=== PATIENT | male | born 1930 | race Caucasian/White ===

== ENCOUNTER 2017-05-05 20:51 | Inpatient (IN) | payer MEDICARE ==
[~2017-05-05] VITALS: Ht 177.8 cm; Wt 73.2 kg
[2017-05-05] MEDS: TEMAZEPAM 15 MG CAP PO SCH (21:00)
[2017-05-05] MEDS: SIMVASTATIN 40 MG TAB PO SCH (21:00)
[2017-05-05] MEDS ORDERED: SIMV80TA PO (21:21)
[2017-05-05] MEDS ORDERED: TEMA15CA2 PO (21:21)
[2017-05-05] MEDS ORDERED: METO25TA4 PO (21:21)
[2017-05-05] MEDS ORDERED: ELIQ5TAB PO (21:21)
[2017-05-05] MEDS ORDERED: LISI10TA4 PO (21:21)
[2017-05-05] MEDS ORDERED: ACET1TAB17 PO (21:21)
[2017-05-05] MEDS ORDERED: VITMTA PO (21:21)
[2017-05-05] MEDS ORDERED: FLOM5CAP PO (21:21)
[2017-05-05] MEDS ORDERED: HYDR10TAB PO (21:21)
[2017-05-05] MEDS ORDERED: LORA0.5T11 PO (21:21)
[2017-05-05] MEDS ORDERED: MIRA3350 PO (21:21)
[2017-05-05] MEDS ORDERED: ASPI1TAB PO (21:21)
[2017-05-05] MEDS ORDERED: COLA100C5 PO (21:21)
[2017-05-05 22:38] LABS: BASO # 0.1 10^3/uL (0.0-0.2); BASO % 0.7 % (0.0-1.0); EOS # 0.2 10^3/uL (0.0-0.50); EOS % 2.1 % (0.0-3.0); IMMATURE GRANULOCYTE % 0.5 % (0-0); LYMPH # 0.9 10^3/uL (1.5-4.5); LYMPH % 11.3 % (24.0-44.0); MEAN CORPUSCULAR HGB CONC 32.5 g/dl (32.0-36.5); MEAN CORPUSCULAR VOLUME 92.3 fl (80.0-96.0); MONO # 0.9 10^3/uL (0.0-0.8); MONO % 11.8 % (0.0-5.0); NEUTROPHILS # 5.5 10^3/uL (1.8-7.7); NEUTROPHILS % 73.6 % (36.0-66.0); PLATELET COUNT, AUTOMATED 416 10^3/uL (150-450); RED CELL DISTRIBUTION WIDTH 13.3 % (11.5-14.5); WHITE BLOOD COUNT 7.5 10^3/uL (4.0-10.0)
[2017-05-05 22:48] LABS: INR 1.14
--- NOTE | 2017-05-05 23:10 | REPUSA ---
CT of the abdomen and pelvis without contrast Clinical statement: hematuria. Technique: Multiple axial CT images were obtained from the base of the lungs to the floor of the pelv is utilizing 5 mm axial slices without administration of contrast. Coronal and sagittal reconstructio ns were also obtained. No comparison is available. Findings: Chest: There is a small right-sided pleural effusion with right lower lobe atelectasis. 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 There is no evidence of hydronephrosis or nephrolit hiasis. The liver, spleen, pancreas, gallbladder and adrenal glands are unremarkable. The aorta demon strates extensive atherosclerotic calcifications, with normal caliber and contour. There is no abdomi nal lymphadenopathy or ascites. Pelvis: Moderate amount of stool fills the colon. The bowel is otherwise unremarkable, with no obstru ctive or inflammatory changes. The urinary bladder is within normal limits. There is no pelvic lympha denopathy or ascites. The prostate is enlarged measuring 4.9 x 5.7 cm. Bones: There are no suspicious osseous abnormalities seen. Multilevel degenerative disc disease is ap preciated throughout the lumbar spine, most severe from L1 through L5. Impression: 1. Mild constipation. No obstructive or inflammatory bowel changes. 2. Small right-sided pleural effusion with right lower lobe atelectasis. 3. Horseshoe kidney. No evidence of hydronephrosis or nephrolithiasis. 4. Moderately severe atherosclerosis of aorta. No evidence of aneurysm. 5. 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
[2017-05-05 23:11] LABS: ALBUMIN 2.8 GM/DL (3.2-5.2); ALBUMIN/GLOBULIN RATIO 0.64 (1.00-1.93); ALKALINE PHOSPHATASE 97 U/L (45-117); ALT/SGPT 37 U/L (12-78); ANION GAP 6 MEQ/L (8-16); AST/SGOT 27 U/L (7-37); BILIRUBIN,DIRECT 0.1 MG/DL (0.0-0.2); BILIRUBIN,TOTAL 0.3 MG/DL (0.2-1.0); BLOOD UREA NITROGEN 17 MG/DL (7-18); CALCIUM LEVEL 9.1 MG/DL (8.8-10.2); CARBON DIOXIDE LEVEL 31 MEQ/L (21-32); CHLORIDE LEVEL 100 MEQ/L (98-107); CREATININE FOR GFR 0.71 MG/DL (0.70-1.30); GLOMERULAR FILTRATION RATE > 60.0 (>35); GLUCOSE, FASTING 108 MG/DL (83-110); POTASSIUM SERUM 4.3 MEQ/L (3.5-5.1); SODIUM LEVEL 137 MEQ/L (136-145); TOTAL PROTEIN 7.2 GM/DL (6.4-8.2)
[2017-05-06] MEDS ORDERED: CIPROFLOXACIN 400 MG in APPROPRIATE DILUENT 1 EA IV ONE ×2
[2017-05-06] MEDS ORDERED: MORPHINE 2 MG/ML 1ML SYRINGE IV ONE
[2017-05-06] MEDS ORDERED: MIRA33504 PO (00:12)
[2017-05-06] MEDS ORDERED: DOCU5LIQ PO (00:12)
[2017-05-06] MEDS ORDERED: METOPROLOL TART 25 MG TABLET PO ONE (00:30)
[2017-05-06] MEDS ORDERED: LORazepam 2 MG/ML VIAL (J2060) IV STA (01:02)
[2017-05-06] MEDS ORDERED: MORPHINE 2 MG/ML 1ML SYRINGE IV PRN (01:15)
[2017-05-06] MEDS ORDERED: MIRALAX *UNIT DOSE* 17GM PACKET PO PRN (01:15)
--- NOTE | 2017-05-06 02:17 | HPE ---
DATE OF ADMISSION: 05/05/2017 The patient, Robbie Dailey, is an 87-year-old male. Patient comes in with a chief complaint of irritability and feeling unwell with blood in his diaper. HISTORY OF PRESENT ILLNESS: Patient is an 87-year-old male, previous medical history of very severe CVA in January of 2017. Patient was initially in rehabilitation in [place]. Patient's daughter received a phone call on Sunday from the rehabilitation facility in [place] telling her she had to come home and take her father as the insurance is not going to cover because he has ceased to progress in his therapy. Daughter brought her father here to [place] on Sunday. Patient thereafter began to become a little bit more irritable and uncomfortable. Then patient's employment law attorney and family noticed blood in the diaper and they brought him into the emergency department (ED). While here, patient was found to have bloody urine and urinary tract infection (UTI). Patient to be admitted to the medical service. REVIEW OF SYSTEMS: Patient is unable to complete review of systems as patient is, for the most part, noncommunicative. Patient's home medications include: - acetaminophen - aspirin - hydralazine - lisinopril - lorazepam - metoprolol - multivitamins - MiraLAX - simvastatin - tamsulosin - Restoril Patient does not yet have a primary medical doctor (PMD) in [place] as patient moved up only on Sunday right before the . PHYSICAL EXAMINATION: Patient resting uncomfortably. Patient unable to answer questions and follow directions for cranial nerve exam and patient's orientation. S1, S2, patient with good respiratory effort. ALLERGIES: Patient with no known allergies. FAMILY HISTORY: Noncontributory. LABORATORY EXAMINATION: WBC 7.5, hemoglobin and hematocrit 13.2/40.6, platelet count is 416. Coagulation: PT is 14.8, INR 1.14, aPTT is 35.5. Chemistry: Sodium is 137, potassium 4.3, chloride 100, carbon dioxide 31, BUN/creatinine 17/0.71, fasting glucose 108, calcium 9.1. Liver enzymes within normal limits. Urinalysis: Urine color is red grossly, WBCs are too many to count, positive leukocyte esterase and positive for blood consistent with UTI. IMAGING: Abdominal, pelvic CT: Mild constipation. No obstructive or inflammatory bowel changes. Small right-sided pleural effusion with right lower lobe atelectasis, horseshoe kidney. No evidence of hydronephrosis, nephrolithiasis. Moderately severe atherosclerosis of aorta. No evidence of aneurysm. 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 ASSESSMENT AND PLAN: Patient is an 87-year-old male with significant history of recent stroke and other history as noted above. Will hold patient's anticoagulation given the gross hematuria at this time. Continue patient's statins and beta blockers for his coronary artery disease and hypertension as needed. Continue other home hypertensive medications. Patient reacting poorly to ciprofloxacin. Intravenous (IV) stopped. Will change to IV Zosyn. Urinary tract infection (UTI). Antibiotics as noted above. IV fluids. Constipation. Continue home treatments as needed. Hematuria. IV antibiotics. Three-way Rivera to be placed. Will monitor intake and output (I and O). Possible obstructive uropathy versus other cause. Urology to be contacted when further information becomes available. Deep venous thrombosis (DVT) prophylaxis. As noted patient's apixaban is being held given the gross hematuria. Followup complete blood count (CBC) in the morning. If decreased significantly over the next 5 hours, then would increase the frequency of CBCs to every six. Anxiety and irritability. Continue patient's home lorazepam. Discomfort and pain. Continue home acetaminophen plus morphine starting low dose 1 mg every six. May increase as needed. Given the patient's need for IV antibiotics plus current active bleeding, I expect admission to be greater than two midnights. DVT prophylaxis with intermittent pneumatic compression. Gastrointestinal (GI) prophylaxis with proton pump inhibitor (PPI).
[2017-05-06] MEDS: **hydrALAZINE** 10 MG TAB PO SCH ×4 (02:25→17:00)
[2017-05-06] MEDS ORDERED: PIPERACILLIN/TAZOBACTAM SOD 3.375 GM in APPROPRIATE DILUENT 1 EA IV SCH (03:00)
[2017-05-06 04:00] VITALS: BP 150/82
[2017-05-06] MEDS: PIPERACILLIN/TAZOBACTAM SOD 3.375 GM in APPROPRIATE DILUENT 1 EA IV SCH ×3 (05:07→17:01)
[2017-05-06 06:00] VITALS: BP 168/87
[2017-05-06] MEDS: LORazepam 0.5 MG TAB PO SCH ×3 (06:02→21:30)
[2017-05-06 07:11] LABS: ALBUMIN 2.6 GM/DL (3.2-5.2); ALBUMIN/GLOBULIN RATIO 0.67 (1.00-1.93); ALKALINE PHOSPHATASE 81 U/L (45-117); ALT/SGPT 30 U/L (12-78); ANION GAP 9 MEQ/L (8-16); AST/SGOT 20 U/L (7-37); BILIRUBIN,TOTAL 0.4 MG/DL (0.2-1.0); BLOOD UREA NITROGEN 13 MG/DL (7-18); CALCIUM LEVEL 9.1 MG/DL (8.8-10.2); CARBON DIOXIDE LEVEL 27 MEQ/L (21-32); CHLORIDE LEVEL 102 MEQ/L (98-107); CREATININE FOR GFR 0.61 MG/DL (0.70-1.30); GLOMERULAR FILTRATION RATE > 60.0 (>35); GLUCOSE, FASTING 103 MG/DL (83-110); POTASSIUM SERUM 4.2 MEQ/L (3.5-5.1); SODIUM LEVEL 138 MEQ/L (136-145); TOTAL PROTEIN 6.5 GM/DL (6.4-8.2)
[2017-05-06] MEDS: DOCUSATE SOD LIQ 100MG/10ML UDC PO SCH ×2 (08:06→21:30)
[2017-05-06] MEDS: PANTOPRAZOLE 40MG TAB (PROTONIX) PO SCH (08:06)
[2017-05-06] MEDS: MULTIVITAMINS/MINERALS THERAP 1 TAB PO SCH (08:06)
[2017-05-06] MEDS: METOPROLOL TART 25 MG TABLET PO SCH ×2 (08:07→21:30)
[2017-05-06] MEDS: ASPIRIN 81 MG ENTERIC TAB PO SCH (08:07)
[2017-05-06] MEDS: TAMSULOSIN 0.4 MG CAP PO SCH (08:07)
[2017-05-06] MEDS: LISINOPRIL 10 MG TAB PO SCH (08:08)
[2017-05-06 08:14] LABS: BASO % 0.5 % (0.0-1.0); EOS # 0.2 10^3/uL (0.0-0.50); EOS % 2.7 % (0.0-3.0); IMMATURE GRANULOCYTE % 0.7 % (0-0); LYMPH % 11.7 % (24.0-44.0); MEAN CORPUSCULAR HEMOGLOBIN 29.9 pg (27.0-33.0); MEAN CORPUSCULAR HGB CONC 32.4 g/dl (32.0-36.5); MEAN CORPUSCULAR VOLUME 92.3 fl (80.0-96.0); MONO # 1.2 10^3/uL (0.0-0.8); MONO % 14.7 % (0.0-5.0); NEUTROPHILS # 5.7 10^3/uL (1.8-7.7); NEUTROPHILS % 69.7 % (36.0-66.0); PLATELET COUNT, AUTOMATED 352 10^3/uL (150-450); RED CELL DISTRIBUTION WIDTH 13.3 % (11.5-14.5); WHITE BLOOD COUNT 8.2 10^3/uL (4.0-10.0)
[2017-05-06 14:00] VITALS: BP 130/84
--- NOTE | 2017-05-06 16:22 | IPNPDOC ---
Text Note Date of Service The patient was seen on 05/06/17. 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 At home patient's caregiver noted that he had hematuria and a passed clot. He was brought into the ER where he was found to have a UTI and admitted to the hospitalist service. Patient was seen and examined at the bedside. He remains non-verbal, but appears comfortable. live in caregiver is present at bedside. Objective: Vitals (See below) General: Lying in bed, no acute distress, comfortable, awake + alert HEENT: NC, AT CVS: RRR, +S1S2 Lungs: Fair air entry b/l, no appreciable wheezing / crackles Abdomen: Soft, ND, NT Extremities: - Edema, - Calf tenderness Assessment and plan: Hematuria - possibly 2/2 Urinary tract infection - Failed outpatient ciprofloxacin - Presented from home after he had an episode of hematuria and a past clot - Physical without any pertinent findings - No leukocytosis; Urinalysis consistent with hematuria and infection - Blood cultures and urine cultures 05/05: Remain pending - CT abdomen / pelvis w/o contrast 05/05: Mild constipation, small right-sided pleural effusion with RLL atelectasis, shoe kidney without evidence hydronephrosis / nephrolithiasis, moderate severe atherosclerosis of aorta, moderately severe spondylosis - c/w Zosyn (Day #1) - Case discussed with Urology (Dr. Man); will be on consult Severe ischemic CVA (01/2017) - non-verbal - c/w ASA 81 and Simvastatin HTN - c/w Metoprolol and Lisinopril with holding parameters DLP - c/w Simvastatin Atrial fibrillation - c/w rate control with metoprolol - Has been on full anticoagulation with Eliquis - Will hold at this time given Hematuria Anxiety - c/w Lorazepam BPH - c/w Tamsulosin Constipation - c/w bowel care regimen GI prophylaxis - c/w Protonix DVT prophylaxis - c/w SCDs VS,Fishbone, I+O VS, Fishbone, I+O Laboratory Tests 05/05/17 22:31 Red Blood Count 4.40, Mean Corpuscular Volume 92.3, Mean Corpuscular Hemoglobin 30.0, Mean Corpuscular Hemoglobin Concent 32.5, Red Cell Distribution Width 13.3 , Neutrophils (%) (Auto) 73.6 H, Lymphocytes (%) (Auto) 11.3 L, Monocytes (%) ( Auto) 11.8 H, Eosinophils (%) (Auto) 2.1, Basophils (%) (Auto) 0.7, Neutrophils # (Auto) 5.5, Lymphocytes # (Auto) 0.9 L, Monocytes # (Auto) 0.9 H, Eosinophils # (Auto) 0.2, Basophils # (Auto) 0.1 05/06/17 06:18 Red Blood Count 4.05 L, Mean Corpuscular Volume 92.3, Mean Corpuscular Hemoglobin 29.9, Mean Corpuscular Hemoglobin Concent 32.4, Red Cell Distribution Width 13.3, Neutrophils (%) (Auto) 69.7 H, Lymphocytes (%) (Auto) 11.7 L, Monocytes (%) (Auto) 14.7 H, Eosinophils (%) (Auto) 2.7, Basophils (%) ( Auto) 0.5, Neutrophils # (Auto) 5.7, Lymphocytes # (Auto) 1.0 L, Monocytes # ( Auto) 1.2 H, Eosinophils # (Auto) 0.2, Basophils # (Auto) 0.0 05/06/17 06:24 Calcium Level 9.1, Aspartate Amino Transf (AST/SGOT) 20, Alanine Aminotransferase (ALT/SGPT) 30, Alkaline Phosphatase 81, Total Bilirubin 0.4, Total Protein 6.5, Albumin 2.6 L Vital Signs Date Time Temp Pulse Resp B/P (MAP) Pulse Ox O2 Delivery O2 Flow Rate FiO2 05/06/17 14:00 99.0 103 20 130/84 (99) 96 Room Air I&O- Last 24 Hours up to 6 AM 05/07/17 06:00 Intake Total 840 ml Output Total 1550 ml Balance -710 ml YOSELIN GOLD MD May 06, 2017 16:22
--- NOTE | 2017-05-06 16:56 | SMCUROLCON ---
Urology Consultation General Date of Consultation 05/06/17 Reason For Consultation This patient is seen for Acute Cystitis With Hematuria. History of Present Illness The patient is a 87-year-old M I was asked to see for gross hematuria. Patient has history of multiple strokes and initially in Rehab facility in [place]. He was then brought home and was found to have blood in his diaper. The patient voids spontaneously at baseline. In the ER, a 3 way gonzales catheter was placed and he was started on CBI. He had a positive UA and is currently being treated with IV Zosyn. His Urine culture is still pending. No prior history accroding to family. He was on anticoagulation for stroke hx but was stopped given gross hematuria. Urine is currently very light pink on slow drip CBI Past Medical History Medical History CVA, BPH, HTN Family History Family History No related issues Social History Social History Unable to obtain, patient non verbal Medications Current Medications Current Medications Acetaminophen (Tylenol Tab) 325 mg Q6H PRN PO PAIN OR FEVER; Start 05/06/17 at 01:15; Stop 06/05/17 at 01:14 Aspirin (Ecotrin) 81 mg DAILY PO Last administered on 05/06/17 08:07; Start 05/06/17 at 09:00; Stop 06/05/17 at 08:59 Docusate Sodium (Colace Liquid) 100 mg BID PO Last administered on 05/06/17 08:06; Start 05/06/17 at 09:00; Stop 06/05/17 at 08:59 Home Med (Med Rec Complete!) ASDIRECTED XX ; Start 05/06/17 at 00:15; Stop at 00:16; Status DC Hydralazine HCl (Apresoline) 10 mg Q6H PO Last administered on 05/06/17 12:10 ; Start 05/06/17 at 00:00; Stop 06/05/17 at 00:00 Lisinopril (Prinivil) 10 mg DAILY PO Last administered on 05/06/17 08:08; Start 05/06/17 at 09:00; Stop 06/05/17 at 08:59 Lorazepam (Ativan) 0.5 mg Q8H PO Last administered on 05/06/17 12:10; Start 05/06/17 at 06:00; Stop 05/13/17 at 05:59 Lorazepam (Ativan) 1 mg STAT STAT IV Last administered on 05/06/17 01:02; Start 05/06/17 at 01:02; Stop 05/06/17 at 01:04; Status DC Metoprolol Tartrate (Lopressor) 25 mg BID PO Last administered on 05/06/17 08 :07; Start 05/06/17 at 09:00; Stop 06/05/17 at 08:59 Morphine Sulfate (Morphine Sulfate Inj) 1 mg Q6HP PRN IV SEVERE PAIN (PS 8-10) ; Start 05/06/17 at 01:15; Stop 05/13/17 at 01:14 Multivitamins (Theragram-M) 1 tab DAILY PO Last administered on 05/06/17 08: 06; Start 05/06/17 at 09:00; Stop 06/05/17 at 08:59 Pantoprazole Sodium (Protonix) 40 mg DAILY PO Last administered on 05/06/17 08:06; Start 05/06/17 at 09:00; Stop 06/05/17 at 08:59 Piperacillin Sod/ Tazobactam Sod 3.375 gm/IV Miscellaneous Supplies 30 ml @ 30 mls/hr Q6H IV ; Start 05/06/17 at 03:00; Stop 05/06/17 at 04:12; Status DC Piperacillin Sod/ Tazobactam Sod 3.375 gm/IV Miscellaneous Supplies 30 ml @ 30 mls/hr Q6H IV Last administered on 05/06/17 12:11; Start 05/06/17 at 06:00; Stop 05/13/17 at 05:59 Polyethylene Glycol (Miralax) 1 pkt DAILY PRN PO CONSTIPATION; Start 05/06/17 at 01:15; Stop 06/05/17 at 01:14 Simvastatin (Zocor) 80 mg QHS PO ; Start 05/05/17 at 21:00; Stop 06/04/17 at 20:59 Tamsulosin HCl (Flomax) 0.4 mg DAILY PO Last administered on 05/06/17 08:07; Start 05/06/17 at 09:00; Stop 06/05/17 at 08:59 Temazepam (Restoril) 15 mg QHS PO ; Start 05/05/17 at 21:00; Stop 05/12/17 at 20:59 Allergies Allergies: Coded Allergies: No Known Allergies (Unverified , 05/05/17) Review of Systems General: Reports: ROS Unobtainable (Paient is non verbal ) Physical Examination General Exam: Mild Distress ENT EXAM: Atraumatic Heart Exam: Rate Normal Abdomen Exam: Soft Male Exam: Normal Genital Exam, Lesions, Edema, Erythema, Tenderness, Discharge, Mass, Hernia, Normal Prostate, Normal Sphincter Tone Male Exam [address] 18fr [address] in place, urine very light pink on slow drip CBI Vital Signs/I&O Vital Signs Date Time Temp Pulse Resp B/P (MAP) Pulse Ox O2 Delivery O2 Flow Rate FiO2 05/06/17 14:00 99.0 103 20 130/84 (99) 96 Room Air I&O- Last 24 Hours up to 6 AM 05/07/17 06:00 Intake Total 840 ml Output Total 1550 ml Balance -710 ml Laboratory Data 24H Labs Laboratory Tests 2 05/05/17 22:17: Urine Appearance CLOUDYH, Urine Color REDH, Urine pH 6.0, Urine Specific [place] 1.021, Urine Protein 2+H, Urine Glucose (UA) NEGATIVE, Urine Ketones NEGATIVE, Urine Urobilinogen 0.2, Urine Bilirubin NEGATIVE, Urine Leukocyte Esterase 3+H, Urine Blood 3+H, Urine Nitrite NEGATIVE, Urine WBC (Auto) TNTCH, Urine RBC (Auto) TNTCH, Urine Hyaline Casts (Auto) 0, Urine Bacteria (Auto) 1+H , Urine Squamous Epithelial Cells 0, Urine Mucus (Auto) SMALL, Urine Sperm (Auto ) 05/05/17 22:31: Immature Granulocyte % (Auto) 0.5H, White Blood Count 7.5, Red Blood Count 4.40 , Hemoglobin 13.2L, Hematocrit 40.6L, Mean Corpuscular Volume 92.3, Mean Corpuscular Hemoglobin 30.0, Mean Corpuscular Hemoglobin Concent 32.5, Red Cell Distribution Width 13.3, Platelet Count 416, Neutrophils (%) (Auto) 73.6H, Lymphocytes (%) (Auto) 11.3L, Monocytes (%) (Auto) 11.8H, Eosinophils (%) (Auto ) 2.1, Basophils (%) (Auto) 0.7, Neutrophils # (Auto) 5.5, Lymphocytes # (Auto) 0.9L, Monocytes # (Auto) 0.9H, Eosinophils # (Auto) 0.2, Basophils # (Auto) 0.1 , Immature Granulocyte # (Auto) 0.0, Nucleated Red Blood Cells % (auto) 0.0, Prothrombin Time 14.8H, Prothromb Time International Ratio 1.14, Activated Partial Thromboplast Time 35.5, Anion Gap 6L, Glomerular Filtration Rate > 60.0 , Calcium Level 9.1, Aspartate Amino Transf (AST/SGOT) 27, Alanine Aminotransferase (ALT/SGPT) 37, Alkaline Phosphatase 97, Total Bilirubin 0.3, Direct Bilirubin 0.1, Total Creatine Kinase 59, Creatine Kinase MB 1.7, Creatine Kinase MB Relative Index 2.88, Troponin I 0.07, Total Protein 7.2, Albumin 2.8L, Albumin/Globulin Ratio 0.64L, Lipase 313 05/06/17 06:18: Immature Granulocyte % (Auto) 0.7H, White Blood Count 8.2, Red Blood Count 4.05L , Hemoglobin 12.1L, Hematocrit 37.4L, Mean Corpuscular Volume 92.3, Mean Corpuscular Hemoglobin 29.9, Mean Corpuscular Hemoglobin Concent 32.4, Red Cell Distribution Width 13.3, Platelet Count 352, Neutrophils (%) (Auto) 69.7H, Lymphocytes (%) (Auto) 11.7L, Monocytes (%) (Auto) 14.7H, Eosinophils (%) (Auto ) 2.7, Basophils (%) (Auto) 0.5, Neutrophils # (Auto) 5.7, Lymphocytes # (Auto) 1.0L, Monocytes # (Auto) 1.2H, Eosinophils # (Auto) 0.2, Basophils # (Auto) 0.0 , Immature Granulocyte # (Auto) 0.1H, Nucleated Red Blood Cells % (auto) 0.0 05/06/17 06:24: Anion Gap 9, Glomerular Filtration Rate > 60.0, Calcium Level 9.1, Aspartate Amino Transf (AST/SGOT) 20, Alanine Aminotransferase (ALT/SGPT) 30, Alkaline Phosphatase 81, Total Bilirubin 0.4, Total Protein 6.5, Albumin 2.6L, Albumin/ Globulin Ratio 0.67L, Blood Urea Nitrogen 13, Creatinine 0.61L, Sodium Level 138 , Potassium Level 4.2, Chloride Level 102, Carbon Dioxide Level 27 CBC/BMP Laboratory Tests 05/05/17 22:31 Red Blood Count 4.40, Mean Corpuscular Volume 92.3, Mean Corpuscular Hemoglobin 30.0, Mean Corpuscular Hemoglobin Concent 32.5, Red Cell Distribution Width 13.3 , Neutrophils (%) (Auto) 73.6 H, Lymphocytes (%) (Auto) 11.3 L, Monocytes (%) ( Auto) 11.8 H, Eosinophils (%) (Auto) 2.1, Basophils (%) (Auto) 0.7, Neutrophils # (Auto) 5.5, Lymphocytes # (Auto) 0.9 L, Monocytes # (Auto) 0.9 H, Eosinophils # (Auto) 0.2, Basophils # (Auto) 0.1 05/06/17 06:18 Red Blood Count 4.05 L, Mean Corpuscular Volume 92.3, Mean Corpuscular Hemoglobin 29.9, Mean Corpuscular Hemoglobin Concent 32.4, Red Cell Distribution Width 13.3, Neutrophils (%) (Auto) 69.7 H, Lymphocytes (%) (Auto) 11.7 L, Monocytes (%) (Auto) 14.7 H, Eosinophils (%) (Auto) 2.7, Basophils (%) ( Auto) 0.5, Neutrophils # (Auto) 5.7, Lymphocytes # (Auto) 1.0 L, Monocytes # ( Auto) 1.2 H, Eosinophils # (Auto) 0.2, Basophils # (Auto) 0.0 05/06/17 06:24 Calcium Level 9.1, Aspartate Amino Transf (AST/SGOT) 20, Alanine Aminotransferase (ALT/SGPT) 30, Alkaline Phosphatase 81, Total Bilirubin 0.4, Total Protein 6.5, Albumin 2.6 L Microbiology Microbiology 05/05/17 Blood Culture, Received Pending 05/05/17 Blood Culture, Received Pending 05/05/17 Urine Culture, Received Pending Assessment 87 year old M with hx of CVA with gross hematuria likely secondary to cystitis Plan 1. Continue IV Zosyn, await Urine culture results for culture specific antibiotics 2. Continue to wean CBI, currently very light pink on slow CBI 3. Close monitoring so patient does not pull on gonzales 4. CT non contrast with no related abnormalities- obtain CT Urogram when medically able 5. Can restart anticoagulation once hematuria resolves 6. Will need outpatient cystoscopy Call with questions MD YASMINE Mares MICHAEL J. M.D. May 06, 2017 16:46
[2017-05-06] MEDS: ACETAMINOPHEN 325 MG TAB PO PRN (17:00)
[2017-05-06] MEDS: TEMAZEPAM 15 MG CAP PO SCH (21:30)
[2017-05-06] MEDS: SIMVASTATIN 40 MG TAB PO SCH (21:30)
[2017-05-06 22:00] VITALS: BP 125/66
[2017-05-07] MEDS: **hydrALAZINE** 10 MG TAB PO SCH ×5 (00:25→17:44)
[2017-05-07] MEDS: PIPERACILLIN/TAZOBACTAM SOD 3.375 GM in APPROPRIATE DILUENT 1 EA IV SCH ×4 (00:25→17:43)
[2017-05-07] MEDS: LORazepam 0.5 MG TAB PO SCH ×3 (05:37→20:57)
[2017-05-07 06:00] VITALS: BP 135/65
[2017-05-07 07:26] LABS: BASO % 0.5 % (0.0-1.0); EOS # 0.2 10^3/uL (0.0-0.50); EOS % 2.6 % (0.0-3.0); IMMATURE GRANULOCYTE % 0.6 % (0-0); LYMPH % 13.3 % (24.0-44.0); MEAN CORPUSCULAR HEMOGLOBIN 30.3 pg (27.0-33.0); MEAN CORPUSCULAR HGB CONC 33.1 g/dl (32.0-36.5); MEAN CORPUSCULAR VOLUME 91.4 fl (80.0-96.0); MONO # 1.1 10^3/uL (0.0-0.8); MONO % 13.8 % (0.0-5.0); NEUTROPHILS # 5.4 10^3/uL (1.8-7.7); NEUTROPHILS % 69.2 % (36.0-66.0); PLATELET COUNT, AUTOMATED 388 10^3/uL (150-450); RED CELL DISTRIBUTION WIDTH 13.4 % (11.5-14.5); WHITE BLOOD COUNT 7.8 10^3/uL (4.0-10.0)
[2017-05-07 07:30] LABS: ALBUMIN 2.3 GM/DL (3.2-5.2); ALBUMIN/GLOBULIN RATIO 0.55 (1.00-1.93); ALKALINE PHOSPHATASE 72 U/L (45-117); ALT/SGPT 25 U/L (12-78); ANION GAP 8 MEQ/L (8-16); AST/SGOT 18 U/L (7-37); BILIRUBIN,TOTAL 0.3 MG/DL (0.2-1.0); BLOOD UREA NITROGEN 13 MG/DL (7-18); CALCIUM LEVEL 8.7 MG/DL (8.8-10.2); CARBON DIOXIDE LEVEL 27 MEQ/L (21-32); CHLORIDE LEVEL 105 MEQ/L (98-107); CREATININE FOR GFR 0.76 MG/DL (0.70-1.30); GLOMERULAR FILTRATION RATE > 60.0 (>35); GLUCOSE, FASTING 113 MG/DL (83-110); POTASSIUM SERUM 3.8 MEQ/L (3.5-5.1); SODIUM LEVEL 140 MEQ/L (136-145); TOTAL PROTEIN 6.5 GM/DL (6.4-8.2)
[2017-05-07 08:00] VITALS: BP 137/74
[2017-05-07] MEDS: APIXABAN 5 MG TAB (ELIQUIS) PO SCH ×2 (10:50→20:57)
[2017-05-07] MEDS: MULTIVITAMINS/MINERALS THERAP 1 TAB PO SCH (10:50)
[2017-05-07] MEDS: PANTOPRAZOLE 40MG TAB (PROTONIX) PO SCH (10:50)
[2017-05-07] MEDS: LISINOPRIL 10 MG TAB PO SCH (10:50)
[2017-05-07] MEDS: ASPIRIN 81 MG ENTERIC TAB PO SCH (10:51)
[2017-05-07] MEDS: TAMSULOSIN 0.4 MG CAP PO SCH (10:51)
[2017-05-07] MEDS: DOCUSATE SOD LIQ 100MG/10ML UDC PO SCH ×2 (10:51→20:57)
[2017-05-07] MEDS: METOPROLOL TART 25 MG TABLET PO SCH ×2 (10:51→20:57)
[2017-05-07 14:00] VITALS: BP_SYST 129; BP_SYST 133; BP_DIAS 69; BP_DIAS 78
--- NOTE | 2017-05-07 15:53 | IPNPDOC ---
Text Note Date of Service The patient was seen on 05/07/17. 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 At home patient's caregiver noted that he had hematuria and a passed clot. He was brought into the ER where he was found to have a UTI and admitted to the hospitalist service. Patient was seen and examined at the bedside. Patient remains nonverbal but appears comfortable and awake in bed. His caregiver is not at the bedside Objective: Vitals (See below) General: Lying in bed, no acute distress, comfortable, awake + alert HEENT: NC, AT CVS: RRR, +S1S2 Lungs: Fair air entry b/l, no appreciable wheezing / crackles Abdomen: Soft, ND, NT Extremities: - Edema, - Calf tenderness Assessment and plan: s/p Hematuria - possibly 2/2 Urinary tract infection - Failed outpatient ciprofloxacin - Presented from home after he had an episode of hematuria and a past clot - Output from Rivera catheter appears very clear at this point - No leukocytosis; Urinalysis consistent with hematuria and infection - Blood cultures and urine cultures 05/05: Remain pending - CT abdomen / pelvis w/o contrast 05/05: Mild constipation, small right-sided pleural effusion with RLL atelectasis, shoe kidney without evidence hydronephrosis / nephrolithiasis, moderate severe atherosclerosis of aorta, moderately severe spondylosis - c/w Zosyn (Day #2) - Case discussed with Urology (Dr. Man); will be on consult - Will restart Eliquis BID today Severe ischemic CVA (01/2017) - non-verbal - c/w ASA 81 and Simvastatin HTN - c/w Metoprolol and Lisinopril with holding parameters DLP - c/w Simvastatin Atrial fibrillation - c/w rate control with metoprolol - Will restart full anticoagulation with Eliquis Anxiety - c/w Lorazepam BPH - c/w Tamsulosin Constipation - c/w bowel care regimen GI prophylaxis - c/w Protonix DVT prophylaxis - On full anticoagulation with Eliquis VS,Fishbone, I+O VS, Fishbone, I+O Laboratory Tests 05/07/17 06:17 Red Blood Count 3.83 L, Mean Corpuscular Volume 91.4, Mean Corpuscular Hemoglobin 30.3, Mean Corpuscular Hemoglobin Concent 33.1, Red Cell Distribution Width 13.4, Neutrophils (%) (Auto) 69.2 H, Lymphocytes (%) (Auto) 13.3 L, Monocytes (%) (Auto) 13.8 H, Eosinophils (%) (Auto) 2.6, Basophils (%) ( Auto) 0.5, Neutrophils # (Auto) 5.4, Lymphocytes # (Auto) 1.0 L, Monocytes # ( Auto) 1.1 H, Eosinophils # (Auto) 0.2, Basophils # (Auto) 0.0 05/07/17 06:19 Calcium Level 8.7 L, Aspartate Amino Transf (AST/SGOT) 18, Alanine Aminotransferase (ALT/SGPT) 25, Alkaline Phosphatase 72, Total Bilirubin 0.3, Total Protein 6.5, Albumin 2.3 L Vital Signs Date Time Temp Pulse Resp B/P (MAP) Pulse Ox O2 Delivery O2 Flow Rate FiO2 05/07/17 14:00 99.1 89 18 129/78 (95) 95 Room Air I&O- Last 24 Hours up to 6 AM 05/08/17 06:00 Intake Total 420 ml Output Total 30 ml Balance 390 ml YOSELIN GOLD MD May 07, 2017 15:53
[2017-05-07] MEDS: SIMVASTATIN 40 MG TAB PO SCH (20:56)
[2017-05-07] MEDS: ACETAMINOPHEN 325 MG TAB PO PRN (20:57)
[2017-05-07] MEDS: TEMAZEPAM 15 MG CAP PO SCH (20:57)
--- NOTE | 2017-05-07 21:39 | IPNPDOC ---
Assessment/Plan Date Seen The patient was seen on 05/07/17. Patient Summary This is an 87 y/o M admitted w/ gross hematuria likely due to a UTI. His hematuria has resolved. Will stop CBI at this time. Plan for CT urogram prior to discharge and cystoscopy as an outpatient. Plan/VTE VTE Prophylaxis Ordered?: Yes VTE Exclusion Mechanical Proph: N/A:VTE Prophy Ordered Plan - stop CBI - d/c catheter in the morning and bladder scan to check residual after patient has voided - CT urogram ordered - continue empiric treatment for UTI and adjust based on cultures - will arrange for outpatient cystoscopy Subjective Review oF Systems Chief Complaint The patient is a 87-year-old male admitted with a reason for visit of Acute Cystitis With Hematuria. Events since Last Encounter No acute events o/n. Objective Physical Examination General Exam: No Acute Distress Other physical findings 3-way catheter in place w/ CBI on minimal drip and clear urine draining Vital Signs/I&O Vital Signs Date Time Temp Pulse Resp B/P (MAP) Pulse Ox O2 Delivery O2 Flow Rate FiO2 05/07/17 20:57 88 133/69 05/07/17 14:00 99.1 18 95 Room Air I&O- Last 24 Hours up to 6 AM 05/08/17 06:00 Intake Total 780 ml Output Total 330 ml Balance 450 ml Laboratory Data Labs 24H Laboratory Tests 2 05/07/17 06:17: Immature Granulocyte % (Auto) 0.6H, White Blood Count 7.8, Red Blood Count 3.83L , Hemoglobin 11.6L, Hematocrit 35.0L, Mean Corpuscular Volume 91.4, Mean Corpuscular Hemoglobin 30.3, Mean Corpuscular Hemoglobin Concent 33.1, Red Cell Distribution Width 13.4, Platelet Count 388, Neutrophils (%) (Auto) 69.2H, Lymphocytes (%) (Auto) 13.3L, Monocytes (%) (Auto) 13.8H, Eosinophils (%) (Auto ) 2.6, Basophils (%) (Auto) 0.5, Neutrophils # (Auto) 5.4, Lymphocytes # (Auto) 1.0L, Monocytes # (Auto) 1.1H, Eosinophils # (Auto) 0.2, Basophils # (Auto) 0.0 , Immature Granulocyte # (Auto) 0.1H, Nucleated Red Blood Cells % (auto) 0.0 05/07/17 06:19: Anion Gap 8, Glomerular Filtration Rate > 60.0, Blood Urea Nitrogen 13, Creatinine 0.76, Sodium Level 140, Potassium Level 3.8, Chloride Level 105, Carbon Dioxide Level 27, Calcium Level 8.7L, Aspartate Amino Transf (AST/SGOT) 18, Alanine Aminotransferase (ALT/SGPT) 25, Alkaline Phosphatase 72, Total Bilirubin 0.3, Total Protein 6.5, Albumin 2.3L, Albumin/Globulin Ratio 0.55L CBC/BMP Laboratory Tests 05/07/17 06:17 Red Blood Count 3.83 L, Mean Corpuscular Volume 91.4, Mean Corpuscular Hemoglobin 30.3, Mean Corpuscular Hemoglobin Concent 33.1, Red Cell Distribution Width 13.4, Neutrophils (%) (Auto) 69.2 H, Lymphocytes (%) (Auto) 13.3 L, Monocytes (%) (Auto) 13.8 H, Eosinophils (%) (Auto) 2.6, Basophils (%) ( Auto) 0.5, Neutrophils # (Auto) 5.4, Lymphocytes # (Auto) 1.0 L, Monocytes # ( Auto) 1.1 H, Eosinophils # (Auto) 0.2, Basophils # (Auto) 0.0 05/07/17 06:19 Calcium Level 8.7 L, Aspartate Amino Transf (AST/SGOT) 18, Alanine Aminotransferase (ALT/SGPT) 25, Alkaline Phosphatase 72, Total Bilirubin 0.3, Total Protein 6.5, Albumin 2.3 L Microbiology Microbiology 05/05/17 Blood Culture - Preliminary, Resulted No growth after 24 hours . All specim... 05/05/17 Blood Culture - Preliminary, Resulted No growth after 24 hours . All specim... 05/05/17 Urine Culture, Received Pending VINH WESLEY MD May 07, 2017 21:39
[2017-05-07 22:00] VITALS: BP 124/77
[2017-05-08] MEDS: PIPERACILLIN/TAZOBACTAM SOD 3.375 GM in APPROPRIATE DILUENT 1 EA IV SCH ×3 (00:16→11:47)
[2017-05-08] MEDS: **hydrALAZINE** 10 MG TAB PO SCH ×4 (00:17→17:23)
[2017-05-08] MEDS: LORazepam 0.5 MG TAB PO SCH ×3 (05:10→20:57)
[2017-05-08 06:00] VITALS: BP 121/75
[2017-05-08 07:44] LABS: BASO # 0.1 10^3/uL (0.0-0.2); BASO % 0.6 % (0.0-1.0); EOS # 0.2 10^3/uL (0.0-0.50); EOS % 2.6 % (0.0-3.0); IMMATURE GRANULOCYTE % 0.7 % (0-0); LYMPH % 10.9 % (24.0-44.0); MEAN CORPUSCULAR HEMOGLOBIN 30.3 pg (27.0-33.0); MEAN CORPUSCULAR HGB CONC 33.1 g/dl (32.0-36.5); MEAN CORPUSCULAR VOLUME 91.5 fl (80.0-96.0); MONO # 1.1 10^3/uL (0.0-0.8); MONO % 12.5 % (0.0-5.0); NEUTROPHILS # 6.4 10^3/uL (1.8-7.7); NEUTROPHILS % 72.7 % (36.0-66.0); PLATELET COUNT, AUTOMATED 404 10^3/uL (150-450); RED CELL DISTRIBUTION WIDTH 13.5 % (11.5-14.5); WHITE BLOOD COUNT 8.8 10^3/uL (4.0-10.0)
[2017-05-08 08:14] LABS: ALBUMIN 2.4 GM/DL (3.2-5.2); ALBUMIN/GLOBULIN RATIO 0.63 (1.00-1.93); ALKALINE PHOSPHATASE 69 U/L (45-117); ALT/SGPT 26 U/L (12-78); ANION GAP 9 MEQ/L (8-16); AST/SGOT 18 U/L (7-37); BILIRUBIN,TOTAL 0.4 MG/DL (0.2-1.0); BLOOD UREA NITROGEN 14 MG/DL (7-18); CALCIUM LEVEL 8.8 MG/DL (8.8-10.2); CARBON DIOXIDE LEVEL 25 MEQ/L (21-32); CHLORIDE LEVEL 105 MEQ/L (98-107); CREATININE FOR GFR 0.67 MG/DL (0.70-1.30); GLOMERULAR FILTRATION RATE > 60.0 (>35); GLUCOSE, FASTING 112 MG/DL (83-110); POTASSIUM SERUM 3.9 MEQ/L (3.5-5.1); SODIUM LEVEL 139 MEQ/L (136-145); TOTAL PROTEIN 6.2 GM/DL (6.4-8.2)
[2017-05-08] MEDS: LISINOPRIL 10 MG TAB PO SCH (08:55)
[2017-05-08] MEDS: MULTIVITAMINS/MINERALS THERAP 1 TAB PO SCH (08:55)
[2017-05-08] MEDS: PANTOPRAZOLE 40MG TAB (PROTONIX) PO SCH (08:55)
[2017-05-08] MEDS: TAMSULOSIN 0.4 MG CAP PO SCH (08:55)
[2017-05-08] MEDS: DOCUSATE SOD LIQ 100MG/10ML UDC PO SCH ×2 (08:55→20:56)
[2017-05-08] MEDS: APIXABAN 5 MG TAB (ELIQUIS) PO SCH ×2 (08:55→20:57)
[2017-05-08] MEDS: METOPROLOL TART 25 MG TABLET PO SCH ×2 (08:55→21:02)
[2017-05-08] MEDS: ASPIRIN 81 MG ENTERIC TAB PO SCH (08:55)
[2017-05-08] MEDS ORDERED: ISOVUE-370 76% 100ML VIAL (Q9967) As Ordered ONE (10:00)
[2017-05-08 11:46] VITALS: BP 130/93
--- NOTE | 2017-05-08 12:18 | REP ---
CT urogram: Without and with IV contrast. Without oral contrast. History: Gross hematuria. 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 CT contrast dose: 100 mL of intravenous Isovue 370. CT findings: Preliminary digital motor room controller radiograph shows a pacemaker in the heart. The patient was apparently unable to raise the right arm out of the field of view. Bowel gas pattern is unremarkable. On axial CT images the lung bases are essentially clear. The patient is status post aortic valve replacement. Pacemaker leads are seen in the right heart. The liver and the spleen are normal in size homogeneous in texture. No adrenal lesion is seen on either side. No pancreatic abnormality is noted. The gallbladder is unremarkable. The lower poles of the renal moiety are fused in the anterior midline in this patient with horseshoe kidney anomaly. There is some focal renal parenchymal cortical scarring in the mid left renal moiety posteriorly. No hydronephrosis is seen. No intrarenal calculus is seen. No renal mass lesion is observed. There is prominent vascular calcification. Diffuse thickening of the bladder wall is seen. No bladder mass lesion is identified. The prostate is moderately enlarged and contains a few dystrophic calcifications. Delayed images show the dome of the prostate elevating the bladder base but no bladder mass lesion. No filling defect is seen in the collecting system of the upper tracts on either side. Small and large intestinal bowel loops are unremarkable. No abdominal wall defect is seen. Bone window settings show no bony destructive lesion. Impression: 1. Horseshoe kidney anomaly. 2. No intrarenal calculus, mass or cyst. Mild focal cortical scarring on the left. 3. Enlarged prostate with diffuse bladder wall thickening. Signed by Roc Rodriguez MD 05/08/2017 04:16 P
[2017-05-08 14:00] VITALS: BP 126/73
--- NOTE | 2017-05-08 17:00 | IPN ---
DATE: 05/08/2017 SUBJECTIVE: The patient is nonverbal on my exam. He does not answer questions. He does not follow commands. He does wake up and look and track across the room. OBJECTIVE: VITAL SIGNS: Temperature 98.6, pulse 91, respiratory rate 16, blood pressure 121/75, oxygen saturation 95% on room air. GENERAL: He is a frail elderly, man lying flat in bed. He does not appear to be in any acute distress. HEENT: Cranial nerves II through XII intact. Extraocular movements are intact. Pupillary light reflexes are intact. He does not cooperative with other cranial nerve testing. CARDIOVASCULAR: S1, S2 appears regular. RESPIRATORY EXAM: Clear. ABDOMINAL EXAM: Benign. EXTREMITIES: No clubbing, cyanosis, or edema. GENITOURINARY (): There is a Rivera catheter in place. LABORATORY STUDIES: WBC 8.8, hemoglobin 11.8, platelet count 404. Chemistry panel sodium 139, potassium 3.9, chloride 105, bicarb 25, BUN 14, creatinine 0.6. Microbiology: Urine culture from 05/05 is positive for Group B Streptococcus (GBS) agalactia sensitive to cephalosporins. His blood culture from 05/05, two sets, are negative. IMAGING: The patient did have a repeat CT scan of the abdomen and pelvis that revealed a horseshoe kidney. Mild focal cortical scarring on the left kidney. Enlarged prostate with diffuse bladder wall thickening. ASSESSMENT/PLAN: This is an 87-year-old man with hematuria likely related secondary to urinary tract infection. PROBLEMS: 1. Hematuria. That has resolved. Urology's help has been greatly appreciated. Continuous bladder irrigation has been stopped as well. The Rivera catheter has been removed. He did reportedly pass clots and has been incontinent as per the nursing staff without significant post void residuals. The plan is for an outpatient cystoscopy. At this time, I will narrow the antibiotics spectrum from Zosyn to cefdinir which he can take 300 mg by mouth twice a day to complete a 14 day course. He does appear to be significantly improved and at his baseline at this time. 2. Severe ischemic cerebrovascular accident (CVA). The patient is nonverbal. He has reportedly said "wow" once. He is continued on aspirin and a statin as well as he has been restarted on his Eliquis. 3. Hypertension. Controlled with metoprolol, lisinopril and holding parameters. 4. Dyslipidemia. He is on simvastatin. 5. Atrial fibrillation. He is rate controlled on metoprolol. He is anticoagulated with Eliquis, which has been resumed. 6. Anxiety. He is on lorazepam. 7. Benign prostatic hypertrophy (BPH). He is on tamsulosin. 8. Constipation. He is on a bowel regimen. 9. Deep vein thrombosis (DVT) prophylaxis. He is therapeutic and is anticoagulated with Eliquis. 10. Hypertension. He is on hydralazine, temazepam, metoprolol, and lisinopril. DISPOSITION: He is bed bound at his baseline. Likely stable for discharge home within the next 24-48 hours.
[2017-05-08] MEDS: SIMVASTATIN 40 MG TAB PO SCH (20:57)
[2017-05-08] MEDS: CEFDINIR 300 MG CAP (OMNICEF) PO SCH (20:57)
[2017-05-08] MEDS: TEMAZEPAM 15 MG CAP PO SCH (20:57)
[2017-05-08] MEDS: ACETAMINOPHEN 325 MG TAB PO PRN (20:58)
[2017-05-08 22:00] VITALS: BP 126/69
[2017-05-09] MEDS: **hydrALAZINE** 10 MG TAB PO SCH ×3 (00:24→13:17)
[2017-05-09] MEDS: LORazepam 0.5 MG TAB PO SCH ×2 (05:48→13:17)
[2017-05-09 06:00] VITALS: BP 129/73
[2017-05-09 07:06] LABS: ALBUMIN 2.4 GM/DL (3.2-5.2); ALBUMIN/GLOBULIN RATIO 0.51 (1.00-1.93); ALKALINE PHOSPHATASE 65 U/L (45-117); ALT/SGPT 25 U/L (12-78); ANION GAP 7 MEQ/L (8-16); AST/SGOT 19 U/L (7-37); BILIRUBIN,TOTAL 0.3 MG/DL (0.2-1.0); BLOOD UREA NITROGEN 13 MG/DL (7-18); CALCIUM LEVEL 8.9 MG/DL (8.8-10.2); CARBON DIOXIDE LEVEL 27 MEQ/L (21-32); CHLORIDE LEVEL 105 MEQ/L (98-107); GLOMERULAR FILTRATION RATE > 60.0 (>35); GLUCOSE, FASTING 109 MG/DL (83-110); POTASSIUM SERUM 3.6 MEQ/L (3.5-5.1); SODIUM LEVEL 139 MEQ/L (136-145); TOTAL PROTEIN 7.1 GM/DL (6.4-8.2)
[2017-05-09 07:22] LABS: BASO # 0.1 10^3/uL (0.0-0.2); BASO % 0.6 % (0.0-1.0); EOS # 0.3 10^3/uL (0.0-0.50); EOS % 3.1 % (0.0-3.0); IMMATURE GRANULOCYTE % 0.7 % (0-0); LYMPH % 9.9 % (24.0-44.0); MEAN CORPUSCULAR HEMOGLOBIN 29.9 pg (27.0-33.0); MEAN CORPUSCULAR HGB CONC 33.1 g/dl (32.0-36.5); MEAN CORPUSCULAR VOLUME 90.4 fl (80.0-96.0); MONO # 1.2 10^3/uL (0.0-0.8); MONO % 11.6 % (0.0-5.0); NEUTROPHILS # 7.8 10^3/uL (1.8-7.7); NEUTROPHILS % 74.1 % (36.0-66.0); PLATELET COUNT, AUTOMATED 400 10^3/uL (150-450); RED CELL DISTRIBUTION WIDTH 13.6 % (11.5-14.5); WHITE BLOOD COUNT 10.5 10^3/uL (4.0-10.0)
[2017-05-09] MEDS ORDERED: CEFD300CAP PO (08:21)
[2017-05-09] MEDS ORDERED: DOCUSATE SOD LIQ 100MG/10ML UDC PO SCH (09:00)
[2017-05-09] MEDS: APIXABAN 5 MG TAB (ELIQUIS) PO SCH (10:51)
[2017-05-09] MEDS: TAMSULOSIN 0.4 MG CAP PO SCH (10:51)
[2017-05-09] MEDS: CEFDINIR 300 MG CAP (OMNICEF) PO SCH (10:51)
[2017-05-09] MEDS: ASPIRIN 81 MG ENTERIC TAB PO SCH (10:51)
[2017-05-09] MEDS: PANTOPRAZOLE 40MG TAB (PROTONIX) PO SCH (10:51)
[2017-05-09] MEDS: MULTIVITAMINS/MINERALS THERAP 1 TAB PO SCH (10:51)
[2017-05-09] MEDS: LISINOPRIL 10 MG TAB PO SCH (10:52)
[2017-05-09] MEDS: METOPROLOL TART 25 MG TABLET PO SCH (10:53)
[2017-05-09 13:17] VITALS: BP 130/76
[2017-05-09] MEDS ORDERED: DOCU10ELUD PO ×2 (13:42→13:50)
[2017-05-09] MEDS ORDERED: CEFD1CAP8 PO (13:46)
--- NOTE | 2017-05-09 16:27 | DSES ---
DATE OF ADMISSION: 05/06/2017 DATE OF DISCHARGE: 05/09/2017 DISCHARGE DIAGNOSIS: Cystitis with hematuria. SECONDARY DIAGNOSES: 1. Urinary tract infection. 2. Severe ischemic CVA. 3. Hypertension. 4. Dyslipidemia. 5. Atrial fibrillation. 6. Anxiety. 7. BPH. 8. Constipation. HOSPITAL COURSE: The patient is an 87-year-old man who is admitted for gross hematuria likely secondary to urinary tract infection. He was seen in consultation by Dr. Aguirre of urology. He was started on continuous bladder irrigation and there was a plan for a cystoscopy on the outpatient setting. The patient's Rivera catheter was removed. As his hematuria resolved, he did pass some clots shortly thereafter, but had postvoid residuals (PVRs) less than 100 and did have incontinent voids. SUBJECTIVE: This morning, the patient is not verbal, at his baseline, and he does move his lips to make an effort to communicate, but is not successful. OBJECTIVE: VITAL SIGNS: Temperature 99.6, pulse 76, respiratory rate 16, blood pressure 129/73, oxygen saturation 97% on room air. GENERAL: He is a kind appearing, elderly, man laying flat in bed. He does not appear to be in any acute distress. He is arousable to verbal stimuli. His extraocular movements appear to be intact. He tracks around the room. Pupillary light reflex is intact. He has moist mucous membranes. No elevation in central venous pressure (CVP). CARDIOVASCULAR EXAM: S1, S2, is regular. RESPIRATORY EXAM: Quite clear. ABDOMINAL EXAM: Bowel sounds are present. The abdomen is soft. EXTREMITIES: No clubbing, cyanosis, or edema. LABORATORY STUDIES: WBC 10.5, hemoglobin 12.2, platelet count 400. Chemistry panel: Sodium 139, potassium 3.6, chloride 105, bicarbonate 27, BUN 13, creatinine 0.7. Microbiology: Urine culture returned positive for 05/05/2017, for group B Streptococcus. Blood cultures on 05/05/2017, were negative. The patient did have a CT urogram which revealed a horseshoe kidney anomaly, no intrarenal calculus, mass or cyst, mild focal cortical scarring on the left, enlarged prostate with diffuse bladder wall thickening. ASSESSMENT AND PLAN: This is an 87-year-old man with a recent severe CVA who presented with hematuria likely related to cystitis secondary to urinary tract infection (UTI). 1. Hematuria and cystitis secondary to urinary tract infection (UTI). Urology's help has been greatly appreciated. Continuous bladder irrigation (CBI) has been stopped. Rivera catheter is removed. He has been incontinent of voids. He is occasionally passing clots, but is doing quite well for the last 24 hours. The plan is for an outpatient cystoscopy and followup with Dr. Aguirre's office. Based on his culture data, his antibiotic spectrum has been narrowed to cefdinir 300 mg by mouth twice a day to complete a 14 day course. He is at his baseline, which is essentially bed bound given his recent CVA. 2. Recent severe CVA. The patient is nonverbal. He is continued on aspirin and statin. He has also been restarted on his Eliquis. 3. Hypertension. He is on hydralazine, temazepam, metoprolol, and lisinopril. 4. Dyslipidemia. He is on simvastatin. 5. Atrial fibrillation. He is rate controlled on metoprolol, anticoagulated with Eliquis, which has been resumed and he is tolerating well. 6. Anxiety. He is on lorazepam. 7. Benign prostatic hypertrophy (BPH). He is on tamsulosin. 8. Constipation. He is continued on a bowel regimen. 9. Deep vein thrombosis (DVT) prophylaxis. He is on therapeutic Eliquis. DISPOSITION: The patient is being discharged to the care of his daughter with home health services. Prescriptions have been provided for a hospital bed and a wheelchair. He is to followup with his primary care provider (PCP) as soon as possible. Urology will call the patient with an appointment. His activity and diet are as prior to admission. He is to return to the emergency room (ER) if symptoms worsen. MEDICATIONS: At the time of discharge: - cefdinir 300 mg twice a day for 11 days - docusate 100 mg liquid by mouth twice a day - acetaminophen 325 mg every 6 hours as needed for pain or fever - Eliquis 5 mg twice a day - aspirin 81 mg daily - hydralazine 10 mg every 6 hours - lisinopril 10 mg daily - lorazepam 0.5 mg every 8 hours - metoprolol tartrate 25 mg twice a day - multivitamin one tablet daily - MiraLAX 17 grams by mouth daily as needed for constipation - simvastatin 80 mg nightly - Flomax 0.4 mg daily - temazepam 15 mg nightly Greater than 30 minutes spent organizing disposition.
== END 2017-05-09 14:55 | disposition home or self-care (01) | DRG 690 ==
LOC: M ED 20:51 → M ED INP 05-06 01:06 → M MS5PR 05-06 04:00
PROVIDERS: ADMIT Internal Medicine; ATTEND Internal Medicine
DX: N30.01 Acute cystitis with hematuria (principal); J90 Pleural effusion, not elsewhere classified; N39.0 Urinary tract infection, site not specified; I10 Essential (primary) hypertension; I48.91 Unspecified atrial fibrillation; K59.00 Constipation, unspecified; N40.0 Benign prostatic hyperplasia without lower urinary tract symptoms; E78.5 Hyperlipidemia, unspecified; F41.9 Anxiety disorder, unspecified; B95.5 Unspecified streptococcus as the cause of diseases classified elsewhere; Z79.899 Other long term (current) drug therapy; Z79.82 Long term (current) use of aspirin; Q63.1 Lobulated, fused and horseshoe kidney; M43.06 Spondylolysis, lumbar region; I70.0 Atherosclerosis of aorta; Z86.73 Personal history of transient ischemic attack (TIA), and cerebral infarction without residual deficits

== ENCOUNTER 2017-05-11 20:12 | Inpatient (IN) | payer MEDICARE ==
[~2017-05-11] VITALS: Ht 167.6 cm; Wt 69.4 kg
[~2017-05-11 20:12] MED LIST: ACET1TAB17 PO; ASPI1TAB PO; CEFD1CAP8 PO; CEFD300CAP PO; COLA100C5 PO; DOCU10ELUD PO; DOCU5LIQ PO; ELIQ5TAB PO; FLOM5CAP PO; HYDR10TAB PO; LISI10TA4 PO; LORA0.5T11 PO; METO25TA4 PO; MIRA3350 PO; MIRA33504 PO; SIMV80TA PO; TEMA15CA2 PO; VITMTA PO
[2017-05-11] MEDS ORDERED: NS 500 ML IV ONE (20:30)
--- NOTE | 2017-05-11 20:50 | REPUSA ---
CT of the head Clinical history: altered mental status. Protocol: Multiple axial CT images obtained with 5 mm slice thickness were obtained through the head without administration of contrast. Findings: The ventricles and sulci are symmetric but prominent in size bilaterally. There are periven tricular areas of low attenuation throughout the deep white matter. There is no evidence of acute hem orrhage or infarct. There is no midline shift, mass effect, or extra-axial fluid collection. The osse ous structures are unremarkable. The visualized paranasal sinuses and mastoid air cells are clear. Impression: No acute hemorrhage or infarct. Findings are consistent with moderately severe age-relate d atrophy and chronic small vessel ischemic disease.
[2017-05-11 21:19] LABS: BASO % 0.7 % (0.0-1.0); EOS # 0.2 10^3/uL (0.0-0.50); EOS % 3.3 % (0.0-3.0); LYMPH # 1.1 10^3/uL (1.5-4.5); LYMPH % 17.3 % (24.0-44.0); MEAN CORPUSCULAR HEMOGLOBIN 29.6 pg (27.0-33.0); MEAN CORPUSCULAR HGB CONC 32.2 g/dl (32.0-36.5); MEAN CORPUSCULAR VOLUME 91.9 fl (80.0-96.0); MONO # 0.7 10^3/uL (0.0-0.8); MONO % 12.1 % (0.0-5.0); NEUTROPHILS % 65.6 % (36.0-66.0); PLATELET COUNT, AUTOMATED 396 10^3/uL (150-450); RED CELL DISTRIBUTION WIDTH 13.6 % (11.5-14.5); WHITE BLOOD COUNT 6.1 10^3/uL (4.0-10.0)
[2017-05-11 21:39] LABS: ALBUMIN 2.7 GM/DL (3.2-5.2); ALKALINE PHOSPHATASE 96 U/L (45-117); ALT/SGPT 33 U/L (12-78); AST/SGOT 27 U/L (7-37); BILIRUBIN,DIRECT < 0.1 MG/DL (0.0-0.2); BILIRUBIN,TOTAL 0.3 MG/DL (0.2-1.0); BLOOD UREA NITROGEN 16 MG/DL (7-18); CALCIUM LEVEL 9.1 MG/DL (8.8-10.2); CARBON DIOXIDE LEVEL 30 MEQ/L (21-32); CREATININE FOR GFR 0.66 MG/DL (0.70-1.30); GLOMERULAR FILTRATION RATE > 60.0 (>35); GLUCOSE, FASTING 97 MG/DL (83-110); TOTAL PROTEIN 8.1 GM/DL (6.4-8.2)
[2017-05-11 21:44] LABS: ANION GAP 5 MEQ/L (8-16); CHLORIDE LEVEL 104 MEQ/L (98-107); POTASSIUM SERUM 3.9 MEQ/L (3.5-5.1); SODIUM LEVEL 139 MEQ/L (136-145)
[2017-05-11 21:47] LABS: OSMOLALITY SERUM 296 MOSM/KG (280-301)
[2017-05-11 23:23] LABS: METHADONE URINE NEGATIVE (NEGATIVE)
[2017-05-11] MEDS ORDERED: CEFDINIR 300 MG CAP (OMNICEF) PO ONE (23:30)
[2017-05-11] MEDS ORDERED: APIXABAN 5 MG TAB (ELIQUIS) PO ONE (23:30)
[2017-05-11] MEDS ORDERED: SIMVASTATIN 40 MG TAB PO ONE (23:30)
[2017-05-11] MEDS ORDERED: METOPROLOL TART 25 MG TABLET PO ONE (23:30)
[2017-05-12] MEDS ORDERED: ONDANSETRON 4MG/2ML VIAL (J2405) IV PRN (00:30)
[2017-05-12] MEDS ORDERED: CEFD1CAP8 PO (01:26)
[2017-05-12] MEDS ORDERED: DOCU5LIQ PO (01:26)
[2017-05-12] MEDS: **hydrALAZINE** 10 MG TAB PO SCH ×4 (02:10→18:28)
--- NOTE | 2017-05-12 02:39 | HPE ---
DATE OF ADMISSION: 05/12/2017 He was here to see Dr. Hernández, decided to admit him. CHIEF COMPLAINT: Unresponsiveness. The following is a summary of his presentation: This is an 87-year-old who underwent a relatively large CVA in January of 2017. He had been in rehabilitation in [place] and stopped advancing in rehabilitation and was brought home to his daughter's house in [place] 05/02. He was thereafter admitted to [facility] on 05/06 for acute cystitis with hematuria and was discharged 05/09. He went home and was doing fine at home. Today, in fact, he was laughing. He is nonverbal after the stroke, but his daughter saw signs of life that she had yet to see in him. At around 5 o'clock this afternoon, was sitting in the chair waiting for dinner and was found to be unresponsive. He has 24-hour caregivers at home. They were unable to arouse him to voice, to touch or to sternal rub. This was clearly a change in condition. They had not seen this before. They had noticed no unusual behavior ahead of time. He began to come around in the ambulance on the way to the hospital and slowly has recovered his mental status back to his baseline over the course of a couple of hours. He has no history of seizure. PAST MEDICAL HISTORY: Notable for: 1. Hypertension. 2. Hyperlipidemia. 3. Recent urinary tract infection. 4. Severe ischemic CVA with resultant aphasia. 5. Dyslipidemia. 6. Atrial fibrillation. 7. Anxiety. 8. Benign prostatic hypertrophy. 9. Constipation. ALLERGIES: He has no listed allergies. FAMILY HISTORY: Unremarkable due to advanced age. MEDICATIONS: At the time of discharge include: - cefdinir 300 mg by mouth twice daily - Colace twice daily - Tylenol every 6 hours - Eliquis 5 mg daily - aspirin 81 mg daily - hydralazine 10 mg every 6 hours - lisinopril 10 mg daily - lorazepam 0.5 mg every 8 hours as needed - metoprolol tartrate 25 mg twice daily - multivitamin tablet daily - MiraLAX 17 grams by mouth as needed for constipation - simvastatin 80 mg nightly - Flomax 0.4 mg daily - temazepam 15 mg nightly REVIEW OF SYSTEMS: Not meaningfully obtainable from this patient. PHYSICAL EXAMINATION: Temperature is 99.6, pulse 103, respiratory rate 16, blood pressure 130/89, 97% on room air. He is awake, following simple commands. Pupils are equally round and reactive. Mucous membranes moist. He has evidence of extensive thrush. Neck is supple. Breathing is symmetrical and rested. I:E ration is 1:3. Heart is in a regular rate and rhythm, normal S1, S2. Abdomen is soft, doughy, nontender. No lower extremity edema, decreased movement on his right side with some right facial droop, which is subtle. I am not able to assess mood and affect. White cell count is 6.1, hemoglobin 13.8, and platelets of 396. BUN 16, creatinine 0.66, CK 32, troponin I is 0.05. TSH 3.69. Urinalysis is notable for 6 whites, 21 reds. Toxicology screen is negative. EKG is notably atrial fibrillation with pacemaker, right bundle branch block. There is no previous EKG to review. Head CT shows no acute hemorrhage or infarct. Chest x-ray shows no acute infiltrate. Shows a single-lead pacemaker and cardiomegaly. My assessment is as follows: This is an 87-year-old with metabolic encephalopathy. Etiology is unclear. Patient will require a two-midnight hospital stay for further diagnostic workup. Possibility of seizure occurs to me. Possibility of medication side effect also occurs to me. Plan will be as follows: 1. Neurologic. Patient will be placed on seizure precautions. No role for antiepileptic drugs at this point. Consider neurologic consult as clinically warranted. Repeat head CT in the morning. 2. Patient has hypertension. Reasonably well controlled for current setting. He is on beta blockade, which will be continued. He is on angiotensin-converting enzyme (VENKATA) inhibitor and hydralazine as well, which will also be continued. They will all have hold parameters. He does have a pacemaker in place. 3. Patient has atrial fibrillation by history. He is anticoagulated with Eliquis. Rate is currently controlled. He does have a right bundle branch block. Will repeat EKG in the morning. 4. Deep venous thrombosis (DVT) prophylaxis is Eliquis. 5. Patient has hyperlipidemia. Continue statin. 6. Patient has BPH. Continue Flomax. 7. Patient has a doting family at bedside and has 24-hour home care.
[2017-05-12] MEDS ORDERED: clonazePAM 0.5 MG TAB PO ONE (03:45)
[2017-05-12 05:08] LABS: MEAN CORPUSCULAR HEMOGLOBIN 29.9 pg (27.0-33.0); MEAN CORPUSCULAR HGB CONC 32.8 g/dl (32.0-36.5); MEAN CORPUSCULAR VOLUME 91.3 fl (80.0-96.0); PLATELET COUNT, AUTOMATED 402 10^3/uL (150-450); RED CELL DISTRIBUTION WIDTH 13.6 % (11.5-14.5); WHITE BLOOD COUNT 8.8 10^3/uL (4.0-10.0)
[2017-05-12 05:53] LABS: ANION GAP 8 MEQ/L (8-16); BLOOD UREA NITROGEN 18 MG/DL (7-18); CALCIUM LEVEL 8.9 MG/DL (8.8-10.2); CARBON DIOXIDE LEVEL 26 MEQ/L (21-32); CHLORIDE LEVEL 106 MEQ/L (98-107); CREATININE FOR GFR 0.54 MG/DL (0.70-1.30); GLOMERULAR FILTRATION RATE > 60.0 (>35); GLUCOSE, FASTING 100 MG/DL (83-110); POTASSIUM SERUM 3.7 MEQ/L (3.5-5.1); SODIUM LEVEL 140 MEQ/L (136-145)
--- NOTE | 2017-05-12 07:09 | REP ---
PORTABLE CHEST, ONE VIEW: HISTORY: Altered mental status. The lungs are clear. The cardiac silhouette is enlarged. The pulmonary vasculature is normal in appearance. A cardiac pacemaker is present. IMPRESSION: Cardiomegaly. Unreviewed
[2017-05-12] MEDS: ASPIRIN 81 MG CHEW TABLET PO SCH (08:22)
[2017-05-12] MEDS: MULTIVITAMINS/MINERALS THERAP 1 TAB PO SCH (08:23)
[2017-05-12] MEDS: CIPROFLOXACIN 500 MG TAB PO SCH ×2 (08:23→18:28)
[2017-05-12] MEDS: APIXABAN 5 MG TAB (ELIQUIS) PO SCH ×2 (08:23→21:29)
[2017-05-12] MEDS: LISINOPRIL 10 MG TAB PO SCH (08:24)
[2017-05-12] MEDS: TAMSULOSIN 0.4 MG CAP PO SCH (08:25)
[2017-05-12] MEDS: METOPROLOL TART 25 MG TABLET PO SCH ×2 (08:28→21:29)
[2017-05-12] MEDS ORDERED: METOPROLOL TART 25 MG TABLET PO SCH (09:00)
[2017-05-12] MEDS: MIRALAX *UNIT DOSE* 17GM PACKET PO SCH (09:00)
--- NOTE | 2017-05-12 10:52 | ECGEPIP ---
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
[2017-05-12 12:00] VITALS: BP 148/82
--- NOTE | 2017-05-12 12:21 | ECGEPIP ---
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
[2017-05-12] MEDS ORDERED: SLF 3 ML SYR IV PRN (12:45)
[2017-05-12] MEDS: SLF 3 ML SYR IV SCH ×2 (14:00→21:30)
--- NOTE | 2017-05-12 15:05 | CR ---
DATE OF CONSULTATION: 05/12/2017 REFERRING PHYSICIAN: Dr. Tayo Phan REASON FOR CONSULTATION: Episode of unresponsiveness. HISTORY OF PRESENT ILLNESS: Robbie Aguilar is an 87-year-old man with history of stroke in January 2017, which caused right hemiplegia and expressive aphasia when he was in [place]. He went to rehabilitation and stopped advancing in rehabilitation and was brought to [place], [place], to his daughter's house in April 2017. He was admitted on 05/06/2017 for urinary tract infection with hematuria and was discharged home 3 days later. The patient is nonverbal since his stroke. At around 5 p.m. yesterday, when was sitting in a chair a waiting for dinner he became unresponsive. He has 24-hour caregiver at home who did not see the beginning of this episode. He was difficult to be aroused to voice, touch, and sternal rub. There was a clear change in his condition. It is not known whether he had any shaking of his right arm and leg. The entire episode was not witnessed, especially beginning of this episode. There was no urinary incontinence. Today the patient seems back to his baseline. He wakes up to verbal commands and is able to follow simple commands on left side of his body. He seems to have right-sided hemiplegia. PAST MEDICAL HISTORY: 1. Ischemic stroke in January 2017. 2. Hypertension. 3. Dyslipidemia. 4. Recent urinary tract infection. 5. Atrial fibrillation. 6. Dyslipidemia. 7. Anxiety. 8. Prostate enlargement. ALLERGIES: None. SOCIAL HISTORY: There are no reports of smoking, alcohol, or illicit drugs. FAMILY HISTORY: Noncontributory. HOME MEDICATIONS: - cefdinir 300 mg by mouth twice a day - Eliquis 5 mg by mouth daily - aspirin 81 mg by mouth daily - hydralazine 10 mg by mouth every 6 hours - lisinopril 10 mg by mouth - Ativan 0.5 mg by mouth every 8 hours as needed - metoprolol 25 mg by mouth twice a day - simvastatin 80 mg by mouth daily - Flomax 0.4 mg by mouth daily - temazepam 15 mg by mouth at bedtime REVIEW OF SYSTEMS: Could not be obtained. PHYSICAL EXAMINATION: Temperature 99.6, pulse 103, respiratory rate 16, blood pressure 130/89. Heart: Irregularly irregular. Lungs: Clear to auscultation. No pedal edema. No gross musculoskeletal abnormalities. Ears, nose, throat examination is within normal limits. No rash. No tremor. No signs of meningeal irritation. No cogwheel rigidity. The patient is arousable to verbal commands. He is able to follow simple commands on left side of his body. He has expressive aphasia. He has right hemiplegia. I do not see facial asymmetry. Extraocular muscles are intact. Right plantar is upgoing. Deep tendon flexes 3+ on right side and 1+ on left side. Cerebellar testing, gait testing, and sensory examination could not be performed. DIAGNOSTIC STUDIES: CT scan of his head was reviewed and showed large bilateral frontal old ischemic strokes and extensive small-vessel ischemic disease of brain and atrophy. His hemoglobin is 11.7. Metabolic profile is within normal limits. ASSESSMENT: 1. Episode of unresponsiveness. 2. 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 3. Generalized seizure can also cause prolonged postictal unresponsiveness. 4. Bilateral frontal moderately large ischemic strokes in past. 5. Atrial fibrillation. PLAN: 1. Electroencephalogram (EEG). 2. Repeat CT scan of head. 3. Continue Eliquis 5 mg by mouth daily and aspirin 81 mg by mouth daily. 4. Simvastatin 80 grams by mouth daily. 5. His EEG shows epileptic abnormality or focal slowing. We may consider starting him on Keppra, as he is at high risk for seizures.
[2017-05-12 16:00] VITALS: BP 134/67
--- NOTE | 2017-05-12 16:40 | REP ---
CT Head without contrast HISTORY: Altered mental status COMPARISON: 05/11/2017 An area of decreased attenuation is present in the posterior left frontal lobe. There is dilatation of the overlying cortical sulci. This represents encephalomalacia. Areas of decreased attenuation are present in the left basal ganglia , internal capsule and centrum semiovale . These represent old lacunar infarctions. Areas of decreased attenuation are present in the periventricular and subcortical white matter. This represents small-vessel ischemic disease. There is no intraparenchymal hemorrhage, acute infarct, mass or midline shift. The ventricular system and cortical sulci as well as subarachnoid space in the posterior fossa are dilated consistent with moderate volume loss. There is no extra cerebral collection. There is no fracture. The visualized sinuses are clear. IMPRESSION: Impression 1. Left frontal lobe encephalomalacia. 2. 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 3. Small vessel ischemic disease. 4. Moderate volume loss. Signed by Conrad Mcclain MD 05/12/2017 04:31 P
[2017-05-12] MEDS: ACETAMINOPHEN TAB 650MG DOSE (2X325MG) PO PRN (16:53)
[2017-05-12 20:00] VITALS: BP 125/75
[2017-05-12] MEDS: SIMVASTATIN 40 MG TAB PO SCH (21:29)
[2017-05-12] MEDS: PREPARATION H OINTMENT (HEMORRHOID) PR PRN (23:34)
[2017-05-13] VITALS: BP 137/74
[2017-05-13] MEDS: **hydrALAZINE** 10 MG TAB PO SCH ×4 (00:54→18:06)
[2017-05-13 04:00] VITALS: BP 152/83
[2017-05-13 04:08] LABS: MEAN CORPUSCULAR HEMOGLOBIN 29.5 pg (27.0-33.0); MEAN CORPUSCULAR HGB CONC 32.7 g/dl (32.0-36.5); MEAN CORPUSCULAR VOLUME 90.1 fl (80.0-96.0); PLATELET COUNT, AUTOMATED 391 10^3/uL (150-450); RED CELL DISTRIBUTION WIDTH 13.6 % (11.5-14.5); WHITE BLOOD COUNT 8.7 10^3/uL (4.0-10.0)
[2017-05-13 04:38] LABS: ANION GAP 6 MEQ/L (8-16); BLOOD UREA NITROGEN 16 MG/DL (7-18); CALCIUM LEVEL 8.9 MG/DL (8.8-10.2); CARBON DIOXIDE LEVEL 27 MEQ/L (21-32); CHLORIDE LEVEL 108 MEQ/L (98-107); CREATININE FOR GFR 0.62 MG/DL (0.70-1.30); GLOMERULAR FILTRATION RATE > 60.0 (>35); GLUCOSE, FASTING 110 MG/DL (83-110); POTASSIUM SERUM 3.6 MEQ/L (3.5-5.1); SODIUM LEVEL 141 MEQ/L (136-145)
[2017-05-13] MEDS: CIPROFLOXACIN 500 MG TAB PO SCH ×2 (06:58→18:06)
[2017-05-13] MEDS: SLF 3 ML SYR IV SCH ×3 (06:58→21:03)
[2017-05-13 07:55] VITALS: BP 125/62
[2017-05-13] MEDS: ASPIRIN 81 MG CHEW TABLET PO SCH (08:00)
[2017-05-13] MEDS: MULTIVITAMINS/MINERALS THERAP 1 TAB PO SCH (08:00)
[2017-05-13] MEDS: TAMSULOSIN 0.4 MG CAP PO SCH (08:00)
[2017-05-13] MEDS: APIXABAN 5 MG TAB (ELIQUIS) PO SCH ×2 (08:00→20:59)
[2017-05-13] MEDS: METOPROLOL TART 25 MG TABLET PO SCH ×2 (08:01→21:02)
[2017-05-13] MEDS: LISINOPRIL 10 MG TAB PO SCH (08:01)
[2017-05-13] MEDS: MIRALAX *UNIT DOSE* 17GM PACKET PO SCH (08:01)
[2017-05-13] MEDS: PREPARATION H OINTMENT (HEMORRHOID) PR PRN (08:24)
[2017-05-13 12:00] VITALS: BP 115/71
--- NOTE | 2017-05-13 12:02 | IPN ---
DATE: 05/13/2017 SUBJECTIVE: The patient is comfortable in bed. He mouths some words, but is unsuccessful at communicating. He is able to nod yes or no, but does not follow commands otherwise. OBJECTIVE: VITAL SIGNS: Temperature 98.3, pulse 81, respiratory rate 20, blood pressure 125/62, oxygen saturation 93% on room air. GENERAL: He is an elderly man, lying in bed. His eyes are open and he spontaneously he tracks around the room. He does not appear to be in any acute distress. HEENT: Cranial nerves II-XII are grossly intact. He has some mild right-sided facial droop. He does not cooperate with cranial nerve testing otherwise. CARDIOVASCULAR EXAM: S1, S2, irregularly irregular, not tachycardic. RESPIRATORY EXAM: Clear anteriorly. He does not cooperate with a posterior exam. ABDOMINAL EXAM: Bowel sounds are present. The abdomen is soft. EXTREMITIES: No clubbing, cyanosis or edema. LABORATORY STUDIES: WBC 8.7, hemoglobin 11.9, platelet count is 391. Chemistry panel: Sodium 141, potassium 3.6, repleted, chloride 108, bicarbonate 27, BUN 16 , creatinine 0.6. Microbiology: A GI PCR panel was negative. Urine culture was negative. Blood cultures were negative. NEW IMAGING: The patient did have a repeat CT scan of his head yesterday afternoon, which revealed left frontal lobe encephalomalacia, old left basal ganglia, internal capsule and centrum semiovale lacunar infarctions, small vessel ischemic disease, moderate volume loss. ASSESSMENT AND PLAN: This is an 87-year-old man who was recently discharged for hematuria and cystitis related to a urinary tract infection (UTI), in the setting of a recent CVA, who presented once again for an episode of unresponsiveness. PROBLEMS: 1. Unresponsiveness. Likely metabolic encephalopathy. The etiology remains unclear. The patient was discharged and was doing quite well at home for several days and had improved better than he had at his previous baseline following his recent CVA. However, there was an episode where he became unresponsive. He was brought back to the emergency room by his daughter and his aides, patient was concerned for another CVA versus complex partial seizure or generalized seizure related to his recent CVA. Dr. Atkinson's (of neurology) help has been greatly appreciated. The plan is to do EEG tomorrow. A repeat CT scan did not reveal any acute infarcts. He is continued on Eliquis, aspirin and simvastatin. He may be a candidate for Keppra pending the results of his EEG. Otherwise he has not had any further episodes since being hospitalized. Unfortunately, he is unable to undergo an MRI as he has a pacemaker. 2. Atrial fibrillation. Anticoagulate with Eliquis. He is rate controlled with metoprolol. 3. Urinary tract infection. He did have some hematuria. The plan was for outpatient cystoscopy. He was discharged home on oral antibiotics. He will continue with oral antibiotics, ciprofloxacin by mouth twice a day. 4. Hypertension. Controlled with metoprolol, hydralazine and lisinopril. 5. BPH. He is on Flomax. 6. Anxiety. He is written for benzodiazepine every 8 hours, to be held for sedation. 7. Recent CVA. As mentioned above, he is bedridden at his baseline. He is on aspirin, statin, as well as Eliquis. 8. Constipation. He is on a bowel regimen. DISPOSITION: Pending results of his EEG. [facility]
[2017-05-13] MEDS: LORazepam 0.5 MG TAB PO SCH ×2 (13:21→22:00)
[2017-05-13 16:00] VITALS: BP 145/65
[2017-05-13 20:00] VITALS: BP 140/66
[2017-05-13] MEDS: SIMVASTATIN 40 MG TAB PO SCH (21:02)
[2017-05-14] VITALS: BP 126/72
[2017-05-14] MEDS: **hydrALAZINE** 10 MG TAB PO SCH ×4 (00:36→17:47)
[2017-05-14 04:00] VITALS: BP 143/67
[2017-05-14 04:24] LABS: MEAN CORPUSCULAR HEMOGLOBIN 29.8 pg (27.0-33.0); MEAN CORPUSCULAR HGB CONC 32.6 g/dl (32.0-36.5); MEAN CORPUSCULAR VOLUME 91.3 fl (80.0-96.0); PLATELET COUNT, AUTOMATED 370 10^3/uL (150-450); RED CELL DISTRIBUTION WIDTH 13.7 % (11.5-14.5); WHITE BLOOD COUNT 9.7 10^3/uL (4.0-10.0)
[2017-05-14 04:43] LABS: ANION GAP 9 MEQ/L (8-16); BLOOD UREA NITROGEN 21 MG/DL (7-18); CALCIUM LEVEL 8.6 MG/DL (8.8-10.2); CARBON DIOXIDE LEVEL 24 MEQ/L (21-32); CHLORIDE LEVEL 110 MEQ/L (98-107); GLOMERULAR FILTRATION RATE > 60.0 (>35); GLUCOSE, FASTING 116 MG/DL (83-110); POTASSIUM SERUM 3.6 MEQ/L (3.5-5.1); SODIUM LEVEL 143 MEQ/L (136-145)
[2017-05-14] MEDS: CIPROFLOXACIN 500 MG TAB PO SCH (05:06)
[2017-05-14] MEDS: LORazepam 0.5 MG TAB PO SCH ×3 (05:06→21:14)
[2017-05-14] MEDS: SLF 3 ML SYR IV SCH ×3 (06:54→21:15)
[2017-05-14 08:00] VITALS: BP 127/60
[2017-05-14] MEDS: METOPROLOL TART 25 MG TABLET PO SCH ×2 (08:40→21:18)
[2017-05-14] MEDS: LISINOPRIL 10 MG TAB PO SCH (08:40)
[2017-05-14] MEDS: MULTIVITAMINS/MINERALS THERAP 1 TAB PO SCH (08:41)
[2017-05-14] MEDS: TAMSULOSIN 0.4 MG CAP PO SCH (08:41)
[2017-05-14] MEDS: ASPIRIN 81 MG CHEW TABLET PO SCH (08:41)
[2017-05-14] MEDS: APIXABAN 5 MG TAB (ELIQUIS) PO SCH ×2 (08:41→21:14)
[2017-05-14] MEDS: MIRALAX *UNIT DOSE* 17GM PACKET PO SCH (08:41)
--- NOTE | 2017-05-14 13:51 | NOCOX ---
DATE OF PROCEDURE: 05/13/2017 to 05/14/2017 The patient was on room air during the study. The patient had Christiano-Cyr respirations throughout the evening. His awake resting oxygen saturation was 92 % on room air. The patient had variable desaturation and a sinusoidal pattern consistent with Christiano-Cyr respirations. Heart rate ranged from 45-93 with an oxygen saturation ranging 76-99%. The longest continuous time with an oxygen saturation less than 88% was 1 minute, the total time with an oxygen saturation less than 80% was 16 seconds, less than 88% of 3 minutes and 24 seconds. IMPRESSION: Variable desaturation with Christiano-Cyr pattern. RECOMMENDATION: Nocturnal oxygen. MTDD
[2017-05-14 16:00] VITALS: BP 120/64
--- NOTE | 2017-05-14 19:09 | IPN ---
DATE: 05/14/2017 SUBJECTIVE: The patient is an 87-year-old man who is lying flat in bed. He is arousable to verbal stimuli. He makes eye contact and grumbles, but does not make any effort to speak or follow commands. OBJECTIVE: VITAL SIGNS: Maximum temperature (t-max) 100.9, current temperature 98.7, pulse 89, respiratory rate 16, blood pressure 127/62, oxygen saturation 94% on room air. GENERAL: He is an elderly man, lying flat in bed. Sleeping peacefully as I entered the room. He does not appear to be in any acute distress. HEENT: He tracks around the room. Extraocular muscles appear to be intact. Pupils reactive to light. Reflexes intact. He has moist mucous membranes. He does have some mild facial droop, which is not new. CARDIOVASCULAR EXAM: S1, S2, irregularly irregular. RESPIRATORY EXAM: Quite clear. ABDOMINAL EXAM: Benign. EXTREMITIES: No clubbing, cyanosis or edema. NEUROLOGIC: He does not cooperate with neurological testing. LABORATORY STUDIES: WBC 9.7, hemoglobin 11, platelet count 370. Chemistry panel: Sodium 143, potassium 3.6, chloride 110, bicarbonate 24, BUN 21, creatinine 0.7. Microbiology: A GI PCR panel was negative. Urine culture negative. Blood culture has been negative after 48 hours. NEW IMAGING: No new imaging. ASSESSMENT AND PLAN: This is an 87-year-old man who was recently discharged for hematuria and cystitis related to a urinary tract infection (UTI), in the setting of a recent CVA, who presented once again for an episode of unresponsiveness. PROBLEMS: 1. Episode of unresponsiveness. Likely metabolic encephalopathy. Possibly secondary to partial seizure or generalized seizure. Neurology help is greatly appreicated. We are awaiting results of an EEG that will be conducted today to decide if the patient will be started on Keppra as an antiepileptic medication. The other possibility is that he may have administered too much benzodiazepine medication. This was held at the time of admission and it is being slowly restarted and he does appear to be tolerating it quite well. Without this medication, he did have episodes of agitation. He has not been unresponsive since arriving in the hospital since the episode prior to his route to the hospital. Unfortunately, this patient does have a pacemaker and is unable to undertake a MRI to assess if he has had a new CVA. Dr. Atkinson's help has been greatly appreciated. 2. Atrial fibrillation. He is anticoagulated with Eliquis. He is rate controlled with metoprolol. 3. History of a recent CVA. He is essentially nonverbal and mostly bedridden. He did show some improvement since his most recent discharge. He is beginning to attempt to articulate words and sit in the chair. He is maintained on Eliquis, aspirin and statin, as well as temazepam and lorazepam for agitation. 4. Urinary tract infection. The patient did have cystitis and hematuria during his last stay and was on antibiotics. Repeat urine culture has been negative and as such there is no need for antibiotics. At the time of his last discharge, he was set to have outpatient cystoscopy completed with Dr. Aguirre, which he should continue. 5. Fevers. The patient's cultures have all been negative here. He has not had leukocytosis, tachycardia. Given the trend of his fevers, I am actually concerned that he may have had fever related to ciprofloxacin. At this time, I discontinued this medications as cultures have all been negative. We will continue to monitor closely. 6. Hypertension. Controlled with metoprolol, hydralazine and lisinopril. 7. Benign prostatic hypertrophy (BPH) . He is on Flomax. 8. Constipation. He is on a bowel regimen. DISPOSITION: Pending EEG results. He will require outpatient followup with neurology and urology as per his prior discharge.
[2017-05-14] MEDS: ACETAMINOPHEN TAB 650MG DOSE (2X325MG) PO PRN (19:41)
[2017-05-14 19:55] VITALS: BP 137/72
[2017-05-14] MEDS ORDERED: TEMAZEPAM 15 MG CAP PO SCH (21:00)
[2017-05-14] MEDS: SIMVASTATIN 40 MG TAB PO SCH (21:14)
[2017-05-14] MEDS ORDERED: TEMAZEPAM 7.5 MG CAP PO SCH (21:14)
[2017-05-14] MEDS: TEMAZEPAM 7.5 MG CAP PO SCH (22:32)
[2017-05-15 04:00] VITALS: BP 132/88
[2017-05-15 05:44] LABS: MEAN CORPUSCULAR HEMOGLOBIN 29.9 pg (27.0-33.0); MEAN CORPUSCULAR HGB CONC 32.6 g/dl (32.0-36.5); MEAN CORPUSCULAR VOLUME 91.8 fl (80.0-96.0); PLATELET COUNT, AUTOMATED 353 10^3/uL (150-450); RED CELL DISTRIBUTION WIDTH 13.7 % (11.5-14.5); WHITE BLOOD COUNT 8.3 10^3/uL (4.0-10.0)
[2017-05-15 05:59] LABS: ANION GAP 8 MEQ/L (8-16); BLOOD UREA NITROGEN 21 MG/DL (7-18); CALCIUM LEVEL 8.7 MG/DL (8.8-10.2); CARBON DIOXIDE LEVEL 27 MEQ/L (21-32); CHLORIDE LEVEL 109 MEQ/L (98-107); CREATININE FOR GFR 0.64 MG/DL (0.70-1.30); GLOMERULAR FILTRATION RATE > 60.0 (>35); GLUCOSE, FASTING 110 MG/DL (83-110); POTASSIUM SERUM 3.5 MEQ/L (3.5-5.1); SODIUM LEVEL 144 MEQ/L (136-145)
[2017-05-15] MEDS: LORazepam 0.5 MG TAB PO SCH ×3 (06:00→21:19)
[2017-05-15] MEDS: SLF 3 ML SYR IV SCH ×3 (06:00→21:20)
[2017-05-15] MEDS: **hydrALAZINE** 10 MG TAB PO SCH ×6 (06:00→23:56)
--- NOTE | 2017-05-15 07:13 | EEG ---
DATE OF PROCEDURE: 05/14/2017 REFERRING PHYSICIAN: Dr. Tayo Phan DIAGNOSIS: Passing out spell, rule out seizure. EEG NUMBER: [id number] HISTORY: The patient is an 87-year-old man with history of stroke, atrial fibrillation and pacemaker placement who was admitted at [facility] due to an episode of loss of consciousness. This EEG was done to rule out epileptic potential. He is currently on aspirin, Eliquis, simvastatin, lisinopril, metoprolol, Flomax. TECHNICAL DESCRIPTION: This digital EEG was recorded by 21 scalp, ear and two EKG electrodes and was reviewed in bipolar and referential montages following reformatting 10-20 international electrode placement system. INTERPRETATION: The patient was noted to be in awake and drowsy states during this EEG. Resting awake background rhythm consisted of 7 Hz theta activity measuring 15-40 microvolts in amplitude. Left frontal central and temporal theta slowing was noted intermittently. Stage I and II sleep were reviewed and were symmetric bilaterally. Hyperventilation could not be performed. Photic stimulation remained unremarkable. EKG revealed paced rhythm with PVCs. No clear epileptiform abnormalities were seen. No clinical or electrographic seizures were recorded. CONCLUSION: This EEG in awake, drowsy states, stage I and II sleep is abnormal due to presence of left frontal central and temporal intermittent slowing consistent with focal, cortical, structural or functional abnormality. In addition, mild generalized slowing is indicative of mild nonspecific generalized cerebral dysfunction such as seen in encephalopathy due to multiple potential causes. No clear epileptiform abnormalities were seen. Clinical correlation is recommended.
[2017-05-15 08:00] VITALS: BP 141/85
[2017-05-15] MEDS: MIRALAX *UNIT DOSE* 17GM PACKET PO SCH (09:00)
[2017-05-15] MEDS: APIXABAN 5 MG TAB (ELIQUIS) PO SCH ×2 (09:24→21:19)
[2017-05-15] MEDS: ASPIRIN 81 MG CHEW TABLET PO SCH (09:24)
[2017-05-15] MEDS: METOPROLOL TART 25 MG TABLET PO SCH ×2 (09:24→21:19)
[2017-05-15] MEDS: TAMSULOSIN 0.4 MG CAP PO SCH (09:24)
[2017-05-15] MEDS: LISINOPRIL 10 MG TAB PO SCH (09:25)
[2017-05-15] MEDS: MULTIVITAMINS/MINERALS THERAP 1 TAB PO SCH (09:25)
[2017-05-15 12:36] VITALS: BP 134/78
--- NOTE | 2017-05-15 15:28 | IPNPDOC ---
Text Note Date of Service The patient was seen on 05/15/17. NOTE no acute events overnight. patient minimum verbal at baseline. limited history. He is arousable to verbal stimuli. He makes eye contact and grumbles, but does not make any effort to speak or follow commands. GENERAL: He is an elderly man, lying flat in bed. NAD, follows command HEENT: He tracks around the room. Extraocular muscles appear to be intact. Pupils reactive to light. Reflexes intact. He has moist mucous membranes. He does have some mild facial droop CARDIOVASCULAR EXAM: S1, S2, irregularly irregular. 3/6 systolic murmur RESPIRATORY EXAM: b.l CTA ABDOMINAL EXAM: Benign. EXTREMITIES: No clubbing, cyanosis or edema. NEUROLOGIC: He does not cooperate with neurological testing. Hypertension. 2. Hyperlipidemia. 3. Recent urinary tract infection. 4. Severe ischemic CVA with resultant aphasia. 5. Dyslipidemia. 6. Atrial fibrillation. 7. Anxiety. 8. Benign prostatic hypertrophy. 9. Constipation. ASSESSMENT AND PLAN: 87-year-old man h/o HLD, recent UTI, severe ischmeci CVA with resultant aphasia, DLD, a fib , anxiety, BPH, constipation who was recently discharged for hematuria and cystitis related to a urinary tract infection (UTI), in the setting of a recent CVA, who presented once again for an episode of unresponsiveness. PROBLEMS: 1. Episode of unresponsiveness. Likely metabolic encephalopathy. Possibly secondary to partial seizure or generalized seizure vs sleep aid and sedatives. Neurology help is greatly appreicated. EEG appreciated, no seizure ppx as per neurology. restart benzo as needed He has not been unresponsive since arriving in the hospital since the episode prior to his route to the hospital. Unfortunately, this patient does have a pacemaker and is unable to undertake a MRI to assess if he has had a new CVA. 2. Atrial fibrillation. He is anticoagulated with Eliquis. He is rate controlled with metoprolol. 3. History of a recent CVA. He is essentially nonverbal and mostly bedridden. He did show some improvement since his most recent discharge. He is beginning to attempt to articulate words and sit in the chair. He is maintained on Eliquis, aspirin and statin, as well as temazepam and lorazepam for agitation. 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 Urinary tract infection. The patient did have cystitis and hematuria during his last stay and was on antibiotics. Repeat urine culture has been negative and as such there is no need for antibiotics. At the time of his last discharge, he was set to have outpatient cystoscopy completed with Dr. Aguirre, which he should continue. 5. Fevers. The patient's cultures have all been negative here. He has not had leukocytosis, tachycardia. Given the trend of his fevers. possible related to cipro. currently afebrile. will monitor 6. Hypertension. Controlled with metoprolol, hydralazine and lisinopril. 7. Benign prostatic hypertrophy (BPH) . He is on Flomax. 8. Constipation. He is on a bowel regimen. 9. Christiano stoke's respiration no evidence of CHF, likely 2/2 to CVA does not qualify for O2 at this point need outpatient sleep study 10. systolic murmur need outpatient followup and TTE DVT ppx on eliquis DISPOSITION: .Aditi lift He will require outpatient followup with neurology and urology as per his prior discharge. VS,Shaka, I+O VS, Shaka, I+O Laboratory Tests 05/15/17 05:25 Red Blood Count 4.01 L, Mean Corpuscular Volume 91.8, Mean Corpuscular Hemoglobin 29.9, Mean Corpuscular Hemoglobin Concent 32.6, Red Cell Distribution Width 13.7, Calcium Level 8.7 L Vital Signs Date Time Temp Pulse Resp B/P (MAP) Pulse Ox O2 Delivery O2 Flow Rate FiO2 05/15/17 12:36 84 134/78 (96) 05/15/17 08:00 99.2 14 97 Room Air I&O- Last 24 Hours up to 6 AM 05/16/17 06:00 Intake Total 240 ml Balance 240 ml YASMEEN SANCHEZ MD May 15, 2017 15:28
[2017-05-15] MEDS: ACETAMINOPHEN TAB 650MG DOSE (2X325MG) PO PRN ×2 (15:57→21:19)
[2017-05-15 16:39] VITALS: BP 124/65
[2017-05-15 19:41] VITALS: BP 136/75
[2017-05-15] MEDS: SIMVASTATIN 40 MG TAB PO SCH (21:19)
[2017-05-15] MEDS: TEMAZEPAM 7.5 MG CAP PO SCH (21:19)
[2017-05-16] VITALS: BP 124/81
[2017-05-16] MEDS: **hydrALAZINE** 10 MG TAB PO SCH ×2 (05:17→11:31)
[2017-05-16] MEDS: SLF 3 ML SYR IV SCH ×2 (05:18→15:30)
[2017-05-16] MEDS: ACETAMINOPHEN TAB 650MG DOSE (2X325MG) PO PRN ×2 (05:18→11:32)
[2017-05-16] MEDS: LORazepam 0.5 MG TAB PO SCH ×2 (05:18→15:00)
[2017-05-16 05:58] LABS: MEAN CORPUSCULAR HEMOGLOBIN 29.9 pg (27.0-33.0); MEAN CORPUSCULAR HGB CONC 32.1 g/dl (32.0-36.5); MEAN CORPUSCULAR VOLUME 93.2 fl (80.0-96.0); PLATELET COUNT, AUTOMATED 378 10^3/uL (150-450); RED CELL DISTRIBUTION WIDTH 13.8 % (11.5-14.5); WHITE BLOOD COUNT 7.9 10^3/uL (4.0-10.0)
[2017-05-16 06:19] LABS: ANION GAP 5 MEQ/L (8-16); BLOOD UREA NITROGEN 20 MG/DL (7-18); CALCIUM LEVEL 9.3 MG/DL (8.8-10.2); CARBON DIOXIDE LEVEL 32 MEQ/L (21-32); CHLORIDE LEVEL 108 MEQ/L (98-107); CREATININE FOR GFR 0.59 MG/DL (0.70-1.30); GLOMERULAR FILTRATION RATE > 60.0 (>35); GLUCOSE, FASTING 105 MG/DL (83-110); POTASSIUM SERUM 3.2 MEQ/L (3.5-5.1); SODIUM LEVEL 145 MEQ/L (136-145)
[2017-05-16] MEDS ORDERED: POTASSIUM CHLORIDE 10 MEQ SR TABLET PO ONE (06:30)
[2017-05-16 08:00] VITALS: BP 157/96
[2017-05-16] MEDS: MIRALAX *UNIT DOSE* 17GM PACKET PO SCH (09:00)
[2017-05-16] MEDS: ASPIRIN 81 MG CHEW TABLET PO SCH (09:13)
[2017-05-16] MEDS: TAMSULOSIN 0.4 MG CAP PO SCH (09:14)
[2017-05-16] MEDS: APIXABAN 5 MG TAB (ELIQUIS) PO SCH (09:14)
[2017-05-16] MEDS: LISINOPRIL 10 MG TAB PO SCH (09:15)
[2017-05-16] MEDS: METOPROLOL TART 25 MG TABLET PO SCH (09:15)
[2017-05-16] MEDS: MULTIVITAMINS/MINERALS THERAP 1 TAB PO SCH (09:16)
[2017-05-16] MEDS ORDERED: POTASSIUM CHLORIDE 10% LIQ 20 MEQ/15 ML UDC PO ONE (10:15)
[2017-05-16 10:39] LABS: MAGNESIUM LEVEL 2.2 MG/DL (1.8-2.4)
[2017-05-16 11:31] VITALS: BP 157/78
[2017-05-16 12:00] VITALS: BP 157/78
--- NOTE | 2017-05-16 16:27 | DSES ---
DATE OF ADMISSION: 05/12/2017 DATE OF DISCHARGE: 05/16/2017 HOSPITALIST INVOLVED: Dr. Phan and Dr. Shields Neurology consulted, Dr. Atkinson and Dr. Florez. PRIMARY CARE PROVIDER: Dr. Hernández FINAL DIAGNOSES: 1. Unresponsiveness. 2. Metabolic encephalopathy. 3. History of atrial fibrillation. 4. Recent cerebrovascular accident (CVA). 5. Baseline nonverbal and bed bound. 6. Recent urinary tract infection. 7. Fevers. 8. Hypertension. 9. Benign prostatic hypertrophy (BPH). 10. Constipation. 11. Christiano-Cyr respiration. 12. Systolic murmur. HISTORY OF PRESENT ILLNESS: This is an 87-year-old male patient who in January of 2017 had a large cerebrovascular accident (CVA), had been in rehabilitation in [place], stopped advancing in rehabilitation and was brought home to his daughter's house in [place] 05/02/2017, and he was there with 24/7 care. The patient was admitted to [facility] on 05/06/2017 for acute cystitis with hematuria. He was discharged on 05/09/2017. He went home and was doing fine at home, but on the day of admission, the patient was laughing and he is nonverbal after a stroke. As per daughter, saw signs of life that had yet to see in him, but around 5:00 p.m. that day, the patient was sitting in the chair waiting for dinner and was found unresponsive. He had 24/7 caregiver at home, unable to arouse him to voices, to touch, or to sternal rub and the patient clearly had a change in condition and has not seen this before and was noticed to be unusual and began to come around in the ambulance on the way to the hospital, slowly, but the patient has recovered back to his baseline mental status over the course of a few hours. No history of seizure was reported. HOSPITAL COURSE: The patient was admitted to the hospital. CT scan of the brain appreciated. Neurology was consulted. EEG was done showing dysfunction but no epileptiform activity. Case was discussed with neurology who recommended against starting seizure medication. Physical therapy was done. The patient's home medication as well as anticoagulation with Eliquis was resumed. The patient's blood pressure was monitored. Bowel regimen was given. Nocturnal pulse oximetry was done. The patient was also noted to have a systolic murmur. Nocturnal pulse oximetry shows tracing of Christiano-Cyr respiration, but the patient had no evidence of congestive heart failure (CHF). It is likely due to the patient's cerebrovascular accident (CVA) that the patient is having Christiano-Cyr respiration. The patient does not qualify for oxygen at home. He will need outpatient sleep studies. Currently, the patient is back to baseline, tolerating oral, ready for discharge for further care as outpatient. Patient and family services (PFS) has been consulted to arrange for home Aditi lift. The patient has 01/01 care at home. VITAL SIGNS: Temperature 97.3, pulse 63, respiratory rate 16, blood pressure 157/78, pulse oximetry 97% on room air. GENERAL: Patient arousable but not really following much command, comfortable, in no acute distress. HEENT: Normocephalic, atraumatic. Moist mucous membranes. CARDIAC: Irregularly irregular, 3/6 systolic murmur, non-tachycardic. RESPIRATORY: Bilaterally clear to auscultation. ABDOMEN: Soft, nontender. EXTREMITIES: No edema of bilateral lower extremities. NEUROLOGIC: The patient does not cooperate for neurological testing. LABORATORY DATA: WBC 7.9, hemoglobin and hematocrit 11.9/37.1, platelets 378. Chemistry: Sodium 145, potassium 3.2 supplemented, chloride 108, bicarbonate 32, BUN 20, creatinine 0.59. DISCHARGE MEDICATIONS: - acetaminophen 325 mg by mouth every six hours as needed - Eliquis 5 mg by mouth twice a day - aspirin 81 mg by mouth daily - Colace 100 mg by mouth twice a day - hydralazine 10 mg by mouth every six hours - lisinopril 10 mg by mouth daily - lorazepam 0.5 mg by mouth every eight hours - metoprolol 25 mg by mouth twice a day - multivitamin one tablet by mouth daily - MiraLAX 17 grams by mouth daily as needed - Zocor 80 mg by mouth at bedtime - Flomax 0.4 mg by mouth daily - temazepam 15 mg by mouth at bedtime DISCHARGE INSTRUCTIONS: The patient's family was instructed for the patient to followup with primary care provider in seven days, neurologist in 10 days, and consider following up with urology as per recommended from previous admission. Return to the hospital if symptoms worsen.
== END 2017-05-16 16:36 | disposition home health service (06) | DRG 71 ==
LOC: EDBD 20:12 → M ED 20:12 → M ED INP 05-12 00:18 → M PCU 05-12 11:30
PROVIDERS: ADMIT Internal Medicine; ATTEND Hospitalist
DX: G93.41 Metabolic encephalopathy (principal); I69.351 Hemiplegia and hemiparesis following cerebral infarction affecting right dominant side; R06.3 Periodic breathing; I69.320 Aphasia following cerebral infarction; I48.2 Chronic atrial fibrillation; N40.0 Benign prostatic hyperplasia without lower urinary tract symptoms; I10 Essential (primary) hypertension; K59.00 Constipation, unspecified; R01.1 Cardiac murmur, unspecified; Z79.82 Long term (current) use of aspirin; Z79.899 Other long term (current) drug therapy; E78.5 Hyperlipidemia, unspecified; Z79.01 Long term (current) use of anticoagulants; Z95.0 Presence of cardiac pacemaker; I45.10 Unspecified right bundle-branch block; R31.9 Hematuria, unspecified; F41.9 Anxiety disorder, unspecified

== ENCOUNTER 2017-05-17 05:30 | Emergency (ER) | payer MEDICARE ==
[2017-05-17 06:26] LABS: BASO # 0.1 10^3/uL (0.0-0.2); BASO % 0.8 % (0.0-1.0); EOS # 0.3 10^3/uL (0.0-0.50); EOS % 3.9 % (0.0-3.0); IMMATURE GRANULOCYTE % 0.8 % (0-0); LYMPH # 1.3 10^3/uL (1.5-4.5); LYMPH % 17.8 % (24.0-44.0); MEAN CORPUSCULAR HEMOGLOBIN 29.9 pg (27.0-33.0); MEAN CORPUSCULAR HGB CONC 32.1 g/dl (32.0-36.5); MEAN CORPUSCULAR VOLUME 93.1 fl (80.0-96.0); MONO # 0.8 10^3/uL (0.0-0.8); MONO % 11.1 % (0.0-5.0); NEUTROPHILS # 4.7 10^3/uL (1.8-7.7); NEUTROPHILS % 65.6 % (36.0-66.0); PLATELET COUNT, AUTOMATED 342 10^3/uL (150-450); RED CELL DISTRIBUTION WIDTH 13.9 % (11.5-14.5); WHITE BLOOD COUNT 7.2 10^3/uL (4.0-10.0)
[2017-05-17 06:30] LABS: VENOUS O2 SATURATION 72.1 % (60.0-80.0); VENOUS PARTIAL PRESSURE CO2 47.4 mmHg (38.0-50.0); VENOUS PARTIAL PRESSURE O2 38.9 mmHg (30.0-50.0); VENOUS STANDARD HCO3 24.8 MEQ/L; VENOUS TOTAL CO2 28.3 MEQ/L (24.0-28.0)
[2017-05-17 06:44] LABS: MUCUS, URINE RFX SMALL (NEGATIVE); SPECIFIC GRAVITY UR AUTO RFX 1.019 (1.002-1.035); SQUAM EPITHELIAL CELL UR AURFX 0 /HPF (0-6)
[2017-05-17 06:50] LABS: ANION GAP 8 MEQ/L (8-16); BLOOD UREA NITROGEN 21 MG/DL (7-18); CALCIUM LEVEL 8.8 MG/DL (8.8-10.2); CARBON DIOXIDE LEVEL 28 MEQ/L (21-32); CHLORIDE LEVEL 109 MEQ/L (98-107); CREATININE FOR GFR 0.64 MG/DL (0.70-1.30); GLOMERULAR FILTRATION RATE > 60.0 (>35); GLUCOSE, FASTING 99 MG/DL (83-110); POTASSIUM SERUM 4.5 MEQ/L (3.5-5.1); SODIUM LEVEL 145 MEQ/L (136-145)
--- NOTE | 2017-05-17 07:00 | REPUSA ---
CLINICAL HISTORY: Altered mental status. TECHNIQUE: Multiple axial CT images were obtained through the brain without IV contrast material. COMMENTS: Comparison to prior exam performed on 05/11/2017. There is normal configuration of sella turcica. There are no intra or extra-axial collections. There is no mass effect or midline shift. There is no evidence of hematoma formation. No hydrocephalus is p resent. The ventricles are symmetrical. No abnormal calcifications are present. There is diffuse age-appropriate cerebellar and cerebral atrophy with proportionally dilated ventricl es and cortical sulci. There are bilateral confluent periventricular and subcortical white matter hypolucencies compatible w ith severe chronic microvascular disease. Otherwise, no significant focal abnormalities are seen either in the posterior fossa or supratentoria l compartment. IMPRESSION: 1. Severe cerebellar and cerebral atrophy. 2. Severe chronic microvascular disease. 3. No evidence of acute intracranial pathology. Unchanged exam. Thank you for your kind referral of this patient.
[2017-05-17] MEDS ORDERED: LORazepam 0.5 MG TAB PO STA (07:49)
[2017-05-17 08:05] VITALS: BP 144/79
[2017-05-17] MEDS ORDERED: **hydrALAZINE** 10 MG TAB PO ONE (09:00)
[2017-05-17] MEDS ORDERED: METOPROLOL TART 25 MG TABLET PO ONE (09:00)
[2017-05-17] MEDS ORDERED: APIXABAN 5 MG TAB (ELIQUIS) PO ONE (09:00)
[2017-05-17] MEDS ORDERED: ASPIRIN 81 MG CHEW TABLET PO ONE (09:00)
[2017-05-17] MEDS ORDERED: LISINOPRIL 10 MG TAB PO ONE (09:00)
[2017-05-17] MEDS ORDERED: TAMSULOSIN 0.4 MG CAP PO ONE (09:00)
--- NOTE | 2017-05-17 09:00 | REP ---
Portable chest: 05/17/2017. Clinical history: Dyspnea and cough. Comparison: 05/11/2017. Findings: Single lead pacer in the left upper chest with lead terminating in the right ventricle. There is left atrial ventricular enlargement. Right heart enlargement as well. Sternotomy wires and mediastinal clips are again seen. There is some vascular congestion without anette pulmonary edema or pleural effusion. There is no dense consolidation. Impression: 1. Cardiomegaly with right and left heart enlargement, sternotomy wires, single lead pacer and interval development of some pulmonary venous hypertension. The underlying fibrosis makes early interstitial edema difficult to exclude. No anette edema. Signed by Bert Matthew MD 05/17/2017 08:35 P
[2017-05-17 15:05] VITALS: BP 168/86
--- NOTE | 2017-05-17 15:38 | CR ---
DATE OF CONSULTATION: 05/17/2017 REASON FOR CONSULTATION: Christiano-Cyr respiration. CONSULTATION REPORT FOR: Dr. Matt Medina PRIMARY CARE PROVIDER: Dr. Hernández and Dr. Deana Galo ROLLER REPAIRER: Dr. 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 The patient was baseline bed bound and was minimally verbal. He was admitted to [facility] 05/06/2017 with acute cystitis and hematuria. The patient was discharged 05/09/2017, went home and was doing fine at home, but on the day of the last admission on 05/12/2017, the patient was laughing and he was minimally verbal but as per daughter, she saw signs of life in the patient. At around 5:00 p.m. that day, the patient was sitting in the chair waiting for dinner and was found unresponsive. Unable to be aroused to verbal touch or sternal rub and the patient had a clear change of mental status. Subsequently, he was brought to [facility], had a workup at [facility], but by the time the patient arrived at the emergency room, the patient had returned to baseline mental status. Neurology was consulted. EEG was done. The patient's mental status remained at baseline. Subsequently, nocturnal pulse oximetry was done finding the patient to have Christiano-Cyr respiration. Other medical problems include history of atrial fibrillation, recent cystitis, benign prostatic hypertrophy (BPH), constipation, systolic murmur. Nocturnal pulse oximetry was done at the time showing evidence of Christiano-Cyr respiration and attempt was made to arrange for home oxygen. Unfortunately, because the patient does not have a total time of hypoxia of greater than four minutes, the patient does no qualify for nocturnal pulse oximetry. Subsequently, the patient was discharged with outpatient followup for possible outpatient nocturnal pulse oximetry. Arrangement was also made for the patient to have a Aditi lift. The patient returned home and was subsequently brought to [facility] the following day because the patient had an episode, as per family, of not being able to breathe and gasping for air at night. In the emergency room, the patient's workup was negative and the patient has returned to baseline. Family was particularly in the patient's respiration pattern. ALLERGIES: No known drug allergies. PAST MEDICAL HISTORY: 1. Large cerebrovascular accident (CVA), baseline bed bound, minimally verbal. 2. History of atrial fibrillation. 3. Recent cystitis. 4. Fevers. 5. Hypertension. 6. Benign prostatic hypertrophy (BPH). 7. Constipation. 8. Christiano-Cyr respiration. 9. Systolic murmur. PAST SURGICAL HISTORY: Unable to obtain. FAMILY HISTORY: Unable to obtain. REVIEW OF SYSTEMS: Unobtainable. SOCIAL HISTORY: Unobtainable. Currently lives at home and has 01/01 care. HOME MEDICATIONS: As per record: - acetaminophen 325 by mouth every six hours as needed - Eliquis 5 mg by mouth twice a day - aspirin 81 mg by mouth daily - Colace 100 mg by mouth twice a day - hydralazine 10 mg by mouth every six hours - lisinopril 10 mg by mouth daily - Ativan 0.5 mg by mouth every eight hours - metoprolol 25 mg by mouth twice a day - multivitamin one tablet by mouth daily - MiraLAX 17 grams by mouth daily as needed - Zocor 80 mg by mouth at bedtime - Flomax 0.4 mg by mouth daily The patient was also on Restoril 10 mg by mouth at bedtime for sleep. PHYSICAL EXAMINATION: VITAL SIGNS: Temperature 99.3, pulse 96, respiratory rate 18, blood pressure 137/70, pulse oximetry 96% on room air. GENERAL: The patient is alert, not following commands, opens eyes spontaneously. HEENT: Flattening of nasolabial fold. Normocephalic, atraumatic. Moist mucous membranes. CARDIAC: Irregularly, irregular, 3/6 systolic murmur, non-tachycardic. RESPIRATORY: Bilaterally clear. ABDOMEN: Soft, nontender. EXTREMITIES: No edema of bilateral lower extremities. NEUROLOGIC: Not cooperative with neurological testing. Patient able to move bilateral upper and lower extremities, but seems to be more mobile on the left side than the right. LABORATORY DATA: WBC 7.2, hemoglobin and hematocrit 12.5/38.9, platelets 342. Chemistry: Sodium 145, potassium 4.5, chloride 109, bicarbonate 28, BUN 21, creatinine 0.64. Cardiac enzymes negative. 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 PROBLEMS: 1. Christiano-Cyr respiration. Case discussed with Dr. Paredes. The patient will not benefit from sleep studies, although Dr. Paredes was receptive to seeing the patient as an outpatient. Unfortunately, due to insurance reasons, the patient did not qualify for oxygen because the patient did not have a total of four minutes of hypoxia, although prescription was written for oxygen during the previous admission. Case was discussed with Dr. Paredes and family. Family might be receptive to paying for oxygen on their own and having outpatient followup nocturnal pulse oximetry. Social work was involved to see if the patient qualifies to get the patient a quote for home oxygen. Furthermore, Dr. Deana Galo who will become the patient's primary care provider is contacted to get the patient an earlier appointment. Appointment was made for , tomorrow at 11:30. Overall poor prognosis which was been related to the family. Offer of possible fci care has also been offered to the family. 2. Atrial fibrillation. Continue Eliquis. Continue metoprolol. 3. History of cerebrovascular accident (CVA). Supportive care. The patient has 24-hour care. Likely poor overall prognosis. 4. Christiano-Cyr respiration. Management as per above. Likely secondary to CVA. No evidence of congestive heart failure (CHF). 5. Urinary tract infection with cystitis. Outpatient followup with Dr. Aguirre. 6. Hypertension. Continue current medication. 7. Benign prostatic hypertrophy (BPH). Continue Flomax. 8. Constipation. Continue bowel regimen. 9. Systolic murmur. Recommend echocardiogram as outpatient. 10. Deep vein thrombosis (DVT) prophylaxis. The patient will be discharged home. He is on anticoagulation with Eliquis. DISPOSITION: The patient and family was educated on the dangers of benzodiazepines and sleep aids and was instructed to avoid sleep aids and benzodiazepine as much as possible given that the patient is having respiratory symptoms at night, but after discussing with Dr. Paredes and Dr. Medina, the patient does not warrant admission and there is nothing inpatient that can be done for this situation. Poor overall prognosis.
--- NOTE | 2017-05-18 07:02 | ECGEPIP ---
Stationary ECG Study [facility] - ED Test Date: 2017-05-17 Pat Name: DAX OLIVO Department: Room: - Gender: M Nurse Auditor: SAMANTHA : [id number] Requested By: CONCEPCION Schwab Order Number: [id number] Reading MD: Sultana Guzman Measurements Intervals [place] Rate: 91 P: GA: 0 QRS: 2 QRSD: 141 T: -26 QT: 408 QTc: 502 Interpretive Statements ATRIAL FIBRILLATION INDETERMINATE AXIS RIGHT BUNDLE BRANCH BLOCK Electronically Signed On 05-18-2017 7:02:22 EST by Sultana Guzman
--- NOTE | 2017-05-22 11:13 | ED PDOC ---
Post-Departure Follow-Up dr walton faxed formal report of cxr for fu Makenzie Rueda MD May 22, 2017 11:13
== END 2017-05-17 16:59 | disposition home or self-care (01) ==
LOC: M ED 05:30
DX: R06.3 Periodic breathing (principal); I48.91 Unspecified atrial fibrillation; I45.10 Unspecified right bundle-branch block; Z86.73 Personal history of transient ischemic attack (TIA), and cerebral infarction without residual deficits; G47.31 Primary central sleep apnea; I51.7 Cardiomegaly; Z95.0 Presence of cardiac pacemaker; Z79.82 Long term (current) use of aspirin; Z79.899 Other long term (current) drug therapy

== ENCOUNTER 2017-05-27 18:17 | Emergency (ER) | payer MEDICARE ==
[~2017-05-27] VITALS: Ht 180.3 cm; Wt 86.4 kg
[2017-05-27 19:49] LABS: BASO % 0.4 % (0.0-1.0); EOS # 0.2 10^3/uL (0.0-0.50); EOS % 3.4 % (0.0-3.0); IMMATURE GRANULOCYTE % 0.6 % (0-0); LYMPH # 1.3 10^3/uL (1.5-4.5); LYMPH % 17.7 % (24.0-44.0); MEAN CORPUSCULAR HEMOGLOBIN 29.7 pg (27.0-33.0); MEAN CORPUSCULAR HGB CONC 32.1 g/dl (32.0-36.5); MEAN CORPUSCULAR VOLUME 92.7 fl (80.0-96.0); MONO # 0.9 10^3/uL (0.0-0.8); MONO % 12.8 % (0.0-5.0); NEUTROPHILS # 4.6 10^3/uL (1.8-7.7); NEUTROPHILS % 65.1 % (36.0-66.0); PLATELET COUNT, AUTOMATED 274 10^3/uL (150-450); RED CELL DISTRIBUTION WIDTH 14.1 % (11.5-14.5); WHITE BLOOD COUNT 7.1 10^3/uL (4.0-10.0)
[2017-05-27 19:57] LABS: INR 1.18
[2017-05-27 20:10] LABS: ALBUMIN/GLOBULIN RATIO 0.77 (1.00-1.93); ALKALINE PHOSPHATASE 70 U/L (45-117); ALT/SGPT 33 U/L (12-78); ANION GAP 3 MEQ/L (8-16); AST/SGOT 32 U/L (7-37); BILIRUBIN,TOTAL 0.5 MG/DL (0.2-1.0); BLOOD UREA NITROGEN 23 MG/DL (7-18); CALCIUM LEVEL 9.2 MG/DL (8.8-10.2); CARBON DIOXIDE LEVEL 32 MEQ/L (21-32); CHLORIDE LEVEL 107 MEQ/L (98-107); CREATININE FOR GFR 0.74 MG/DL (0.70-1.30); GLOMERULAR FILTRATION RATE > 60.0 (>35); GLUCOSE, FASTING 95 MG/DL (83-110); MAGNESIUM LEVEL 1.9 MG/DL (1.8-2.4); POTASSIUM SERUM 4.4 MEQ/L (3.5-5.1); SODIUM LEVEL 142 MEQ/L (136-145); TOTAL PROTEIN 6.9 GM/DL (6.4-8.2)
[2017-05-27] MEDS ORDERED: NS 500 ML IV ONE (20:45)
[2017-05-27 21:31] LABS: CALCIUM OXALATE CRYSTALS SMALL
[2017-05-27 23:17] VITALS: BP 127/77
--- NOTE | 2017-05-28 02:18 | REP ---
Clinical: Pain. Technique: Frontal view of the pelvis with neutral and frog lateral views of the right and left hip. Findings: Early advanced arthritic degenerative changes are appreciated involving the pelvis and bilateral hips (right greater than left). Findings include enthesopathy, cortical irregularity, increased sclerosis to the acetabular roofs with associated joint space narrowing. No acute fracture or dislocation. Impression: Early advanced arthritic degenerative changes (right greater than left). Signed by Garrison Castanon MD 05/27/2017 11:11 P
== END 2017-05-27 23:19 | disposition home or self-care (01) ==
LOC: EDBD 18:17 → M ED 18:17
DX: R45.1 Restlessness and agitation (principal); Z86.73 Personal history of transient ischemic attack (TIA), and cerebral infarction without residual deficits; I10 Essential (primary) hypertension; N40.0 Benign prostatic hyperplasia without lower urinary tract symptoms; Z79.82 Long term (current) use of aspirin; Z79.899 Other long term (current) drug therapy

== ENCOUNTER 2017-06-01 15:25 | Inpatient (IN) | payer MEDICARE ==
[~2017-06-01] VITALS: Ht 177.8 cm; Wt 72.7 kg
[2017-06-01] MEDS ORDERED: NS 500 ML IV ONE (16:00)
[2017-06-01 17:12] LABS: BASO % 0.2 % (0.0-1.0); EOS % 0.1 % (0.0-3.0); IMMATURE GRANULOCYTE % 0.7 % (0-0); LYMPH # 0.7 10^3/uL (1.5-4.5); LYMPH % 4.9 % (24.0-44.0); MEAN CORPUSCULAR HEMOGLOBIN 30.2 pg (27.0-33.0); MEAN CORPUSCULAR HGB CONC 31.8 g/dl (32.0-36.5); MONO # 1.8 10^3/uL (0.0-0.8); MONO % 12.4 % (0.0-5.0); NEUTROPHILS # 12.1 10^3/uL (1.8-7.7); NEUTROPHILS % 81.7 % (36.0-66.0); PLATELET COUNT, AUTOMATED 192 10^3/uL (150-450); RED CELL DISTRIBUTION WIDTH 14.6 % (11.5-14.5); WHITE BLOOD COUNT 14.8 10^3/uL (4.0-10.0)
[2017-06-01 17:29] LABS: INR 1.26
[2017-06-01 17:31] LABS: ALBUMIN 3.1 GM/DL (3.2-5.2); ALBUMIN/GLOBULIN RATIO 0.69 (1.00-1.93); ALKALINE PHOSPHATASE 65 U/L (45-117); ALT/SGPT 30 U/L (12-78); ANION GAP 5 MEQ/L (8-16); AST/SGOT 20 U/L (7-37); BILIRUBIN,DIRECT 0.2 MG/DL (0.0-0.2); BILIRUBIN,TOTAL 0.9 MG/DL (0.2-1.0); BLOOD UREA NITROGEN 21 MG/DL (7-18); CALCIUM LEVEL 8.6 MG/DL (8.8-10.2); CARBON DIOXIDE LEVEL 29 MEQ/L (21-32); CHLORIDE LEVEL 107 MEQ/L (98-107); CREATININE FOR GFR 0.68 MG/DL (0.70-1.30); GLOMERULAR FILTRATION RATE > 60.0 (>35); GLUCOSE, FASTING 107 MG/DL (83-110); POTASSIUM SERUM 3.8 MEQ/L (3.5-5.1); SODIUM LEVEL 141 MEQ/L (136-145); TOTAL PROTEIN 7.6 GM/DL (6.4-8.2)
[2017-06-01] MEDS ORDERED: ISOVUE-370 76% 100ML VIAL (Q9967) As Ordered ONE (17:35)
--- NOTE | 2017-06-01 18:15 | REP ---
Clinical: Acute altered mental status. Comparison: 05/17/2017. Findings: Age-related atrophy, extensive periventricular leukomalacia and microvascular ischemic changes are appreciated. The ventricles and sulci are symmetric. Boone-white differentiation is maintained. There is no evidence for acute intracranial hemorrhage, mass/mass effect, pathology or infarction. No extra-axial fluid collection. Calvarium is intact. Paranasal sinuses and mastoid air cells are clear. Impression: Age related atrophy with periventricular leukomalacia and microvascular ischemic changes. No acute intracranial hemorrhage, infarction, or mass/mass effect. Signed by Garrison Castanon MD 06/01/2017 06:06 P
[2017-06-01] MEDS ORDERED: ASPI81CH3 PO (18:17)
[2017-06-01] MEDS ORDERED: PARO20TA4 PO (18:19)
--- NOTE | 2017-06-01 18:21 | REP ---
Clinical: Diffuse abdominal pain. Technique: Axial contrast enhanced images from the lung bases to the pubic symphysis using 100 ml Isovue 370 intravenous contrast material with coronal and sagittal re-formations. Comparison: 05/08/2017. Findings: Mural thickening to the transverse through sigmoid colon is compatible with acute infectious/inflammatory colitis. There is no evidence for bowel obstruction and no free air to suggest perforation. No free fluid or abscess. Liver, spleen, pancreas, bilateral adrenal glands and gallbladder appear relatively normal / stable. Horseshoe kidney with chronic perinephric stranding is again identified without hydronephrosis. Layering calcifications are identified in the bladder. The prostate gland is enlarged and heterogeneous. No pelvic fluid or ascites. Atherosclerotic changes of the aorta and vasculature without aneurysm or dissection. Musculoskeletal structures demonstrate age-related degenerative changes without focal osseous abnormality. Lung bases demonstrate chronic changes with bibasilar atelectasis (right greater than left). Impression: 1. Infectious/inflammatory colitis involving the transverse through sigmoid colon. 2. Chronic changes as described above. 3. Basilar atelectasis. 4. Further chronic changes as above. Signed by Garrison Castanon MD 06/01/2017 06:12 P
[2017-06-01] MEDS ORDERED: ONDANSETRON 4MG/2ML VIAL (J2405) IV PRN (18:45)
[2017-06-01] MEDS ORDERED: LORazepam 0.5 MG TAB PO STA (19:40)
[2017-06-01] MEDS ORDERED: PARoxetine 20 MG TAB PO SCH (21:00)
[2017-06-01] MEDS ORDERED: APIXABAN 5 MG TAB (ELIQUIS) PO SCH (21:00)
[2017-06-01] MEDS: SIMVASTATIN 40 MG TAB PO SCH (22:26)
[2017-06-01] MEDS: CIPROFLOXACIN 400 MG in APPROPRIATE DILUENT 1 EA IV SCH (22:26)
[2017-06-01] MEDS: LORazepam 0.5 MG TAB PO SCH (22:26)
[2017-06-01] MEDS: METOPROLOL TART 25 MG TABLET PO SCH (22:30)
[2017-06-01 23:45] VITALS: BP 110/56
[2017-06-02] MEDS: metroNIDAZOLE 500 MG in APPROPRIATE DILUENT 1 EA IV SCH ×2 (00:20→05:20)
[2017-06-02] MEDS: NS 1,000 ML IV SCH ×4 (00:21→21:37)
[2017-06-02] MEDS: LORazepam 0.5 MG TAB PO SCH ×3 (05:20→21:36)
[2017-06-02] MEDS: VANCOMYCIN ORAL SOL 250MG/5ML ORAL SYRINGE PO SCH ×3 (05:20→17:41)
[2017-06-02 05:55] VITALS: BP 108/62
[2017-06-02 05:55] LABS: BASO % 0.3 % (0.0-1.0); EOS % 0.4 % (0.0-3.0); IMMATURE GRANULOCYTE % 0.4 % (0-0); LYMPH # 0.8 10^3/uL (1.5-4.5); LYMPH % 7.9 % (24.0-44.0); MEAN CORPUSCULAR HEMOGLOBIN 29.7 pg (27.0-33.0); MEAN CORPUSCULAR HGB CONC 32.2 g/dl (32.0-36.5); MEAN CORPUSCULAR VOLUME 92.4 fl (80.0-96.0); MONO # 1.2 10^3/uL (0.0-0.8); MONO % 12.3 % (0.0-5.0); NEUTROPHILS # 7.8 10^3/uL (1.8-7.7); NEUTROPHILS % 78.7 % (36.0-66.0); PLATELET COUNT, AUTOMATED 166 10^3/uL (150-450); RED CELL DISTRIBUTION WIDTH 14.7 % (11.5-14.5); WHITE BLOOD COUNT 9.9 10^3/uL (4.0-10.0)
[2017-06-02 06:13] LABS: ANION GAP 7 MEQ/L (8-16); BLOOD UREA NITROGEN 20 MG/DL (7-18); CALCIUM LEVEL 8.6 MG/DL (8.8-10.2); CARBON DIOXIDE LEVEL 27 MEQ/L (21-32); CHLORIDE LEVEL 110 MEQ/L (98-107); GLOMERULAR FILTRATION RATE > 60.0 (>35); GLUCOSE, FASTING 107 MG/DL (83-110); POTASSIUM SERUM 3.3 MEQ/L (3.5-5.1); SODIUM LEVEL 144 MEQ/L (136-145)
[2017-06-02] MEDS: METOPROLOL TART 25 MG TABLET PO SCH ×2 (08:50→21:37)
[2017-06-02] MEDS: TAMSULOSIN 0.4 MG CAP PO SCH (08:53)
[2017-06-02] MEDS: CIPROFLOXACIN 400 MG in APPROPRIATE DILUENT 1 EA IV SCH (08:53)
[2017-06-02] MEDS: ASPIRIN 81 MG CHEW TABLET PO SCH (08:53)
[2017-06-02 14:00] VITALS: BP 109/61
[2017-06-02] MEDS ORDERED: POTASSIUM CHLORIDE 10 MEQ SR TABLET PO ONE (14:30)
--- NOTE | 2017-06-02 19:17 | IPNPDOC ---
Subjective Date Seen The patient was seen on 06/02/17. Subjective Chief Complaint/HPI The patient is a 87-year-old male admitted with a reason for visit of Cva, Old, Speech/Langauage Deficit, Diarrhea W/Deh. Events since last encounter Patient tested positive for C. diff. He continues to have multiple loose bowel movements. Per nursing, he has appeared comfortable. He is largely unable to communicate complaints. General: Reports: ROS Unobtainable Objective Physical Examination General Exam: Positive: Alert, No Acute Distress, Negative: Cooperative ENT Exam: Positive: Mucous membr. moist/pink Neck Exam: Positive: Supple Chest Exam: Positive: Clear to auscultation, Normal air movement (though somewhat limited as patient does not take deep breaths) Heart Exam: Positive: Rate Normal Abdomen Exam: Positive: BS Hyperactive, Soft, Negative: Tenderness Extremity Exam: Negative: Clubbing Assessment /Plan Problems (1) C. difficile colitis Status: Acute Problem Text: Stopped other antibiotics, and kept just PO vancomycin. WBCs improving. Will continue to monitor. (2) Essential hypertension Problem Text: Continue home antihypertensives, monitor BP (3) Hyperlipidemia Status: Chronic Problem Text: continue home simvastatin (4) CVA, old, speech/language deficit Problem Text: This complicates the patient's care. Continue Eliquis. Also with R sided hemiplegia. Nursing denies any apparent swallow dysfunction. 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 (6) History of pacemaker Status: Chronic Problem Text: monitor (7) Anxiety Problem Text: Patient has been chronically on benzodiazepines. Considering sleep disorder, tapering benzos (begun as an outpatient.) Continue Paxil. Plan/VTE VTE Prophylaxis Ordered?: Yes VS[facility] Signs/I&O Vital Signs Date Time Temp Pulse Resp B/P (MAP) Pulse Ox O2 Delivery O2 Flow Rate FiO2 06/02/17 14:00 98.0 71 17 109/61 (77) 90 Room Air 06/02/17 05:55 2.0 I&O- Last 24 Hours up to 6 AM 06/02/17 06:00 Intake Total 1100 ml Output Total 0 ml Balance 1100 ml Laboratory Data 24H LABS Laboratory Tests 2 06/02/17 05:25: Immature Granulocyte % (Auto) 0.4H, White Blood Count 9.9, Red Blood Count 4.07L , Hemoglobin 12.1L, Hematocrit 37.6L, Mean Corpuscular Volume 92.4, Mean Corpuscular Hemoglobin 29.7, Mean Corpuscular Hemoglobin Concent 32.2, Red Cell Distribution Width 14.7H, Platelet Count 166, Neutrophils (%) (Auto) 78.7H, Lymphocytes (%) (Auto) 7.9L, Monocytes (%) (Auto) 12.3H, Eosinophils (%) (Auto) 0.4, Basophils (%) (Auto) 0.3, Neutrophils # (Auto) 7.8H, Lymphocytes # (Auto) 0.8L, Monocytes # (Auto) 1.2H, Eosinophils # (Auto) 0.0, Basophils # (Auto) 0.0 , Immature Granulocyte # (Auto) 0.0, Nucleated Red Blood Cells % (auto) 0.0, Anion Gap 7L, Glomerular Filtration Rate > 60.0, Blood Urea Nitrogen 20H, Creatinine 0.60L, Sodium Level 144, Potassium Level 3.3L, Chloride Level 110H, Carbon Dioxide Level 27, Calcium Level 8.6L CBC/BMP Laboratory Tests 06/02/17 05:25 Red Blood Count 4.07 L, Mean Corpuscular Volume 92.4, Mean Corpuscular Hemoglobin 29.7, Mean Corpuscular Hemoglobin Concent 32.2, Red Cell Distribution Width 14.7 H, Neutrophils (%) (Auto) 78.7 H, Lymphocytes (%) (Auto ) 7.9 L, Monocytes (%) (Auto) 12.3 H, Eosinophils (%) (Auto) 0.4, Basophils (%) (Auto) 0.3, Neutrophils # (Auto) 7.8 H, Lymphocytes # (Auto) 0.8 L, Monocytes # (Auto) 1.2 H, Eosinophils # (Auto) 0.0, Basophils # (Auto) 0.0, Calcium Level 8.6 L Microbiology Microbiology 06/02/17 Gastrointestinal Tract Panel (PCR) - Final, Complete Clostridium Difficile A/B ANAMARIA DE LOS SANTOS DO Jun 02, 2017 19:17
[2017-06-02] MEDS: APIXABAN 5 MG TAB (ELIQUIS) PO SCH (21:36)
[2017-06-02] MEDS: SIMVASTATIN 40 MG TAB PO SCH (21:36)
[2017-06-02] MEDS: PARoxetine 20 MG TAB PO SCH (21:37)
[2017-06-02 22:00] VITALS: BP 156/84
[2017-06-03] MEDS: VANCOMYCIN ORAL SOL 250MG/5ML ORAL SYRINGE PO SCH ×4 (00:09→17:27)
[2017-06-03] MEDS: LORazepam 0.5 MG TAB PO SCH ×3 (05:20→21:00)
[2017-06-03 06:00] VITALS: BP 154/90
[2017-06-03 06:04] LABS: BASO % 0.6 % (0.0-1.0); EOS # 0.1 10^3/uL (0.0-0.50); IMMATURE GRANULOCYTE % 0.5 % (0-0); LYMPH # 1.1 10^3/uL (1.5-4.5); LYMPH % 17.3 % (24.0-44.0); MEAN CORPUSCULAR HEMOGLOBIN 29.7 pg (27.0-33.0); MEAN CORPUSCULAR HGB CONC 32.4 g/dl (32.0-36.5); MEAN CORPUSCULAR VOLUME 91.9 fl (80.0-96.0); MONO # 0.8 10^3/uL (0.0-0.8); NEUTROPHILS # 4.3 10^3/uL (1.8-7.7); NEUTROPHILS % 66.6 % (36.0-66.0); PLATELET COUNT, AUTOMATED 180 10^3/uL (150-450); RED CELL DISTRIBUTION WIDTH 14.5 % (11.5-14.5); WHITE BLOOD COUNT 6.5 10^3/uL (4.0-10.0)
[2017-06-03 06:20] LABS: ANION GAP 7 MEQ/L (8-16); BLOOD UREA NITROGEN 18 MG/DL (7-18); CALCIUM LEVEL 8.5 MG/DL (8.8-10.2); CARBON DIOXIDE LEVEL 25 MEQ/L (21-32); CHLORIDE LEVEL 114 MEQ/L (98-107); CREATININE FOR GFR 0.56 MG/DL (0.70-1.30); GLOMERULAR FILTRATION RATE > 60.0 (>35); GLUCOSE, FASTING 104 MG/DL (83-110); POTASSIUM SERUM 3.3 MEQ/L (3.5-5.1); SODIUM LEVEL 146 MEQ/L (136-145)
--- NOTE | 2017-06-03 08:44 | HPE ---
DATE OF ADMISSION: 06/01/2017 PRIMARY CARE PROVIDER: Guanaco Hernández MD CHIEF COMPLAINT: Intractable diarrhea for 3 days. Today, had blood-mixed stool , which made the caregiver very concerned. Also, decreased interaction over the past 1-2 days. PAST MEDICAL HISTORY: 1. 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 2. Atrial fibrillation. 3. Hypertension. 4. Benign prostatic hypertrophy (BPH). 5. Christiano stoke respiratory pattern. 6. Hyperlipidemia. 7. Horseshoe-shaped kidney. 8. Coronary artery disease. 9. Tachybrady syndrome. Has pacemaker. 10. Aortic valve replaced status. HISTORY OF PRESENT ILLNESS: This is an 87-year-old male who is bed bound and nonverbal at baseline. However, can understand and answer simple questions. Can also laugh in response to conversation, who has been having intractable diarrhea every hour for the past 3 days; and this morning, caregiver noted blood-mixed stool. The patient was also noted to be more lethargica and less responsive compared to his baseline, so they called his visiting nurse and was instructed by the visiting nurse to bring to the emergency room. In the emergency department (ED), the patient had a bowel movement, which was yellow in color, liquid, but was guaiac positive. Initially, by emergency medical services (EMS), his blood pressure was 92/62. However, on his admission to the emergency room, his blood pressure was 117/76. The patient's laboratory studies were significant for a white count of 14.8, lactic of 2.5. The patient was given a bolus of intravenous (IV) fluid, normal saline. The patient also complained of some abdominal pain so had a CT scan of the abdomen and pelvis done and was found to have colitis involving the transverse through the sigmoid colon. The patient is being admitted to the hospital for infectious versus inflammatory colitis, diarrhea, and dehydration, and acute encephalopathy due to the dehydration and infection. PAST SURGICAL HISTORY: 1. Aortic valve replacement in 2016. 2. Pacemaker insertion. 3. Bypass. 4. Coronary artery bypass graft (CABG). 5. Venous repair of the right leg. 6. Cataract surgery. SOCIAL HISTORY: The patient is a former smoker. He does not drink alcohol or abuse any recreational drugs. ALLERGIES: No known allergies. FAMILY HISTORY: Nothing significant. REVIEW OF SYSTEMS: All ten-point review of systems are negative except those mentioned in history of present illness (HPI). PHYSICAL EXAMINATION: VITAL SIGNS: Temperature 99.4, pulse 86, blood pressure 134/64, pulse oximetry 95% in room air. GENERAL: The patient awake, mumbling, following some commands. Not in acute distress. HEENT: Normocephalic, atraumatic. Dry mucous membranes. Anicteric eyes. CHEST: Clear to auscultation. CARDIOVASCULAR: S1, S2. Regular. There is a systolic murmur present. No rub or gallop. ABDOMEN: Soft. Seems to be tender to palpation, as the patient winces on deep palpation. Bowel sounds are present. EXTREMITIES: No edema. LABORATORY DATA: WBC 14.8, hemoglobin 12.6, platelet 192. Sodium 141, potassium 3.8, chloride 107, bicarbonate 39, BUN 21, creatinine 0.68 , glucose 107, lactic 2.5, calcium 8.6. Liver function tests are normal. Albumin 3.1. INR 1.26. ASSESSMENT AND PLAN: This is an 87-year-old male admitted for acute infectious or inflammatory colitis, dehydration, and acute encephalopathy. PLAN: 1. For colitis, will start the patient on ciprofloxacin and Flagyl. Will give IV fluids. Will send gastrointestinal (GI) panel. 2. Diarrhea and dehydration. Will continue with normal saline. 3. Acute encephalopathy. This is probably related to dehydration and infection. 4. History of old cerebrovascular accident with right hemiparesis, aphasia, and cognitive deficits. The patient is at baseline nonverbal, mostly bed bound. He is getting home physical therapy (PT), but he is a two-person assist. He has overall generalized weakness but right-sided much more weaker than the left. He can answer simple questions with yes and no. Can understand and sometimes can participate in conversation by laughing or smiling. 5. Atrial fibrillation. The patient is on Eliquis. The patient did have some blood in stool. However, it is very small amount; and here in the emergency room, the stool was yellow in color. Hemoglobin and hematocrit are stable but still will hold Eliquis for 1 or 2 days to make sure hemoglobin and hematocrit remain stable and there is no further increased bleeding. Then, will restart Eliquis. Rate is controlled with metoprolol. Will continue with hold parameters. 6. Hyperlipidemia. Will continue with statins. 7. Coronary artery disease with history of coronary artery bypass graft. No issues at this point. Will continue with statin, beta cody, and aspirin. 8. Benign prostatic hypertrophy. Will continue with Flomax. 9. Chronic constipation. Will continue with bowel care. 10. Hypertension. At present, the patient's blood pressure is soft, so will hold hydralazine and lisinopril. Will only continue metoprolol with hold parameters. 11. Deep venous thrombosis (DVT) prophylaxis has been ordered. MTDD
[2017-06-03] MEDS: APIXABAN 5 MG TAB (ELIQUIS) PO SCH ×2 (09:15→21:00)
[2017-06-03] MEDS: TAMSULOSIN 0.4 MG CAP PO SCH (09:15)
[2017-06-03] MEDS: METOPROLOL TART 25 MG TABLET PO SCH ×2 (09:15→21:49)
[2017-06-03] MEDS: ASPIRIN 81 MG CHEW TABLET PO SCH (09:15)
[2017-06-03] MEDS: NS 1,000 ML IV SCH ×2 (10:11→21:49)
[2017-06-03 14:00] VITALS: BP 152/80
--- NOTE | 2017-06-03 17:11 | IPNPDOC ---
Subjective Date Seen The patient was seen on 06/03/17. Subjective Chief Complaint/HPI The patient is a 87-year-old male admitted with a reason for visit of Cva, Old, Speech/Langauage Deficit, Diarrhea W/Deh. Events since last encounter Patient seen with daughter in the room. He is alert and more interactive, speaks a few words (though they do not necessarily seem on-topic.) The only "yes or no" question that he answered was to deny abdominal pain. Nursing feels that his bowel movements have slowed down and are smaller, though they remain loose. General: Reports: ROS Unobtainable Gastrointestinal: Denies: Abdominal Pain Objective Physical Examination General Exam: Positive: Alert, No Acute Distress, Negative: Cooperative ENT Exam: Positive: Mucous membr. moist/pink Neck Exam: Positive: Supple Chest Exam: Positive: Clear to auscultation, Normal air movement (though somewhat limited as patient does not take deep breaths on request) Heart Exam: Positive: Rate Normal Abdomen Exam: Positive: BS Hyperactive, Soft, Negative: Tenderness Extremity Exam: Negative: Clubbing Assessment /Plan Problems (1) C. difficile colitis Status: Acute Problem Text: 06/03 -- improving symptoms and leukocytosis. Stopped other antibiotics, and kept just PO vancomycin. WBCs improving. Will continue to monitor. (2) Essential hypertension Problem Text: 06/03 -- patient hypertensive, and chart review shows some home meds not continued. As his PO intake is good, will restart. Continue home antihypertensives, monitor BP (3) Hyperlipidemia Status: Chronic Problem Text: continue home simvastatin (4) CVA, old, speech/language deficit Problem Text: This complicates the patient's care. Continue Eliquis. Also with R sided hemiplegia. Nursing denies any apparent swallow dysfunction. 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 Patient is not tolerating HEIKE protocol monitoring while awake. Nursing will arrange nocturnal pulse oximetry. On HEIKE protocol. (6) History of pacemaker Status: Chronic Problem Text: monitor (7) Anxiety Problem Text: Patient has been chronically on benzodiazepines. Considering sleep disorder, tapering benzos (begun as an outpatient.) Continue Paxil. Plan/VTE VTE Prophylaxis Ordered?: Yes VS, I&O, 24H, Fishbone Vital Signs/I&O Vital Signs Date Time Temp Pulse Resp B/P (MAP) Pulse Ox O2 Delivery O2 Flow Rate FiO2 06/03/17 14:00 97.7 76 19 152/80 (104) 98 Nasal Cannula 2.0 I&O- Last 24 Hours up to 6 AM 06/03/17 06:00 Intake Total 3220 ml Output Total 0 ml Balance 3220 ml Laboratory Data 24H LABS Laboratory Tests 2 06/03/17 05:33: Immature Granulocyte % (Auto) 0.5H, White Blood Count 6.5, Red Blood Count 4.07L , Hemoglobin 12.1L, Hematocrit 37.4L, Mean Corpuscular Volume 91.9, Mean Corpuscular Hemoglobin 29.7, Mean Corpuscular Hemoglobin Concent 32.4, Red Cell Distribution Width 14.5, Platelet Count 180, Neutrophils (%) (Auto) 66.6H, Lymphocytes (%) (Auto) 17.3L, Monocytes (%) (Auto) 13.0H, Eosinophils (%) (Auto ) 2.0, Basophils (%) (Auto) 0.6, Neutrophils # (Auto) 4.3, Lymphocytes # (Auto) 1.1L, Monocytes # (Auto) 0.8, Eosinophils # (Auto) 0.1, Basophils # (Auto) 0.0, Immature Granulocyte # (Auto) 0.0, Nucleated Red Blood Cells % (auto) 0.0, Anion Gap 7L, Glomerular Filtration Rate > 60.0, Blood Urea Nitrogen 18, Creatinine 0.56L, Sodium Level 146H, Potassium Level 3.3L, Chloride Level 114H, Carbon Dioxide Level 25, Calcium Level 8.5L CBC/BMP Laboratory Tests 06/03/17 05:33 Red Blood Count 4.07 L, Mean Corpuscular Volume 91.9, Mean Corpuscular Hemoglobin 29.7, Mean Corpuscular Hemoglobin Concent 32.4, Red Cell Distribution Width 14.5, Neutrophils (%) (Auto) 66.6 H, Lymphocytes (%) (Auto) 17.3 L, Monocytes (%) (Auto) 13.0 H, Eosinophils (%) (Auto) 2.0, Basophils (%) ( Auto) 0.6, Neutrophils # (Auto) 4.3, Lymphocytes # (Auto) 1.1 L, Monocytes # ( Auto) 0.8, Eosinophils # (Auto) 0.1, Basophils # (Auto) 0.0, Calcium Level 8.5 L Microbiology Microbiology 06/02/17 Gastrointestinal Tract Panel (PCR) - Final, Complete Clostridium Difficile A/B ANAMARIA DE LOS SANTOS DO Jun 03, 2017 17:11
[2017-06-03] MEDS: **hydrALAZINE** 10 MG TAB PO SCH (17:26)
[2017-06-03] MEDS: LISINOPRIL 10 MG TAB PO SCH (17:27)
--- NOTE | 2017-06-03 19:21 | ECGEPIP ---
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
[2017-06-03] MEDS: SIMVASTATIN 40 MG TAB PO SCH (21:00)
[2017-06-03] MEDS: PARoxetine 20 MG TAB PO SCH (21:49)
[2017-06-03 22:00] VITALS: BP 157/91
[2017-06-04 05:31] LABS: BASO % 0.3 % (0.0-1.0); EOS # 0.3 10^3/uL (0.0-0.50); EOS % 4.2 % (0.0-3.0); IMMATURE GRANULOCYTE % 0.5 % (0-0); LYMPH # 1.3 10^3/uL (1.5-4.5); LYMPH % 21.3 % (24.0-44.0); MEAN CORPUSCULAR HEMOGLOBIN 30.4 pg (27.0-33.0); MEAN CORPUSCULAR VOLUME 91.9 fl (80.0-96.0); MONO # 0.8 10^3/uL (0.0-0.8); MONO % 13.2 % (0.0-5.0); NEUTROPHILS # 3.7 10^3/uL (1.8-7.7); NEUTROPHILS % 60.5 % (36.0-66.0); PLATELET COUNT, AUTOMATED 178 10^3/uL (150-450); RED CELL DISTRIBUTION WIDTH 14.4 % (11.5-14.5); WHITE BLOOD COUNT 6.2 10^3/uL (4.0-10.0)
[2017-06-04 05:55] LABS: ANION GAP 10 MEQ/L (8-16); BLOOD UREA NITROGEN 14 MG/DL (7-18); CALCIUM LEVEL 8.1 MG/DL (8.8-10.2); CARBON DIOXIDE LEVEL 23 MEQ/L (21-32); CHLORIDE LEVEL 114 MEQ/L (98-107); CREATININE FOR GFR 0.53 MG/DL (0.70-1.30); GLOMERULAR FILTRATION RATE > 60.0 (>35); GLUCOSE, FASTING 89 MG/DL (83-110); POTASSIUM SERUM 3.5 MEQ/L (3.5-5.1); SODIUM LEVEL 147 MEQ/L (136-145)
[2017-06-04 06:00] VITALS: BP 147/87
[2017-06-04] MEDS: VANCOMYCIN ORAL SOL 250MG/5ML ORAL SYRINGE PO SCH ×5 (06:02→23:51)
[2017-06-04] MEDS: **hydrALAZINE** 10 MG TAB PO SCH ×3 (06:02→12:23)
[2017-06-04] MEDS: NS 1,000 ML IV SCH (06:03)
[2017-06-04] MEDS: ASPIRIN 81 MG CHEW TABLET PO SCH (08:46)
[2017-06-04] MEDS: LORazepam 0.5 MG TAB PO SCH ×2 (08:46→21:00)
[2017-06-04] MEDS: METOPROLOL TART 25 MG TABLET PO SCH ×2 (08:46→21:00)
[2017-06-04] MEDS: TAMSULOSIN 0.4 MG CAP PO SCH (08:46)
[2017-06-04] MEDS: APIXABAN 5 MG TAB (ELIQUIS) PO SCH ×2 (08:46→21:00)
[2017-06-04] MEDS: LISINOPRIL 10 MG TAB PO SCH (08:46)
[2017-06-04 14:00] VITALS: BP 145/86
[2017-06-04] MEDS: amLODIPine 5 MG TAB PO SCH (14:32)
[2017-06-04] MEDS ORDERED: ATORVASTATIN 20 MG TAB PO SCH (21:00)
[2017-06-04] MEDS: PARoxetine 20 MG TAB PO SCH (21:00)
[2017-06-04 22:00] VITALS: BP 157/96
[2017-06-05 06:00] VITALS: BP 172/98
[2017-06-05] MEDS: VANCOMYCIN ORAL SOL 250MG/5ML ORAL SYRINGE PO SCH ×2 (06:00→11:51)
[2017-06-05 06:34] LABS: BASO % 0.6 % (0.0-1.0); EOS # 0.2 10^3/uL (0.0-0.50); EOS % 2.6 % (0.0-3.0); LYMPH % 14.3 % (24.0-44.0); MEAN CORPUSCULAR HEMOGLOBIN 29.9 pg (27.0-33.0); MEAN CORPUSCULAR HGB CONC 33.1 g/dl (32.0-36.5); MEAN CORPUSCULAR VOLUME 90.4 fl (80.0-96.0); MONO # 0.9 10^3/uL (0.0-0.8); NEUTROPHILS # 4.7 10^3/uL (1.8-7.7); NEUTROPHILS % 68.5 % (36.0-66.0); PLATELET COUNT, AUTOMATED 196 10^3/uL (150-450); RED CELL DISTRIBUTION WIDTH 14.1 % (11.5-14.5); WHITE BLOOD COUNT 6.9 10^3/uL (4.0-10.0)
[2017-06-05 06:46] LABS: ANION GAP 9 MEQ/L (8-16); BLOOD UREA NITROGEN 9 MG/DL (7-18); CALCIUM LEVEL 8.4 MG/DL (8.8-10.2); CARBON DIOXIDE LEVEL 24 MEQ/L (21-32); CHLORIDE LEVEL 110 MEQ/L (98-107); CREATININE FOR GFR 0.48 MG/DL (0.70-1.30); GLOMERULAR FILTRATION RATE > 60.0 (>35); GLUCOSE, FASTING 89 MG/DL (83-110); POTASSIUM SERUM 3.2 MEQ/L (3.5-5.1); SODIUM LEVEL 143 MEQ/L (136-145)
[2017-06-05] MEDS: LORazepam 0.5 MG TAB PO SCH (09:00)
[2017-06-05] MEDS: ASPIRIN 81 MG CHEW TABLET PO SCH (09:31)
[2017-06-05 09:32] VITALS: BP 145/95
[2017-06-05] MEDS: TAMSULOSIN 0.4 MG CAP PO SCH (09:32)
[2017-06-05] MEDS: METOPROLOL TART 25 MG TABLET PO SCH (09:32)
[2017-06-05] MEDS: amLODIPine 5 MG TAB PO SCH (09:32)
[2017-06-05] MEDS: APIXABAN 5 MG TAB (ELIQUIS) PO SCH (09:32)
[2017-06-05] MEDS: LISINOPRIL 10 MG TAB PO SCH (09:33)
[2017-06-05] MEDS ORDERED: POTASSIUM CHLORIDE 10 MEQ SR TABLET PO ONE (11:45)
[2017-06-05] MEDS ORDERED: FIRS1SOL3 PO (12:24)
[2017-06-05] MEDS ORDERED: ATOR1TAB21 PO (12:24)
[2017-06-05] MEDS ORDERED: ATIV1TAB10 PO (12:25)
--- NOTE | 2017-06-05 18:52 | IPN ---
DATE: 06/04/2017 PRIMARY CARE PROVIDER: Dr. Deana Galo Patient was [facility]. He was admitted to Clostridium (C) difficile colitis. He is identified in history and physical as being a patient in my practice, but I have actually never seen him. Dr. Galo is his primary care provider. He was admitted with C. difficile colitis. He is still getting intravenous (IV) fluids. Looks like he has been stable since admission. PHYSICAL EXAMINATION: 147/87, pulse 70, respirations 19, 96% oxygen saturation. GENERAL APPEARANCE: He is resting comfortable. No distress. LUNGS: Clear. HEART: Regular rate and rhythm. ABDOMEN: Soft and nontender. He has expressive aphasia. Right hemiparesis noted. LABORATORY DATA: Sodium is up to 147, potassium 3.5. Electrolytes otherwise unremarkable. White count is down to 6.2. IMPRESSION: Clostridium difficile colitis. PLAN: 1. We will continue his oral vancomycin. He probably could be discharged once we are sure he has insurance coverage for this. I will send a prescription to his pharmacy, and patient and family services (PFS) can ensure coverage before his discharge tomorrow. Stop his IV fluids. 2. Hypernatremia. He is getting normal saline. Sodium is certainly rising. Will stop his IV fluids. 3. Hypertension. He is on hydralazine as well as lisinopril and metoprolol as an outpatient. I do not think hydralazine is a good long-term blood pressure medicine for him. We will discontinue this and start some amlodipine, which would be better for a patient with a history of stroke. 4. Hyperlipidemia. High-dose simvastatin 80 mg daily. 5. Benign prostatic hypertrophy (BPH). He is on Flomax 0.4 mg daily, which we will continue. 6. 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 7. History of stroke. He is on Eliquis 5 mg twice a day, which we will continue. No active bleeding. Hope to discharge tomorrow. ADDENDUM: There is a drug interaction between amlodipine and simvastatin. He is on high dose simvastatin. I think he would be better served by a statin with fewer drug interactions. I stopped his simvastatin, started him on atorvastatin 40 mg daily, which he should be able to tolerate together with the amlodipine. Hydralazine was discontinued in favor of amlodipine, which studies have shown to be more efficacious for secondary prevention of stroke. Addendum Dictated: Guanaco Hernández MD, 06/04/17 [id number] Addendum Transcribed: ALIEEN 06/04/2017 [id number] JANAY
--- NOTE | 2017-06-05 21:23 | PULFX ---
DATE OF PROCEDURE: 06/03/2017 Nocturnal recording oximetry was performed on room air. Baseline saturation was 96%. Lowest oxygen saturation appreciated was 62%. There was an irregular pattern with variable desaturations. IMPRESSION: Abnormal nocturnal recording oximetry with variable desaturations and a low saturation of 62% suggesting either Christiano-Cyr types respiration or obstructive sleep apnea syndrome.
--- NOTE | 2017-06-06 13:52 | DSES ---
DATE OF ADMISSION: 06/01/2017 DATE OF DISCHARGE: 06/05/2017 BRIEF HISTORY AND PHYSICAL: Patient is an 87-year-old patient Dr. 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 Pertinent labs on admission: White count 14.8, hemoglobin 12.6, sodium 141, potassium 3.8, BUN 21, creatinine 0.68, glucose 107, lactic acid 2.5. Liver enzymes were normal. CT of the abdomen and pelvis showed infectious versus inflammatory colitis involving the transverse through sigmoid colon. 1. GI panel was positive for his Clostridium (C.) difficile. He was placed on oral vancomycin. Diarrhea frequency has improved. He will be discharged home on oral vancomycin for a total of a 14-day course. 2. Hypokalemia. He has had some hypokalemia related to the diarrhea. Oral replacement has been given. His potassium is 3.2 at the time of discharge. He will get another dose of potassium before he goes. 3. History of hypertension. His blood pressure was variable throughout the hospitalization, it sometimes was low. Hydralazine was discontinued, his blood pressure has improved and he may need the hydralazine restarted as an outpatient eventually. DISPOSITION: The patient is stable for discharge home. Followup with Dr. Galo next week. MEDICATIONS: - atorvastatin 40 mg daily. This is a switch from high-dose simvastatin due to concerns over interaction between high-dose simvastatin and amlodipine - vancomycin 250 mg every 6 hours for 12 days - lorazepam 0.5 mg twice a day, which is lower than his usual home dose of 0.5 mg three times a day - Tylenol of 650 mg every 4 hours as needed for pain - Eliquis 5 mg twice a day - aspirin 81 mg daily - lisinopril 10 mg daily - metoprolol 25 mg daily - multivitamin daily - paroxetine 20 mg at bedtime - Flomax 0.4 mg daily DISCHARGE DIAGNOSES: 1. Clostridium (C.) difficile colitis. 2. Hypokalemia. 3. Hypertension. 4. Hyperlipidemia. 5. History of CVA.
== END 2017-06-05 15:00 | disposition home or self-care (01) | DRG 371 ==
LOC: EDSEX 15:25 → EDBD 15:25 → M ED 15:25 → M ED INP 18:33 → M MSPAV 23:45
PROVIDERS: ADMIT Internal Medicine Nephrology; ATTEND Family Medicine
DX: A04.72 Enterocolitis due to Clostridium difficile, not specified as recurrent (principal); G93.41 Metabolic encephalopathy; E87.0 Hyperosmolality and hypernatremia; I69.959 Hemiplegia and hemiparesis following unspecified cerebrovascular disease affecting unspecified side; E87.6 Hypokalemia; I48.91 Unspecified atrial fibrillation; I10 Essential (primary) hypertension; N40.0 Benign prostatic hyperplasia without lower urinary tract symptoms; I25.10 Atherosclerotic heart disease of native coronary artery without angina pectoris; E78.5 Hyperlipidemia, unspecified; Q63.1 Lobulated, fused and horseshoe kidney; Z95.0 Presence of cardiac pacemaker; Z79.899 Other long term (current) drug therapy; Z79.82 Long term (current) use of aspirin; I69.920 Aphasia following unspecified cerebrovascular disease; F09 Unspecified mental disorder due to known physiological condition; I49.5 Sick sinus syndrome; Z95.2 Presence of prosthetic heart valve; Z87.891 Personal history of nicotine dependence; E86.0 Dehydration; K59.00 Constipation, unspecified; G47.31 Primary central sleep apnea; F41.9 Anxiety disorder, unspecified; F32.9 Major depressive disorder, single episode, unspecified

== ENCOUNTER → 2017-06-13 | Outpatient (REF) | payer MEDICARE ==
[2017-06-13 20:22] LABS: HEMATOCRIT 38.7 % (42.0-52.0); HEMOGLOBIN 12.5 g/dl (14.0-18.0); MEAN CORPUSCULAR HEMOGLOBIN 30.3 pg (27.0-33.0); MEAN CORPUSCULAR HGB CONC 32.3 g/dl (32.0-36.5); MEAN CORPUSCULAR VOLUME 93.7 fl (80.0-96.0); PLATELET COUNT, AUTOMATED 194 10^3/uL (150-450); RED BLOOD COUNT 4.13 10^6/uL (4.30-6.10); RED CELL DISTRIBUTION WIDTH 14.6 % (11.5-14.5); WHITE BLOOD COUNT 6.2 10^3/uL (4.0-10.0)
[2017-06-13 20:48] LABS: ANION GAP 6 MEQ/L (8-16); BLOOD UREA NITROGEN 12 MG/DL (7-18); CALCIUM LEVEL 9.1 MG/DL (8.8-10.2); CARBON DIOXIDE LEVEL 32 MEQ/L (21-32); CHLORIDE LEVEL 102 MEQ/L (98-107); CREATININE FOR GFR 0.53 MG/DL (0.70-1.30); GLOMERULAR FILTRATION RATE > 60.0 (>35); GLUCOSE, FASTING 108 MG/DL (83-110); MAGNESIUM LEVEL 2.1 MG/DL (1.8-2.4); POTASSIUM SERUM 3.9 MEQ/L (3.5-5.1); SODIUM LEVEL 140 MEQ/L (136-145)
== END ==
LOC: M SFHCADAM 12:12
DX: E87.6 Hypokalemia (principal); M79.89 Other specified soft tissue disorders
CPT/HCPCS: 83735

== ENCOUNTER → 2017-06-28 | Outpatient (REF) | payer MEDICARE | LOC: M SFHCPLAZ 13:53 | DX: Z86.19 Personal history of other infectious and parasitic diseases (principal) | CPT/HCPCS: 87493 ==

== ENCOUNTER 2017-07-24 09:08 | Inpatient (IN) | payer MEDICARE ==
[2017-07-24 09:43] LABS: ABG HCO3 27.3 MEQ/L (22.0-26.0); ABG O2 SATURATION 86.2 % (95.0-99.0); ABG PARTIAL PRESSURE CO2 44.8 mmHg (35.0-45.0); ABG PARTIAL PRESSURE O2 51.9 mmHg (75.0-100.0); ABG TOTAL CO2 28.6 MEQ/L (23.0-31.0); ABG pH (ARTERIAL) 7.402 UNITS (7.350-7.450)
[2017-07-24] MEDS: NS 500 ML IV (10:20)
[2017-07-24 10:26] LABS: BASO % 0.7 % (0.0-1.0); EOS # 0.3 10^3/uL (0.0-0.50); EOS % 4.6 % (0.0-3.0); HEMATOCRIT 39.2 % (42.0-52.0); HEMOGLOBIN 12.8 g/dl (14.0-18.0); IMMATURE GRANULOCYTE % 0.4 % (0-3.0); LYMPH % 17.6 % (24.0-44.0); MEAN CORPUSCULAR HEMOGLOBIN 30.3 pg (27.0-33.0); MEAN CORPUSCULAR HGB CONC 32.7 g/dl (32.0-36.5); MEAN CORPUSCULAR VOLUME 92.7 fl (80.0-96.0); MONO # 0.8 10^3/uL (0.0-0.8); MONO % 13.2 % (0.0-5.0); NEUTROPHILS # 3.6 10^3/uL (1.8-7.7); NEUTROPHILS % 63.5 % (36.0-66.0); PLATELET COUNT, AUTOMATED 209 10^3/uL (150-450); RED BLOOD COUNT 4.23 10^6/uL (4.30-6.10); RED CELL DISTRIBUTION WIDTH 14.8 % (11.5-14.5); WHITE BLOOD COUNT 5.7 10^3/uL (4.0-10.0)
[2017-07-24 10:48] LABS: LACTIC ACID SEPSIS PROTOCOL 1.5 MMOL/L (0.4-2.0)
[2017-07-24 10:49] LABS: ANION GAP 8 MEQ/L (8-16); BLOOD UREA NITROGEN 26 MG/DL (7-18); CALCIUM LEVEL 8.9 MG/DL (8.8-10.2); CARBON DIOXIDE LEVEL 28 MEQ/L (21-32); CHLORIDE LEVEL 109 MEQ/L (98-107); CPK CREATINE PHOSPHOKINASE 41 U/L (39-308); CREATININE FOR GFR 0.73 MG/DL (0.70-1.30); GLOMERULAR FILTRATION RATE > 60.0 (>35); GLUCOSE, FASTING 105 MG/DL (70-100); MB/CK RELATIVE INDEX 2.43 (< OR =4); POTASSIUM SERUM 3.8 MEQ/L (3.5-5.1); SODIUM LEVEL 145 MEQ/L (136-145); TROPONIN I < 0.02 NG/ML (< 0.10)
[2017-07-24 10:54] LABS: NT-PRO BNP 1365 PG/ML (<450)
[2017-07-24] MEDS ORDERED: IPRATROPIUM 0.5MG/ALBUTEROL 2.5MG INH SOL UD 3ML (DUONEB)(J7620) NEB (14:45)
[2017-07-24] MEDS: LORazepam 0.5 MG TAB PO ×2 (15:59→21:06)
[2017-07-24] MEDS: ACETAMINOPHEN TAB 650MG DOSE (2X325MG) PO (16:00)
[2017-07-24 17:35] LABS: CK-MB VALUE MASS 1.3 NG/ML (0.0-3.6); CPK CREATINE PHOSPHOKINASE 41 U/L (39-308); MB/CK RELATIVE INDEX 3.17 (< OR =4); TROPONIN I < 0.02 NG/ML (< 0.10)
[2017-07-24] MEDS: IPRATROPIUM 0.5MG/ALBUTEROL 2.5MG INH SOL UD 3ML (DUONEB)(J7620) NEB (20:41)
[2017-07-24] MEDS: LACTOBACILLUS ACIDOPHILUS CAP (BACID) PO (21:06)
[2017-07-24] MEDS: PARoxetine 20 MG TAB PO (21:06)
[2017-07-24] MEDS: HEPARIN SOD (PORCINE) 5000 UNITS/ML VIAL SC (21:06)
[2017-07-24] MEDS: guaiFENesin ER 600 MG TAB PO (21:06)
[2017-07-24] MEDS: METOPROLOL TART 25 MG TABLET PO (21:07)
[2017-07-24] MEDS: ATORVASTATIN 20 MG TAB PO (21:07)
[2017-07-24] MEDS: OSELTAMIVIR PHOSPHATE 75 MG CAP (TAMIFLU) PO (21:07)
[2017-07-24] MEDS: APIXABAN 5 MG TAB (ELIQUIS) PO (21:07)
[2017-07-25] MEDS: ACETAMINOPHEN TAB 650MG DOSE (2X325MG) PO (00:17)
[2017-07-25] MEDS: IPRATROPIUM 0.5MG/ALBUTEROL 2.5MG INH SOL UD 3ML (DUONEB)(J7620) NEB ×4 (02:32→21:32)
[2017-07-25 07:11] LABS: HEMATOCRIT 38.5 % (42.0-52.0); HEMOGLOBIN 12.4 g/dl (14.0-18.0); MEAN CORPUSCULAR HGB CONC 32.2 g/dl (32.0-36.5); PLATELET COUNT, AUTOMATED 197 10^3/uL (150-450); RED BLOOD COUNT 4.14 10^6/uL (4.30-6.10); RED CELL DISTRIBUTION WIDTH 14.8 % (11.5-14.5); WHITE BLOOD COUNT 5.2 10^3/uL (4.0-10.0)
[2017-07-25 07:25] LABS: ANION GAP 8 MEQ/L (8-16); BLOOD UREA NITROGEN 22 MG/DL (7-18); CALCIUM LEVEL 9.4 MG/DL (8.8-10.2); CARBON DIOXIDE LEVEL 25 MEQ/L (21-32); CHLORIDE LEVEL 110 MEQ/L (98-107); CREATININE FOR GFR 0.62 MG/DL (0.70-1.30); GLOMERULAR FILTRATION RATE > 60.0 (>35); GLUCOSE, FASTING 95 MG/DL (70-100); MAGNESIUM LEVEL 2.1 MG/DL (1.8-2.4); POTASSIUM SERUM 4.1 MEQ/L (3.5-5.1); SODIUM LEVEL 143 MEQ/L (136-145)
[2017-07-25] MEDS: VANCOMYCIN ORAL SOL 250MG/5ML ORAL SYRINGE PO (09:00)
[2017-07-25] MEDS: ASPIRIN 81 MG CHEW TABLET PO (09:12)
[2017-07-25] MEDS: LORazepam 0.5 MG TAB PO ×2 (09:12→22:24)
[2017-07-25] MEDS: APIXABAN 5 MG TAB (ELIQUIS) PO ×2 (09:12→22:24)
[2017-07-25] MEDS: TAMSULOSIN 0.4 MG CAP PO (09:12)
[2017-07-25] MEDS: VITAMIN D 1,000 INTERNATIONAL UNITS TABLET PO (09:12)
[2017-07-25] MEDS: MULTIVITAMINS/MINERALS THERAP 1 TAB PO (09:12)
[2017-07-25] MEDS: LACTOBACILLUS ACIDOPHILUS CAP (BACID) PO ×2 (09:12→22:24)
[2017-07-25] MEDS: guaiFENesin ER 600 MG TAB PO ×2 (09:13→22:25)
[2017-07-25] MEDS: METOPROLOL TART 25 MG TABLET PO ×2 (09:17→22:25)
[2017-07-25] MEDS: LISINOPRIL 10 MG TAB PO (09:17)
[2017-07-25] MEDS: methylPREDNISolone INJ 125 MG/2 ML VIAL (J2930) IV (14:25)
[2017-07-25] MEDS: DOXYCYCLINE HYCLATE 100 MG in D5W MINI-BAG PLUS 100 ML IV (14:55)
[2017-07-25] MEDS: CEFTRIAXONE SOD 2 GM in APPROPRIATE DILUENT 1 EA IV (17:13)
[2017-07-25] MEDS: PARoxetine 20 MG TAB PO (22:25)
[2017-07-25] MEDS: ATORVASTATIN 20 MG TAB PO (22:25)
[2017-07-25] MEDS: OSELTAMIVIR PHOSPHATE 75 MG CAP (TAMIFLU) PO (22:26)
[2017-07-26] MEDS: IPRATROPIUM 0.5MG/ALBUTEROL 2.5MG INH SOL UD 3ML (DUONEB)(J7620) NEB ×4 (01:38→21:17)
[2017-07-26] MEDS: DOXYCYCLINE HYCLATE 100 MG in D5W MINI-BAG PLUS 100 ML IV ×2 (02:27→13:51)
[2017-07-26] MEDS: ACETAMINOPHEN TAB 650MG DOSE (2X325MG) PO ×2 (03:22→20:29)
[2017-07-26 06:07] LABS: HEMATOCRIT 36.6 % (42.0-52.0); HEMOGLOBIN 12.2 g/dl (14.0-18.0); MEAN CORPUSCULAR HEMOGLOBIN 30.4 pg (27.0-33.0); MEAN CORPUSCULAR HGB CONC 33.3 g/dl (32.0-36.5); MEAN CORPUSCULAR VOLUME 91.3 fl (80.0-96.0); PLATELET COUNT, AUTOMATED 211 10^3/uL (150-450); RED BLOOD COUNT 4.01 10^6/uL (4.30-6.10); RED CELL DISTRIBUTION WIDTH 14.6 % (11.5-14.5); WHITE BLOOD COUNT 5.5 10^3/uL (4.0-10.0)
[2017-07-26 06:24] LABS: ANION GAP 9 MEQ/L (8-16); BLOOD UREA NITROGEN 23 MG/DL (7-18); CALCIUM LEVEL 9.4 MG/DL (8.8-10.2); CARBON DIOXIDE LEVEL 26 MEQ/L (21-32); CHLORIDE LEVEL 106 MEQ/L (98-107); CREATININE FOR GFR 0.63 MG/DL (0.70-1.30); GLOMERULAR FILTRATION RATE > 60.0 (>35); GLUCOSE, FASTING 130 MG/DL (70-100); MAGNESIUM LEVEL 2.3 MG/DL (1.8-2.4); POTASSIUM SERUM 3.8 MEQ/L (3.5-5.1); SODIUM LEVEL 141 MEQ/L (136-145)
[2017-07-26] MEDS: guaiFENesin ER 600 MG TAB PO ×2 (08:23→22:08)
[2017-07-26] MEDS: ASPIRIN 81 MG CHEW TABLET PO (08:23)
[2017-07-26] MEDS: APIXABAN 5 MG TAB (ELIQUIS) PO ×2 (08:23→22:07)
[2017-07-26] MEDS: methylPREDNISolone INJ 125 MG/2 ML VIAL (J2930) IV (08:23)
[2017-07-26] MEDS: VANCOMYCIN ORAL SOL 250MG/5ML ORAL SYRINGE PO (08:23)
[2017-07-26] MEDS: LORazepam 0.5 MG TAB PO ×2 (08:24→22:07)
[2017-07-26] MEDS: TAMSULOSIN 0.4 MG CAP PO (08:24)
[2017-07-26] MEDS: LISINOPRIL 10 MG TAB PO (08:24)
[2017-07-26] MEDS: METOPROLOL TART 25 MG TABLET PO ×2 (08:24→22:08)
[2017-07-26] MEDS: LACTOBACILLUS ACIDOPHILUS CAP (BACID) PO ×2 (08:24→22:07)
[2017-07-26] MEDS: VITAMIN D 1,000 INTERNATIONAL UNITS TABLET PO (08:24)
[2017-07-26] MEDS: MULTIVITAMINS/MINERALS THERAP 1 TAB PO (08:24)
[2017-07-26] MEDS: CEFTRIAXONE SOD 2 GM in APPROPRIATE DILUENT 1 EA IV (17:26)
[2017-07-26] MEDS: ATORVASTATIN 20 MG TAB PO (22:07)
[2017-07-26] MEDS: OSELTAMIVIR PHOSPHATE 75 MG CAP (TAMIFLU) PO (22:08)
[2017-07-26] MEDS: PARoxetine 20 MG TAB PO (22:08)
[2017-07-27] MEDS: DOXYCYCLINE HYCLATE 100 MG in D5W MINI-BAG PLUS 100 ML IV ×2 (02:10→15:40)
[2017-07-27] MEDS: IPRATROPIUM 0.5MG/ALBUTEROL 2.5MG INH SOL UD 3ML (DUONEB)(J7620) NEB ×4 (04:03→20:00)
[2017-07-27] MEDS: CEFTRIAXONE SOD 2 GM in APPROPRIATE DILUENT 1 EA IV (05:24)
[2017-07-27 05:55] LABS: HEMATOCRIT 38.3 % (42.0-52.0); HEMOGLOBIN 12.5 g/dl (14.0-18.0); MEAN CORPUSCULAR HEMOGLOBIN 29.9 pg (27.0-33.0); MEAN CORPUSCULAR HGB CONC 32.6 g/dl (32.0-36.5); MEAN CORPUSCULAR VOLUME 91.6 fl (80.0-96.0); PLATELET COUNT, AUTOMATED 210 10^3/uL (150-450); RED BLOOD COUNT 4.18 10^6/uL (4.30-6.10); RED CELL DISTRIBUTION WIDTH 14.7 % (11.5-14.5); WHITE BLOOD COUNT 8.1 10^3/uL (4.0-10.0)
[2017-07-27 06:17] LABS: ANION GAP 8 MEQ/L (8-16); BLOOD UREA NITROGEN 25 MG/DL (7-18); CARBON DIOXIDE LEVEL 27 MEQ/L (21-32); CHLORIDE LEVEL 107 MEQ/L (98-107); CREATININE FOR GFR 0.65 MG/DL (0.70-1.30); GLOMERULAR FILTRATION RATE > 60.0 (>35); GLUCOSE, FASTING 118 MG/DL (70-100); MAGNESIUM LEVEL 2.2 MG/DL (1.8-2.4); POTASSIUM SERUM 3.6 MEQ/L (3.5-5.1); SODIUM LEVEL 142 MEQ/L (136-145)
[2017-07-27] MEDS: VANCOMYCIN ORAL SOL 250MG/5ML ORAL SYRINGE PO (08:50)
[2017-07-27] MEDS: ASPIRIN 81 MG CHEW TABLET PO (08:51)
[2017-07-27] MEDS: methylPREDNISolone INJ 125 MG/2 ML VIAL (J2930) IV (08:51)
[2017-07-27] MEDS: VITAMIN D 1,000 INTERNATIONAL UNITS TABLET PO (08:51)
[2017-07-27] MEDS: guaiFENesin ER 600 MG TAB PO ×2 (08:51→21:17)
[2017-07-27] MEDS: TAMSULOSIN 0.4 MG CAP PO (08:52)
[2017-07-27] MEDS: LACTOBACILLUS ACIDOPHILUS CAP (BACID) PO ×2 (08:52→21:16)
[2017-07-27] MEDS: APIXABAN 5 MG TAB (ELIQUIS) PO ×2 (08:52→21:17)
[2017-07-27] MEDS: LORazepam 0.5 MG TAB PO ×2 (08:52→21:17)
[2017-07-27] MEDS: LISINOPRIL 10 MG TAB PO (08:53)
[2017-07-27] MEDS: METOPROLOL TART 25 MG TABLET PO ×2 (08:53→21:16)
[2017-07-27] MEDS: MULTIVITAMINS/MINERALS THERAP 1 TAB PO (08:53)
[2017-07-27] MEDS ORDERED: SLF 3 ML SYR IV (10:45)
[2017-07-27] MEDS: SLF 3 ML SYR IV ×2 (14:00→21:18)
[2017-07-27] MEDS: ACETAMINOPHEN TAB 650MG DOSE (2X325MG) PO (18:59)
[2017-07-27] MEDS: PARoxetine 20 MG TAB PO (21:16)
[2017-07-27] MEDS: OSELTAMIVIR PHOSPHATE 75 MG CAP (TAMIFLU) PO (21:17)
[2017-07-27] MEDS: ATORVASTATIN 20 MG TAB PO (21:17)
[2017-07-28] MEDS: IPRATROPIUM 0.5MG/ALBUTEROL 2.5MG INH SOL UD 3ML (DUONEB)(J7620) NEB ×5 (02:00→20:35)
[2017-07-28] MEDS: DOXYCYCLINE HYCLATE 100 MG in D5W MINI-BAG PLUS 100 ML IV ×2 (02:49→14:33)
[2017-07-28] MEDS: SLF 3 ML SYR IV ×3 (05:19→20:21)
[2017-07-28] MEDS: CEFTRIAXONE SOD 2 GM in APPROPRIATE DILUENT 1 EA IV (05:19)
[2017-07-28] MEDS: METOPROLOL TART 25 MG TABLET PO ×2 (05:20→20:30)
[2017-07-28 05:24] LABS: HEMOGLOBIN 13.1 g/dl (14.0-18.0); MEAN CORPUSCULAR HGB CONC 32.8 g/dl (32.0-36.5); MEAN CORPUSCULAR VOLUME 91.7 fl (80.0-96.0); PLATELET COUNT, AUTOMATED 208 10^3/uL (150-450); RED BLOOD COUNT 4.36 10^6/uL (4.30-6.10); RED CELL DISTRIBUTION WIDTH 14.6 % (11.5-14.5); WHITE BLOOD COUNT 7.6 10^3/uL (4.0-10.0)
[2017-07-28 05:42] LABS: ANION GAP 8 MEQ/L (8-16); BLOOD UREA NITROGEN 18 MG/DL (7-18); CALCIUM LEVEL 8.8 MG/DL (8.8-10.2); CARBON DIOXIDE LEVEL 31 MEQ/L (21-32); CHLORIDE LEVEL 102 MEQ/L (98-107); CREATININE FOR GFR 0.61 MG/DL (0.70-1.30); GLOMERULAR FILTRATION RATE > 60.0 (>35); GLUCOSE, FASTING 111 MG/DL (70-100); MAGNESIUM LEVEL 1.9 MG/DL (1.8-2.4); POTASSIUM SERUM 3.5 MEQ/L (3.5-5.1); SODIUM LEVEL 141 MEQ/L (136-145)
[2017-07-28] MEDS: VITAMIN D 1,000 INTERNATIONAL UNITS TABLET PO (08:08)
[2017-07-28] MEDS: methylPREDNISolone INJ 125 MG/2 ML VIAL (J2930) IV (08:08)
[2017-07-28] MEDS: TAMSULOSIN 0.4 MG CAP PO (08:09)
[2017-07-28] MEDS: MULTIVITAMINS/MINERALS THERAP 1 TAB PO (08:09)
[2017-07-28] MEDS: LISINOPRIL 10 MG TAB PO (08:09)
[2017-07-28] MEDS: APIXABAN 5 MG TAB (ELIQUIS) PO ×2 (08:09→20:20)
[2017-07-28] MEDS: LACTOBACILLUS ACIDOPHILUS CAP (BACID) PO ×2 (08:09→20:20)
[2017-07-28] MEDS: ASPIRIN 81 MG CHEW TABLET PO (08:09)
[2017-07-28] MEDS: ACETAMINOPHEN TAB 650MG DOSE (2X325MG) PO (08:10)
[2017-07-28] MEDS: guaiFENesin ER 600 MG TAB PO ×2 (08:10→20:20)
[2017-07-28] MEDS: LORazepam 0.5 MG TAB PO ×3 (08:11→20:20)
[2017-07-28] MEDS: VANCOMYCIN ORAL SOL 250MG/5ML ORAL SYRINGE PO ×2 (14:31→20:21)
[2017-07-28] MEDS: ATORVASTATIN 20 MG TAB PO (20:20)
[2017-07-28] MEDS: PARoxetine 20 MG TAB PO (20:20)
[2017-07-29] MEDS: DOXYCYCLINE HYCLATE 100 MG in D5W MINI-BAG PLUS 100 ML IV ×2 (03:21→14:53)
[2017-07-29] MEDS: VANCOMYCIN ORAL SOL 250MG/5ML ORAL SYRINGE PO ×4 (03:22→20:41)
[2017-07-29] MEDS: SLF 3 ML SYR IV ×3 (04:25→20:34)
[2017-07-29] MEDS: CEFTRIAXONE SOD 2 GM in APPROPRIATE DILUENT 1 EA IV (04:25)
[2017-07-29 05:28] LABS: HEMATOCRIT 36.2 % (42.0-52.0); MEAN CORPUSCULAR HEMOGLOBIN 29.9 pg (27.0-33.0); MEAN CORPUSCULAR HGB CONC 33.1 g/dl (32.0-36.5); MEAN CORPUSCULAR VOLUME 90.3 fl (80.0-96.0); PLATELET COUNT, AUTOMATED 208 10^3/uL (150-450); RED BLOOD COUNT 4.01 10^6/uL (4.30-6.10); RED CELL DISTRIBUTION WIDTH 14.3 % (11.5-14.5); WHITE BLOOD COUNT 7.5 10^3/uL (4.0-10.0)
[2017-07-29 05:38] LABS: ANION GAP 8 MEQ/L (8-16); BLOOD UREA NITROGEN 19 MG/DL (7-18); CALCIUM LEVEL 8.5 MG/DL (8.8-10.2); CARBON DIOXIDE LEVEL 28 MEQ/L (21-32); CHLORIDE LEVEL 105 MEQ/L (98-107); CREATININE FOR GFR 0.63 MG/DL (0.70-1.30); GLOMERULAR FILTRATION RATE > 60.0 (>35); GLUCOSE, FASTING 115 MG/DL (70-100); POTASSIUM SERUM 3.4 MEQ/L (3.5-5.1); SODIUM LEVEL 141 MEQ/L (136-145)
[2017-07-29] MEDS: IPRATROPIUM 0.5MG/ALBUTEROL 2.5MG INH SOL UD 3ML (DUONEB)(J7620) NEB ×3 (07:07→20:55)
[2017-07-29] MEDS ORDERED: VANCOMYCIN ORAL SOL 250MG/5ML ORAL SYRINGE PO (09:00)
[2017-07-29] MEDS: ASPIRIN 81 MG CHEW TABLET PO (10:00)
[2017-07-29] MEDS: methylPREDNISolone INJ 125 MG/2 ML VIAL (J2930) IV (10:00)
[2017-07-29] MEDS: ACETAMINOPHEN TAB 650MG DOSE (2X325MG) PO ×2 (10:01→17:36)
[2017-07-29] MEDS: LACTOBACILLUS ACIDOPHILUS CAP (BACID) PO ×2 (10:01→20:32)
[2017-07-29] MEDS: APIXABAN 5 MG TAB (ELIQUIS) PO ×2 (10:02→20:33)
[2017-07-29] MEDS: LISINOPRIL 10 MG TAB PO (10:02)
[2017-07-29] MEDS: guaiFENesin ER 600 MG TAB PO ×2 (10:02→20:33)
[2017-07-29] MEDS: LORazepam 0.5 MG TAB PO ×3 (10:02→20:33)
[2017-07-29] MEDS: TAMSULOSIN 0.4 MG CAP PO (10:02)
[2017-07-29] MEDS: VITAMIN D 1,000 INTERNATIONAL UNITS TABLET PO (10:02)
[2017-07-29] MEDS: METOPROLOL TART 25 MG TABLET PO ×2 (10:03→20:33)
[2017-07-29] MEDS: MULTIVITAMINS/MINERALS THERAP 1 TAB PO (10:03)
[2017-07-29] MEDS: POTASSIUM CHLORIDE 10 MEQ SR TABLET PO (16:49)
[2017-07-29] MEDS: ATORVASTATIN 20 MG TAB PO (20:32)
[2017-07-29] MEDS: PARoxetine 20 MG TAB PO (20:33)
[2017-07-30] MEDS: IPRATROPIUM 0.5MG/ALBUTEROL 2.5MG INH SOL UD 3ML (DUONEB)(J7620) NEB ×4 (02:04→19:20)
[2017-07-30] MEDS: DOXYCYCLINE HYCLATE 100 MG in D5W MINI-BAG PLUS 100 ML IV (02:06)
[2017-07-30] MEDS: SLF 3 ML SYR IV ×3 (04:16→22:38)
[2017-07-30] MEDS: VANCOMYCIN ORAL SOL 250MG/5ML ORAL SYRINGE PO ×4 (04:17→22:44)
[2017-07-30] MEDS: CEFTRIAXONE SOD 2 GM in APPROPRIATE DILUENT 1 EA IV (04:17)
[2017-07-30 05:24] LABS: HEMATOCRIT 39.8 % (42.0-52.0); HEMOGLOBIN 13.2 g/dl (14.0-18.0); MEAN CORPUSCULAR HEMOGLOBIN 29.9 pg (27.0-33.0); MEAN CORPUSCULAR HGB CONC 33.2 g/dl (32.0-36.5); PLATELET COUNT, AUTOMATED 221 10^3/uL (150-450); RED BLOOD COUNT 4.42 10^6/uL (4.30-6.10); RED CELL DISTRIBUTION WIDTH 14.3 % (11.5-14.5); WHITE BLOOD COUNT 8.4 10^3/uL (4.0-10.0)
[2017-07-30 05:37] LABS: ANION GAP 8 MEQ/L (8-16); BLOOD UREA NITROGEN 21 MG/DL (7-18); CALCIUM LEVEL 8.6 MG/DL (8.8-10.2); CARBON DIOXIDE LEVEL 27 MEQ/L (21-32); CHLORIDE LEVEL 105 MEQ/L (98-107); CREATININE FOR GFR 0.66 MG/DL (0.70-1.30); GLOMERULAR FILTRATION RATE > 60.0 (>35); GLUCOSE, FASTING 148 MG/DL (70-100); POTASSIUM SERUM 3.7 MEQ/L (3.5-5.1); SODIUM LEVEL 140 MEQ/L (136-145)
[2017-07-30] MEDS: MULTIVITAMINS/MINERALS THERAP 1 TAB PO (10:11)
[2017-07-30] MEDS: LACTOBACILLUS ACIDOPHILUS CAP (BACID) PO ×2 (10:12→22:36)
[2017-07-30] MEDS: ASPIRIN 81 MG CHEW TABLET PO (10:12)
[2017-07-30] MEDS: LISINOPRIL 10 MG TAB PO (10:12)
[2017-07-30] MEDS: VITAMIN D 1,000 INTERNATIONAL UNITS TABLET PO (10:12)
[2017-07-30] MEDS: APIXABAN 5 MG TAB (ELIQUIS) PO ×2 (10:13→22:38)
[2017-07-30] MEDS: LORazepam 0.5 MG TAB PO ×3 (10:13→22:37)
[2017-07-30] MEDS: TAMSULOSIN 0.4 MG CAP PO (10:13)
[2017-07-30] MEDS: methylPREDNISolone INJ 125 MG/2 ML VIAL (J2930) IV (10:14)
[2017-07-30] MEDS: guaiFENesin ER 600 MG TAB PO ×2 (10:14→22:38)
[2017-07-30] MEDS: METOPROLOL TART 25 MG TABLET PO ×2 (10:25→22:37)
[2017-07-30] MEDS: ACETAMINOPHEN TAB 650MG DOSE (2X325MG) PO (15:54)
[2017-07-30] MEDS: CEFUROXIME 500 MG TAB PO (22:37)
[2017-07-30] MEDS: PARoxetine 20 MG TAB PO (22:37)
[2017-07-30] MEDS: DOXYCYCLINE HYCLATE 100 MG TAB PO (22:37)
[2017-07-30] MEDS: ATORVASTATIN 20 MG TAB PO (22:37)
[2017-07-31] MEDS: IPRATROPIUM 0.5MG/ALBUTEROL 2.5MG INH SOL UD 3ML (DUONEB)(J7620) NEB ×4 (03:36→22:07)
[2017-07-31] MEDS: VANCOMYCIN ORAL SOL 250MG/5ML ORAL SYRINGE PO ×4 (03:43→20:31)
[2017-07-31 05:53] LABS: HEMATOCRIT 40.6 % (42.0-52.0); HEMOGLOBIN 13.3 g/dl (14.0-18.0); MEAN CORPUSCULAR HGB CONC 32.8 g/dl (32.0-36.5); MEAN CORPUSCULAR VOLUME 91.6 fl (80.0-96.0); PLATELET COUNT, AUTOMATED 239 10^3/uL (150-450); RED BLOOD COUNT 4.43 10^6/uL (4.30-6.10); RED CELL DISTRIBUTION WIDTH 14.6 % (11.5-14.5); WHITE BLOOD COUNT 8.4 10^3/uL (4.0-10.0)
[2017-07-31 06:18] LABS: ANION GAP 8 MEQ/L (8-16); BLOOD UREA NITROGEN 22 MG/DL (7-18); CALCIUM LEVEL 8.9 MG/DL (8.8-10.2); CARBON DIOXIDE LEVEL 27 MEQ/L (21-32); CHLORIDE LEVEL 104 MEQ/L (98-107); CREATININE FOR GFR 0.69 MG/DL (0.70-1.30); GLOMERULAR FILTRATION RATE > 60.0 (>35); GLUCOSE, FASTING 112 MG/DL (70-100); POTASSIUM SERUM 3.9 MEQ/L (3.5-5.1); SODIUM LEVEL 139 MEQ/L (136-145)
[2017-07-31] MEDS: SLF 3 ML SYR IV ×3 (06:24→20:18)
[2017-07-31] MEDS: MULTIVITAMINS/MINERALS THERAP 1 TAB PO (10:28)
[2017-07-31] MEDS: TAMSULOSIN 0.4 MG CAP PO (10:28)
[2017-07-31] MEDS: CEFUROXIME 500 MG TAB PO ×2 (10:28→20:15)
[2017-07-31] MEDS: ASPIRIN 81 MG CHEW TABLET PO (10:28)
[2017-07-31] MEDS: LORazepam 0.5 MG TAB PO ×3 (10:28→20:15)
[2017-07-31] MEDS: APIXABAN 5 MG TAB (ELIQUIS) PO ×2 (10:28→20:17)
[2017-07-31] MEDS: LACTOBACILLUS ACIDOPHILUS CAP (BACID) PO ×2 (10:28→20:15)
[2017-07-31] MEDS: VITAMIN D 1,000 INTERNATIONAL UNITS TABLET PO (10:28)
[2017-07-31] MEDS: LISINOPRIL 10 MG TAB PO (10:29)
[2017-07-31] MEDS: METOPROLOL TART 25 MG TABLET PO ×2 (10:29→20:14)
[2017-07-31] MEDS: DOXYCYCLINE HYCLATE 100 MG TAB PO ×2 (10:29→20:16)
[2017-07-31] MEDS: guaiFENesin ER 600 MG TAB PO ×2 (10:29→20:16)
[2017-07-31] MEDS: ATORVASTATIN 20 MG TAB PO (20:16)
[2017-07-31] MEDS: PARoxetine 20 MG TAB PO (20:17)
[2017-08-01] MEDS: IPRATROPIUM 0.5MG/ALBUTEROL 2.5MG INH SOL UD 3ML (DUONEB)(J7620) NEB ×4 (01:47→20:07)
[2017-08-01] MEDS: VANCOMYCIN ORAL SOL 250MG/5ML ORAL SYRINGE PO ×4 (03:06→20:39)
[2017-08-01] MEDS: SLF 3 ML SYR IV ×3 (05:16→20:41)
[2017-08-01] MEDS: TAMSULOSIN 0.4 MG CAP PO (08:01)
[2017-08-01] MEDS: guaiFENesin ER 600 MG TAB PO ×2 (08:01→20:40)
[2017-08-01] MEDS: APIXABAN 5 MG TAB (ELIQUIS) PO ×2 (08:01→20:39)
[2017-08-01] MEDS: MULTIVITAMINS/MINERALS THERAP 1 TAB PO (08:01)
[2017-08-01] MEDS: METOPROLOL TART 25 MG TABLET PO ×2 (08:03→20:40)
[2017-08-01] MEDS: LORazepam 0.5 MG TAB PO ×3 (08:04→20:39)
[2017-08-01] MEDS: LACTOBACILLUS ACIDOPHILUS CAP (BACID) PO ×2 (08:04→20:39)
[2017-08-01] MEDS: LISINOPRIL 10 MG TAB PO (08:04)
[2017-08-01] MEDS: DOXYCYCLINE HYCLATE 100 MG TAB PO ×2 (08:04→20:40)
[2017-08-01] MEDS: ASPIRIN 81 MG CHEW TABLET PO (08:04)
[2017-08-01] MEDS: ACETAMINOPHEN TAB 650MG DOSE (2X325MG) PO ×2 (08:04→20:40)
[2017-08-01] MEDS: VITAMIN D 1,000 INTERNATIONAL UNITS TABLET PO (08:04)
[2017-08-01] MEDS: CEFUROXIME 500 MG TAB PO ×2 (08:04→20:39)
[2017-08-01 12:57] LABS: ANION GAP 7 MEQ/L (8-16); BLOOD UREA NITROGEN 21 MG/DL (7-18); CALCIUM LEVEL 8.6 MG/DL (8.8-10.2); CARBON DIOXIDE LEVEL 28 MEQ/L (21-32); CHLORIDE LEVEL 104 MEQ/L (98-107); CREATININE FOR GFR 0.62 MG/DL (0.70-1.30); GLOMERULAR FILTRATION RATE > 60.0 (>35); GLUCOSE, FASTING 92 MG/DL (70-100); POTASSIUM SERUM 3.7 MEQ/L (3.5-5.1); SODIUM LEVEL 139 MEQ/L (136-145)
[2017-08-01] MEDS: ATORVASTATIN 20 MG TAB PO (20:39)
[2017-08-01] MEDS: PARoxetine 20 MG TAB PO (20:40)
[2017-08-02] MEDS: IPRATROPIUM 0.5MG/ALBUTEROL 2.5MG INH SOL UD 3ML (DUONEB)(J7620) NEB ×4 (01:50→20:00)
[2017-08-02] MEDS: VANCOMYCIN ORAL SOL 250MG/5ML ORAL SYRINGE PO ×4 (03:39→20:33)
[2017-08-02] MEDS: SLF 3 ML SYR IV ×3 (05:34→21:25)
[2017-08-02 07:33] LABS: ANION GAP 8 MEQ/L (8-16); BLOOD UREA NITROGEN 16 MG/DL (7-18); CALCIUM LEVEL 8.3 MG/DL (8.8-10.2); CARBON DIOXIDE LEVEL 28 MEQ/L (21-32); CHLORIDE LEVEL 105 MEQ/L (98-107); CREATININE FOR GFR 0.57 MG/DL (0.70-1.30); GLOMERULAR FILTRATION RATE > 60.0 (>35); GLUCOSE, FASTING 93 MG/DL (70-100); POTASSIUM SERUM 3.5 MEQ/L (3.5-5.1); SODIUM LEVEL 141 MEQ/L (136-145)
[2017-08-02] MEDS: guaiFENesin ER 600 MG TAB PO ×2 (09:00→20:33)
[2017-08-02] MEDS: MULTIVITAMINS/MINERALS THERAP 1 TAB PO (09:00)
[2017-08-02] MEDS: LACTOBACILLUS ACIDOPHILUS CAP (BACID) PO ×2 (10:02→20:33)
[2017-08-02] MEDS: ASPIRIN 81 MG CHEW TABLET PO (10:02)
[2017-08-02] MEDS: CEFUROXIME 500 MG TAB PO ×2 (10:02→20:33)
[2017-08-02] MEDS: DOXYCYCLINE HYCLATE 100 MG TAB PO ×2 (10:03→20:33)
[2017-08-02] MEDS: LISINOPRIL 10 MG TAB PO (10:03)
[2017-08-02] MEDS: VITAMIN D 1,000 INTERNATIONAL UNITS TABLET PO (10:03)
[2017-08-02] MEDS: APIXABAN 5 MG TAB (ELIQUIS) PO ×2 (10:03→20:34)
[2017-08-02] MEDS: METOPROLOL TART 25 MG TABLET PO ×2 (10:03→20:34)
[2017-08-02] MEDS: LORazepam 0.5 MG TAB PO ×3 (10:04→20:33)
[2017-08-02] MEDS: TAMSULOSIN 0.4 MG CAP PO (10:04)
[2017-08-02] MEDS: ACETAMINOPHEN TAB 650MG DOSE (2X325MG) PO ×2 (13:10→18:16)
[2017-08-02] MEDS: PARoxetine 20 MG TAB PO (20:33)
[2017-08-02] MEDS: ATORVASTATIN 20 MG TAB PO (20:33)
[2017-08-03] MEDS: IPRATROPIUM 0.5MG/ALBUTEROL 2.5MG INH SOL UD 3ML (DUONEB)(J7620) NEB ×2 (01:51→07:06)
[2017-08-03] MEDS: VANCOMYCIN ORAL SOL 250MG/5ML ORAL SYRINGE PO ×2 (02:29→08:13)
[2017-08-03] MEDS: SLF 3 ML SYR IV (06:00)
[2017-08-03 07:31] LABS: ANION GAP 7 MEQ/L (8-16); BLOOD UREA NITROGEN 13 MG/DL (7-18); CALCIUM LEVEL 8.6 MG/DL (8.8-10.2); CARBON DIOXIDE LEVEL 30 MEQ/L (21-32); CHLORIDE LEVEL 104 MEQ/L (98-107); CREATININE FOR GFR 0.62 MG/DL (0.70-1.30); GLOMERULAR FILTRATION RATE > 60.0 (>35); GLUCOSE, FASTING 87 MG/DL (70-100); POTASSIUM SERUM 3.7 MEQ/L (3.5-5.1); SODIUM LEVEL 141 MEQ/L (136-145)
[2017-08-03] MEDS: ACETAMINOPHEN TAB 650MG DOSE (2X325MG) PO (08:11)
[2017-08-03] MEDS: ASPIRIN 81 MG CHEW TABLET PO (08:12)
[2017-08-03] MEDS: VITAMIN D 1,000 INTERNATIONAL UNITS TABLET PO (08:12)
[2017-08-03] MEDS: DOXYCYCLINE HYCLATE 100 MG TAB PO (08:12)
[2017-08-03] MEDS: CEFUROXIME 500 MG TAB PO (08:12)
[2017-08-03] MEDS: MULTIVITAMINS/MINERALS THERAP 1 TAB PO (08:12)
[2017-08-03] MEDS: LORazepam 0.5 MG TAB PO (08:12)
[2017-08-03] MEDS: LACTOBACILLUS ACIDOPHILUS CAP (BACID) PO (08:12)
[2017-08-03] MEDS: APIXABAN 5 MG TAB (ELIQUIS) PO (08:12)
[2017-08-03] MEDS: LISINOPRIL 10 MG TAB PO (08:12)
[2017-08-03] MEDS: METOPROLOL TART 25 MG TABLET PO (08:13)
[2017-08-03] MEDS: guaiFENesin ER 600 MG TAB PO (08:13)
[2017-08-03] MEDS: TAMSULOSIN 0.4 MG CAP PO (08:13)
[2017-08-07] MEDS ORDERED: VANCOMYCIN ORAL SOL 250MG/5ML ORAL SYRINGE PO (09:00)
== END 2017-08-03 09:40 | disposition home health service (06) | DRG 194 ==
LOC: M MS5PR 07-31 17:29 → M PCU 07-25 16:25 → M ED 09:08 → M ED INP 14:47
DX: J18.9 Pneumonia, unspecified organism (principal); I69.351 Hemiplegia and hemiparesis following cerebral infarction affecting right dominant side; A04.71 Enterocolitis due to Clostridium difficile, recurrent; F03.90 Unspecified dementia, unspecified severity, without behavioral disturbance, psychotic disturbance, mood disturbance, and anxiety; I10 Essential (primary) hypertension; E78.5 Hyperlipidemia, unspecified; I48.0 Paroxysmal atrial fibrillation; Q63.1 Lobulated, fused and horseshoe kidney; I25.10 Atherosclerotic heart disease of native coronary artery without angina pectoris; G47.33 Obstructive sleep apnea (adult) (pediatric); Z99.89 Dependence on other enabling machines and devices; Z95.5 Presence of coronary angioplasty implant and graft; Z87.891 Personal history of nicotine dependence; Z79.01 Long term (current) use of anticoagulants; Z79.82 Long term (current) use of aspirin; Z79.899 Other long term (current) drug therapy; Z95.2 Presence of prosthetic heart valve; Z95.0 Presence of cardiac pacemaker

== ENCOUNTER → 2017-08-16 | Outpatient (REF) | payer MEDICARE | LOC: M LAB REF 11:40 | DX: A04.71 Enterocolitis due to Clostridium difficile, recurrent (principal) | CPT/HCPCS: 87507 ==

== ENCOUNTER → 2017-08-21 | Outpatient (REF) | payer MEDICARE ==
[2017-08-21 20:08] LABS: HEMATOCRIT 41.2 % (42.0-52.0); MEAN CORPUSCULAR HEMOGLOBIN 29.5 pg (27.0-33.0); MEAN CORPUSCULAR HGB CONC 31.6 g/dl (32.0-36.5); MEAN CORPUSCULAR VOLUME 93.6 fl (80.0-96.0); PLATELET COUNT, AUTOMATED 195 10^3/uL (150-450); RED CELL DISTRIBUTION WIDTH 14.8 % (11.5-14.5); WHITE BLOOD COUNT 5.3 10^3/uL (4.0-10.0)
[2017-08-21 20:27] LABS: FOLATE 20.4 NG/ML (>5.4); VITAMIN B12 LEVEL 806 PG/ML (247-911)
[2017-08-21 20:30] LABS: ALBUMIN 3.6 GM/DL (3.2-5.2); ALBUMIN/GLOBULIN RATIO 1.03 (1.00-1.93); ALKALINE PHOSPHATASE 106 U/L (45-117); ALT/SGPT 93 U/L (12-78); ANION GAP 6 MEQ/L (8-16); AST/SGOT 26 U/L (7-37); BILIRUBIN,TOTAL 0.7 MG/DL (0.2-1.0); BLOOD UREA NITROGEN 24 MG/DL (7-18); CARBON DIOXIDE LEVEL 31 MEQ/L (21-32); CHLORIDE LEVEL 107 MEQ/L (98-107); CREATININE FOR GFR 0.68 MG/DL (0.70-1.30); FREE T4 0.74 NG/DL (0.76-1.46); GLOMERULAR FILTRATION RATE > 60.0 (>35); GLUCOSE, FASTING 92 MG/DL (70-100); POTASSIUM SERUM 4.2 MEQ/L (3.5-5.1); SODIUM LEVEL 144 MEQ/L (136-145); TOTAL PROTEIN 7.1 GM/DL (6.4-8.2)
== END ==
LOC: M SFHCADAM 16:59
DX: F03.91 Unspecified dementia, unspecified severity, with behavioral disturbance (principal); G47.30 Sleep apnea, unspecified; I10 Essential (primary) hypertension
CPT/HCPCS: 82746

== ENCOUNTER → 2017-10-10 | Outpatient (REF) | payer MEDICARE ==
[2017-10-10 19:58] LABS: APPEARANCE, URINE CLEAR (CLEAR); BACTERIA, URINE AUTO NEGATIVE (NEGATIVE); BILIRUBIN, URINE AUTO NEGATIVE (NEGATIVE); BLOOD, URINE BLOOD NEGATIVE (NEGATIVE); CALCIUM OXALATE CRYSTALS SMALL; COLOR, URINE AMBER (YELLOW); GLUCOSE, URINE (UA) AUTO NEGATIVE (NEGATIVE); KETONE, URINE AUTO NEGATIVE (NEGATIVE); LEUKOCYTE ESTERASE, URINE AUTO NEGATIVE (NEGATIVE); MUCUS, URINE SMALL (NEGATIVE); NITRITE, URINE AUTO NEGATIVE (NEGATIVE); PROTEIN, URINE AUTO NEGATIVE (NEGATIVE); RBC, URINE AUTO 0 /HPF (0-3); SPECIFIC GRAVITY URINE AUTO 1.024 (1.002-1.035); SQUAMOUS EPITHELIAL CELL UR AU 0 /HPF (0-6); UROBILINOGEN, URINE AUTO 0.2 mg/dL (0.0-2.0); WBC, URINE AUTO 1 /HPF (0-3)
== END ==
LOC: M SFHCPLAZ 18:35
DX: F91.9 Conduct disorder, unspecified (principal); F03.91 Unspecified dementia, unspecified severity, with behavioral disturbance; I69.391 Dysphagia following cerebral infarction; F32.9 Major depressive disorder, single episode, unspecified; G81.91 Hemiplegia, unspecified affecting right dominant side; R79.89 Other specified abnormal findings of blood chemistry; R47.01 Aphasia; Z79.82 Long term (current) use of aspirin; Z79.899 Other long term (current) drug therapy
CPT/HCPCS: 80053; 81001

== ENCOUNTER → 2017-10-10 | Outpatient (REF) | payer MEDICARE ==
[2017-10-10 16:08] LABS: BASO # 0.1 10^3/uL (0.0-0.2); BASO % 0.8 % (0.0-1.0); EOS # 0.2 10^3/uL (0.0-0.50); EOS % 3.1 % (0.0-3.0); HEMATOCRIT 40.3 % (42.0-52.0); IMMATURE GRANULOCYTE % 0.3 % (0-3.0); LYMPH # 1.2 10^3/uL (1.5-4.5); LYMPH % 18.6 % (24.0-44.0); MEAN CORPUSCULAR HEMOGLOBIN 30.2 pg (27.0-33.0); MEAN CORPUSCULAR HGB CONC 32.3 g/dl (32.0-36.5); MEAN CORPUSCULAR VOLUME 93.7 fl (80.0-96.0); MONO # 0.7 10^3/uL (0.0-0.8); NEUTROPHILS # 4.3 10^3/uL (1.8-7.7); NEUTROPHILS % 66.2 % (36.0-66.0); PLATELET COUNT, AUTOMATED 197 10^3/uL (150-450); RED CELL DISTRIBUTION WIDTH 13.8 % (11.5-14.5); WHITE BLOOD COUNT 6.4 10^3/uL (4.0-10.0)
[2017-10-10 16:17] LABS: ALBUMIN 3.6 GM/DL (3.2-5.2); ALBUMIN/GLOBULIN RATIO 0.95 (1.00-1.93); ALKALINE PHOSPHATASE 110 U/L (45-117); ALT/SGPT 72 U/L (12-78); ANION GAP 7 MEQ/L (8-16); AST/SGOT 39 U/L (7-37); BILIRUBIN,TOTAL 0.6 MG/DL (0.2-1.0); BLOOD UREA NITROGEN 17 MG/DL (7-18); CARBON DIOXIDE LEVEL 30 MEQ/L (21-32); CHLORIDE LEVEL 106 MEQ/L (98-107); CREATININE FOR GFR 0.76 MG/DL (0.70-1.30); GLOMERULAR FILTRATION RATE > 60.0 (>35); GLUCOSE, FASTING 118 MG/DL (70-100); POTASSIUM SERUM 3.8 MEQ/L (3.5-5.1); SODIUM LEVEL 143 MEQ/L (136-145); TOTAL PROTEIN 7.4 GM/DL (6.4-8.2)
== END ==
LOC: M SFHCPLAZ 12:18
DX: F91.9 Conduct disorder, unspecified (principal); F32.9 Major depressive disorder, single episode, unspecified
CPT/HCPCS: 80053

== ENCOUNTER 2017-10-13 14:07 | Emergency (ER) | payer MEDICARE ==
[2017-10-13] MEDS: NS 1,000 ML IV (15:12)
[2017-10-13 15:56] LABS: BASO % 0.3 % (0.0-1.0); EOS # 0.1 10^3/uL (0.0-0.50); EOS % 0.6 % (0.0-3.0); HEMOGLOBIN 13.6 g/dl (13.5-17.5); IMMATURE GRANULOCYTE % 0.5 % (0-3.0); LYMPH # 1.1 10^3/uL (1.5-4.5); LYMPH % 9.9 % (24.0-44.0); MEAN CORPUSCULAR HEMOGLOBIN 30.4 pg (27.0-33.0); MEAN CORPUSCULAR HGB CONC 33.2 g/dl (32.0-36.5); MEAN CORPUSCULAR VOLUME 91.7 fl (80.0-96.0); MONO # 1.1 10^3/uL (0.0-0.8); MONO % 9.9 % (0.0-5.0); NEUTROPHILS % 78.8 % (36.0-66.0); PLATELET COUNT, AUTOMATED 216 10^3/uL (150-450); RED BLOOD COUNT 4.47 10^6/uL (4.30-6.10); RED CELL DISTRIBUTION WIDTH 13.8 % (11.5-14.5); WHITE BLOOD COUNT 11.5 10^3/uL (4.0-10.0)
[2017-10-13 16:09] LABS: LACTIC ACID SEPSIS PROTOCOL 1.5 MMOL/L (0.4-2.0)
[2017-10-13 16:23] LABS: ALBUMIN 3.9 GM/DL (3.2-5.2); ALKALINE PHOSPHATASE 111 U/L (45-117); ALT/SGPT 50 U/L (12-78); ANION GAP 7 MEQ/L (8-16); AST/SGOT 25 U/L (7-37); BILIRUBIN,DIRECT 0.3 MG/DL (0.0-0.2); BILIRUBIN,TOTAL 0.9 MG/DL (0.2-1.0); BLOOD UREA NITROGEN 22 MG/DL (7-18); CALCIUM LEVEL 9.4 MG/DL (8.8-10.2); CARBON DIOXIDE LEVEL 28 MEQ/L (21-32); CHLORIDE LEVEL 108 MEQ/L (98-107); CREATININE FOR GFR 0.84 MG/DL (0.70-1.30); GLOMERULAR FILTRATION RATE > 60.0 (>35); GLUCOSE, FASTING 131 MG/DL (70-100); LIPASE 233 U/L (73-393); SODIUM LEVEL 143 MEQ/L (136-145); TOTAL PROTEIN 7.8 GM/DL (6.4-8.2)
[2017-10-13 16:27] LABS: KETONE, URINE AUTO RFX NEGATIVE (NEGATIVE); LEUKOCYTE ESTERASE UR AUTO RFX NEGATIVE (NEGATIVE); NITRITE, URINE AUTO RFX NEGATIVE (NEGATIVE); RBC, URINE AUTO RFX 40 /HPF (0-3); SPECIFIC GRAVITY UR AUTO RFX 1.015 (1.002-1.035); SQUAM EPITHELIAL CELL UR AURFX 0 /HPF (0-6); WBC, URINE AUTO RFX 2 /HPF (0-3)
[2017-10-13] MEDS: GASTROGRAFIN SOLUTION 30ML (Q9963) PO ×2 (17:14→17:45)
[2017-10-13] MEDS ORDERED: ISOVUE-370 76% 100ML VIAL (Q9967) As Ordered (17:28)
== END 2017-10-13 21:26 | disposition home or self-care (01) ==
LOC: M ED 14:07
DX: R33.9 Retention of urine, unspecified (principal); N40.0 Benign prostatic hyperplasia without lower urinary tract symptoms; I10 Essential (primary) hypertension; I48.91 Unspecified atrial fibrillation; E78.5 Hyperlipidemia, unspecified; I69.320 Aphasia following cerebral infarction; R13.10 Dysphagia, unspecified; I34.9 Nonrheumatic mitral valve disorder, unspecified; Z95.0 Presence of cardiac pacemaker; Z95.1 Presence of aortocoronary bypass graft; Z87.891 Personal history of nicotine dependence; Z79.899 Other long term (current) drug therapy; Z79.01 Long term (current) use of anticoagulants; Z79.82 Long term (current) use of aspirin
CPT/HCPCS: Q9963

== ENCOUNTER → 2017-10-16 | Outpatient (REF) | payer MEDICARE ==
[2017-10-16 16:32] LABS: BASO % 0.5 % (0.0-1.0); EOS # 0.2 10^3/uL (0.0-0.50); EOS % 3.6 % (0.0-3.0); HEMATOCRIT 40.4 % (42.0-52.0); HEMOGLOBIN 13.3 g/dl (13.5-17.5); IMMATURE GRANULOCYTE % 0.3 % (0-3.0); LYMPH # 1.1 10^3/uL (1.5-4.5); LYMPH % 18.7 % (24.0-44.0); MEAN CORPUSCULAR HEMOGLOBIN 30.6 pg (27.0-33.0); MEAN CORPUSCULAR HGB CONC 32.9 g/dl (32.0-36.5); MEAN CORPUSCULAR VOLUME 92.9 fl (80.0-96.0); MONO # 0.8 10^3/uL (0.0-0.8); MONO % 14.1 % (0.0-5.0); NEUTROPHILS # 3.7 10^3/uL (1.8-7.7); NEUTROPHILS % 62.8 % (36.0-66.0); PLATELET COUNT, AUTOMATED 204 10^3/uL (150-450); RED BLOOD COUNT 4.35 10^6/uL (4.30-6.10); RED CELL DISTRIBUTION WIDTH 13.9 % (11.5-14.5); WHITE BLOOD COUNT 5.9 10^3/uL (4.0-10.0)
== END ==
LOC: M SFHCPLAZ 14:44
DX: N40.0 Benign prostatic hyperplasia without lower urinary tract symptoms (principal); Z79.899 Other long term (current) drug therapy
CPT/HCPCS: 85025

== ENCOUNTER → 2017-10-16 | Outpatient (CLI) | payer MEDICARE | LOC: M SMT 13:04 | DX: G81.91 Hemiplegia, unspecified affecting right dominant side (principal); I70.8 Atherosclerosis of other arteries | CPT/HCPCS: 73502; 85025 ==

== ENCOUNTER 2017-10-29 11:07 | Outpatient (RCR) | payer MEDICARE | END 2017-11-08 | LOC: M ST 11:07 | DX: Z51.89 Encounter for other specified aftercare (principal); I69.391 Dysphagia following cerebral infarction; R47.01 Aphasia | CPT/HCPCS: 92507 ==

== ENCOUNTER → 2017-11-02 | Outpatient (REF) | payer MEDICARE ==
[2017-11-02 19:06] LABS: AMORPHOUS SEDIMENT SMALL (NEGATIVE); APPEARANCE, URINE TURBID (CLEAR); BACTERIA, URINE AUTO NEGATIVE (NEGATIVE); BILIRUBIN, URINE AUTO NEGATIVE (NEGATIVE); BLOOD, URINE BLOOD 3+ (NEGATIVE); COLOR, URINE RED (YELLOW); GLUCOSE, URINE (UA) AUTO NEGATIVE (NEGATIVE); KETONE, URINE AUTO NEGATIVE (NEGATIVE); LEUKOCYTE ESTERASE, URINE AUTO TRACE (NEGATIVE); NITRITE, URINE AUTO NEGATIVE (NEGATIVE); PROTEIN, URINE AUTO 2+ mg/dL (NEGATIVE); RBC, URINE AUTO TNTC /HPF (0-3); SPECIFIC GRAVITY URINE AUTO 1.024 (1.002-1.035); SQUAMOUS EPITHELIAL CELL UR AU 0 /HPF (0-6); WBC, URINE AUTO TNTC /HPF (0-3)
== END ==
LOC: M SMT 16:59
DX: R82.90 Unspecified abnormal findings in urine (principal)
CPT/HCPCS: 81001

== ENCOUNTER 2017-11-13 12:39 | Outpatient (RCR) | payer MEDICARE | END 2017-12-08 | LOC: M ST 12:39 | DX: Z51.89 Encounter for other specified aftercare (principal); I69.391 Dysphagia following cerebral infarction; R47.01 Aphasia | CPT/HCPCS: 92507 ==

== ENCOUNTER → 2017-11-23 | Outpatient (REF) | payer MEDICARE ==
[2017-11-23 14:04] LABS: AMORPHOUS SEDIMENT SMALL (NEGATIVE); APPEARANCE, URINE CLOUDY (CLEAR); BACTERIA, URINE AUTO 2+ (NEGATIVE); BILIRUBIN, URINE AUTO NEGATIVE (NEGATIVE); BLOOD, URINE BLOOD 3+ (NEGATIVE); COLOR, URINE AMBER (YELLOW); GLUCOSE, URINE (UA) AUTO 1+ mg/dL (NEGATIVE); KETONE, URINE AUTO NEGATIVE (NEGATIVE); LEUKOCYTE ESTERASE, URINE AUTO 1+ (NEGATIVE); MUCUS, URINE SMALL (NEGATIVE); NITRITE, URINE AUTO NEGATIVE (NEGATIVE); PROTEIN, URINE AUTO 3+ mg/dL (NEGATIVE); RBC, URINE AUTO TNTC /HPF (0-3); SPECIFIC GRAVITY URINE AUTO 1.019 (1.002-1.035); SQUAMOUS EPITHELIAL CELL UR AU 0 /HPF (0-6); UROBILINOGEN, URINE AUTO 0.2 mg/dL (0.0-2.0); WBC, URINE AUTO TNTC /HPF (0-3)
== END ==
LOC: M SMT 12:42
DX: R82.90 Unspecified abnormal findings in urine (principal)
CPT/HCPCS: 81001

== ENCOUNTER → 2017-12-14 | Outpatient (REF) | payer MEDICARE ==
[2017-12-14 18:11] LABS: APPEARANCE, URINE MANUAL TURBID (CLEAR); COLOR, URINE MANUAL RED (YELLOW)
[2017-12-14 18:12] LABS: PH,URINE MAN OBSCURED UNITS (5.0 - 7.0); SPECIFIC GRAVITY,URINE MANUAL 1.018 (1.002-1.035)
[2017-12-14 18:13] LABS: BILIRUBIN, URINE MANUAL OBSCURED (NEGATIVE); BLOOD URINE MANUAL OBSCURED (NEGATIVE); GLUCOSE, URINE (UA) MANUAL OBSCURED mg/dL (NEGATIVE); KETONE, URINE MANUAL OBSCURED mg/dL (NEGATIVE); LEUKOCYTE ESTERASE, URINE MAN OBSCURED (NEGATIVE); MICROSCOPIC INDICATED? MAN YES (NO); NITRITE, URINE MANUAL OBSCURED (NEGATIVE); PROTEIN, URINE MANUAL OBSCURED mg/dL (NEGATIVE); UROBILINOGEN, URINE MANUAL OBSCURED mg/dl (NORMAL)
[2017-12-14 18:15] LABS: RBC, URINE TNTC /hpf (0-3); SQUAMOUS EPITHELIAL CELL URINE NONE SEEN /hpf (SMALL AMT); WBC, URINE 40-50 /hpf (0-3)
[2017-12-14 18:19] LABS: BACTERIA, URINE SMALL AMOUNT; HYALINE CAST, URINE NONE SEEN /lpf (0-1); MICROSCOPIC EXAM PERFORMED
== END ==
LOC: M SMT 17:03
DX: R82.90 Unspecified abnormal findings in urine (principal)
CPT/HCPCS: 81000

== ENCOUNTER 2018-01-01 17:16 | Emergency (ER) | payer MEDICARE ==
[2018-01-01 19:25] LABS: KETONE, URINE AUTO RFX NEGATIVE (NEGATIVE); RBC, URINE AUTO RFX TNTC /HPF (0-3); SPECIFIC GRAVITY UR AUTO RFX 1.011 (1.002-1.035); SQUAM EPITHELIAL CELL UR AURFX 0 /HPF (0-6)
[2018-01-01 19:37] LABS: LEUKOCYTE ESTERASE UR AUTO RFX 2+ (NEGATIVE); NITRITE, URINE AUTO RFX POSITIVE (NEGATIVE); WBC, URINE AUTO RFX TNTC /HPF (0-3)
[2018-01-01] MEDS: FOSFOMYCIN TROMETHAMINE 3 GM POWDER PACKET (MONUROL) PO (20:00)
== END 2018-01-01 21:07 | disposition home or self-care (01) ==
LOC: M ED 17:16
DX: T83.091A Other mechanical complication of indwelling urethral catheter, initial encounter (principal); Y84.6 Urinary catheterization as the cause of abnormal reaction of the patient, or of later complication, without mention of misadventure at the time of the procedure; N39.0 Urinary tract infection, site not specified; I10 Essential (primary) hypertension; N13.9 Obstructive and reflux uropathy, unspecified; E78.5 Hyperlipidemia, unspecified; N40.1 Benign prostatic hyperplasia with lower urinary tract symptoms; G47.9 Sleep disorder, unspecified; I69.320 Aphasia following cerebral infarction; Z86.19 Personal history of other infectious and parasitic diseases; Z79.899 Other long term (current) drug therapy; Z79.01 Long term (current) use of anticoagulants; Z79.82 Long term (current) use of aspirin; Z95.0 Presence of cardiac pacemaker
CPT/HCPCS: 81001

== ENCOUNTER → 2018-01-26 | Outpatient (REF) | payer MEDICARE ==
[2018-01-26 22:32] LABS: APPEARANCE, URINE CLOUDY (CLEAR); BACTERIA, URINE AUTO 3+ (NEGATIVE); BILIRUBIN, URINE AUTO NEGATIVE (NEGATIVE); BLOOD, URINE BLOOD 3+ (NEGATIVE); COLOR, URINE YELLOW (YELLOW); GLUCOSE, URINE (UA) AUTO NEGATIVE (NEGATIVE); KETONE, URINE AUTO NEGATIVE (NEGATIVE); LEUKOCYTE ESTERASE, URINE AUTO 2+ (NEGATIVE); NITRITE, URINE AUTO NEGATIVE (NEGATIVE); PROTEIN, URINE AUTO 1+ mg/dL (NEGATIVE); RBC, URINE AUTO 15 /HPF (0-3); SPECIFIC GRAVITY URINE AUTO 1.004 (1.002-1.035); SQUAMOUS EPITHELIAL CELL UR AU 0 /HPF (0-6); UROBILINOGEN, URINE AUTO 0.2 mg/dL (0.0-2.0); WBC, URINE AUTO TNTC /HPF (0-3)
== END ==
LOC: M LAB REF 10:59
DX: N39.0 Urinary tract infection, site not specified (principal)
CPT/HCPCS: 81001

== ENCOUNTER → 2018-02-12 | Outpatient (REF) | payer MEDICARE ==
[2018-02-12 14:10] LABS: HEMATOCRIT 41.1 % (42.0-52.0); HEMOGLOBIN 13.4 g/dl (13.5-17.5); MEAN CORPUSCULAR HEMOGLOBIN 31.2 pg (27.0-33.0); MEAN CORPUSCULAR HGB CONC 32.6 g/dl (32.0-36.5); MEAN CORPUSCULAR VOLUME 95.6 fl (80.0-96.0); PLATELET COUNT, AUTOMATED 174 10^3/uL (150-450); RED CELL DISTRIBUTION WIDTH 13.2 % (11.5-14.5); WHITE BLOOD COUNT 10.6 10^3/uL (4.0-10.0)
[2018-02-12 15:22] LABS: ALBUMIN 3.3 GM/DL (3.2-5.2); ALKALINE PHOSPHATASE 84 U/L (45-117); ALT/SGPT 27 U/L (12-78); ANION GAP 10 MEQ/L (8-16); AST/SGOT 18 U/L (7-37); BILIRUBIN,TOTAL 0.8 MG/DL (0.2-1.0); BLOOD UREA NITROGEN 34 MG/DL (7-18); CALCIUM LEVEL 9.5 MG/DL (8.8-10.2); CARBON DIOXIDE LEVEL 26 MEQ/L (21-32); CHLORIDE LEVEL 106 MEQ/L (98-107); CREATININE FOR GFR 1.08 MG/DL (0.70-1.30); GLOMERULAR FILTRATION RATE > 60.0 (>35); GLUCOSE, FASTING 125 MG/DL (70-100); POTASSIUM SERUM 3.9 MEQ/L (3.5-5.1); SODIUM LEVEL 142 MEQ/L (136-145); TOTAL PROTEIN 7.4 GM/DL (6.4-8.2)
== END ==
LOC: M SFHCPLAZ 12:52
DX: R50.9 Fever, unspecified (principal); Z96.0 Presence of urogenital implants
CPT/HCPCS: 80053

== ENCOUNTER → 2018-02-12 | Outpatient (CLI) | payer MEDICARE | LOC: M SMT 13:37 | DX: I51.7 Cardiomegaly (principal); I27.0 Primary pulmonary hypertension; R50.9 Fever, unspecified; Z96.0 Presence of urogenital implants | CPT/HCPCS: 71045 ==

== ENCOUNTER 2018-02-13 00:12 | Inpatient (IN) | payer MEDICARE ==
[2018-02-13] MEDS: ACETAMINOPHEN 325 MG SUPP PR (01:15)
[2018-02-13] MEDS: NS 1,000 ML IV ×3 (01:15→21:34)
[2018-02-13] MEDS: ACETAMINOPHEN 650 MG SUPP PR (01:15)
[2018-02-13] MEDS: VANCOMYCIN HCL 1,000 MG, VIAL MATE ADAPTER 1 EACH in D5W 250 ML IV (01:15)
[2018-02-13] MEDS: cefTAZidime 1 GM in D5W MINI-BAG PLUS 50 ML IV (01:15)
[2018-02-13 01:21] LABS: HEMATOCRIT 37.8 % (42.0-52.0); HEMOGLOBIN 12.4 g/dl (13.5-17.5); MEAN CORPUSCULAR HEMOGLOBIN 31.3 pg (27.0-33.0); MEAN CORPUSCULAR HGB CONC 32.8 g/dl (32.0-36.5); MEAN CORPUSCULAR VOLUME 95.5 fl (80.0-96.0); PLATELET COUNT, AUTOMATED 234 10^3/uL (150-450); RED BLOOD COUNT 3.96 10^6/uL (4.30-6.10); RED CELL DISTRIBUTION WIDTH 13.1 % (11.5-14.5); WHITE BLOOD COUNT 7.6 10^3/uL (4.0-10.0)
[2018-02-13 01:24] LABS: ADD MANUAL DIFFER YES; DIFF SLIDE NUMBER 89; POSITIVE MORPH POS FLAG
[2018-02-13 01:37] LABS: APPEARANCE, URINE TURBID (CLEAR); BACTERIA, URINE AUTO 3+ (NEGATIVE); BILIRUBIN, URINE AUTO NEGATIVE (NEGATIVE); BLOOD, URINE BLOOD 3+ (NEGATIVE); COLOR, URINE YELLOW (YELLOW); GLUCOSE, URINE (UA) AUTO 1+ mg/dL (NEGATIVE); KETONE, URINE AUTO NEGATIVE (NEGATIVE); LEUKOCYTE ESTERASE, URINE AUTO 2+ (NEGATIVE); NITRITE, URINE AUTO NEGATIVE (NEGATIVE); PROTEIN, URINE AUTO 2+ mg/dL (NEGATIVE); RBC, URINE AUTO 108 /HPF (0-3); SPECIFIC GRAVITY URINE AUTO 1.018 (1.002-1.035); SQUAMOUS EPITHELIAL CELL UR AU 0 /HPF (0-6); UROBILINOGEN, URINE AUTO 0.2 mg/dL (0.0-2.0); WBC, URINE AUTO TNTC /HPF (0-3)
[2018-02-13 01:38] LABS: ALBUMIN 2.9 GM/DL (3.2-5.2); ALBUMIN/GLOBULIN RATIO 0.71 (1.00-1.93); ALKALINE PHOSPHATASE 81 U/L (45-117); ALT/SGPT 26 U/L (12-78); ANION GAP 12 MEQ/L (8-16); AST/SGOT 36 U/L (7-37); BILIRUBIN,DIRECT 0.3 MG/DL (0.0-0.2); BLOOD UREA NITROGEN 40 MG/DL (7-18); CALCIUM LEVEL 8.7 MG/DL (8.8-10.2); CARBON DIOXIDE LEVEL 24 MEQ/L (21-32); CHLORIDE LEVEL 105 MEQ/L (98-107); CREATININE FOR GFR 1.37 MG/DL (0.70-1.30); GLOMERULAR FILTRATION RATE 52.4 (>35); GLUCOSE, FASTING 133 MG/DL (70-100); SODIUM LEVEL 141 MEQ/L (136-145)
[2018-02-13 01:40] LABS: POTASSIUM SERUM 4.9 MEQ/L (3.5-5.1)
[2018-02-13 01:41] LABS: LACTIC ACID SEPSIS PROTOCOL 2.9 MMOL/L (0.4-2.0)
[2018-02-13 02:02] LABS: ATYPICAL LYMPH 2 % (0-5); BANDS 1 % (< 11); BASOPHILS 2 % (0-4); EOSINOPHILS 1 % (0-5); LYMPHOCYTES 8 % (16-52); MONOCYTES 3 % (0-8); NEUTROPHILS 83 % (35-75)
[2018-02-13 02:03] LABS: PLATELET ESTIMATE NORMAL (NORMAL)
[2018-02-13] MEDS: NS 500 ML IV (02:15)
[2018-02-13] MEDS ORDERED: BISACODYL 5 MG TAB PO (03:30)
[2018-02-13] MEDS ORDERED: BISACODYL 10 MG SUPP PR (03:30)
[2018-02-13] MEDS ORDERED: IBUPROFEN 400 MG TAB PO (03:45)
[2018-02-13] MEDS: AMPICILLIN SOD 2 GM in D5W MINI-BAG PLUS 100 ML IV ×4 (05:41→21:35)
[2018-02-13 06:26] LABS: HEMATOCRIT 32.3 % (42.0-52.0); HEMOGLOBIN 10.6 g/dl (13.5-17.5); MEAN CORPUSCULAR HGB CONC 32.8 g/dl (32.0-36.5); MEAN CORPUSCULAR VOLUME 94.4 fl (80.0-96.0); PLATELET COUNT, AUTOMATED 205 10^3/uL (150-450); RED BLOOD COUNT 3.42 10^6/uL (4.30-6.10); RED CELL DISTRIBUTION WIDTH 13.1 % (11.5-14.5); WHITE BLOOD COUNT 11.2 10^3/uL (4.0-10.0)
[2018-02-13] MEDS: cefTRIAXone SOD 1 GM in D5W MINI-BAG PLUS 50 ML IV (06:42)
[2018-02-13 06:43] LABS: ANION GAP 12 MEQ/L (8-16); BLOOD UREA NITROGEN 40 MG/DL (7-18); CALCIUM LEVEL 8.3 MG/DL (8.8-10.2); CARBON DIOXIDE LEVEL 21 MEQ/L (21-32); CHLORIDE LEVEL 110 MEQ/L (98-107); CREATININE FOR GFR 1.47 MG/DL (0.70-1.30); GLOMERULAR FILTRATION RATE 48.4 (>35); GLUCOSE, FASTING 155 MG/DL (70-100); POTASSIUM SERUM 3.5 MEQ/L (3.5-5.1); SODIUM LEVEL 143 MEQ/L (136-145)
[2018-02-13] MEDS: MULTIVITAMINS/MINERALS THERAP 1 TAB PO (10:57)
[2018-02-13] MEDS: LACTOBACILLUS ACIDOPHILUS CAP (BACID) PO (10:58)
[2018-02-13] MEDS: DOCUSATE SODIUM 100 MG CAP PO (10:58)
[2018-02-13] MEDS: TAMSULOSIN 0.4 MG CAP PO (10:58)
[2018-02-13] MEDS: ASPIRIN 81 MG ENTERIC TAB PO (10:58)
[2018-02-13] MEDS: LISINOPRIL 10 MG TAB PO (11:01)
[2018-02-13] MEDS: METOPROLOL TART 25 MG TABLET PO ×2 (11:02→21:33)
[2018-02-13] MEDS: APIXABAN 5 MG TAB (ELIQUIS) PO ×2 (11:02→21:33)
[2018-02-13] MEDS: NYSTATIN 100,000 UNITS/GM TOPICAL PWD 15 GM TOP ×2 (15:26→21:00)
[2018-02-13] MEDS: DOCUSATE SOD LIQ 100MG/10ML UDC PO (21:32)
[2018-02-13] MEDS: PERPHENAZINE 2 MG TAB PO (21:33)
[2018-02-13] MEDS: AMITRIPTYLINE 10 MG TAB PO (21:33)
[2018-02-13] MEDS: FINASTERIDE 5 MG TAB PO (21:33)
[2018-02-13] MEDS: ATORVASTATIN 20 MG TAB PO (21:33)
[2018-02-14] MEDS: AMPICILLIN SOD 2 GM in D5W MINI-BAG PLUS 100 ML IV ×3 (03:49→15:36)
[2018-02-14] MEDS: cefTRIAXone SOD 1 GM in D5W MINI-BAG PLUS 50 ML IV (05:50)
[2018-02-14] MEDS: NS 1,000 ML IV ×2 (05:50→16:15)
[2018-02-14 06:46] LABS: HEMATOCRIT 35.8 % (42.0-52.0); HEMOGLOBIN 11.6 g/dl (13.5-17.5); MEAN CORPUSCULAR HEMOGLOBIN 31.3 pg (27.0-33.0); MEAN CORPUSCULAR HGB CONC 32.4 g/dl (32.0-36.5); MEAN CORPUSCULAR VOLUME 96.5 fl (80.0-96.0); PLATELET COUNT, AUTOMATED 198 10^3/uL (150-450); RED BLOOD COUNT 3.71 10^6/uL (4.30-6.10); RED CELL DISTRIBUTION WIDTH 13.2 % (11.5-14.5); WHITE BLOOD COUNT 10.4 10^3/uL (4.0-10.0)
[2018-02-14 06:52] LABS: ANION GAP 12 MEQ/L (8-16); BLOOD UREA NITROGEN 40 MG/DL (7-18); CALCIUM LEVEL 8.8 MG/DL (8.8-10.2); CARBON DIOXIDE LEVEL 23 MEQ/L (21-32); CHLORIDE LEVEL 110 MEQ/L (98-107); CREATININE FOR GFR 1.11 MG/DL (0.70-1.30); GLOMERULAR FILTRATION RATE > 60.0 (>35); GLUCOSE, FASTING 105 MG/DL (70-100); POTASSIUM SERUM 3.2 MEQ/L (3.5-5.1); SODIUM LEVEL 145 MEQ/L (136-145)
[2018-02-14 07:15] LABS: MAGNESIUM LEVEL 2.4 MG/DL (1.8-2.4)
[2018-02-14] MEDS: NYSTATIN 100,000 UNITS/GM TOPICAL PWD 15 GM TOP ×2 (09:00→21:00)
[2018-02-14] MEDS: METOPROLOL TART 25 MG TABLET PO ×2 (09:00→21:54)
[2018-02-14] MEDS: LACTOBACILLUS ACIDOPHILUS CAP (BACID) PO ×2 (11:36→18:34)
[2018-02-14] MEDS: MAG SULF 1GM/100ML (MAG RUN) 1 GM in APPROPRIATE DILUENT 1 EA IV (11:36)
[2018-02-14] MEDS: TAMSULOSIN 0.4 MG CAP PO (11:36)
[2018-02-14] MEDS: MULTIVITAMINS/MINERALS THERAP 1 TAB PO (11:37)
[2018-02-14] MEDS: POTASSIUM CHLORIDE 10 MEQ SR TABLET PO (11:37)
[2018-02-14] MEDS: APIXABAN 5 MG TAB (ELIQUIS) PO ×2 (11:37→21:54)
[2018-02-14] MEDS: ASPIRIN 81 MG ENTERIC TAB PO (11:37)
[2018-02-14] MEDS: DOCUSATE SOD LIQ 100MG/10ML UDC PO ×2 (11:37→21:53)
[2018-02-14] MEDS: ACETAMINOPHEN 650 MG SUPP PR (14:45)
[2018-02-14] MEDS ORDERED: PILL CRUSHER/CUTTER 1 EACH XX (18:45)
[2018-02-14] MEDS: FINASTERIDE 5 MG TAB PO (21:54)
[2018-02-14] MEDS: PERPHENAZINE 2 MG TAB PO (21:54)
[2018-02-14] MEDS: ATORVASTATIN 20 MG TAB PO (21:54)
[2018-02-14] MEDS: PIPERACILLIN/TAZOBACTAM SOD 2.25 GM in D5W MINI-BAG PLUS 50 ML IV (21:55)
[2018-02-14] MEDS: AMITRIPTYLINE 10 MG TAB PO (21:55)
[2018-02-15] MEDS: NS 1,000 ML IV (02:26)
[2018-02-15] MEDS: PIPERACILLIN/TAZOBACTAM SOD 2.25 GM in D5W MINI-BAG PLUS 50 ML IV ×4 (02:29→20:14)
[2018-02-15] MEDS: ACETAMINOPHEN 650 MG SUPP PR ×2 (05:40→13:04)
[2018-02-15 06:53] LABS: HEMATOCRIT 31.7 % (42.0-52.0); HEMOGLOBIN 10.4 g/dl (13.5-17.5); MEAN CORPUSCULAR HEMOGLOBIN 30.8 pg (27.0-33.0); MEAN CORPUSCULAR HGB CONC 32.8 g/dl (32.0-36.5); MEAN CORPUSCULAR VOLUME 93.8 fl (80.0-96.0); PLATELET COUNT, AUTOMATED 207 10^3/uL (150-450); RED BLOOD COUNT 3.38 10^6/uL (4.30-6.10); RED CELL DISTRIBUTION WIDTH 13.1 % (11.5-14.5); WHITE BLOOD COUNT 9.5 10^3/uL (4.0-10.0)
[2018-02-15 07:09] LABS: ANION GAP 10 MEQ/L (8-16); BLOOD UREA NITROGEN 21 MG/DL (7-18); CALCIUM LEVEL 8.2 MG/DL (8.8-10.2); CARBON DIOXIDE LEVEL 24 MEQ/L (21-32); CHLORIDE LEVEL 112 MEQ/L (98-107); CREATININE FOR GFR 0.83 MG/DL (0.70-1.30); GLOMERULAR FILTRATION RATE > 60.0 (>35); GLUCOSE, FASTING 124 MG/DL (70-100); POTASSIUM SERUM 3.2 MEQ/L (3.5-5.1); SODIUM LEVEL 146 MEQ/L (136-145)
[2018-02-15] MEDS ORDERED: POTASSIUM CHLORIDE 10 MEQ SR TABLET PO (07:30)
[2018-02-15] MEDS: DOCUSATE SOD LIQ 100MG/10ML UDC PO ×2 (08:47→20:15)
[2018-02-15] MEDS: POTASSIUM CHLORIDE 10% LIQ 20 MEQ/15 ML UDC PO (08:47)
[2018-02-15] MEDS: APIXABAN 5 MG TAB (ELIQUIS) PO ×2 (08:48→20:15)
[2018-02-15] MEDS: TAMSULOSIN 0.4 MG CAP PO (08:48)
[2018-02-15] MEDS: METOPROLOL TART 25 MG TABLET PO ×2 (08:48→20:14)
[2018-02-15] MEDS: NYSTATIN 100,000 UNITS/GM TOPICAL PWD 15 GM TOP ×2 (08:48→20:15)
[2018-02-15] MEDS: ASPIRIN 81 MG ENTERIC TAB PO (08:48)
[2018-02-15] MEDS: MULTIVITAMINS/MINERALS THERAP 1 TAB PO (08:49)
[2018-02-15] MEDS: LACTOBACILLUS ACIDOPHILUS CAP (BACID) PO ×2 (08:49→17:34)
[2018-02-15] MEDS: NS 0.45% 1,000 ML IV ×2 (09:09→20:13)
[2018-02-15] MEDS: LORazepam 0.5 MG TAB PO (12:39)
[2018-02-15] MEDS: FINASTERIDE 5 MG TAB PO (20:14)
[2018-02-15] MEDS: AMITRIPTYLINE 10 MG TAB PO (20:14)
[2018-02-15] MEDS: PERPHENAZINE 2 MG TAB PO (20:15)
[2018-02-15] MEDS: ATORVASTATIN 20 MG TAB PO (20:15)
[2018-02-15 20:49] LABS: ANION GAP 9 MEQ/L (8-16); BLOOD UREA NITROGEN 15 MG/DL (7-18); CALCIUM LEVEL 7.8 MG/DL (8.8-10.2); CARBON DIOXIDE LEVEL 25 MEQ/L (21-32); CHLORIDE LEVEL 109 MEQ/L (98-107); CREATININE FOR GFR 0.72 MG/DL (0.70-1.30); GLOMERULAR FILTRATION RATE > 60.0 (>35); GLUCOSE, FASTING 112 MG/DL (70-100); POTASSIUM SERUM 3.5 MEQ/L (3.5-5.1); SODIUM LEVEL 143 MEQ/L (136-145)
[2018-02-16] MEDS: PIPERACILLIN/TAZOBACTAM SOD 2.25 GM in D5W MINI-BAG PLUS 50 ML IV ×4 (02:20→20:41)
[2018-02-16 06:34] LABS: HEMATOCRIT 29.3 % (42.0-52.0); HEMOGLOBIN 9.7 g/dl (13.5-17.5); MEAN CORPUSCULAR HEMOGLOBIN 30.9 pg (27.0-33.0); MEAN CORPUSCULAR HGB CONC 33.1 g/dl (32.0-36.5); MEAN CORPUSCULAR VOLUME 93.3 fl (80.0-96.0); PLATELET COUNT, AUTOMATED 207 10^3/uL (150-450); RED BLOOD COUNT 3.14 10^6/uL (4.30-6.10); RED CELL DISTRIBUTION WIDTH 13.1 % (11.5-14.5); WHITE BLOOD COUNT 9.4 10^3/uL (4.0-10.0)
[2018-02-16 06:56] LABS: ANION GAP 6 MEQ/L (8-16); BLOOD UREA NITROGEN 13 MG/DL (7-18); CALCIUM LEVEL 8.2 MG/DL (8.8-10.2); CARBON DIOXIDE LEVEL 27 MEQ/L (21-32); CHLORIDE LEVEL 108 MEQ/L (98-107); CREATININE FOR GFR 0.74 MG/DL (0.70-1.30); GLOMERULAR FILTRATION RATE > 60.0 (>35); GLUCOSE, FASTING 110 MG/DL (70-100); POTASSIUM SERUM 3.2 MEQ/L (3.5-5.1); SODIUM LEVEL 141 MEQ/L (136-145)
[2018-02-16] MEDS ORDERED: POTASSIUM CHLORIDE 10 MEQ SR TABLET PO (08:00)
[2018-02-16 08:02] LABS: MAGNESIUM LEVEL 1.8 MG/DL (1.8-2.4)
[2018-02-16] MEDS: MULTIVITAMINS/MINERALS THERAP 1 TAB PO (08:45)
[2018-02-16] MEDS: APIXABAN 5 MG TAB (ELIQUIS) PO ×2 (08:45→20:41)
[2018-02-16] MEDS: METOPROLOL TART 25 MG TABLET PO ×2 (08:48→20:42)
[2018-02-16] MEDS: LACTOBACILLUS ACIDOPHILUS CAP (BACID) PO ×2 (08:49→17:27)
[2018-02-16] MEDS: ASPIRIN 81 MG ENTERIC TAB PO (08:49)
[2018-02-16] MEDS: DOCUSATE SOD LIQ 100MG/10ML UDC PO ×3 (08:49→21:00)
[2018-02-16] MEDS: NYSTATIN 100,000 UNITS/GM TOPICAL PWD 15 GM TOP ×2 (08:49→20:43)
[2018-02-16] MEDS: TAMSULOSIN 0.4 MG CAP PO (08:50)
[2018-02-16] MEDS: POTASSIUM CHLORIDE 10% LIQ 20 MEQ/15 ML UDC PO (10:39)
[2018-02-16] MEDS: MAG SULF 1GM/100ML (MAG RUN) 1 GM in APPROPRIATE DILUENT 1 EA IV (10:40)
[2018-02-16] MEDS: LORazepam 0.5 MG TAB PO (15:16)
[2018-02-16 18:46] LABS: HEMATOCRIT 30.5 % (42.0-52.0); HEMOGLOBIN 10.3 g/dl (13.5-17.5)
[2018-02-16] MEDS: ACETAMINOPHEN 650 MG SUPP PR (20:41)
[2018-02-16] MEDS: PERPHENAZINE 2 MG TAB PO (20:41)
[2018-02-16] MEDS: ATORVASTATIN 20 MG TAB PO (20:42)
[2018-02-16] MEDS: AMITRIPTYLINE 10 MG TAB PO (20:42)
[2018-02-16] MEDS: FINASTERIDE 5 MG TAB PO (20:42)
[2018-02-17 00:43] LABS: HEMOGLOBIN 9.6 g/dl (13.5-17.5)
[2018-02-17] MEDS: PIPERACILLIN/TAZOBACTAM SOD 2.25 GM in D5W MINI-BAG PLUS 50 ML IV ×4 (03:32→21:50)
[2018-02-17 06:28] LABS: HEMATOCRIT 29.7 % (42.0-52.0); HEMOGLOBIN 9.9 g/dl (13.5-17.5); MEAN CORPUSCULAR HEMOGLOBIN 30.7 pg (27.0-33.0); MEAN CORPUSCULAR HGB CONC 33.3 g/dl (32.0-36.5); MEAN CORPUSCULAR VOLUME 92.2 fl (80.0-96.0); PLATELET COUNT, AUTOMATED 233 10^3/uL (150-450); RED BLOOD COUNT 3.22 10^6/uL (4.30-6.10); RED CELL DISTRIBUTION WIDTH 12.8 % (11.5-14.5); WHITE BLOOD COUNT 9.2 10^3/uL (4.0-10.0)
[2018-02-17 06:48] LABS: ANION GAP 7 MEQ/L (8-16); BLOOD UREA NITROGEN 7 MG/DL (7-18); CALCIUM LEVEL 8.7 MG/DL (8.8-10.2); CARBON DIOXIDE LEVEL 26 MEQ/L (21-32); CHLORIDE LEVEL 109 MEQ/L (98-107); CREATININE FOR GFR 0.62 MG/DL (0.70-1.30); GLOMERULAR FILTRATION RATE > 60.0 (>35); GLUCOSE, FASTING 103 MG/DL (70-100); POTASSIUM SERUM 3.3 MEQ/L (3.5-5.1); SODIUM LEVEL 142 MEQ/L (136-145)
[2018-02-17] MEDS: DOCUSATE SOD LIQ 100MG/10ML UDC PO ×2 (09:00→21:00)
[2018-02-17] MEDS: LORazepam 0.5 MG TAB PO ×2 (09:31→15:47)
[2018-02-17] MEDS: LACTOBACILLUS ACIDOPHILUS CAP (BACID) PO ×2 (09:31→17:07)
[2018-02-17] MEDS: ASPIRIN 81 MG ENTERIC TAB PO (09:31)
[2018-02-17] MEDS: APIXABAN 5 MG TAB (ELIQUIS) PO ×2 (09:31→21:49)
[2018-02-17] MEDS: TAMSULOSIN 0.4 MG CAP PO (09:32)
[2018-02-17] MEDS: METOPROLOL TART 25 MG TABLET PO ×2 (09:32→21:49)
[2018-02-17] MEDS: MULTIVITAMINS/MINERALS THERAP 1 TAB PO (09:32)
[2018-02-17] MEDS: NYSTATIN 100,000 UNITS/GM TOPICAL PWD 15 GM TOP ×2 (09:33→21:50)
[2018-02-17] MEDS: ATORVASTATIN 20 MG TAB PO (21:48)
[2018-02-17] MEDS: AMITRIPTYLINE 10 MG TAB PO (21:49)
[2018-02-17] MEDS: FINASTERIDE 5 MG TAB PO (21:49)
[2018-02-17] MEDS: PERPHENAZINE 2 MG TAB PO (21:49)
[2018-02-18] MEDS: PIPERACILLIN/TAZOBACTAM SOD 2.25 GM in D5W MINI-BAG PLUS 50 ML IV ×4 (03:24→21:58)
[2018-02-18 07:31] LABS: HEMATOCRIT 30.2 % (42.0-52.0); MEAN CORPUSCULAR HEMOGLOBIN 30.7 pg (27.0-33.0); MEAN CORPUSCULAR HGB CONC 33.1 g/dl (32.0-36.5); MEAN CORPUSCULAR VOLUME 92.6 fl (80.0-96.0); PLATELET COUNT, AUTOMATED 280 10^3/uL (150-450); RED BLOOD COUNT 3.26 10^6/uL (4.30-6.10); RED CELL DISTRIBUTION WIDTH 12.6 % (11.5-14.5); WHITE BLOOD COUNT 9.5 10^3/uL (4.0-10.0)
[2018-02-18 07:41] LABS: ANION GAP 9 MEQ/L (8-16); BLOOD UREA NITROGEN 6 MG/DL (7-18); CALCIUM LEVEL 8.6 MG/DL (8.8-10.2); CARBON DIOXIDE LEVEL 26 MEQ/L (21-32); CHLORIDE LEVEL 107 MEQ/L (98-107); CREATININE FOR GFR 0.68 MG/DL (0.70-1.30); GLOMERULAR FILTRATION RATE > 60.0 (>35); GLUCOSE, FASTING 99 MG/DL (70-100); POTASSIUM SERUM 3.4 MEQ/L (3.5-5.1); SODIUM LEVEL 142 MEQ/L (136-145)
[2018-02-18] MEDS: LACTOBACILLUS ACIDOPHILUS CAP (BACID) PO ×2 (08:09→17:17)
[2018-02-18] MEDS: ASPIRIN 81 MG ENTERIC TAB PO (08:09)
[2018-02-18] MEDS: METOPROLOL TART 25 MG TABLET PO ×2 (08:10→22:00)
[2018-02-18] MEDS: LORazepam 0.5 MG TAB PO ×2 (08:10→17:17)
[2018-02-18] MEDS: TAMSULOSIN 0.4 MG CAP PO (08:10)
[2018-02-18] MEDS: APIXABAN 5 MG TAB (ELIQUIS) PO ×2 (08:10→21:59)
[2018-02-18] MEDS: DOCUSATE SOD LIQ 100MG/10ML UDC PO ×2 (08:11→21:00)
[2018-02-18] MEDS: NYSTATIN 100,000 UNITS/GM TOPICAL PWD 15 GM TOP ×2 (08:12→22:00)
[2018-02-18] MEDS: MULTIVITAMINS/MINERALS THERAP 1 TAB PO (08:12)
[2018-02-18] MEDS ORDERED: PREPARATION H OINTMENT (HEMORRHOID) PR (17:30)
[2018-02-18] MEDS: ATORVASTATIN 20 MG TAB PO (21:58)
[2018-02-18] MEDS: FINASTERIDE 5 MG TAB PO (21:59)
[2018-02-18] MEDS: AMITRIPTYLINE 10 MG TAB PO (21:59)
[2018-02-18] MEDS: PERPHENAZINE 2 MG TAB PO (22:00)
[2018-02-19] MEDS: PIPERACILLIN/TAZOBACTAM SOD 2.25 GM in D5W MINI-BAG PLUS 50 ML IV ×3 (02:47→15:28)
[2018-02-19 07:02] LABS: HEMATOCRIT 30.2 % (42.0-52.0); MEAN CORPUSCULAR HEMOGLOBIN 30.4 pg (27.0-33.0); MEAN CORPUSCULAR HGB CONC 33.1 g/dl (32.0-36.5); MEAN CORPUSCULAR VOLUME 91.8 fl (80.0-96.0); PLATELET COUNT, AUTOMATED 331 10^3/uL (150-450); RED BLOOD COUNT 3.29 10^6/uL (4.30-6.10); RED CELL DISTRIBUTION WIDTH 12.6 % (11.5-14.5); WHITE BLOOD COUNT 9.5 10^3/uL (4.0-10.0)
[2018-02-19 07:17] LABS: ANION GAP 6 MEQ/L (8-16); BLOOD UREA NITROGEN 6 MG/DL (7-18); CALCIUM LEVEL 8.4 MG/DL (8.8-10.2); CARBON DIOXIDE LEVEL 30 MEQ/L (21-32); CHLORIDE LEVEL 105 MEQ/L (98-107); CREATININE FOR GFR 0.69 MG/DL (0.70-1.30); GLOMERULAR FILTRATION RATE > 60.0 (>35); GLUCOSE, FASTING 99 MG/DL (70-100); POTASSIUM SERUM 3.1 MEQ/L (3.5-5.1); SODIUM LEVEL 141 MEQ/L (136-145)
[2018-02-19] MEDS: LACTOBACILLUS ACIDOPHILUS CAP (BACID) PO ×2 (08:30→16:49)
[2018-02-19] MEDS: DOCUSATE SOD LIQ 100MG/10ML UDC PO ×2 (09:00→21:19)
[2018-02-19] MEDS: ASPIRIN 81 MG ENTERIC TAB PO (11:01)
[2018-02-19] MEDS: MULTIVITAMINS/MINERALS THERAP 1 TAB PO (11:01)
[2018-02-19] MEDS: APIXABAN 5 MG TAB (ELIQUIS) PO ×2 (11:01→21:19)
[2018-02-19] MEDS: TAMSULOSIN 0.4 MG CAP PO (11:03)
[2018-02-19] MEDS: METOPROLOL TART 25 MG TABLET PO ×2 (11:03→21:18)
[2018-02-19] MEDS: NYSTATIN 100,000 UNITS/GM TOPICAL PWD 15 GM TOP ×2 (11:04→21:19)
[2018-02-19] MEDS: cefTRIAXone SOD 2 GM in D5W MINI-BAG PLUS 50 ML IV (17:01)
[2018-02-19] MEDS: ATORVASTATIN 20 MG TAB PO (21:18)
[2018-02-19] MEDS: FINASTERIDE 5 MG TAB PO (21:19)
[2018-02-19] MEDS: PERPHENAZINE 2 MG TAB PO (21:19)
[2018-02-19] MEDS: AMITRIPTYLINE 10 MG TAB PO (21:19)
[2018-02-19] MEDS: ACETAMINOPHEN 650 MG SUPP PR (22:23)
[2018-02-20] MEDS: METOPROLOL TART 25 MG TABLET PO ×2 (09:44→21:55)
[2018-02-20] MEDS: LACTOBACILLUS ACIDOPHILUS CAP (BACID) PO ×2 (09:44→17:29)
[2018-02-20] MEDS: MULTIVITAMINS/MINERALS THERAP 1 TAB PO (09:44)
[2018-02-20] MEDS: ASPIRIN 81 MG ENTERIC TAB PO (09:44)
[2018-02-20] MEDS: NYSTATIN 100,000 UNITS/GM TOPICAL PWD 15 GM TOP ×2 (09:45→21:55)
[2018-02-20] MEDS: TAMSULOSIN 0.4 MG CAP PO (09:45)
[2018-02-20] MEDS: LORazepam 0.5 MG TAB PO (15:25)
[2018-02-20] MEDS: cefTRIAXone SOD 2 GM in D5W MINI-BAG PLUS 50 ML IV (17:30)
[2018-02-20] MEDS: FINASTERIDE 5 MG TAB PO (21:54)
[2018-02-20] MEDS: PERPHENAZINE 2 MG TAB PO (21:54)
[2018-02-20] MEDS: AMITRIPTYLINE 10 MG TAB PO (21:54)
[2018-02-20] MEDS: ATORVASTATIN 20 MG TAB PO (21:55)
[2018-02-21] MEDS: LACTOBACILLUS ACIDOPHILUS CAP (BACID) PO ×2 (09:14→17:34)
[2018-02-21] MEDS: ASPIRIN 81 MG ENTERIC TAB PO (09:14)
[2018-02-21] MEDS: TAMSULOSIN 0.4 MG CAP PO (09:14)
[2018-02-21] MEDS: MULTIVITAMINS/MINERALS THERAP 1 TAB PO (09:14)
[2018-02-21] MEDS: METOPROLOL TART 25 MG TABLET PO (09:17)
[2018-02-21] MEDS: NYSTATIN 100,000 UNITS/GM TOPICAL PWD 15 GM TOP (09:18)
[2018-02-21 10:29] LABS: BASO # 0.1 10^3/uL (0.0-0.2); BASO % 0.5 % (0.0-1.0); EOS # 0.5 10^3/uL (0.0-0.50); EOS % 5.1 % (0.0-3.0); HEMATOCRIT 33.1 % (42.0-52.0); HEMOGLOBIN 10.9 g/dl (13.5-17.5); IMMATURE GRANULOCYTE % 1.7 % (0-3.0); LYMPH # 1.4 10^3/uL (1.5-4.5); LYMPH % 14.8 % (24.0-44.0); MEAN CORPUSCULAR HEMOGLOBIN 30.8 pg (27.0-33.0); MEAN CORPUSCULAR HGB CONC 32.9 g/dl (32.0-36.5); MEAN CORPUSCULAR VOLUME 93.5 fl (80.0-96.0); MONO # 0.7 10^3/uL (0.0-0.8); MONO % 7.4 % (0.0-5.0); NEUTROPHILS # 6.9 10^3/uL (1.8-7.7); NEUTROPHILS % 70.5 % (36.0-66.0); PLATELET COUNT, AUTOMATED 392 10^3/uL (150-450); RED BLOOD COUNT 3.54 10^6/uL (4.30-6.10); RED CELL DISTRIBUTION WIDTH 12.6 % (11.5-14.5); WHITE BLOOD COUNT 9.8 10^3/uL (4.0-10.0)
[2018-02-21 11:17] LABS: ANION GAP 9 MEQ/L (8-16); BLOOD UREA NITROGEN 8 MG/DL (7-18); CALCIUM LEVEL 8.7 MG/DL (8.8-10.2); CARBON DIOXIDE LEVEL 26 MEQ/L (21-32); CHLORIDE LEVEL 106 MEQ/L (98-107); CREATININE FOR GFR 0.67 MG/DL (0.70-1.30); GLOMERULAR FILTRATION RATE > 60.0 (>35); GLUCOSE, FASTING 117 MG/DL (70-100); POTASSIUM SERUM 3.9 MEQ/L (3.5-5.1); SODIUM LEVEL 141 MEQ/L (136-145)
[2018-02-21] MEDS: cefTRIAXone SOD 2 GM in D5W MINI-BAG PLUS 50 ML IV (17:34)
== END 2018-02-21 18:55 | disposition home or self-care (01) | DRG 698 ==
LOC: M ED 00:12 → M ED INP 02:59 → M MS5PR 04:40
PROVIDERS: Hospitalist
DX: T83.511A Infection and inflammatory reaction due to indwelling urethral catheter, initial encounter (principal); R65.20 Severe sepsis without septic shock; A41.51 Sepsis due to Escherichia coli [E. coli]; N17.9 Acute kidney failure, unspecified; E87.0 Hyperosmolality and hypernatremia; D62 Acute posthemorrhagic anemia; N39.0 Urinary tract infection, site not specified; R31.9 Hematuria, unspecified; I10 Essential (primary) hypertension; E78.5 Hyperlipidemia, unspecified; I69.391 Dysphagia following cerebral infarction; F03.90 Unspecified dementia, unspecified severity, without behavioral disturbance, psychotic disturbance, mood disturbance, and anxiety; B96.20 Unspecified Escherichia coli [E. coli] as the cause of diseases classified elsewhere; R13.10 Dysphagia, unspecified; I25.10 Atherosclerotic heart disease of native coronary artery without angina pectoris; I69.320 Aphasia following cerebral infarction; I48.0 Paroxysmal atrial fibrillation; G47.33 Obstructive sleep apnea (adult) (pediatric); Q63.1 Lobulated, fused and horseshoe kidney; N40.1 Benign prostatic hyperplasia with lower urinary tract symptoms; Z87.440 Personal history of urinary (tract) infections; Z96.0 Presence of urogenital implants; Z95.0 Presence of cardiac pacemaker; Z95.2 Presence of prosthetic heart valve; Z95.1 Presence of aortocoronary bypass graft; Z79.82 Long term (current) use of aspirin; Z79.01 Long term (current) use of anticoagulants; Z79.899 Other long term (current) drug therapy; Z87.891 Personal history of nicotine dependence; Y82.9 Unspecified medical devices associated with adverse incidents

== ENCOUNTER → 2018-03-05 | Outpatient (REF) | payer MEDICARE ==
[2018-03-06 11:01] LABS: APPEARANCE, URINE TURBID (CLEAR); BACTERIA, URINE AUTO NEGATIVE (NEGATIVE); BILIRUBIN, URINE AUTO NEGATIVE (NEGATIVE); BLOOD, URINE BLOOD 3+ (NEGATIVE); COLOR, URINE AMBER (YELLOW); GLUCOSE, URINE (UA) AUTO NEGATIVE (NEGATIVE); KETONE, URINE AUTO NEGATIVE (NEGATIVE); LEUKOCYTE ESTERASE, URINE AUTO 1+ (NEGATIVE); MUCUS, URINE LARGE (NEGATIVE); NITRITE, URINE AUTO NEGATIVE (NEGATIVE); PROTEIN, URINE AUTO 1+ mg/dL (NEGATIVE); RBC, URINE AUTO 58 /HPF (0-3); SPECIFIC GRAVITY URINE AUTO 1.021 (1.002-1.035); SQUAMOUS EPITHELIAL CELL UR AU 0 /HPF (0-6); UROBILINOGEN, URINE AUTO 0.2 mg/dL (0.0-2.0); WBC, URINE AUTO 13 /HPF (0-3)
== END ==
LOC: M SFHCPLAZ 09:31
DX: A41.51 Sepsis due to Escherichia coli [E. coli] (principal)
CPT/HCPCS: 81001

== ENCOUNTER → 2018-04-01 | Outpatient (REF) | payer MEDICARE ==
[2018-04-01 13:40] LABS: APPEARANCE, URINE CLOUDY (CLEAR); BACTERIA, URINE AUTO 1+ (NEGATIVE); BILIRUBIN, URINE AUTO NEGATIVE (NEGATIVE); BLOOD, URINE BLOOD 2+ (NEGATIVE); COLOR, URINE AMBER (YELLOW); GLUCOSE, URINE (UA) AUTO NEGATIVE (NEGATIVE); KETONE, URINE AUTO NEGATIVE (NEGATIVE); LEUKOCYTE ESTERASE, URINE AUTO 3+ (NEGATIVE); MUCUS, URINE SMALL (NEGATIVE); NITRITE, URINE AUTO NEGATIVE (NEGATIVE); PROTEIN, URINE AUTO 2+ mg/dL (NEGATIVE); RBC, URINE AUTO 123 /HPF (0-3); SPECIFIC GRAVITY URINE AUTO 1.023 (1.002-1.035); SQUAMOUS EPITHELIAL CELL UR AU 0 /HPF (0-6); WBC, URINE AUTO TNTC /HPF (0-3)
== END ==
LOC: M SMT 12:48
DX: N39.0 Urinary tract infection, site not specified (principal)
CPT/HCPCS: 81001

== ENCOUNTER 2018-04-05 14:38 | Inpatient (IN) | payer MEDICARE ==
[2018-04-05] MEDS: VANCOMYCIN HCL 1,000 MG, VIAL MATE ADAPTER 1 EACH in D5W 250 ML IV (16:10)
[2018-04-05] MEDS: ACETAMINOPHEN 650 MG SUPP PR (16:15)
[2018-04-05 16:16] LABS: VENOUS BASE EXCESS -5.6 (-2.0-2.0); VENOUS HCO3 21.4 MEQ/L (23.0-27.0); VENOUS O2 SATURATION 68.7 % (60.0-80.0); VENOUS PARTIAL PRESSURE CO2 47.2 mmHg (38.0-50.0); VENOUS PARTIAL PRESSURE O2 40.6 mmHg (30.0-50.0); VENOUS PH 7.275 UNITS (7.330-7.430); VENOUS STANDARD HCO3 19.3 MEQ/L; VENOUS TOTAL CO2 22.9 MEQ/L (24.0-28.0)
[2018-04-05] MEDS ORDERED: ACETAMINOPHEN 650 MG SUPP As Ordered (16:18)
[2018-04-05 16:42] LABS: BASO # 0.1 10^3/uL (0.0-0.2); BASO % 0.5 % (0.0-1.0); EOS # 0.5 10^3/uL (0.0-0.50); HEMATOCRIT 46.1 % (42.0-52.0); HEMOGLOBIN 14.7 g/dl (13.5-17.5); IMMATURE GRANULOCYTE % 0.5 % (0-3.0); LYMPH # 0.8 10^3/uL (1.5-4.5); LYMPH % 8.3 % (24.0-44.0); MEAN CORPUSCULAR HEMOGLOBIN 30.2 pg (27.0-33.0); MEAN CORPUSCULAR HGB CONC 31.9 g/dl (32.0-36.5); MEAN CORPUSCULAR VOLUME 94.7 fl (80.0-96.0); MONO # 0.8 10^3/uL (0.0-0.8); MONO % 8.3 % (0.0-5.0); NEUTROPHILS # 7.3 10^3/uL (1.8-7.7); NEUTROPHILS % 77.4 % (36.0-66.0); PLATELET COUNT, AUTOMATED 181 10^3/uL (150-450); RED BLOOD COUNT 4.87 10^6/uL (4.30-6.10); RED CELL DISTRIBUTION WIDTH 13.6 % (11.5-14.5); WHITE BLOOD COUNT 9.4 10^3/uL (4.0-10.0)
[2018-04-05 16:44] LABS: INFLUENZA A AMPLIFICATION NEGATIVE (NEGATIVE); INFLUENZA B AMPLIFICATION NEGATIVE (NEGATIVE)
[2018-04-05 16:57] LABS: APPEARANCE, URINE HAZY (CLEAR); BACTERIA, URINE AUTO 1+ (NEGATIVE); BILIRUBIN, URINE AUTO NEGATIVE (NEGATIVE); BLOOD, URINE BLOOD 2+ (NEGATIVE); COLOR, URINE AMBER (YELLOW); GLUCOSE, URINE (UA) AUTO NEGATIVE (NEGATIVE); KETONE, URINE AUTO NEGATIVE (NEGATIVE); LEUKOCYTE ESTERASE, URINE AUTO 3+ (NEGATIVE); MUCUS, URINE SMALL (NEGATIVE); NITRITE, URINE AUTO NEGATIVE (NEGATIVE); PROTEIN, URINE AUTO 1+ mg/dL (NEGATIVE); RBC, URINE AUTO 102 /HPF (0-3); SPECIFIC GRAVITY URINE AUTO 1.024 (1.002-1.035); SQUAMOUS EPITHELIAL CELL UR AU 1 /HPF (0-6); UROBILINOGEN, URINE AUTO 0.2 mg/dL (0.0-2.0); WBC, URINE AUTO 100 /HPF (0-3)
[2018-04-05 17:13] LABS: ALBUMIN 3.9 GM/DL (3.2-5.2); ALBUMIN/GLOBULIN RATIO 1.08 (1.00-1.93); ALKALINE PHOSPHATASE 82 U/L (45-117); ALT/SGPT 54 U/L (12-78); AMYLASE 26 U/L (25-115); ANION GAP 9 MEQ/L (8-16); AST/SGOT 38 U/L (7-37); BILIRUBIN,DIRECT 0.3 MG/DL (0.0-0.2); BLOOD UREA NITROGEN 25 MG/DL (7-18); C REACTIVE PROTEIN QUANTITATIV 4.76 MG/DL (0.00-0.30); CALCIUM LEVEL 9.5 MG/DL (8.8-10.2); CARBON DIOXIDE LEVEL 26 MEQ/L (21-32); CHLORIDE LEVEL 106 MEQ/L (98-107); CPK CREATINE PHOSPHOKINASE 70 U/L (39-308); CREATININE FOR GFR 0.99 MG/DL (0.70-1.30); GLOMERULAR FILTRATION RATE > 60.0 (>35); GLUCOSE, FASTING 129 MG/DL (70-100); MB/CK RELATIVE INDEX 2.43 (< OR =4); POTASSIUM SERUM 4.4 MEQ/L (3.5-5.1); SODIUM LEVEL 141 MEQ/L (136-145); TOTAL PROTEIN 7.5 GM/DL (6.4-8.2); TROPONIN I < 0.02 NG/ML (< 0.10)
[2018-04-05 17:21] LABS: LACTIC ACID SEPSIS PROTOCOL 4.5 MMOL/L (0.4-2.0)
[2018-04-05 17:23] LABS: PROTHROMBIN TIME 16.4 SECONDS (12.1-14.4)
[2018-04-05 17:24] LABS: PARTIAL THROMBOPLASTIN TIME 33.4 SECONDS (25.4-37.6)
[2018-04-05] MEDS: NS 2,590 ML in APPROPRIATE DILUENT 1 EA IV (17:30)
[2018-04-05] MEDS: PIPERACILLIN/TAZOBACTAM SOD 4.5 GM in D5W MINI-BAG PLUS 50 ML IV (17:37)
[2018-04-05] MEDS ORDERED: BISACODYL 5 MG TAB PO (18:15)
[2018-04-05] MEDS: LORazepam 0.5 MG TAB PO (20:17)
[2018-04-05] MEDS: FINASTERIDE 5 MG TAB PO (22:56)
[2018-04-05] MEDS: VANCOMYCIN HCL 750 MG, VIAL MATE ADAPTER 1 EACH in D5W 250 ML IV (22:56)
[2018-04-05] MEDS: NS 1,000 ML IV (22:56)
[2018-04-05] MEDS: SENOKOT S TAB PO (22:57)
[2018-04-05] MEDS: ATORVASTATIN 20 MG TAB PO (22:57)
[2018-04-05] MEDS: APIXABAN 5 MG TAB (ELIQUIS) PO (22:57)
[2018-04-05] MEDS: METOPROLOL TART 25 MG TABLET PO (22:59)
[2018-04-05] MEDS ORDERED: PILL CRUSHER/CUTTER 1 EACH XX (23:45)
[2018-04-06] MEDS: PIPERACILLIN/TAZOBACTAM SOD 3.375 GM in D5W MINI-BAG PLUS 50 ML IV ×5 (00:56→23:38)
[2018-04-06] MEDS: VANCOMYCIN HCL 1,000 MG, VIAL MATE ADAPTER 1 EACH in D5W 250 ML IV ×2 (05:05→16:52)
[2018-04-06 05:35] LABS: HEMATOCRIT 37.6 % (42.0-52.0); MEAN CORPUSCULAR HEMOGLOBIN 30.7 pg (27.0-33.0); MEAN CORPUSCULAR HGB CONC 32.7 g/dl (32.0-36.5); MEAN CORPUSCULAR VOLUME 93.8 fl (80.0-96.0); PLATELET COUNT, AUTOMATED 198 10^3/uL (150-450); RED BLOOD COUNT 4.01 10^6/uL (4.30-6.10); RED CELL DISTRIBUTION WIDTH 13.7 % (11.5-14.5); WHITE BLOOD COUNT 6.7 10^3/uL (4.0-10.0)
[2018-04-06 05:48] LABS: HEMOGLOBIN 12.3 g/dl (13.5-17.5)
[2018-04-06 06:03] LABS: ANION GAP 8 MEQ/L (8-16); BLOOD UREA NITROGEN 20 MG/DL (7-18); CALCIUM LEVEL 8.4 MG/DL (8.8-10.2); CARBON DIOXIDE LEVEL 25 MEQ/L (21-32); CHLORIDE LEVEL 109 MEQ/L (98-107); CREATININE FOR GFR 0.89 MG/DL (0.70-1.30); GLOMERULAR FILTRATION RATE > 60.0 (>35); GLUCOSE, FASTING 92 MG/DL (70-100); POTASSIUM SERUM 3.8 MEQ/L (3.5-5.1); SODIUM LEVEL 142 MEQ/L (136-145)
[2018-04-06] MEDS: LORazepam 0.5 MG TAB PO (06:20)
[2018-04-06] MEDS: LACTOBACILLUS ACIDOPHILUS CAP (BACID) PO (11:02)
[2018-04-06] MEDS: METOPROLOL TART 25 MG TABLET PO ×2 (11:02→20:05)
[2018-04-06] MEDS: TAMSULOSIN 0.4 MG CAP PO (11:02)
[2018-04-06] MEDS: SENOKOT S TAB PO ×2 (11:02→20:05)
[2018-04-06] MEDS: ASPIRIN 81 MG ENTERIC TAB PO (11:03)
[2018-04-06] MEDS: MULTIVITAMINS/MINERALS THERAP 1 TAB PO (11:03)
[2018-04-06] MEDS: APIXABAN 5 MG TAB (ELIQUIS) PO ×2 (11:03→20:05)
[2018-04-06 16:35] LABS: VANCOMYCIN LEVEL TROUGH 13.2 UG/ML (10.0-20.0)
[2018-04-06] MEDS: NS 1,000 ML IV ×2 (19:05→19:15)
[2018-04-06] MEDS: ATORVASTATIN 20 MG TAB PO (20:04)
[2018-04-06] MEDS: ACETAMINOPHEN TAB 650MG DOSE (2X325MG) PO (20:04)
[2018-04-06] MEDS: FINASTERIDE 5 MG TAB PO (20:04)
[2018-04-07] MEDS: VANCOMYCIN HCL 1,000 MG, VIAL MATE ADAPTER 1 EACH in D5W 250 ML IV (04:52)
[2018-04-07 06:24] LABS: HEMATOCRIT 36.6 % (42.0-52.0); HEMOGLOBIN 11.8 g/dl (13.5-17.5); MEAN CORPUSCULAR HEMOGLOBIN 30.1 pg (27.0-33.0); MEAN CORPUSCULAR HGB CONC 32.2 g/dl (32.0-36.5); MEAN CORPUSCULAR VOLUME 93.4 fl (80.0-96.0); PLATELET COUNT, AUTOMATED 173 10^3/uL (150-450); RED BLOOD COUNT 3.92 10^6/uL (4.30-6.10); RED CELL DISTRIBUTION WIDTH 13.7 % (11.5-14.5); WHITE BLOOD COUNT 7.4 10^3/uL (4.0-10.0)
[2018-04-07] MEDS: PIPERACILLIN/TAZOBACTAM SOD 3.375 GM in D5W MINI-BAG PLUS 50 ML IV ×2 (06:26→11:21)
[2018-04-07 06:44] LABS: ANION GAP 7 MEQ/L (8-16); BLOOD UREA NITROGEN 15 MG/DL (7-18); CALCIUM LEVEL 8.4 MG/DL (8.8-10.2); CARBON DIOXIDE LEVEL 26 MEQ/L (21-32); CHLORIDE LEVEL 110 MEQ/L (98-107); CREATININE FOR GFR 0.75 MG/DL (0.70-1.30); GLOMERULAR FILTRATION RATE > 60.0 (>35); GLUCOSE, FASTING 113 MG/DL (70-100); POTASSIUM SERUM 3.8 MEQ/L (3.5-5.1); SODIUM LEVEL 143 MEQ/L (136-145)
[2018-04-07] MEDS: NS 1,000 ML IV (07:45)
[2018-04-07] MEDS: TAMSULOSIN 0.4 MG CAP PO (08:56)
[2018-04-07] MEDS: ASPIRIN 81 MG ENTERIC TAB PO (08:56)
[2018-04-07] MEDS: LACTOBACILLUS ACIDOPHILUS CAP (BACID) PO (08:56)
[2018-04-07] MEDS: MULTIVITAMINS/MINERALS THERAP 1 TAB PO (08:56)
[2018-04-07] MEDS: METOPROLOL TART 25 MG TABLET PO ×2 (09:00→20:44)
[2018-04-07] MEDS: SENOKOT S TAB PO ×2 (09:00→20:44)
[2018-04-07] MEDS: APIXABAN 5 MG TAB (ELIQUIS) PO ×2 (09:00→20:44)
[2018-04-07] MEDS: FLUCONAZOLE 50MG TABLET PO (11:21)
[2018-04-07] MEDS: NITROFURANTOIN (MACROBID) 100 MG CAP PO ×2 (17:51→20:44)
[2018-04-07] MEDS: LORazepam 0.5 MG TAB PO (17:56)
[2018-04-07] MEDS: FINASTERIDE 5 MG TAB PO (20:43)
[2018-04-07] MEDS: ATORVASTATIN 20 MG TAB PO (20:43)
[2018-04-08] MEDS: LORazepam 0.5 MG TAB PO ×2 (01:37→16:29)
[2018-04-08 06:48] LABS: HEMATOCRIT 36.3 % (42.0-52.0); MEAN CORPUSCULAR HEMOGLOBIN 30.3 pg (27.0-33.0); MEAN CORPUSCULAR HGB CONC 33.1 g/dl (32.0-36.5); MEAN CORPUSCULAR VOLUME 91.7 fl (80.0-96.0); PLATELET COUNT, AUTOMATED 201 10^3/uL (150-450); RED BLOOD COUNT 3.96 10^6/uL (4.30-6.10); RED CELL DISTRIBUTION WIDTH 13.2 % (11.5-14.5); WHITE BLOOD COUNT 9.3 10^3/uL (4.0-10.0)
[2018-04-08 07:19] LABS: ANION GAP 8 MEQ/L (8-16); BLOOD UREA NITROGEN 7 MG/DL (7-18); CALCIUM LEVEL 8.9 MG/DL (8.8-10.2); CARBON DIOXIDE LEVEL 26 MEQ/L (21-32); CHLORIDE LEVEL 109 MEQ/L (98-107); CREATININE FOR GFR 0.54 MG/DL (0.70-1.30); GLOMERULAR FILTRATION RATE > 60.0 (>35); GLUCOSE, FASTING 120 MG/DL (70-100); POTASSIUM SERUM 2.9 MEQ/L (3.5-5.1); SODIUM LEVEL 143 MEQ/L (136-145)
[2018-04-08] MEDS: POTASSIUM CHLORIDE 10 MEQ SR TABLET PO ×4 (07:46→13:00)
[2018-04-08] MEDS: SENOKOT S TAB PO ×2 (09:00→21:36)
[2018-04-08] MEDS: ASPIRIN 81 MG ENTERIC TAB PO (09:12)
[2018-04-08] MEDS: NITROFURANTOIN (MACROBID) 100 MG CAP PO ×2 (09:12→21:36)
[2018-04-08] MEDS: MULTIVITAMINS/MINERALS THERAP 1 TAB PO (09:12)
[2018-04-08] MEDS: LACTOBACILLUS ACIDOPHILUS CAP (BACID) PO (09:12)
[2018-04-08] MEDS: METOPROLOL TART 25 MG TABLET PO ×2 (09:12→21:36)
[2018-04-08] MEDS: TAMSULOSIN 0.4 MG CAP PO (09:13)
[2018-04-08] MEDS: APIXABAN 5 MG TAB (ELIQUIS) PO ×2 (09:13→21:36)
[2018-04-08 12:33] LABS: POTASSIUM SERUM 3.3 MEQ/L (3.5-5.1)
[2018-04-08 14:19] LABS: MAGNESIUM LEVEL 2.1 MG/DL (1.8-2.4)
[2018-04-08] MEDS: ACETAMINOPHEN TAB 650MG DOSE (2X325MG) PO (16:29)
[2018-04-08] MEDS: FINASTERIDE 5 MG TAB PO (21:35)
[2018-04-08] MEDS: ATORVASTATIN 20 MG TAB PO (21:35)
[2018-04-09 06:05] LABS: HEMATOCRIT 36.7 % (42.0-52.0); HEMOGLOBIN 11.8 g/dl (13.5-17.5); MEAN CORPUSCULAR HEMOGLOBIN 29.7 pg (27.0-33.0); MEAN CORPUSCULAR HGB CONC 32.2 g/dl (32.0-36.5); MEAN CORPUSCULAR VOLUME 92.4 fl (80.0-96.0); PLATELET COUNT, AUTOMATED 216 10^3/uL (150-450); RED BLOOD COUNT 3.97 10^6/uL (4.30-6.10); RED CELL DISTRIBUTION WIDTH 13.3 % (11.5-14.5); WHITE BLOOD COUNT 5.8 10^3/uL (4.0-10.0)
[2018-04-09 06:33] LABS: ANION GAP 6 MEQ/L (8-16); BLOOD UREA NITROGEN 14 MG/DL (7-18); CALCIUM LEVEL 9.1 MG/DL (8.8-10.2); CARBON DIOXIDE LEVEL 27 MEQ/L (21-32); CHLORIDE LEVEL 110 MEQ/L (98-107); CREATININE FOR GFR 0.69 MG/DL (0.70-1.30); GLOMERULAR FILTRATION RATE > 60.0 (>35); GLUCOSE, FASTING 112 MG/DL (70-100); POTASSIUM SERUM 3.7 MEQ/L (3.5-5.1); SODIUM LEVEL 143 MEQ/L (136-145)
[2018-04-09] MEDS: NITROFURANTOIN (MACROBID) 100 MG CAP PO (10:49)
[2018-04-09] MEDS: TAMSULOSIN 0.4 MG CAP PO (10:49)
[2018-04-09] MEDS: ASPIRIN 81 MG ENTERIC TAB PO (10:49)
[2018-04-09] MEDS: MULTIVITAMINS/MINERALS THERAP 1 TAB PO (10:49)
[2018-04-09] MEDS: SENOKOT S TAB PO (10:49)
[2018-04-09] MEDS: APIXABAN 5 MG TAB (ELIQUIS) PO (10:49)
[2018-04-09] MEDS: LACTOBACILLUS ACIDOPHILUS CAP (BACID) PO (10:52)
[2018-04-09] MEDS: METOPROLOL TART 25 MG TABLET PO (10:52)
[2018-04-09] MEDS: LORazepam 0.5 MG TAB PO (15:08)
[2018-04-09] MEDS: POTASSIUM CHLORIDE 10 MEQ SR TABLET PO (16:53)
== END 2018-04-09 17:35 | disposition home or self-care (01) | DRG 698 ==
LOC: M MS5PR 04-07 14:51 → M ED 14:38 → M ED INP 19:06 → M PCU 22:13
PROVIDERS: Internal Medicine
DX: T83.511A Infection and inflammatory reaction due to indwelling urethral catheter, initial encounter (principal); A41.9 Sepsis, unspecified organism; G93.41 Metabolic encephalopathy; I69.951 Hemiplegia and hemiparesis following unspecified cerebrovascular disease affecting right dominant side; N39.0 Urinary tract infection, site not specified; I69.920 Aphasia following unspecified cerebrovascular disease; N40.0 Benign prostatic hyperplasia without lower urinary tract symptoms; E87.5 Hyperkalemia; I10 Essential (primary) hypertension; I69.991 Dysphagia following unspecified cerebrovascular disease; G47.33 Obstructive sleep apnea (adult) (pediatric); E78.5 Hyperlipidemia, unspecified; I25.10 Atherosclerotic heart disease of native coronary artery without angina pectoris; Z95.2 Presence of prosthetic heart valve; F41.9 Anxiety disorder, unspecified; Q63.1 Lobulated, fused and horseshoe kidney; I49.5 Sick sinus syndrome; Z79.899 Other long term (current) drug therapy; Z79.01 Long term (current) use of anticoagulants; Z79.82 Long term (current) use of aspirin; I48.91 Unspecified atrial fibrillation; Y82.8 Other medical devices associated with adverse incidents

== ENCOUNTER → 2018-04-12 | Outpatient (CLI) | payer MEDICARE ==
[2018-04-12 13:49] LABS: HEMATOCRIT 40.4 % (42.0-52.0); HEMOGLOBIN 13.1 g/dl (13.5-17.5); MEAN CORPUSCULAR HEMOGLOBIN 30.3 pg (27.0-33.0); MEAN CORPUSCULAR HGB CONC 32.4 g/dl (32.0-36.5); MEAN CORPUSCULAR VOLUME 93.5 fl (80.0-96.0); PLATELET COUNT, AUTOMATED 252 10^3/uL (150-450); RED BLOOD COUNT 4.32 10^6/uL (4.30-6.10); RED CELL DISTRIBUTION WIDTH 13.3 % (11.5-14.5); WHITE BLOOD COUNT 6.9 10^3/uL (4.0-10.0)
[2018-04-12 14:01] LABS: ANION GAP 11 MEQ/L (8-16); BLOOD UREA NITROGEN 16 MG/DL (7-18); CARBON DIOXIDE LEVEL 27 MEQ/L (21-32); CHLORIDE LEVEL 105 MEQ/L (98-107); CREATININE FOR GFR 0.81 MG/DL (0.70-1.30); GLOMERULAR FILTRATION RATE > 60.0 (>35); GLUCOSE, FASTING 173 MG/DL (70-100); POTASSIUM SERUM 3.6 MEQ/L (3.5-5.1); SODIUM LEVEL 143 MEQ/L (136-145)
[2018-04-12 14:03] LABS: INR 1.33; PROTHROMBIN TIME 16.7 SECONDS (12.1-14.4)
[2018-04-12 14:04] LABS: PARTIAL THROMBOPLASTIN TIME 36.4 SECONDS (25.4-37.6)
== END ==
LOC: M SMT 11:16
DX: Z01.818 Encounter for other preprocedural examination (principal); R33.9 Retention of urine, unspecified; I51.7 Cardiomegaly; Z95.0 Presence of cardiac pacemaker; Z95.2 Presence of prosthetic heart valve
CPT/HCPCS: 80048

== ENCOUNTER → 2018-04-19 | Outpatient (REF) | payer MEDICARE ==
[2018-04-19 14:15] LABS: APPEARANCE, URINE MANUAL HAZY (CLEAR); COLOR, URINE MANUAL YELLOW (YELLOW); SPECIFIC GRAVITY,URINE MANUAL 1.015 (1.002-1.035)
[2018-04-19 14:16] LABS: BILIRUBIN, URINE MANUAL NEGATIVE (NEGATIVE); BLOOD URINE MANUAL POSITIVE (NEGATIVE); GLUCOSE, URINE (UA) MANUAL NEGATIVE (NEGATIVE); KETONE, URINE MANUAL NEGATIVE (NEGATIVE); NITRITE, URINE MANUAL NEGATIVE (NEGATIVE); PROTEIN, URINE MANUAL NEGATIVE (NEGATIVE); UROBILINOGEN, URINE MANUAL NORMAL (NORMAL)
[2018-04-19 14:17] LABS: LEUKOCYTE ESTERASE, URINE MAN TRACE (NEGATIVE); MICROSCOPIC INDICATED? MAN YES (NO)
[2018-04-19 14:23] LABS: BACTERIA, URINE NONE SEEN; HYALINE CAST, URINE NONE SEEN /lpf (0-1); MICROSCOPIC EXAM PERFORMED; MUCUS, URINE SMALL AMOUNT (NEGATIVE); SQUAMOUS EPITHELIAL CELL URINE NONE SEEN /hpf (SMALL AMT)
== END ==
LOC: M SMT 13:07
DX: Z01.818 Encounter for other preprocedural examination (principal); R33.9 Retention of urine, unspecified
CPT/HCPCS: 81000

== ENCOUNTER 2018-04-24 06:29 | Day surgery (SDC) | payer MEDICARE ==
[2018-04-24] MEDS: LR 1,000 ML IV ×2 (05:45→07:25)
[2018-04-24] MEDS ORDERED: fentaNYL 100 MCG/2 ML INJECTION (J3010) As Ordered ×2 (07:13→08:21)
[2018-04-24] MEDS ORDERED: PROPOFOL 200 MG/20 ML VIAL As Ordered (07:13)
[2018-04-24] MEDS ORDERED: LIDOCAINE 2% INJ 100 MG/5 ML SDV (FOR ANES.) As Ordered (07:13)
[2018-04-24] MEDS ORDERED: dexameTHASONE 4 MG/ML 1ML VIAL (J1100) As Ordered (07:48)
[2018-04-24] MEDS ORDERED: PHENYLephrine HCL 500 MCG/5 ML (100MCG/ML) SYRINGE (J2370) As Ordered ×2 (07:54→08:36)
[2018-04-24] MEDS ORDERED: ONDANSETRON 4MG/2ML VIAL (J2405) As Ordered (08:02)
[2018-04-24] MEDS ORDERED: ePHEDrine SULFATE 25 MG/5 ML(5MG/ML) SYRINGE As Ordered (08:05)
[2018-04-24] MEDS: LIDOCAINE 1% SDV INJ 30 ML VIAL As Ordered (09:10)
[2018-04-24] MEDS: BUPIVACAINE HCL 0.25% 30 ML VIAL As Ordered (09:10)
[2018-04-24] MEDS ORDERED: ONDANSETRON 4MG/2ML VIAL (J2405) IV (09:30)
[2018-04-24] MEDS ORDERED: LR 1,000 ML IV (09:30)
[2018-04-24] MEDS ORDERED: fentaNYL 100 MCG/2 ML INJECTION (J3010) IV (09:30)
[2018-04-24] MEDS ORDERED: ACETAMINOPHEN TAB 650MG DOSE (2X325MG) PO (09:30)
== END 2018-04-24 11:53 | disposition home or self-care (01) ==
LOC: M SDC 06:29
DX: R33.9 Retention of urine, unspecified (principal); I10 Essential (primary) hypertension; I48.2 Chronic atrial fibrillation; I25.2 Old myocardial infarction; N13.9 Obstructive and reflux uropathy, unspecified; I69.391 Dysphagia following cerebral infarction; F03.91 Unspecified dementia, unspecified severity, with behavioral disturbance; F32.9 Major depressive disorder, single episode, unspecified; R29.898 Other symptoms and signs involving the musculoskeletal system; F41.9 Anxiety disorder, unspecified; R06.83 Snoring; G47.33 Obstructive sleep apnea (adult) (pediatric); N40.0 Benign prostatic hyperplasia without lower urinary tract symptoms; Z79.899 Other long term (current) drug therapy; Z79.82 Long term (current) use of aspirin; Z95.0 Presence of cardiac pacemaker; Z86.19 Personal history of other infectious and parasitic diseases; Z87.19 Personal history of other diseases of the digestive system; Z86.2 Personal history of diseases of the blood and blood-forming organs and certain disorders involving the immune mechanism; Z96.1 Presence of intraocular lens
CPT/HCPCS: 51102

== ENCOUNTER → 2018-05-24 | Outpatient (REF) | payer MEDICARE ==
[~2018-05-24] MED LIST changes: -ACET1TAB17 PO; +ACET1TAB55 PO; +ASPI1TAB15 PO; +ASPI81CH3 PO; +ATIV1TAB10 PO; +ATOR1TAB21 PO; +ATOR40TA75 PO; +CEFU50TA PO; +DIFL50TA PO; +DOXY100T PO; +FINA5TAB2 PO; +FIRS50SO PO; +FLOM0.4C39 PO; -FLOM5CAP PO; +GLUCTAB6 PO; +MACR100C43 PO; +MUCI600T37 PO; +OSEL75CA PO; +PARO20TA4 PO; +PROBCAP4 PO; +RISATAB3 PO; -SIMV80TA PO; +SIMV80TA13 PO; +TYLE500T78 PO; +VANC125C2 PO; +VANC1CAP6 PO; +VANC25SOL PO; +VITA2000 PO; +[UNRECOGNIZED DRUG - CODE] PO
[2018-05-24 14:18] LABS: AMORPHOUS SEDIMENT SMALL (NEGATIVE); APPEARANCE, URINE CLOUDY (CLEAR); BACTERIA, URINE AUTO NEGATIVE (NEGATIVE); BILIRUBIN, URINE AUTO NEGATIVE (NEGATIVE); BLOOD, URINE BLOOD NEGATIVE (NEGATIVE); COLOR, URINE AMBER (YELLOW); GLUCOSE, URINE (UA) AUTO NEGATIVE (NEGATIVE); KETONE, URINE AUTO NEGATIVE (NEGATIVE); LEUKOCYTE ESTERASE, URINE AUTO 3+ (NEGATIVE); MUCUS, URINE MODERATE (NEGATIVE); NITRITE, URINE AUTO NEGATIVE (NEGATIVE); PROTEIN, URINE AUTO 1+ mg/dL (NEGATIVE); RBC, URINE AUTO 27 /HPF (0-3); SPECIFIC GRAVITY URINE AUTO 1.028 (1.002-1.035); SQUAMOUS EPITHELIAL CELL UR AU 0 /HPF (0-6); UROBILINOGEN, URINE AUTO 0.2 mg/dL (0.0-2.0); WBC, URINE AUTO TNTC /HPF (0-3)
== END ==
LOC: M SMT 13:08
PROVIDERS: ATTEND Urology
DX: N39.0 Urinary tract infection, site not specified (principal)

== ENCOUNTER → 2018-06-17 | Outpatient (REF) | payer MEDICARE ==
[2018-06-19 13:57] LABS: COLOR, URINE MANUAL DK YELLOW (YELLOW)
[2018-06-19 13:58] LABS: APPEARANCE, URINE MANUAL TURBID (CLEAR); BILIRUBIN, URINE MANUAL NEGATIVE (NEGATIVE); GLUCOSE, URINE (UA) MANUAL NEGATIVE (NEGATIVE); KETONE, URINE MANUAL NEGATIVE (NEGATIVE); PROTEIN, URINE MANUAL 2+ mg/dL (NEGATIVE); SPECIFIC GRAVITY,URINE MANUAL 1.028 (1.002-1.035); UROBILINOGEN, URINE MANUAL NORMAL (NORMAL)
[2018-06-19 13:59] LABS: BACTERIA, URINE LARGE AMOUNT; BLOOD URINE MANUAL POSITIVE (NEGATIVE); CALCIUM OXALATE CRYSTALS,URINE LARGE AMOUNT /hpf; HYALINE CAST, URINE NONE SEEN /lpf (0-1); LEUKOCYTE ESTERASE, URINE MAN POSITIVE (NEGATIVE); NITRITE, URINE MANUAL NEGATIVE (NEGATIVE); RBC, URINE 204 /hpf (0-3); SQUAMOUS EPITHELIAL CELL URINE 0 /hpf (SMALL AMT); WBC, URINE 2626 /hpf (0-3)
== END ==
LOC: M SMT 19:27
PROVIDERS: ATTEND Nurse Practitioner Family
DX: R82.90 Unspecified abnormal findings in urine (principal)

== ENCOUNTER 2018-07-14 14:31 | Emergency (ER) | payer MEDICARE ==
[~2018-07-14] VITALS: Ht 180.3 cm; Wt 84.5 kg
[2018-07-14 15:14] LABS: BASO % 0.4 % (0.0-1.0); EOS # 0.3 10^3/uL (0.0-0.50); EOS % 3.1 % (0.0-3.0); HEMATOCRIT 44.4 % (42.0-52.0); HEMOGLOBIN 14.5 g/dl (13.5-17.5); LYMPH # 1.6 10^3/uL (1.5-4.5); LYMPH % 17.6 % (24.0-44.0); MEAN CORPUSCULAR HEMOGLOBIN 30.4 pg (27.0-33.0); MEAN CORPUSCULAR HGB CONC 32.7 g/dl (32.0-36.5); MEAN CORPUSCULAR VOLUME 93.1 fl (80.0-96.0); MONO % 10.3 % (0.0-5.0); NEUTROPHILS # 6.3 10^3/uL (1.8-7.7); NEUTROPHILS % 68.3 % (36.0-66.0); PLATELET COUNT, AUTOMATED 229 10^3/uL (150-450); RED BLOOD COUNT 4.77 10^6/uL (4.30-6.10); WHITE BLOOD COUNT 9.2 10^3/uL (4.0-10.0)
[2018-07-14 16:00] LABS: INFLUENZA A AMPLIFICATION NEGATIVE (NEGATIVE); INFLUENZA B AMPLIFICATION NEGATIVE (NEGATIVE)
--- NOTE | 2018-07-14 16:09 | REP ---
Clinical: Pain. Technique: AP and lateral. Comparison: 04/12/2018 Findings: Cardiomegaly is appreciated along with diffuse chronic interstitial changes. Lateral view cannot exclude lower lobe infiltrate. Prior sternotomy, CABG, and pacemaker again noted. Aortic stent graft also identified. Skeletal structures intact. Impression: Cardiomegaly and chronic stable changes. Lateral view cannot exclude lower lobe infiltrate. Electronically Signed by Garrison Castanon MD 07/14/2018 04:01 P
[2018-07-14 16:15] LABS: ALT/SGPT 47 U/L (12-78); BILIRUBIN,DIRECT 0.2 MG/DL (0.0-0.2); BILIRUBIN,TOTAL 0.7 MG/DL (0.2-1.0); BLOOD UREA NITROGEN 21 MG/DL (7-18); CARBON DIOXIDE LEVEL 27 MEQ/L (21-32); CHLORIDE LEVEL 107 MEQ/L (98-107); CREATININE FOR GFR 0.79 MG/DL (0.70-1.30); GLOMERULAR FILTRATION RATE > 60.0 (>35); GLUCOSE, FASTING 109 MG/DL (70-100); POTASSIUM SERUM 4.2 MEQ/L (3.5-5.1); SODIUM LEVEL 141 MEQ/L (136-145)
[2018-07-14 16:16] LABS: ALBUMIN 3.4 GM/DL (3.2-5.2); TOTAL PROTEIN 7.5 GM/DL (6.4-8.2)
--- NOTE | 2018-07-14 16:57 | REP ---
Clinical: Flank pain. Technique: Axial noncontrast images from the lung bases to the pubic symphysis with coronal and sagittal re-formations. Comparison: 10/13/2017. Findings: Lung bases demonstrate chronic changes. Liver, spleen, pancreas, gallbladder, and bilateral adrenal glands are normal. Congenital horseshoe kidney identified without evidence for hydroureteronephrosis, intrarenal, or obstructing ureteral calculi. Bladder is collapsed with suprapubic Rivera catheter via the anterior pelvic wall and a small 2 mm bladder calculus is identified in the dependent portion of the bladder suggesting passed stone. The enteric system is without obstruction or acute inflammatory process. Prostate gland is significantly enlarged with mass effect on the base of the bladder. No ascites. No free air. No obvious adenopathy. Atherosclerotic disease to the aorta and vasculature without aneurysm. Musculoskeletal structures demonstrate degenerative changes. Fat containing inguinal hernias noted. Impression: 1. Congenital horseshoe kidney without obvious acute process or nephrolithiasis. 2. Collapsed bladder with 2 mm calculus may represent recently passed renal stone. A suprapubic catheter in satisfactory position. 3. Enlarged prostate gland with significant mass effect on the base of the bladder noted. Electronically Signed by Garrison Castanon MD 07/14/2018 04:49 P
[2018-07-14] MEDS ORDERED: cefTRIAXone SOD 1 GM in D5W MINI-BAG PLUS 50 ML IV ONE (17:20)
[2018-07-14 18:19] VITALS: BP 156/80
[2018-07-14] MEDS ORDERED: CIPR-249 PO (18:23)
--- NOTE | 2018-07-15 07:35 | ED PDOC ---
Post-Departure Follow-Up dr anna jerome faxed formal report of ct abd/p for fu Makenzie Rueda MD Jul 15, 2018 07:35
== END 2018-07-14 18:30 | disposition home or self-care (01) ==
LOC: M ED 14:31
DX: N39.0 Urinary tract infection, site not specified (principal); Q63.1 Lobulated, fused and horseshoe kidney; N20.9 Urinary calculus, unspecified; N40.3 Nodular prostate with lower urinary tract symptoms; I51.7 Cardiomegaly; I48.91 Unspecified atrial fibrillation; I10 Essential (primary) hypertension; Z86.73 Personal history of transient ischemic attack (TIA), and cerebral infarction without residual deficits; E78.5 Hyperlipidemia, unspecified; G47.30 Sleep apnea, unspecified; Z95.1 Presence of aortocoronary bypass graft; Z79.82 Long term (current) use of aspirin; Z79.899 Other long term (current) drug therapy
CPT/HCPCS: 36415; 71046; 74176; 80048; 80076; 81001; 85025; 87040; 87088; 87186; 87502; 96365; 99284; J0696

== ENCOUNTER → 2018-07-17 | Outpatient (REF) | payer MEDICARE ==
[~2018-07-17] MED LIST changes: +CIPR-249 PO
== END ==
LOC: M SMT 16:02 → EEVIPCON 16:02
PROVIDERS: ATTEND Urology
DX: R82.90 Unspecified abnormal findings in urine (principal)

== ENCOUNTER → 2018-08-07 | Outpatient (REF) | payer MEDICARE ==
[2018-08-07 18:53] LABS: APPEARANCE, URINE TURBID (CLEAR); BACTERIA, URINE AUTO NEGATIVE (NEGATIVE); BILIRUBIN, URINE AUTO NEGATIVE (NEGATIVE); BLOOD, URINE BLOOD NEGATIVE (NEGATIVE); COLOR, URINE AMBER (YELLOW); GLUCOSE, URINE (UA) AUTO NEGATIVE (NEGATIVE); KETONE, URINE AUTO NEGATIVE (NEGATIVE); LEUKOCYTE ESTERASE, URINE AUTO 2+ (NEGATIVE); MUCUS, URINE LARGE (NEGATIVE); NITRITE, URINE AUTO NEGATIVE (NEGATIVE); PROTEIN, URINE AUTO 2+ mg/dL (NEGATIVE); RBC, URINE AUTO TNTC /HPF (0-3); SQUAMOUS EPITHELIAL CELL UR AU 0 /HPF (0-6); UROBILINOGEN, URINE AUTO 0.2 mg/dL (0.0-2.0); WBC, URINE AUTO TNTC /HPF (0-3)
== END ==
LOC: M SFHCPLAZ 14:49
PROVIDERS: ATTEND Family Medicine
DX: A49.02 Methicillin resistant Staphylococcus aureus infection, unspecified site (principal)
CPT/HCPCS: 81001; G0463

== ENCOUNTER → 2018-09-14 | Outpatient (REF) | payer MEDICARE ==
[~2018-09-14] MED LIST changes: -ASPI1TAB PO; -ASPI81CH3 PO; +ASPI81CH48 PO; +ASPI81TA26 PO; -VANC125C2 PO; +VANC125C3 PO
[2018-09-14 17:18] LABS: AMORPHOUS SEDIMENT SMALL (NEGATIVE); APPEARANCE, URINE CLOUDY (CLEAR); BACTERIA, URINE AUTO 1+ (NEGATIVE); BILIRUBIN, URINE AUTO NEGATIVE (NEGATIVE); BLOOD, URINE BLOOD NEGATIVE (NEGATIVE); CALCIUM OXALATE CRYSTALS SMALL; COLOR, URINE AMBER (YELLOW); GLUCOSE, URINE (UA) AUTO NEGATIVE (NEGATIVE); KETONE, URINE AUTO NEGATIVE (NEGATIVE); LEUKOCYTE ESTERASE, URINE AUTO 3+ (NEGATIVE); MUCUS, URINE SMALL (NEGATIVE); NITRITE, URINE AUTO NEGATIVE (NEGATIVE); PROTEIN, URINE AUTO 2+ mg/dL (NEGATIVE); RBC, URINE AUTO 150 /HPF (0-3); SPECIFIC GRAVITY URINE AUTO 1.031 (1.002-1.035); SQUAMOUS EPITHELIAL CELL UR AU 0 /HPF (0-6); UROBILINOGEN, URINE AUTO 0.2 mg/dL (0.0-2.0); WBC, URINE AUTO 173 /HPF (0-3)
== END ==
LOC: M SMT 09:25
PROVIDERS: ATTEND Nurse Practitioner Family
DX: R82.90 Unspecified abnormal findings in urine (principal)

== ENCOUNTER → 2018-10-11 | Outpatient (REF) | payer MEDICARE ==
[2018-10-11 16:40] LABS: APPEARANCE, URINE CLOUDY (CLEAR); BACTERIA, URINE AUTO 1+ (NEGATIVE); BILIRUBIN, URINE AUTO NEGATIVE (NEGATIVE); BLOOD, URINE BLOOD 3+ (NEGATIVE); CALCIUM OXALATE CRYSTALS SMALL; COLOR, URINE AMBER (YELLOW); GLUCOSE, URINE (UA) AUTO NEGATIVE (NEGATIVE); KETONE, URINE AUTO NEGATIVE (NEGATIVE); LEUKOCYTE ESTERASE, URINE AUTO 3+ (NEGATIVE); MUCUS, URINE SMALL (NEGATIVE); NITRITE, URINE AUTO NEGATIVE (NEGATIVE); PROTEIN, URINE AUTO 2+ mg/dL (NEGATIVE); RBC, URINE AUTO TNTC /HPF (0-3); SPECIFIC GRAVITY URINE AUTO 1.025 (1.002-1.035); SQUAMOUS EPITHELIAL CELL UR AU 0 /HPF (0-6); UROBILINOGEN, URINE AUTO 0.2 mg/dL (0.0-2.0); WBC, URINE AUTO TNTC /HPF (0-3)
== END ==
LOC: M SFHCPLAZ 15:36
PROVIDERS: ATTEND Urology
DX: R82.90 Unspecified abnormal findings in urine (principal)

== ENCOUNTER → 2018-11-11 | Outpatient (REF) | payer MEDICARE | LOC: M SMT 16:59 | PROVIDERS: ATTEND Urology | DX: R82.90 Unspecified abnormal findings in urine (principal) ==

== ENCOUNTER → 2018-12-07 | Outpatient (REF) | payer MEDICARE ==
[2018-12-10 12:24] LABS: APPEARANCE, URINE CLOUDY (CLEAR); COLOR, URINE AMBER (YELLOW)
[2018-12-10 12:25] LABS: BILIRUBIN, URINE AUTO NEGATIVE (NEGATIVE); BLOOD, URINE BLOOD 3+ (NEGATIVE); GLUCOSE, URINE (UA) AUTO NEGATIVE (NEGATIVE); KETONE, URINE AUTO NEGATIVE (NEGATIVE); LEUKOCYTE ESTERASE, URINE AUTO 1+ (NEGATIVE); NITRITE, URINE AUTO NEGATIVE (NEGATIVE); PROTEIN, URINE AUTO 2+ mg/dL (NEGATIVE); RBC, URINE AUTO 348 /HPF (0-3); SPECIFIC GRAVITY URINE AUTO 1.025 (1.002-1.035); UROBILINOGEN, URINE AUTO 0.2 mg/dL (0.0-2.0); WBC, URINE AUTO 34 /HPF (0-3)
[2018-12-10 12:26] LABS: BACTERIA, URINE AUTO 1+ (NEGATIVE); CALCIUM OXALATE CRYSTALS SMALL; MUCUS, URINE SMALL (NEGATIVE)
== END ==
LOC: M SMT 09:06
PROVIDERS: ATTEND Urology
DX: N39.0 Urinary tract infection, site not specified (principal)

== ENCOUNTER 2019-01-14 12:54 | Emergency (ER) | payer MEDICARE ==
[~2019-01-14 12:54] MED LIST changes: -LORA0.5T11 PO; +LORA0.5T5 PO
[2019-01-14] MEDS ORDERED: MIRA3350 PO (13:14)
[2019-01-14] MEDS ORDERED: COLA100C5 PO (13:14)
[2019-01-14] MEDS ORDERED: SENN-83 PO (13:14)
[2019-01-14 13:57] LABS: BASO # 0.1 10^3/uL (0.0-0.2); BASO % 0.7 % (0.0-1.0); EOS # 0.3 10^3/uL (0.0-0.50); EOS % 3.5 % (0.0-3.0); HEMATOCRIT 41.5 % (42.0-52.0); HEMOGLOBIN 13.6 g/dl (13.5-17.5); LYMPH # 1.7 10^3/uL (1.5-4.5); LYMPH % 23.8 % (24.0-44.0); MEAN CORPUSCULAR HEMOGLOBIN 30.6 pg (27.0-33.0); MEAN CORPUSCULAR HGB CONC 32.8 g/dl (32.0-36.5); MEAN CORPUSCULAR VOLUME 93.5 fl (80.0-96.0); MONO # 0.8 10^3/uL (0.0-0.8); MONO % 10.9 % (0.0-5.0); NEUTROPHILS # 4.3 10^3/uL (1.8-7.7); PLATELET COUNT, AUTOMATED 189 10^3/uL (150-450); RED BLOOD COUNT 4.44 10^6/uL (4.30-6.10); WHITE BLOOD COUNT 7.1 10^3/uL (4.0-10.0)
[2019-01-14 14:21] LABS: BLOOD UREA NITROGEN 19 MG/DL (7-18); CALCIUM LEVEL 9.5 MG/DL (8.8-10.2); CARBON DIOXIDE LEVEL 30 MEQ/L (21-32); CHLORIDE LEVEL 108 MEQ/L (98-107); CREATININE FOR GFR 0.74 MG/DL (0.70-1.30); GLOMERULAR FILTRATION RATE > 60.0 (>35); GLUCOSE, FASTING 87 MG/DL (70-100); POTASSIUM SERUM 3.7 MEQ/L (3.5-5.1); SODIUM LEVEL 144 MEQ/L (136-145)
[2019-01-14] MEDS ORDERED: BACT800T5 PO (14:54)
[2019-01-14 14:56] VITALS: BP 158/82
[2019-01-14] MEDS ORDERED: LORazepam 2 MG/ML VIAL (J2060) IV STA (15:05)
== END 2019-01-14 16:41 | disposition home or self-care (01) ==
LOC: M ED 12:54 → EDBD 12:54 → M ED 16:41
DX: L03.115 Cellulitis of right lower limb (principal); Z79.899 Other long term (current) drug therapy; Z79.01 Long term (current) use of anticoagulants
CPT/HCPCS: 36415; 80048; 85025; 86140; 87040; 96374; 99284; J2060

== ENCOUNTER → 2019-03-05 | Outpatient (REF) | payer MEDICARE ==
[~2019-03-05] MED LIST changes: +BACT800T5 PO; +LORA0.5T11 PO; -LORA0.5T5 PO; +SENN-83 PO
== END ==
LOC: M SFHCPLAZ 09:47
PROVIDERS: ATTEND Family Medicine
DX: H66.012 Acute suppurative otitis media with spontaneous rupture of ear drum, left ear (principal)
CPT/HCPCS: 87070; 87077; 87186; 87205; G0463

== ENCOUNTER → 2019-03-07 | Outpatient (REF) | payer MEDICARE | LOC: M SFHCPLAZ 18:06 | PROVIDERS: ATTEND Family Medicine | DX: R19.7 Diarrhea, unspecified (principal) ==

== ENCOUNTER → 2019-03-10 | Outpatient (REF) | payer MEDICARE ==
[~2019-03-10] MED LIST changes: +ACET-683 PO; +AMIT-253 PO; -LORA0.5T11 PO; +LORA0.5T5 PO; +NITR100C2 PO; +PERP2TAB16 PO; +PROBCAP14 PO
[2019-03-10 18:49] LABS: APPEARANCE, URINE CLOUDY (CLEAR); BACTERIA, URINE AUTO 1+ (NEGATIVE); BILIRUBIN, URINE AUTO NEGATIVE (NEGATIVE); BLOOD, URINE BLOOD 3+ (NEGATIVE); CALCIUM OXALATE CRYSTALS SMALL; COLOR, URINE AMBER (YELLOW); GLUCOSE, URINE (UA) AUTO 1+ mg/dL (NEGATIVE); KETONE, URINE AUTO NEGATIVE (NEGATIVE); LEUKOCYTE ESTERASE, URINE AUTO 1+ (NEGATIVE); MUCUS, URINE SMALL (NEGATIVE); NITRITE, URINE AUTO NEGATIVE (NEGATIVE); PROTEIN, URINE AUTO 2+ mg/dL (NEGATIVE); RBC, URINE AUTO TNTC /HPF (0-3); SPECIFIC GRAVITY URINE AUTO 1.023 (1.002-1.035); SQUAMOUS EPITHELIAL CELL UR AU 0 /HPF (0-6); UROBILINOGEN, URINE AUTO 0.2 mg/dL (0.0-2.0); WBC, URINE AUTO 109 /HPF (0-3)
== END ==
LOC: M SMT 17:46
PROVIDERS: ATTEND Urology
DX: N39.0 Urinary tract infection, site not specified (principal)

== ENCOUNTER → 2019-03-18 | Outpatient (CLI) | payer MEDICARE ==
[~2019-03-18] MED LIST changes: -ACET-683 PO; -AMIT-253 PO; +LORA0.5T11 PO; -LORA0.5T5 PO; -NITR100C2 PO; -PERP2TAB16 PO; -PROBCAP14 PO
--- NOTE | 2019-03-18 10:58 | REP ---
Chest, single AP view: Comparison is 07/14/2018. Cardiomegaly, sternotomy wires and pacemaker are unchanged. Chronic mild interstitial coarsening is unchanged, compatible with fibrosis. There are no focal infiltrates or pleural effusions. There are no masses. Impression: Chronic findings as described. No acute cardiopulmonary changes. Electronically Signed by Abdoulaye Sharp MD 03/18/2019 10:49 A
[2019-03-18 13:55] LABS: BLOOD UREA NITROGEN 23 MG/DL (7-18); CALCIUM LEVEL 9.4 MG/DL (8.8-10.2); CARBON DIOXIDE LEVEL 28 MEQ/L (21-32); CHLORIDE LEVEL 108 MEQ/L (98-107); CREATININE FOR GFR 1.06 MG/DL (0.70-1.30); GLOMERULAR FILTRATION RATE > 60.0 (>35); GLUCOSE, FASTING 155 MG/DL (70-100); MAGNESIUM LEVEL 2.2 MG/DL (1.8-2.4); PHOSPHORUS LEVEL 3.9 MG/DL (2.5-4.9); SODIUM LEVEL 143 MEQ/L (136-145)
[2019-03-18 20:55] LABS: CLOSTRIDIUM DIFFICILE PCR NEGATIVE (NEGATIVE)
== END ==
LOC: M SMT 10:14
PROVIDERS: ATTEND Family Medicine
DX: R19.7 Diarrhea, unspecified (principal); R09.02 Hypoxemia; Z95.0 Presence of cardiac pacemaker
CPT/HCPCS: 36415; 71046; 80048; 83735; 84100; 87493; 87804; G0463

== ENCOUNTER → 2019-04-04 | Outpatient (REF) | payer MEDICARE | LOC: M SMT 09:34 | PROVIDERS: ATTEND Nurse Practitioner Family | DX: N39.0 Urinary tract infection, site not specified (principal) ==

== ENCOUNTER → 2019-04-18 | Outpatient (CLI) | payer MEDICARE ==
--- NOTE | 2019-04-18 12:58 | REP ---
Bilateral lower extremity arterial Doppler ultrasound: History: Question peripheral vascular disease. Atherosclerosis. Findings: Ankle brachial indices could not be accomplished due to bilaterally noncompressible vessels. Moderate atherosclerotic plaquing is observed throughout with heavily calcified calf arteries. Slow flow is seen bilaterally in the common femoral arteries. Very slow revascularize reverse flow was observed in the right distal posterior tibial artery. Biphasic waveforms are noted on the left and biphasic and monophasic waveforms are noted on the right. Velocity chart right lower extremity: Right CF A 52 cm/S Profunda 39 Proximal SFA 50 Mid SFA 48 Distal SFA 36 Popliteal 26 Proximal AT A 25 Tibioperoneal trunk 38 Proximal [employer] LIBRARIAN 11 Distal [employer] TE[employer]ER LIBRARIAN 28, revascularized Distal AT A 35 Velocity chart left lower extremity arteries: Left CF A 51 cm/S Profunda 41 Proximal SFA 57 Mid SFA 44 Distal SFA 30 Popliteal 31 Proximal AT A 27 Tibioperoneal trunk 25 Proximal SEC[employer] TE[employer]ER LIBRARIAN 41 Distal SEC[employer] S[employer] TEACHER LIBRARIAN 22 Distal AT A 11 Electronically Signed by Roc Rodriguez MD 04/18/2019 12:50 P
== END ==
LOC: M RAD 10:55
PROVIDERS: ATTEND Surgery Vascular Surgery
DX: I70.293 Other atherosclerosis of native arteries of extremities, bilateral legs (principal)

== ENCOUNTER → 2019-04-26 | Outpatient (REF) | payer MEDICARE ==
[2019-04-26 14:54] LABS: APPEARANCE, URINE TURBID (CLEAR); BACTERIA, URINE AUTO 1+ (NEGATIVE); BILIRUBIN, URINE AUTO NEGATIVE (NEGATIVE); BLOOD, URINE BLOOD 3+ (NEGATIVE); COLOR, URINE AMBER (YELLOW); GLUCOSE, URINE (UA) AUTO NEGATIVE (NEGATIVE); KETONE, URINE AUTO TRACE mg/dL (NEGATIVE); LEUKOCYTE ESTERASE, URINE AUTO 2+ (NEGATIVE); MUCUS, URINE SMALL (NEGATIVE); NITRITE, URINE AUTO NEGATIVE (NEGATIVE); PROTEIN, URINE AUTO 3+ mg/dL (NEGATIVE); RBC, URINE AUTO TNTC /HPF (0-3); SPECIFIC GRAVITY URINE AUTO 1.027 (1.002-1.035); SQUAMOUS EPITHELIAL CELL UR AU 0 /HPF (0-6); UROBILINOGEN, URINE AUTO 0.2 mg/dL (0.0-2.0); WBC, URINE AUTO TNTC /HPF (0-3)
== END ==
LOC: M SMT 16:25
PROVIDERS: ATTEND Urology
DX: N39.0 Urinary tract infection, site not specified (principal)

== ENCOUNTER → 2019-04-29 | Outpatient (CLI) | payer MEDICARE ==
--- NOTE | 2019-04-29 12:25 | REP ---
CT ABDOMEN AND PELVIS WITHOUT IV OR ORAL CONTRAST: HISTORY: Abdomen pain. Comparison CT study July 14, 2018. CT FINDINGS: Digital preliminary litigation specialist radiograph shows a normal bowel gas pattern. Cardiomegaly with pacemaker is seen. Stent graft valve replacement is noted in the aortic valve position. The lung bases are essentially clear on axial CT images. The liver and the spleen are normal in size homogeneous in texture. No abnormality is noted in the gallbladder or the pancreas. No adrenal lesion is seen. A horseshoe kidney anomaly is observed without evidence of hydronephrosis mass or calculus. Vascular calcifications noted in a normal caliber aorta. No retroperitoneal mass or adenopathy is seen. Small and large bowel loops are normal in the upper abdomen. Pelvic CT images demonstrate cystostomy catheter in good position. Prostate is enlarged as before. The seminal vesicles are unremarkable. Small and large bowel loops are unremarkable. No abdominal wall defect. No acute bony abnormality. IMPRESSION: Horseshoe kidney anomaly. Percutaneous suprapubic cystostomy catheter in place. Enlarged prostate. No acute abdominal or pelvic abnormality. Electronically Signed by Roc Rodriguez MD 04/29/2019 03:35 P
== END ==
LOC: M RAD 09:45
PROVIDERS: ATTEND Urology
DX: Q63.1 Lobulated, fused and horseshoe kidney (principal); N40.0 Benign prostatic hyperplasia without lower urinary tract symptoms; Z93.59 Other cystostomy status

== ENCOUNTER → 2019-05-15 | Outpatient (REF) | payer MEDICARE ==
[2019-05-15 14:03] LABS: APPEARANCE, URINE TURBID (CLEAR); BACTERIA, URINE AUTO 3+ (NEGATIVE); BILIRUBIN, URINE AUTO NEGATIVE (NEGATIVE); BLOOD, URINE BLOOD 3+ (NEGATIVE); COLOR, URINE AMBER (YELLOW); GLUCOSE, URINE (UA) AUTO NEGATIVE (NEGATIVE); KETONE, URINE AUTO NEGATIVE (NEGATIVE); LEUKOCYTE ESTERASE, URINE AUTO 3+ (NEGATIVE); MUCUS, URINE SMALL (NEGATIVE); NITRITE, URINE AUTO NEGATIVE (NEGATIVE); PROTEIN, URINE AUTO 2+ mg/dL (NEGATIVE); RBC, URINE AUTO TNTC /HPF (0-3); SPECIFIC GRAVITY URINE AUTO 1.019 (1.002-1.035); SQUAMOUS EPITHELIAL CELL UR AU 0 /HPF (0-6); UROBILINOGEN, URINE AUTO 0.2 mg/dL (0.0-2.0); WBC, URINE AUTO TNTC /HPF (0-3)
== END ==
LOC: M SMT 13:48
PROVIDERS: ATTEND Nurse Practitioner Family
DX: R82.90 Unspecified abnormal findings in urine (principal)

== ENCOUNTER 2019-06-01 18:49 | Inpatient (IN) | payer MEDICARE ==
[~2019-06-01] VITALS: Ht 175.3 cm; Wt 87.5 kg
[2019-06-01] MEDS ORDERED: NITR100C2 PO (19:04)
[2019-06-01 19:45] LABS: BASO % 0.5 % (0.0-1.0); EOS % 0.5 % (0.0-3.0); HEMATOCRIT 38.8 % (42.0-52.0); HEMOGLOBIN 12.1 g/dl (13.5-17.5); LYMPH # 0.6 10^3/uL (1.5-5.0); MEAN CORPUSCULAR HGB CONC 31.2 g/dl (32.0-36.5); MEAN CORPUSCULAR VOLUME 96.3 fl (80.0-96.0); MONO # 1.3 10^3/uL (0.0-0.8); MONO % 14.9 % (0.0-5.0); NEUTROPHILS # 6.8 10^3/uL (1.5-8.5); NEUTROPHILS % 76.9 % (36.0-66.0); PLATELET COUNT, AUTOMATED 186 10^3/uL (150-450); RED BLOOD COUNT 4.03 10^6/uL (4.30-6.10); WHITE BLOOD COUNT 8.8 10^3/uL (4.0-10.0)
[2019-06-01 19:56] LABS: INR 1.61; PROTHROMBIN TIME 18.9 SECONDS (11.8-14.0)
[2019-06-01] MEDS ORDERED: IPRATROPIUM 0.5MG/ALBUTEROL 2.5MG INH SOL UD 3ML (DUONEB)(J7620) NEB ONE (20:00)
[2019-06-01 20:33] LABS: ALBUMIN 2.7 GM/DL (3.2-5.2); ALT/SGPT 27 U/L (12-78); AMYLASE 16 U/L (25-115); BILIRUBIN,DIRECT 0.3 MG/DL (0.0-0.2); BILIRUBIN,TOTAL 0.8 MG/DL (0.2-1.0); BLOOD UREA NITROGEN 24 MG/DL (7-18); CALCIUM LEVEL 8.5 MG/DL (8.8-10.2); CARBON DIOXIDE LEVEL 25 MEQ/L (21-32); CHLORIDE LEVEL 105 MEQ/L (98-107); CPK CREATINE PHOSPHOKINASE 506 U/L (39-308); CREATININE FOR GFR 0.91 MG/DL (0.70-1.30); GLOMERULAR FILTRATION RATE > 60.0 (>35); GLUCOSE, FASTING 149 MG/DL (70-100); POTASSIUM SERUM 3.5 MEQ/L (3.5-5.1); SODIUM LEVEL 140 MEQ/L (136-145); TOTAL PROTEIN 6.5 GM/DL (6.4-8.2); TROPONIN I 0.08 NG/ML (< 0.10)
[2019-06-01 20:34] LABS: INFLUENZA A AMPLIFICATION NEGATIVE (NEGATIVE); INFLUENZA B AMPLIFICATION NEGATIVE (NEGATIVE)
[2019-06-01] MEDS: ATORVASTATIN 20 MG TAB PO SCH (21:00)
[2019-06-01] MEDS: APIXABAN 5 MG TAB (ELIQUIS) PO SCH (21:00)
[2019-06-01] MEDS ORDERED: AMITRIPTYLINE 10 MG TAB PO SCH (21:00)
[2019-06-01 21:47] LABS: AMORPHOUS SEDIMENT SMALL (NEGATIVE); APPEARANCE, URINE HAZY (CLEAR); BACTERIA, URINE AUTO NEGATIVE (NEGATIVE); BILIRUBIN, URINE AUTO NEGATIVE (NEGATIVE); BLOOD, URINE BLOOD NEGATIVE (NEGATIVE); COLOR, URINE AMBER (YELLOW); GLUCOSE, URINE (UA) AUTO NEGATIVE (NEGATIVE); KETONE, URINE AUTO NEGATIVE (NEGATIVE); LEUKOCYTE ESTERASE, URINE AUTO NEGATIVE (NEGATIVE); MUCUS, URINE LARGE (NEGATIVE); NITRITE, URINE AUTO NEGATIVE (NEGATIVE); PROTEIN, URINE AUTO 2+ mg/dL (NEGATIVE); RBC, URINE AUTO 5 /HPF (0-3); SPECIFIC GRAVITY URINE AUTO 1.033 (1.002-1.035); SQUAMOUS EPITHELIAL CELL UR AU 0 /HPF (0-6); TRANSITIONAL EPITHELIAL AUTO <1 /HPF; WBC, URINE AUTO 6 /HPF (0-3)
[2019-06-01] MEDS ORDERED: cefTRIAXone SOD 1 GM in D5W MINI-BAG PLUS 50 ML IV ONE (22:00)
[2019-06-01] MEDS ORDERED: ACET-683 PO (22:24)
[2019-06-01] MEDS ORDERED: PROBCAP14 PO (22:24)
[2019-06-01] MEDS ORDERED: PERP2TAB16 PO (22:24)
[2019-06-01] MEDS ORDERED: AMIT-253 PO (22:24)
[2019-06-01] MEDS ORDERED: cefTRIAXone SOD 2 GM in D5W MINI-BAG PLUS 50 ML IV SCH (22:45)
[2019-06-01] MEDS ORDERED: AZITHROMYCIN INJ 500 MG, VIAL MATE ADAPTER 1 EACH in D5W 250 ML IV SCH (22:45)
[2019-06-01] MEDS ORDERED: POTASSIUM CHLORIDE 10 MEQ SR TABLET PO ONE (23:00)
[2019-06-01] MEDS ORDERED: LORazepam 0.5 MG TAB PO PRN (23:00)
--- NOTE | 2019-06-01 23:05 | HPEPDOC ---
General Date of Admission 06/01/19 Date of Service: Jun 01, 2019 Chief Complaint The patient is a 89-year-old male admitted with a reason for visit of FEVER. Source: Patient, Caregiver Exam Limitations: Physical impairment, Dementia Timing/Duration: Day(s) Severity: Moderate Associated Symptoms: Fever, Shortness of breath History of Present Illness Patient is 89 years old male with past mental history of stroke in 2017 with residual right-sided deficiency, expressive aphasia, BPH with suprapubic catheter, atrial fibrillation on the apixaban presented hospital with increased shortness of breath and cough. According to caregiver patient developed increased cough associated with fever of 102 and shortness of breath for past 2 days. In emergency room patient developed deoxygenation he was placed on a 2 L of oxygen. Chest x-ray was done and showed possible right lower lobe infiltrate. Lactic acid was increased to 2.2 , no leukocytosis. Patient is not communicative due to aphasia. All information I received from caregiver Home Medications Scheduled Amitriptyline HCl (Amitriptyline HCl) 10 Mg Tablet, 10 MG PO QHS, (Reported) Apixaban (Eliquis) 5 Mg Tab, 5 MG PO BID, (Reported) Aspirin (Aspirin EC) 81 Mg Tab, 81 MG PO DAILY, (Reported) Atorvastatin Calcium (Atorvastatin Calcium) 40 Mg Tab, 40 MG PO QHS, (Reported) Docusate Sodium (Colace) 100 Mg Capsule, 100 MG PO DAILY, (Reported) Lactobacillus Acidophilus (Probiotic) 1 Each Capsule, 1 CAP PO DAILY, (Reported) Lisinopril (Lisinopril) 10 Mg Tab, 10 MG PO DAILY, (Reported) Metoprolol Tartrate (Metoprolol Tartrate) 25 Mg Tab, 25 MG PO BID, (Reported) Multivitamins (Thera M Plus Tablet) 1 Tab Tab, 1 TAB PO DAILY, (Reported) Nitrofurantoin Monohyd/M-Cryst (Nitrofurantoin Garza-Mcr 100 mg) 100 Mg Capsule, 100 MG PO BID, (Reported) Perphenazine (Perphenazine) 2 Mg Tablet, 2 MG PO QHS, (Reported) Polyethylene Glycol 3350 (Miralax) 119 Gm Powder, 17 GRAM PO DAILY for constipation, (Reported) dissolve in water Scheduled PRN Acetaminophen (Acetaminophen) 500 Mg Tablet, 1,000 MG PO Q6H PRN for PAIN, (Reported) Lorazepam (Lorazepam) 0.5 Mg Tab, 0.5 MG PO BID PRN for ANXIETY, (Reported) Sennosides (Senna) 8.6 Mg Tablet, 8.6 MG PO DAILY PRN for CONSTIPATION, (Reported) Allergies Coded Allergies: No Known Allergies (Unverified , 06/01/19) Past Medical History Medical History Stroke in 2017, hypertension, hyperlipidemia, BPH with suprapubic catheter, hard of hearing, atrial fibrillation, pacemaker, expressive aphasia, sleep apnea, she given 2017, depression, MRSA infection Surgical History Aortic valve replacement in 2016, pacemaker in 2016, suprapubic catheter placement Family History Unable to receive due to expressive aphasia the patient, I did not find in the previous records family history. Social History Alcohol: sober Drugs: denies A-FIB/CHADSVASC A-FIB History Current/History of A-Fib/PAF?: Yes Current PO Anticoag Therapy: Yes Review of Systems Constitutional: Reports: Fever (unable to receive patient is noncommunicative) Physical Examination General Exam: Positive: No Acute Distress, Other Eye Exam: Positive: PERRLA ENT Exam: Positive: Atraumatic Neck Exam: Positive: Supple; Negative: JVD Chest Exam: Positive: Rhonchi, Diminished Heart Exam: Positive: Rate Normal Telemetry: Positive: No significant arrhythmia Abdomen Exam: Positive: Normal bowel sounds Extremity Exam: Negative: Clubbing Skin Exam: Positive: Nl turgor and temperature Neuro Exam: Positive: Strength at 5/5 X4 ext, Cranial Nerves 3-12 NL Psych Exam: Positive: Mental status NL, Mood NL, Anxiety, Other Vital Signs Vital Signs Date Time Temp Pulse Resp B/P (MAP) Pulse Ox O2 Delivery O2 Flow Rate FiO2 06/01/19 19:15 77 24 110/65 (80) 93 Nasal Cannula 3.0 06/01/19 19:08 99.5 Laboratory Data Labs 24H Laboratory Tests 2 06/01/19 19:17: Immature Granulocyte % (Auto) 0.2, Neutrophils (%) (Auto) 76.9H, Lymphocytes (%) (Auto) 7.0L, Monocytes (%) (Auto) 14.9H, Eosinophils (%) (Auto) 0.5, Basophils (%) (Auto) 0.5, Neutrophils # (Auto) 6.8, Lymphocytes # (Auto) 0.6L, Monocytes # (Auto) 1.3H, Eosinophils # (Auto) 0.0, Basophils # (Auto) 0.0, Nucleated Red Blood Cells % (auto) 0.0, Prothrombin Time 18.9H, Prothromb Time International Ratio 1.61, Activated Partial Thromboplast Time 27.0, Anion Gap 10, Glomerular Filtration Rate > 60.0, Lactic Acid Level 2.2*H, Calcium Level 8.5L, Total Bilirubin 0.8, Direct Bilirubin 0.3H, Aspartate Amino Transf (AST/SGOT) 34, Alanine Aminotransferase (ALT/SGPT) 27, Alkaline Phosphatase 68, Total Creatine Kinase 506H, Creatine Kinase MB 1.0, Creatine Kinase MB Relative Index 0.20, Troponin I 0.08, C-Reactive Protein, Quantitative 14.30H, Total Protein 6.5, Albumin 2.7L, Albumin/Globulin Ratio 0.71L, Amylase Level 16L, Influenza Type A (RT-PCR) NEGATIVE, Influenza Type B (RT-PCR) NEGATIVE 06/01/19 21:06: Urine Color YUVAL, Urine Appearance HAZY, Urine pH 5.0, Urine Specific [place] 1.033, Urine Protein 2+H, Urine Glucose (Auto)(UA) NEGATIVE, Urine Ketones (Auto) NEGATIVE, Urine Blood NEGATIVE, Urine Nitrite NEGATIVE, Urine Bilirubin NEGATIVE, Urine Urobilinogen 2.0H, Urine Leukocyte Esterase (Auto) NEGATIVE, Urine WBC (Auto) 6H, Urine RBC (Auto) 5H, Urine Hyaline Casts (Auto) 0, Urine Bacteria (Auto) NEGATIVE, Urine Squamous Epithelial Cells 0, Urine Transitional Epithelial Cells <1, Urine Amorphous Sediment (Auto) SMALLH, Urine Mucus (Auto) LARGE, Urine Sperm (Auto) CBC/BMP Laboratory Tests 06/01/19 19:17 Microbiology Microbiology 06/01/19 Urine Culture, Received Pending 06/01/19 Blood Culture, Received Pending 06/01/19 Blood Culture, Received Pending Assessment/Plan Patient is 89 years old male with past mental history of stroke in 2017 with res idual right-sided deficiency, expressive aphasia, BPH with suprapubic catheter, atrial fibrillation on the apixaban presented hospital with increased shortness of breath and cough. According to caregiver patient developed increased cough associated with fever and shortness of breath for past 2 days. In emergency room patient developed deoxygenation he was placed on a 2 L of oxygen. Chest x-ray was done and showed possible right lower lobe infiltrate. Lactic acid was increased to 2.2 , no leukocytosis. Patient is not communicative due to aphasia. Patient was diagnosed with community-acquired pneumonia Problems (1) Sepsis Status: Acute Problem Text: Secondary to community acquired pneumonia Patient febrile, has dyspnea and lactic acidosis Patient has a history of MRSA IV fluid Cefepime IV, vancomycin IV Blood culture There is concern for aspiration. Aspiration precaution, nothing by mouth for now until speech evaluation (2) Pneumonia Status: Acute Problem Text: See above (3) Atrial fibrillation Status: Chronic Problem Text: Will continue targeted oral anticoagulation Rate is under control (4) Acute hypoxemic respiratory failure Status: Acute Problem Text: Secondary to CAP ABG Continue treatment with oxygen DuoNeb [id number] Plan / VTE VTE Prophylaxis Ordered?: Yes MALIA COTTON DO Jun 01, 2019 23:05
[2019-06-01] MEDS ORDERED: VANCOMYCIN HCL 500 MG in D5W MINI-BAG PLUS 100 ML IV ONE (23:15)
[2019-06-01] MEDS ORDERED: NS 1,000 ML IV ONE (23:15)
[2019-06-01] MEDS ORDERED: VANCOMYCIN HCL 1,000 MG, VIAL MATE ADAPTER 1 EACH in D5W 250 ML IV ONE (23:15)
[2019-06-01] MEDS: IPRATROPIUM 0.5MG/ALBUTEROL 2.5MG INH SOL UD 3ML (DUONEB)(J7620) INH SCH (23:25)
[2019-06-02] VITALS (22 sets, daily range): BP systolic 125–151; BP diastolic 64–72; O2SAT 89–96
[2019-06-02 00:19] LABS: ABG BASE EXCESS 1.1 (-2.0-2.0); ABG HCO3 23.4 MEQ/L (22.0-26.0); ABG O2 SATURATION 93.5 % (95.0-99.0); ABG PARTIAL PRESSURE CO2 30.3 mmHg (35.0-45.0); ABG PARTIAL PRESSURE O2 62.1 mmHg (75.0-100.0); ABG STANDARD HCO3 25.4 MEQ/L (22.0-26.0); ABG TOTAL CO2 24.3 MEQ/L (23.0-31.0); ABG pH (ARTERIAL) 7.505 UNITS (7.350-7.450)
[2019-06-02] MEDS: ACETAMINOPHEN 500 MG TAB PO PRN ×2 (00:41→11:59)
[2019-06-02] MEDS ORDERED: AZITHROMYCIN INJ 500MG VIAL (J0456) As Ordered ONE (00:54)
[2019-06-02] MEDS: METOPROLOL TART 25 MG TABLET PO SCH ×3 (00:56→20:50)
--- NOTE | 2019-06-02 03:25 | PHACANCOPD ---
PHARMACY VANCOMYCIN DOSING Pt Demographics Demographics Patient Age:89 , Weight:83.300 , Gender: male Adjusted Body Weight Date: 06/02/19, Adjusted Body Weight: Kg Events Past 24 Hours Events Past 24 Hours: NO: Dialysis, Diuretic Therapy, Change in CrCl, Fever, Elevation in WBC, Pending Diagnostics, Pending Procedures, Other Vancomycin Vancomycin Target Ranges: 15-20 mcg/ml Vancomycin Load Y/N: Yes Load Dose Date Time Vancomycin Load Dose: 2000mg Date: 06-02 Time: 0400 Vancomycin Dose Date: 06/02/19. Current Vancomycin Dose: [1000mg q12h] Intermittent Dosing?: No Labs Labs Item Value Date Time White Blood Count 8.8 10^3/uL 06/01/191916 Glomerular Filtration Rate > 60.0 06/01/191916 Creatinine 0.91 MG/DL 06/01/191916 Blood Urea Nitrogen 24 MG/DL H 06/01/191916 Vital Signs Label Value Date Time Patient Temperature 99.9 degrees F 06/02/19 0130 Temperature Source Temporal 06/02/19 013 Micro Microbiology 06/01/19 Urine Culture, Received Pending 06/01/19 Blood Culture, Received Pending 06/01/19 Blood Culture, Received Pending Creatinine Clearance Date:06/02/19. Creatinine Clearance: [~50]. Pending Labs Trough 06-03 @0300 Assessment and Plan Maintaining Current Dose?: Yes Reason for dose change: No Dose Change Pharmacist Note Pharmacist Note Date: 06/02/19. Pharmacist note:Will monitor and make adjustments as needed. JACQUE MCKEON PHARMACY Jun 02, 2019 03:25
[2019-06-02] MEDS: IPRATROPIUM 0.5MG/ALBUTEROL 2.5MG INH SOL UD 3ML (DUONEB)(J7620) INH SCH ×5 (04:00→20:00)
[2019-06-02] MEDS: VANCOMYCIN HCL 1,000 MG, VIAL MATE ADAPTER 1 EACH in D5W 250 ML IV SCH ×2 (05:12→16:45)
[2019-06-02 06:12] LABS: HEMATOCRIT 37.3 % (42.0-52.0); MEAN CORPUSCULAR HEMOGLOBIN 30.7 pg (27.0-33.0); MEAN CORPUSCULAR HGB CONC 32.2 g/dl (32.0-36.5); MEAN CORPUSCULAR VOLUME 95.4 fl (80.0-96.0); PLATELET COUNT, AUTOMATED 164 10^3/uL (150-450); RED BLOOD COUNT 3.91 10^6/uL (4.30-6.10); WHITE BLOOD COUNT 7.2 10^3/uL (4.0-10.0)
[2019-06-02] MEDS: CEFEPIME HCL 2 GM in D5W MINI-BAG PLUS 50 ML IV SCH ×3 (06:27→20:55)
[2019-06-02 06:32] LABS: BLOOD UREA NITROGEN 21 MG/DL (7-18); CALCIUM LEVEL 7.8 MG/DL (8.8-10.2); CARBON DIOXIDE LEVEL 24 MEQ/L (21-32); CHLORIDE LEVEL 108 MEQ/L (98-107); CREATININE FOR GFR 0.85 MG/DL (0.70-1.30); GLOMERULAR FILTRATION RATE > 60.0 (>35); GLUCOSE, FASTING 169 MG/DL (70-100); MAGNESIUM LEVEL 2.1 MG/DL (1.8-2.4); POTASSIUM SERUM 3.7 MEQ/L (3.5-5.1); SODIUM LEVEL 140 MEQ/L (136-145)
[2019-06-02] MEDS ORDERED: DOXYCYCLINE HYCLATE 100 MG in D5W MINI-BAG PLUS 100 ML IV SCH (07:00)
[2019-06-02] MEDS ORDERED: SODIUM CHLORIDE 0.9% 1000ML IV ONE (07:00)
[2019-06-02] MEDS ORDERED: NS 1,000 ML IV ONE (07:30)
--- NOTE | 2019-06-02 07:57 | REP ---
Clinical: Sepsis. Shock. Technique: Single portable view of the chest. Comparison: 03/18/2019. Findings: Stable cardiomegaly. Evidence for prior aortic valve stent, sternotomy, CABG, and pacemaker again noted. Lung ayala demonstrate chronic interstitial changes. Bibasilar atelectasis/subtle infiltrates are suggested. No obvious effusion. No pneumothorax. Skeletal structures are intact. Impression: Chronic changes. Subtle superimposed lower lobe infiltrates/atelectasis. Electronically Signed by Garrison Castanon MD 06/02/2019 07:50 A
--- NOTE | 2019-06-02 08:37 | ECGEPIP ---
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
[2019-06-02] MEDS ORDERED: HEPARIN SOD (PORCINE) 5000 UNITS/ML VIAL SC SCH (09:00)
[2019-06-02] MEDS: APIXABAN 5 MG TAB (ELIQUIS) PO SCH ×2 (09:02→20:50)
[2019-06-02] MEDS: DOCUSATE SODIUM 100 MG CAP PO SCH (09:02)
[2019-06-02] MEDS: ASPIRIN 81 MG ENTERIC TAB PO SCH (09:03)
[2019-06-02] MEDS: lisinopriL 10 MG TAB PO SCH (09:04)
--- NOTE | 2019-06-02 10:47 | IPNPDOC ---
Date Seen The patient was seen on 06/02/19. Progress Note SUBJECTIVE: Patient seen and examined at the bedside this morning. His caregiver is also the bedside. She reports that he is nearing his baseline, which is grunting and unresponsive. He has been coughing recently and producing sputum. OBJECTIVE PHYSICAL EXAMINATION: VITAL SIGNS: Please see below. GENERAL APPEARANCE: Laying in bed, appears stated age, no acute distress, calm, cooperative HEENT: EOMI, PERRLA, neck is supple with no thyromegaly or lymphadenopathy RESPIRATORY: Expiratory wheezes and rhonchi are appreciated in the right lower middle lobe, otherwise clear to auscultation CARDIOVASCULAR: no JVD, RRR,no murmurs/rubs/gallops ABDOMEN: Soft, nontender to palpation in all four quadrants, no masses/organomegaly EXTREMITIES: no clubbing, cyanosis or edema noted NEUROLOGICAL: No obvious focal deficits PSYCHIATRIC: normal mood/affect Skin: No rashes or ulcers. LN: No significant cervical or inguinal lymphadenopathy LABORATORY DATA, IMAGING STUDIES, MICROBIOLOGY: Please see below. 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 He has been started on empiric antibiotics. PROBLEMS: 1. Acute hypoxemic respiratory failure 2/2 community acquired pneumonia vs aspiration PNA: -Patient will need speech eval for possible aspiration -Patient is saturating well on 2L O2. Not on oxygen at home -ABG on admission 7.11/07/61 -Continue empiric antibiotics IV cefepime, vancomycin, given history of MRSA. Patient was on Doxycycline but this was stopped -RVP pending -Sputum culture pending -IVF normal saline 150 mL/hour -Lactic acid initially increased from 2.2-2.8, will recheck and continue fluid resuscitation -Continue DuoNebs as needed 2. 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 He will be NPO for time-being -PT/OT for weakness and deconditioning -Continue aspirin 3. Atrial Fibrillation: -HR WNL in the 70s, continue Metoprolol and Eliquis 4. BPH with suprapubic catheter: -No evidence infection 5. Hypertension: -Continue Lisinopril 6. HLD: -Continue Atorvastatin DISPOSITION: Pending Speech/PT/OT and clinical improvement VS, I&O, 24H, Fishbone Vital Signs/I&O Vital Signs Date Time Temp Pulse Resp B/P (MAP) Pulse Ox O2 Delivery O2 Flow Rate FiO2 06/02/19 09:04 142/72 06/02/19 09:03 80 06/02/19 08:00 98.3 20 93 Nasal Cannula 2.0 06/01/19 23:34 32 I&O- Last 24 Hours up to 6 AM 06/02/19 06:00 Intake Total 0 ml Output Total 175 ml Balance -175 ml Laboratory Data 24H LABS Laboratory Tests 2 06/01/19 19:17: Immature Granulocyte % (Auto) 0.2, Neutrophils (%) (Auto) 76.9H, Lymphocytes (%) (Auto) 7.0L, Monocytes (%) (Auto) 14.9H, Eosinophils (%) (Auto) 0.5, Basophils (%) (Auto) 0.5, Neutrophils # (Auto) 6.8, Lymphocytes # (Auto) 0.6L, Monocytes # (Auto) 1.3H, Eosinophils # (Auto) 0.0, Basophils # (Auto) 0.0, Nucleated Red Blood Cells % (auto) 0.0, Prothrombin Time 18.9H, Prothromb Time International Ratio 1.61, Activated Partial Thromboplast Time 27.0, Anion Gap 10, Glomerular Filtration Rate > 60.0, Lactic Acid Level 2.2*H, Calcium Level 8.5L, Total Bilirubin 0.8, Direct Bilirubin 0.3H, Aspartate Amino Transf (AST/SGOT) 34, Alanine Aminotransferase (ALT/SGPT) 27, Alkaline Phosphatase 68, Total Creatine Kinase 506H, Creatine Kinase MB 1.0, Creatine Kinase MB Relative Index 0.20, Troponin I 0.08, C-Reactive Protein, Quantitative 14.30H, Total Protein 6.5, Albumin 2.7L, Albumin/Globulin Ratio 0.71L, Amylase Level 16L, Influenza Type A (RT-PCR) NEGATIVE, Influenza Type B (RT-PCR) NEGATIVE 06/01/19 21:06: Urine Color YUVAL, Urine Appearance HAZY, Urine pH 5.0, Urine Specific [place] 1.033, Urine Protein 2+H, Urine Glucose (Auto)(UA) NEGATIVE, Urine Ketones (Auto) NEGATIVE, Urine Blood NEGATIVE, Urine Nitrite NEGATIVE, Urine Bilirubin NEGATIVE, Urine Urobilinogen 2.0H, Urine Leukocyte Esterase (Auto) NEGATIVE, Urine WBC (Auto) 6H, Urine RBC (Auto) 5H, Urine Hyaline Casts (Auto) 0, Urine Bacteria (Auto) NEGATIVE, Urine Squamous Epithelial Cells 0, Urine Transitional Epithelial Cells <1, Urine Amorphous Sediment (Auto) SMALLH, Urine Mucus (Auto) LARGE, Urine Sperm (Auto) 06/01/19 23:49: Blood Gas Bicarbonate Standard 25.4, Arterial Blood pH 7.505H, Arterial Blood Partial Pressure CO2 30.3L, Arterial Blood Partial Pressure O2 62.1L, Arterial Blood Total CO2 24.3, Arterial Blood HCO3 23.4, Arterial Blood Base Excess 1.1, Arterial Blood Oxygen Saturation 93.5L 06/02/19 03:07: Bedside Glucose (Misc Panel) 141H 06/02/19 05:58: Nucleated Red Blood Cells % (auto) 0.0, Anion Gap 8, Glomerular Filtration Rate > 60.0, Lactic Acid Followup at 4 Hours 2.8*H, Calcium Level 7.8L, Magnesium Level 2.1 CBC/BMP Laboratory Tests 06/01/19 19:17 06/02/19 05:58 Microbiology Microbiology 06/01/19 Urine Culture, Received Pending 06/01/19 Respiratory Virus Panel (PCR) (KIRAN), Received Pending 06/01/19 Blood Culture, Received Pending 06/01/19 Blood Culture, Received Pending GME ATTESTATION GME ATTESTATION My faculty preceptor for this patient encounter was physically present during the encounter and was fully available. All aspects of the patient interview, examination, medical decision making process, and medical care plan development were reviewed and approved by the faculty preceptor. The faculty preceptor is aware and concurs with the plan as stated in the body of this note and will attest to such by his/her cosignature. ATTENDING NOTE I have personally evaluated and examined the patient. Discussed with residents/student regarding plan of care and agree with the above assessment and plan. SURJIT NGUYỄN MD Jun 02, 2019 10:47 MIGUELITO ROGERS MD Jun 02, 2019 16:40
[2019-06-02] MEDS: NS 1,000 ML IV SCH ×4 (11:51→19:40)
[2019-06-02] MEDS: ATORVASTATIN 20 MG TAB PO SCH (20:49)
[2019-06-03] VITALS (25 sets, daily range): BP systolic 126–150; BP diastolic 72–80; O2SAT 90–96
[2019-06-03] MEDS: IPRATROPIUM 0.5MG/ALBUTEROL 2.5MG INH SOL UD 3ML (DUONEB)(J7620) INH SCH ×7 (00:35→23:51)
[2019-06-03 03:21] LABS: HEMATOCRIT 32.7 % (42.0-52.0); HEMOGLOBIN 10.3 g/dl (13.5-17.5); MEAN CORPUSCULAR HEMOGLOBIN 30.1 pg (27.0-33.0); MEAN CORPUSCULAR HGB CONC 31.5 g/dl (32.0-36.5); MEAN CORPUSCULAR VOLUME 95.6 fl (80.0-96.0); PLATELET COUNT, AUTOMATED 173 10^3/uL (150-450); RED BLOOD COUNT 3.42 10^6/uL (4.30-6.10); WHITE BLOOD COUNT 6.5 10^3/uL (4.0-10.0)
[2019-06-03 03:55] LABS: BLOOD UREA NITROGEN 21 MG/DL (7-18); CALCIUM LEVEL 7.9 MG/DL (8.8-10.2); CARBON DIOXIDE LEVEL 23 MEQ/L (21-32); CHLORIDE LEVEL 109 MEQ/L (98-107); CREATININE FOR GFR 0.67 MG/DL (0.70-1.30); GLOMERULAR FILTRATION RATE > 60.0 (>35); GLUCOSE, FASTING 109 MG/DL (70-100); POTASSIUM SERUM 3.3 MEQ/L (3.5-5.1); SODIUM LEVEL 142 MEQ/L (136-145)
[2019-06-03] MEDS: VANCOMYCIN HCL 1,000 MG, VIAL MATE ADAPTER 1 EACH in D5W 250 ML IV SCH ×2 (04:03→15:04)
--- NOTE | 2019-06-03 04:19 | PHACANCOPD ---
PHARMACY VANCOMYCIN DOSING Pt Demographics Demographics Patient Age:89 , Weight:83.300 , Gender: male Adjusted Body Weight Date: 06/02/19, Adjusted Body Weight: [75.7] Kg Vancomycin Vancomycin Target Ranges: 15-20 mcg/ml Vancomycin Load Y/N: Yes Load Dose Date Time Vancomycin Load Dose: 2000mg Date: 06-02 Time: 0400 Vancomycin Dose Date: 06/02/19. Current Vancomycin Dose: [1000mg q12h] Intermittent Dosing?: No Labs Micro Microbiology 06/01/19 Urine Culture, Received Pending 06/01/19 Respiratory Virus Panel (PCR) (KIRAN) - Final, Complete 06/01/19 Blood Culture - Preliminary, Resulted No growth after 24 hours . All specim... 06/01/19 Blood Culture - Preliminary, Resulted No growth after 24 hours . All specim... Creatinine Clearance Date:06/02/19. Creatinine Clearance: [~50]. Pending Labs Trough 12-25@1500 Assessment and Plan Maintaining Current Dose?: Yes Reason for dose change: No Dose Change Pharmacist Note Pharmacist Note Date: 06/03/19. Pharmacist note:Vancomycin trough drawn this morning@3:04 reported as 11.4 (trough goal=15-20). SCR=0.67,Calculated CRCL~59.9. Will maintain current Vancomycin regimen(1 gram IV Q12H) D/T patient age and will adjust only if second trough is a bit subtherapeutic.Will continue to monitor Date: 06/02/19. Pharmacist note:Will monitor and make adjustments as needed. TYRESE DONALD PHARMACY Jun 03, 2019 04:19
[2019-06-03] MEDS: CEFEPIME HCL 2 GM in D5W MINI-BAG PLUS 50 ML IV SCH ×3 (05:40→20:45)
[2019-06-03] MEDS ORDERED: KCL 20MEQ IN 100ML SWI (KRUN) 20 MEQ in IV 1 EA IV ONE ×2 (07:30)
--- NOTE | 2019-06-03 08:20 | REP ---
Clinical: Hypoxia. Comparison: 06/01/2019. Findings: Mediastinum and cardiac silhouette are stable. Lung ayala demonstrate chronic changes with subtle patchy basilar infiltrates similar to prior examination. Small effusions cannot be excluded. No pneumothorax. Skeletal structures are stable. Impression: Chronic interstitial changes with subtle lower lobe infiltrates suggested. Electronically Signed by Garrison Castanon MD 06/03/2019 08:11 A
[2019-06-03] MEDS: KCL 10MEQ/100ML SWI (KRUN) X 2 DOSES (20MEQ TOTAL) IV SCH ×4 (08:39→09:00)
[2019-06-03] MEDS: ASPIRIN 81 MG ENTERIC TAB PO SCH (08:40)
[2019-06-03] MEDS: METOPROLOL TART 25 MG TABLET PO SCH ×2 (08:40→20:49)
[2019-06-03] MEDS: DOCUSATE SODIUM 100 MG CAP PO SCH (08:40)
[2019-06-03] MEDS: APIXABAN 5 MG TAB (ELIQUIS) PO SCH ×2 (08:40→20:49)
[2019-06-03] MEDS: lisinopriL 10 MG TAB PO SCH (08:41)
--- NOTE | 2019-06-03 09:56 | IPNPDOC ---
Date Seen The patient was seen on 06/03/19. Progress Note SUBJECTIVE: Patient seen and examined at the bedside this morning. Caregiver is also the bedside. He was unable to work with speech yesterday as he was too lethargic. Caregiver reports that he is getting close to his baseline. He was on 3 L oxygen history evening and BiPAP overnight. We will attempt to wean off his oxygen at this time--this morning he is saturating 96% on room air. OBJECTIVE PHYSICAL EXAMINATION: VITAL SIGNS: Please see below. GENERAL APPEARANCE: Laying in bed, appears stated age, no acute distress, calm, cooperative HEENT: EOMI, PERRLA, neck is supple with no thyromegaly or lymphadenopathy RESPIRATORY: Scattered wheezes and rhonchi are appreciated bilaterally, other delacruz clear to auscultation CARDIOVASCULAR: no JVD, RRR,no murmurs/rubs/gallops ABDOMEN: Soft, nontender to palpation in all four quadrants, no masses/organomegaly : suprapubic catheter in place EXTREMITIES: no clubbing, cyanosis or edema noted NEUROLOGICAL: No obvious focal deficits PSYCHIATRIC: normal mood/affect Skin: No rashes or ulcers. LN: No significant cervical or inguinal lymphadenopathy LABORATORY DATA, IMAGING STUDIES, MICROBIOLOGY: Please see below. DVT prophylaxis ordered?: Patient is on Eliquis, TEDs/Sequentials ASSESSMENT AND PLAN: This is an 89-year-old male with history of stroke in 2017 with residual right-sided deficiency and aphasia who presented with fever, shortness of breath and cough for 2 days found to have possible community- acquired pneumonia. He has been started on empiric antibiotics. PROBLEMS: 1. Acute hypoxemic respiratory failure 2/2 community acquired pneumonia vs aspiration PNA: -Patient will need speech eval for possible aspiration -Patient is saturating well room air this morning. Will continue to monitor. Not on oxygen at home -ABG on admission 7.5 -Continue empiric antibiotics IV cefepime, vancomycin, given history of MRSA -RVP negative -Sputum culture pending -s/p IVF -Lactic acid was 2.8--4.4--trended down to 1.8 -Continue DuoNebs as needed 2. 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 His daughter is healthcare proxy, currently in [place] -Pending speech evaluation. He was started on home diet of nectar thick liquids -PT recommends Skilled PT at home -continue PT/OT for weakness and deconditioning -Continue aspirin 3. Atrial Fibrillation: -HR WNL in the 70s, continue Metoprolol and Eliquis 4. BPH with suprapubic catheter: -No evidence infection 5. Hypertension: -Continue Lisinopril 6. HLD: -Continue Atorvastatin DISPOSITION: Pending Speech/PT/OT and clinical improvement VS, I&O, 24H, Fishbone Vital Signs/I&O Vital Signs Date Time Temp Pulse Resp B/P (MAP) Pulse Ox O2 Delivery O2 Flow Rate FiO2 06/03/19 09:00 96 Room Air 06/03/19 08:41 126/72 06/03/19 08:40 77 06/03/19 08:00 3.0 06/03/19 08:00 97.8 18 06/01/19 23:34 32 I&O- Last 24 Hours up to 6 AM 06/03/19 05:59 Intake Total 3520 ml Output Total 650 ml Balance 2870 ml Laboratory Data 24H LABS Laboratory Tests 2 06/02/19 10:19: Lactic Acid Level 4.4*H 06/02/19 15:35: Lactic Acid Level 1.8 06/03/19 02:59: Nucleated Red Blood Cells % (auto) 0.0, Anion Gap 10, Glomerular Filtration Rate > 60.0, Calcium Level 7.9L 06/03/19 03:04: Vancomycin Level Trough 11.4 CBC/BMP Laboratory Tests 06/03/19 02:59 Microbiology Microbiology 06/01/19 Urine Culture, Received Pending 06/01/19 Respiratory Virus Panel (PCR) (KIRAN) - Final, Complete 06/01/19 Blood Culture - Preliminary, Resulted No growth after 24 hours . All specim... 06/01/19 Blood Culture - Preliminary, Resulted No growth after 24 hours . All specim... GME ATTESTATION GME ATTESTATION My faculty preceptor for this patient encounter was physically present during the encounter and was fully available. All aspects of the patient interview, examination, medical decision making process, and medical care plan development were reviewed and approved by the faculty preceptor. The faculty preceptor is aware and concurs with the plan as stated in the body of this note and will attest to such by his/her cosignature. ATTENDING NOTE I have personally evaluated and examined the patient. Discussed with resident/student regarding plan of care and agree with the above assessment and plan. SURJIT NGUYỄN MD Jun 03, 2019 09:56 MIGUELITO ROGERS MD Jun 03, 2019 14:22
[2019-06-03] MEDS ORDERED: SENNA 8.6 MG TAB (SENOKOT) PO PRN (14:30)
[2019-06-03] MEDS: LORazepam 2 MG/ML VIAL (J2060) IV PRN ×2 (15:04→20:45)
[2019-06-03] MEDS: ATORVASTATIN 20 MG TAB PO SCH (20:49)
[2019-06-04] VITALS (24 sets, daily range): BP systolic 130–157; BP diastolic 63–85; O2SAT 91–100
[2019-06-04] MEDS: IPRATROPIUM 0.5MG/ALBUTEROL 2.5MG INH SOL UD 3ML (DUONEB)(J7620) INH SCH ×5 (03:45→20:38)
[2019-06-04] MEDS: VANCOMYCIN HCL 1,000 MG, VIAL MATE ADAPTER 1 EACH in D5W 250 ML IV SCH ×2 (04:01→16:44)
[2019-06-04] MEDS: CEFEPIME HCL 2 GM in D5W MINI-BAG PLUS 50 ML IV SCH ×3 (05:09→20:21)
[2019-06-04] MEDS: ASPIRIN 81 MG ENTERIC TAB PO SCH (08:51)
[2019-06-04] MEDS: lisinopriL 10 MG TAB PO SCH (08:51)
[2019-06-04] MEDS: DOCUSATE SODIUM 100 MG CAP PO SCH ×2 (08:52→09:00)
[2019-06-04] MEDS: APIXABAN 5 MG TAB (ELIQUIS) PO SCH ×2 (08:53→20:12)
[2019-06-04] MEDS: METOPROLOL TART 25 MG TABLET PO SCH ×2 (08:54→20:12)
--- NOTE | 2019-06-04 09:27 | IPNPDOC ---
Date Seen The patient was seen on 06/04/19. Progress Note SUBJECTIVE: Patient seen and examined at the bedside this morning. Caregiver is also the bedside. He was able to work with speech therapy yesterday and recommendations are charted. He is off oxygen now. There was an issue with agitation yesterday and overnight, for which he got his home dose of Ativan. He did refuse PO Ativan and this necessitated a switch to IV Ativan. The caregiver at the bedside rep orts this usually happens to him in the early afternoons/evenings when he, she thinks, starts to "sun down." Otherwise, the patient is mostly back to his baseline and ready for discharge home. However, there is no transportation available today to get him home. OBJECTIVE PHYSICAL EXAMINATION: VITAL SIGNS: Please see below. GENERAL APPEARANCE: Laying in bed, appears stated age, no acute distress, calm, cooperative HEENT: EOMI, PERRLA, neck is supple with no thyromegaly or lymphadenopathy RESPIRATORY: clear to auscultation bilaterally CARDIOVASCULAR: no JVD, RRR,no murmurs/rubs/gallops ABDOMEN: Soft, nontender to palpation in all four quadrants, no masses/organomegaly : suprapubic catheter in place EXTREMITIES: no clubbing, cyanosis or edema noted NEUROLOGICAL: patient is aphasic with R upper and lower extremity weakness PSYCHIATRIC: normal mood/affect Skin: No rashes or ulcers. LN: No significant cervical or inguinal lymphadenopathy LABORATORY DATA, IMAGING STUDIES, MICROBIOLOGY: Please see below. DVT prophylaxis ordered?: Patient is on Eliquis, TEDs/Sequentials ASSESSMENT AND PLAN: This is an 89-year-old male with history of stroke in 2017 with residual right-sided deficiency and aphasia who presented with fever, shortness of breath and cough for 2 days found to have possible community- acquired pneumonia. He has been started on empiric antibiotics. PROBLEMS: 1. Acute hypoxemic respiratory failure 2/2 community acquired pneumonia vs aspiration PNA: -Patient is saturating well room air this morning. Will continue to monitor. Not on oxygen at home, except for oxygen with BiPaP -ABG on admission 7.11/07/61 -Continue empiric antibiotics IV cefepime (day 3/5), vancomycin (day 3/5), given history of MRSA -RVP negative -Lactic acid resolved -Continue DuoNebs as needed 2. 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 His daughter is healthcare proxy, currently in [place] -Speech eval: Diet recommendations: Pureed diet with nectar thick liquid. Spoon fed only. Other recommendations: Sit up prior to PO intake. Spoon fed only. Small bites/sips. Check oral cavity for residue after each meal. Oral care 3x daily. Continue ST to maximize safety during PO intake. -PT recommends Skilled PT at home -continue PT/OT for weakness and deconditioning -Continue aspirin 3. Atrial Fibrillation: -HR WNL in the 70s, continue Metoprolol and Eliquis 4. BPH with suprapubic catheter: -No evidence infection 5. Hypertension: -Continue Lisinopril 6. HLD: -Continue Atorvastatin 7. Agitation/Sun-downing: -Ativan PRN DISPOSITION: Medically stable. Awaiting arrangement of ride home, possibly tomorrow VS, I&O, 24H, Fishbone Vital Signs/I&O Vital Signs Date Time Temp Pulse Resp B/P (MAP) Pulse Ox O2 Delivery O2 Flow Rate FiO2 06/04/19 08:54 70 136/73 06/04/19 08:00 98.1 18 95 Room Air 06/04/19 06:00 2.0 06/01/19 23:34 32 I&O- Last 24 Hours up to 6 AM 06/04/19 06:00 Intake Total 395 ml Output Total 550 ml Balance -155 ml Laboratory Data Microbiology Microbiology 06/01/19 Urine Culture - Final, Complete 06/01/19 Respiratory Virus Panel (PCR) (KIRAN) - Final, Complete 06/01/19 Blood Culture - Preliminary, Resulted No Growth after 48 hours. All Specime... 06/01/19 Blood Culture - Preliminary, Resulted No Growth after 48 hours. All Specime... GME ATTESTATION GME ATTESTATION My faculty preceptor for this patient encounter was physically present during the encounter and was fully available. All aspects of the patient interview, e xamination, medical decision making process, and medical care plan development were reviewed and approved by the faculty preceptor. The faculty preceptor is aware and concurs with the plan as stated in the body of this note and will attest to such by his/her cosignature. ATTENDING NOTE I have personally evaluated and examined the patient. Discussed with resident/student regarding plan of care and agree with the above assessment and plan. SURJIT NGUYỄN MD Jun 04, 2019 09:27 MIGUELITO ROGERS MD Jun 04, 2019 10:39
[2019-06-04 09:34] LABS: BLOOD UREA NITROGEN 18 MG/DL (7-18); CALCIUM LEVEL 8.5 MG/DL (8.8-10.2); CARBON DIOXIDE LEVEL 23 MEQ/L (21-32); CHLORIDE LEVEL 109 MEQ/L (98-107); CREATININE FOR GFR 0.64 MG/DL (0.70-1.30); GLOMERULAR FILTRATION RATE > 60.0 (>35); GLUCOSE, FASTING 114 MG/DL (70-100); POTASSIUM SERUM 3.3 MEQ/L (3.5-5.1); SODIUM LEVEL 141 MEQ/L (136-145)
[2019-06-04] MEDS ORDERED: KCL 10MEQ/100ML SWI (KRUN) 10 MEQ in IV 1 EA IV ONE (13:00)
[2019-06-04] MEDS: DOCUSATE SOD LIQ 100MG/10ML UDC PO SCH (14:45)
[2019-06-04] MEDS ORDERED: SLF 3 ML SYR IV PRN (15:30)
[2019-06-04] MEDS: ATORVASTATIN 20 MG TAB PO SCH (20:12)
[2019-06-04] MEDS: SLF 3 ML SYR IV SCH (20:21)
[2019-06-05] VITALS (14 sets, daily range): BP systolic 141–149; BP diastolic 72–81; O2SAT 91–96
[2019-06-05] MEDS: IPRATROPIUM 0.5MG/ALBUTEROL 2.5MG INH SOL UD 3ML (DUONEB)(J7620) INH SCH (00:29)
[2019-06-05] MEDS: VANCOMYCIN HCL 1,000 MG, VIAL MATE ADAPTER 1 EACH in D5W 250 ML IV SCH ×2 (03:43→15:46)
[2019-06-05 04:53] LABS: HEMATOCRIT 30.7 % (42.0-52.0); HEMOGLOBIN 10.2 g/dl (13.5-17.5); MEAN CORPUSCULAR HEMOGLOBIN 30.5 pg (27.0-33.0); MEAN CORPUSCULAR HGB CONC 33.2 g/dl (32.0-36.5); MEAN CORPUSCULAR VOLUME 91.9 fl (80.0-96.0); PLATELET COUNT, AUTOMATED 245 10^3/uL (150-450); RED BLOOD COUNT 3.34 10^6/uL (4.30-6.10); WHITE BLOOD COUNT 6.7 10^3/uL (4.0-10.0)
[2019-06-05 05:24] LABS: BLOOD UREA NITROGEN 15 MG/DL (7-18); CALCIUM LEVEL 8.5 MG/DL (8.8-10.2); CARBON DIOXIDE LEVEL 21 MEQ/L (21-32); CHLORIDE LEVEL 109 MEQ/L (98-107); CREATININE FOR GFR 0.65 MG/DL (0.70-1.30); GLOMERULAR FILTRATION RATE > 60.0 (>35); GLUCOSE, FASTING 129 MG/DL (70-100); POTASSIUM SERUM 2.9 MEQ/L (3.5-5.1); SODIUM LEVEL 139 MEQ/L (136-145)
[2019-06-05] MEDS ORDERED: POTASSIUM CHLORIDE 10 MEQ SR TABLET PO ONE (05:30)
[2019-06-05 05:33] LABS: BASOPHILS 1 % (0-1); EOSINOPHILS 10 % (0-3); LYMPHOCYTES 19 % (16-44); MONOCYTES 8 % (0-5); NEUTROPHILS 62 % (28-66); PLATELET ESTIMATE NORMAL (NORMAL)
[2019-06-05] MEDS: CEFEPIME HCL 2 GM in D5W MINI-BAG PLUS 50 ML IV SCH ×2 (05:38→14:00)
[2019-06-05] MEDS ORDERED: POTASSIUM CHLORIDE 10% LIQ 20 MEQ/15 ML UDC PO ONE (05:45)
[2019-06-05] MEDS: SLF 3 ML SYR IV SCH ×2 (06:16→14:00)
[2019-06-05 06:40] LABS: MAGNESIUM LEVEL 2.1 MG/DL (1.8-2.4)
[2019-06-05] MEDS: KCL 10MEQ/100ML SWI (KRUN) 10 MEQ in IV 1 EA IV SCH ×2 (06:53→08:30)
[2019-06-05] MEDS ORDERED: IPRATROPIUM 0.5MG/ALBUTEROL 2.5MG INH SOL UD 3ML (DUONEB)(J7620) INH PRN (07:15)
[2019-06-05] MEDS: METOPROLOL TART 25 MG TABLET PO SCH (08:31)
[2019-06-05] MEDS: DOCUSATE SOD LIQ 100MG/10ML UDC PO SCH (08:31)
[2019-06-05] MEDS: APIXABAN 5 MG TAB (ELIQUIS) PO SCH (08:32)
[2019-06-05] MEDS: lisinopriL 10 MG TAB PO SCH (08:32)
[2019-06-05] MEDS: ASPIRIN 81 MG ENTERIC TAB PO SCH (08:33)
[2019-06-05] MEDS ORDERED: CEFD1CAP8 PO (09:19)
--- NOTE | 2019-06-05 10:17 | DS.PDOC ---
Discharge Summary General Date of Admission Jun 01, 2019 at 22:45 Date of Discharge June 05, 2019 Primary Care Physician: Pino Burt Attending Physician: MIGUELITO ROGERS MD Discharge Summary PROCEDURES PERFORMED DURING STAY: [None]. ADMITTING DIAGNOSES: 1. Community-acquired Pneumonia 2. Sepsis 3. Acute hypoxemic respiratory failure 4. Atrial fibrillation 5. History of CVA DISCHARGE DIAGNOSES: 1. Community-acquired Pneumonia 2. Atrial Fibrillation 3. History of CVA COMPLICATIONS/CHIEF COMPLAINT: Pneumonia, Sepsis. 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 According to caregiver patient developed increased cough associated with fever of 102 and shortness of breath for past 2 days. In emergency room patient developed deoxygenation he was placed on a 2 L of oxygen. Chest x-ray was done and showed possible right lower lobe infiltrate. Lactic acid was increased to 2.2 , no leukocytosis. Patient is not communicative due to aphasia. All information I received from caregiver. HOSPITAL COURSE: Mr Dailey was admitted to the hospital as he was found to be febrile with 3L oxygen requirement, increased RR and CXR concerning for bilateral lower lobe atelectasis vs infiltrates in setting of residual aphasia and possible aspiration PNA vs community-acquired PNA. His arterial blood gas demonstrated an uncompensated respiratory alkalosis. He was also found to have elevated lactic acid at 2.2 and was started on aggressive fluid hydration. His lactic acid initially trended up to 4.4 but then ultimately trended down to 1.8. He was also started on empiric antibiotics Cefepime, Vancomycin and Doxy cycline. Doxycycline was stopped as it was not necessary. He was also placed on scheduled nebulizer treatments and used his home BiPaP at nights. All of his other home medications were continued. His hospitalization was only complicated by some agitation, for which he was treated with Ativan, which he normally uses at home. By hospital day #3 he began to improve and comparative CXR was improved from the one on admission. He was evaluated by speech therapy, who recommended nectar-thickened liquids and aspiration precautions when eating. He was gradually titrated down on oxygen requirement and was saturating well on room air. He was discharged home on Hospital day #5 in stable condition. DISCHARGE MEDICATIONS: Please see below. ALLERGIES: Please see below. PHYSICAL EXAMINATION ON DISCHARGE: VITAL SIGNS: Please see below. GENERAL APPEARANCE: Laying in bed, appears stated age, no acute distress, calm, cooperative HEENT: EOMI, PERRLA, neck is supple with no thyromegaly or lymphadenopathy RESPIRATORY: clear to auscultation bilaterally CARDIOVASCULAR: no JVD, RRR,no murmurs/rubs/gallops ABDOMEN: Soft, nontender to palpation in all four quadrants, no masses/organomegaly : suprapubic catheter in place EXTREMITIES: no clubbing, cyanosis or edema noted NEUROLOGICAL: patient is aphasic with R upper and lower extremity weakness PSYCHIATRIC: normal mood/affect Skin: No rashes or ulcers. LN: No significant cervical or inguinal lymphadenopathy LABORATORY DATA: Please see below. IMAGING: CXR (06/01/19): Findings: Stable cardiomegaly. Evidence for prior aortic valve stent, sternotomy, CABG, and pacemaker again noted. Lung ayala demonstrate chronic interstitial changes. Bibasilar atelectasis/subtle infiltrates are suggested. No obvious effusion. No pneumothorax. Skeletal structures are intact. Impression: Chronic changes. Subtle superimposed lower lobe infiltrates/atelectasis. CXR (06/03/19): Findings: Mediastinum and cardiac silhouette are stable. Lung ayala demonstrate chronic changes with subtle patchy basilar infiltrates similar to prior examination. Small effusions cannot be excluded. No pneumothorax. Skeletal structures are stable. Impression: Chronic interstitial changes with subtle lower lobe infiltrates suggested. PROGNOSIS: fair ACTIVITY: [As tolerated]. DIET: Pureed diet with nectar thick liquid. Spoon fed only. Other recommendations: Sit up prior to PO intake. Spoon fed only. Small bites/sips. Check oral cavity for residue after each meal. Oral care 3x daily. Continue ST to maximize safety during PO intake. DISCHARGE PLAN: home with 24h nursing care DISPOSITION: . DISCHARGE INSTRUCTIONS: 1. Please adhere to new diet recommendations as listed. 2. Return to ED if symptoms worsen. ITEMS TO FOLLOWUP ON ON OUTPATIENT: 1. None DISCHARGE CONDITION: [Stable]. TIME SPENT ON DISCHARGE: 32 minutes. Vital Signs/I&Os Vital Signs Date Time Temp Pulse Resp B/P (MAP) Pulse Ox O2 Delivery O2 Flow Rate FiO2 06/05/19 08:32 149/72 06/05/19 08:31 69 12/26/19 08:00 98.4 18 95 06/05/19 06:00 Room Air 06/05/19 04:00 2.0 06/01/19 23:34 32 I&O- Last 24 Hours up to 6 AM 06/05/19 06:00 Intake Total 870 ml Output Total 625 ml Balance 245 ml Laboratory Data Labs 24H Laboratory Tests 2 06/04/19 14:55: Vancomycin Level Trough 15.4 06/05/19 04:22: Nucleated Red Blood Cells % (auto) 0.0, Neutrophils 62, Lymphocytes (Manual) 19, Monocytes (Manual) 8H, Eosinophils (Manual) 10H, Basophils (Manual) 1, Red Blood Cell Morphology NORMAL, Platelet Estimate NORMAL, Anion Gap 9, Glomerular Filtration Rate > 60.0, Calcium Level 8.5L, Magnesium Level 2.1 CBC/BMP Laboratory Tests 06/05/19 04:22 Microbiology Microbiology 06/01/19 Urine Culture - Final, Complete 06/01/19 Respiratory Virus Panel (PCR) (KIRAN) - Final, Complete 06/01/19 Blood Culture - Preliminary, Resulted No Growth after 72 hours. All specime... 06/01/19 Blood Culture - Preliminary, Resulted No Growth after 72 hours. All specime... Discharge Medications Scheduled Amitriptyline HCl (Amitriptyline HCl) 10 Mg Tablet, 10 MG PO QHS, (Reported) Apixaban (Eliquis) 5 Mg Tab, 5 MG PO BID, (Reported) Aspirin (Aspirin EC) 81 Mg Tab, 81 MG PO DAILY, (Reported) Atorvastatin Calcium (Atorvastatin Calcium) 40 Mg Tab, 40 MG PO QHS, (Reported) Cefdinir (Cefdinir) 300 Mg Capsule, 1 CAP PO BID Docusate Sodium (Colace) 100 Mg Capsule, 100 MG PO DAILY, (Reported) Lactobacillus Acidophilus (Probiotic) 1 Each Capsule, 1 CAP PO DAILY, (Reported) Lisinopril (Lisinopril) 10 Mg Tab, 10 MG PO DAILY, (Reported) Metoprolol Tartrate (Metoprolol Tartrate) 25 Mg Tab, 25 MG PO BID, (Reported) Multivitamins (Thera M Plus Tablet) 1 Tab Tab, 1 TAB PO DAILY, (Reported) Nitrofurantoin Monohyd/M-Cryst (Nitrofurantoin [place]-Mcr 100 mg) 100 Mg Capsule, 100 MG PO BID, (Reported) Perphenazine (Perphenazine) 2 Mg Tablet, 2 MG PO QHS, (Reported) Polyethylene Glycol 3350 (Miralax) 119 Gm Powder, 17 GRAM PO DAILY for constipa tion, (Reported) dissolve in water Scheduled PRN Acetaminophen (Acetaminophen) 500 Mg Tablet, 1,000 MG PO Q6H PRN for PAIN, (Reported) Lorazepam (Lorazepam) 0.5 Mg Tab, 0.5 MG PO BID PRN for ANXIETY, (Reported) Sennosides (Senna) 8.6 Mg Tablet, 8.6 MG PO DAILY PRN for CONSTIPATION, (Reported) Allergies Coded Allergies: No Known Allergies (Unverified , 06/01/19) GME ATTESTATION GME ATTESTATION My faculty preceptor for this patient encounter was physically present during the encounter and was fully available. All aspects of the patient interview, examination, medical decision making process, and medical care plan development were reviewed and approved by the faculty preceptor. The faculty preceptor is aware and concurs with the plan as stated in the body of this note and will attest to such by his/her cosignature. ATTENDING NOTE I have personally evaluated and examined the patient. Discussed with resident/student regarding plan of care and agree with the above assessment and plan. SURJIT NGUYỄN MD Jun 05, 2019 10:17 MIGUELITO ROGERS MD Jun 05, 2019 10:47
[2019-06-05 11:36] LABS: BLOOD UREA NITROGEN 13 MG/DL (7-18); CALCIUM LEVEL 8.4 MG/DL (8.8-10.2); CARBON DIOXIDE LEVEL 21 MEQ/L (21-32); CHLORIDE LEVEL 112 MEQ/L (98-107); CREATININE FOR GFR 0.71 MG/DL (0.70-1.30); GLOMERULAR FILTRATION RATE > 60.0 (>35); GLUCOSE, FASTING 139 MG/DL (70-100); POTASSIUM SERUM 3.7 MEQ/L (3.5-5.1); SODIUM LEVEL 141 MEQ/L (136-145)
== END 2019-06-05 16:15 | disposition home or self-care (01) | DRG 871 ==
LOC: EDBD 18:49 → M ED 18:49 → EDSEX 18:49 → M PCU 22:45 → M ED INP 22:45 → M PCU 06-02 01:17
PROVIDERS: ADMIT Internal Medicine; ATTEND Internal Medicine
DX: A41.9 Sepsis, unspecified organism (principal); J18.9 Pneumonia, unspecified organism; J96.01 Acute respiratory failure with hypoxia; I69.351 Hemiplegia and hemiparesis following cerebral infarction affecting right dominant side; I48.20 Chronic atrial fibrillation, unspecified; N40.0 Benign prostatic hyperplasia without lower urinary tract symptoms; I69.320 Aphasia following cerebral infarction; Z95.2 Presence of prosthetic heart valve; Z95.0 Presence of cardiac pacemaker; Z79.899 Other long term (current) drug therapy; Z79.82 Long term (current) use of aspirin

== ENCOUNTER → 2019-06-20 | Outpatient (CLI) | payer MEDICARE ==
[~2019-06-20] MED LIST changes: +ACET-683 PO; +AMIT-253 PO; -LORA0.5T11 PO; +LORA0.5T5 PO; +NITR100C2 PO; +PERP2TAB16 PO; +PROBCAP14 PO
--- NOTE | 2019-06-20 14:31 | REPPI ---
CHEST, TWO VIEWS: Two views of the chest are performed. Lateral view is limited as he patient does not have his arms over his head. Moderate cardiomegaly is again noted. Mediastinal silhouette is unchanged with calcification and tortuosity of the thoracic aorta. Left single-lead pacemaker is again noted. There are multiple sternal wires present. I do not see evidence of acute infiltrate bilaterally. IMPRESSION: Moderate cardiomegaly. No evidence of acute infiltrate. Electronically Signed by Abdoulaye Boone MD 06/21/2019 03:21 P
== END ==
LOC: M PLAIMG 11:59
PROVIDERS: ATTEND Family Medicine
DX: I51.7 Cardiomegaly (principal); J18.9 Pneumonia, unspecified organism; Z95.0 Presence of cardiac pacemaker
CPT/HCPCS: 71046; G0463

== ENCOUNTER → 2019-06-27 | Outpatient (REF) | payer MEDICARE | LOC: M LAB REF 16:20 | PROVIDERS: ATTEND Nurse Practitioner Family | DX: R19.7 Diarrhea, unspecified (principal) ==

== ENCOUNTER → 2019-07-08 | Outpatient (REF) | payer MEDICARE ==
[2019-07-08 17:52] LABS: APPEARANCE, URINE MANUAL TURBID (CLEAR); COLOR, URINE MANUAL RED (YELLOW); PH,URINE MAN OBSCURED UNITS (5.0 - 7.0)
[2019-07-08 17:53] LABS: BILIRUBIN, URINE MANUAL OBSCURED (NEGATIVE); BLOOD URINE MANUAL POSITIVE (NEGATIVE); GLUCOSE, URINE (UA) MANUAL OBSCURED mg/dL (NEGATIVE); KETONE, URINE MANUAL OBSCURED mg/dL (NEGATIVE); LEUKOCYTE ESTERASE, URINE MAN POSITIVE (NEGATIVE); NITRITE, URINE MANUAL OBSCURED (NEGATIVE); PROTEIN, URINE MANUAL OBSCURED mg/dL (NEGATIVE); UROBILINOGEN, URINE MANUAL OBSCURED mg/dl (NORMAL)
[2019-07-08 17:54] LABS: BACTERIA, URINE LARGE AMOUNT; HYALINE CAST, URINE NONE SEEN /lpf (0-1); RBC, URINE TNTC /hpf (0-3); WBC, URINE 20-30 /hpf (0-3)
[2019-07-08 21:31] LABS: SQUAMOUS EPITHELIAL CELL URINE SMALL AMOUNT /hpf (SMALL AMT)
== END ==
LOC: M SFHCPLAZ 15:41
PROVIDERS: ATTEND Family Medicine
DX: R31.0 Gross hematuria (principal)

== ENCOUNTER → 2019-07-16 | Outpatient (REF) | payer MEDICARE ==
[2019-07-16 13:25] LABS: BASO # 0.1 10^3/uL (0.0-0.2); BASO % 1.2 % (0.0-1.0); EOS # 0.7 10^3/uL (0.0-0.5); EOS % 10.8 % (0.0-3.0); HEMATOCRIT 45.8 % (42.0-52.0); HEMOGLOBIN 13.9 g/dl (13.5-17.5); LYMPH # 1.5 10^3/uL (1.5-5.0); LYMPH % 22.2 % (24.0-44.0); MEAN CORPUSCULAR HEMOGLOBIN 28.9 pg (27.0-33.0); MEAN CORPUSCULAR HGB CONC 30.3 g/dl (32.0-36.5); MEAN CORPUSCULAR VOLUME 95.2 fl (80.0-96.0); MONO # 0.5 10^3/uL (0.0-0.8); MONO % 7.2 % (0.0-5.0); NEUTROPHILS # 3.9 10^3/uL (1.5-8.5); NEUTROPHILS % 58.2 % (36.0-66.0); PLATELET COUNT, AUTOMATED 198 10^3/uL (150-450); RED BLOOD COUNT 4.81 10^6/uL (4.30-6.10); WHITE BLOOD COUNT 6.8 10^3/uL (4.0-10.0)
[2019-07-16 14:01] LABS: ALBUMIN 3.4 GM/DL (3.2-5.2); ALT/SGPT 34 U/L (12-78); BILIRUBIN,TOTAL 0.7 MG/DL (0.2-1.0); BLOOD UREA NITROGEN 14 MG/DL (7-18); CARBON DIOXIDE LEVEL 27 MEQ/L (21-32); CHLORIDE LEVEL 110 MEQ/L (98-107); CREATININE FOR GFR 0.76 MG/DL (0.70-1.30); GLOMERULAR FILTRATION RATE > 60.0 (>35); GLUCOSE, FASTING 126 MG/DL (70-100); POTASSIUM SERUM 3.6 MEQ/L (3.5-5.1); SODIUM LEVEL 144 MEQ/L (136-145); TOTAL PROTEIN 7.7 GM/DL (6.4-8.2)
== END ==
LOC: M SFHCPLAZ 11:37
PROVIDERS: ATTEND Family Medicine
DX: R45.1 Restlessness and agitation (principal)
CPT/HCPCS: 80053; 82140; 84443; 85025; G0463

== ENCOUNTER → 2019-08-06 | Outpatient (REF) | payer MEDICARE | LOC: M LAB 19:38 | PROVIDERS: ATTEND Nurse Practitioner Family | DX: N39.0 Urinary tract infection, site not specified (principal) ==

== ENCOUNTER → 2019-09-09 | Outpatient (REF) | payer MEDICARE ==
[2019-09-09 15:49] LABS: BASO # 0.1 10^3/uL (0.0-0.2); BASO % 0.8 % (0.0-1.0); EOS # 0.4 10^3/uL (0.0-0.5); EOS % 4.3 % (0.0-3.0); HEMATOCRIT 42.4 % (42.0-52.0); HEMOGLOBIN 13.6 g/dl (13.5-17.5); LYMPH # 1.9 10^3/uL (1.5-5.0); LYMPH % 22.8 % (24.0-44.0); MEAN CORPUSCULAR HEMOGLOBIN 29.3 pg (27.0-33.0); MEAN CORPUSCULAR HGB CONC 32.1 g/dl (32.0-36.5); MEAN CORPUSCULAR VOLUME 91.4 fl (80.0-96.0); MONO # 1.2 10^3/uL (0.0-0.8); MONO % 14.1 % (0.0-5.0); NEUTROPHILS # 4.9 10^3/uL (1.5-8.5); NEUTROPHILS % 57.6 % (36.0-66.0); PLATELET COUNT, AUTOMATED 275 10^3/uL (150-450); RED BLOOD COUNT 4.64 10^6/uL (4.30-6.10); WHITE BLOOD COUNT 8.5 10^3/uL (4.0-10.0)
[2019-09-09 17:56] LABS: ALBUMIN 3.3 GM/DL (3.2-5.2); ALT/SGPT 23 U/L (12-78); BILIRUBIN,TOTAL 0.8 MG/DL (0.2-1.0); BLOOD UREA NITROGEN 14 MG/DL (7-18); CALCIUM LEVEL 9.3 MG/DL (8.8-10.2); CARBON DIOXIDE LEVEL 25 MEQ/L (21-32); CHLORIDE LEVEL 105 MEQ/L (98-107); CREATININE FOR GFR 0.77 MG/DL (0.70-1.30); GLOMERULAR FILTRATION RATE > 60.0 (>35); GLUCOSE, FASTING 104 MG/DL (70-100); NT-PRO BNP 1042 PG/ML (<450); POTASSIUM SERUM 3.7 MEQ/L (3.5-5.1); SODIUM LEVEL 139 MEQ/L (136-145); TOTAL PROTEIN 7.7 GM/DL (6.4-8.2)
== END ==
LOC: M SFHCPLAZ 14:46
PROVIDERS: ATTEND Family Medicine
DX: R19.7 Diarrhea, unspecified (principal); R05 Cough

== ENCOUNTER 2019-09-13 11:51 | Emergency (ER) | payer MEDICARE ==
[~2019-09-13] VITALS: Ht 182.9 cm; Wt 84.1 kg
[2019-09-13] MEDS ORDERED: VANC1CAP6 PO (12:42)
[2019-09-13] MEDS ORDERED: ATOR40TA75 PO (12:42)
[2019-09-13] MEDS ORDERED: NS 1,000 ML IV ONE (12:45)
[2019-09-13 12:52] LABS: VENOUS BASE EXCESS 3.7 (-2.0-2.0); VENOUS HCO3 31.2 MEQ/L (23.0-27.0); VENOUS O2 SATURATION 57.6 % (60.0-80.0); VENOUS PARTIAL PRESSURE CO2 59.2 mmHg (38.0-50.0); VENOUS PARTIAL PRESSURE O2 32.3 mmHg (30.0-50.0); VENOUS PH 7.339 UNITS (7.330-7.430); VENOUS STANDARD HCO3 26.7 MEQ/L
[2019-09-13 12:56] LABS: BASO % 0.6 % (0.0-1.0); EOS # 0.4 10^3/uL (0.0-0.5); EOS % 5.9 % (0.0-3.0); HEMATOCRIT 41.7 % (42.0-52.0); HEMOGLOBIN 13.5 g/dl (13.5-17.5); LYMPH # 1.5 10^3/uL (1.5-5.0); LYMPH % 22.8 % (24.0-44.0); MEAN CORPUSCULAR HEMOGLOBIN 29.7 pg (27.0-33.0); MEAN CORPUSCULAR HGB CONC 32.4 g/dl (32.0-36.5); MEAN CORPUSCULAR VOLUME 91.6 fl (80.0-96.0); MONO # 0.7 10^3/uL (0.0-0.8); MONO % 10.7 % (0.0-5.0); NEUTROPHILS % 59.5 % (36.0-66.0); PLATELET COUNT, AUTOMATED 247 10^3/uL (150-450); RED BLOOD COUNT 4.55 10^6/uL (4.30-6.10); WHITE BLOOD COUNT 6.6 10^3/uL (4.0-10.0)
[2019-09-13 13:32] LABS: ALT/SGPT 21 U/L (12-78); BILIRUBIN,DIRECT 0.1 MG/DL (0.0-0.2); BILIRUBIN,TOTAL 0.7 MG/DL (0.2-1.0); BLOOD UREA NITROGEN 15 MG/DL (7-18); CALCIUM LEVEL 8.9 MG/DL (8.8-10.2); CARBON DIOXIDE LEVEL 29 MEQ/L (21-32); CHLORIDE LEVEL 110 MEQ/L (98-107); CK-MB VALUE MASS 1.5 NG/ML (<3.6); CPK CREATINE PHOSPHOKINASE 64 U/L (39-308); CREATININE FOR GFR 0.73 MG/DL (0.70-1.30); GLOMERULAR FILTRATION RATE > 60.0 (>35); GLUCOSE, FASTING 116 MG/DL (70-100); MB/CK RELATIVE INDEX 2.34 (< OR =4); SODIUM LEVEL 143 MEQ/L (136-145); TOTAL PROTEIN 7.2 GM/DL (6.4-8.2); TROPONIN I < 0.02 NG/ML (< 0.10)
--- NOTE | 2019-09-13 14:01 | REP ---
PORTABLE CHEST: AP portable view of the chest is performed and compared to prior studies. Most recent prior exam is 06/20/2019. Diffuse chronic interstitial changes are again seen. No definite superimposed acute infiltrate is seen. There is cardiomegaly. Mediastinal silhouette is unchanged. There is a left single lead pacemaker. There are multiple sternal wires present. IMPRESSION: Cardiomegaly and chronic interstitial changes with no definite acute infiltrate. Electronically Signed by Abodulaye Boone MD 09/13/2019 02:30 P
[2019-09-13] MEDS ORDERED: cefTRIAXone SOD 1 GM in D5W MINI-BAG PLUS 50 ML IV ONE (14:15)
[2019-09-13] MEDS ORDERED: LORazepam 2 MG/ML VIAL (J2060) IV STA (14:48)
[2019-09-13] MEDS ORDERED: LORazepam 2 MG/ML VIAL (J2060) As Ordered ONE (14:55)
[2019-09-13] MEDS ORDERED: LevoFLOXacin 500 MG TABLET PO ONE (15:00)
[2019-09-13] MEDS ORDERED: LEVA1TAB2 PO (15:05)
[2019-09-13 15:35] VITALS: BP 132/75
--- NOTE | 2019-09-13 18:39 | ECGEPIP ---
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
== END 2019-09-13 15:45 | disposition home or self-care (01) ==
LOC: M ED 11:51 → EDBD 11:51 → M ED 15:45
DX: N39.0 Urinary tract infection, site not specified (principal); Z95.0 Presence of cardiac pacemaker; I51.9 Heart disease, unspecified; I10 Essential (primary) hypertension; N18.9 Chronic kidney disease, unspecified; Z86.73 Personal history of transient ischemic attack (TIA), and cerebral infarction without residual deficits; I51.7 Cardiomegaly; Z79.01 Long term (current) use of anticoagulants; Z79.82 Long term (current) use of aspirin; Z79.899 Other long term (current) drug therapy
CPT/HCPCS: 71045; 80048; 80076; 81001; 82550; 82553; 82803; 83605; 84443; 84484; 85025; 87040; 87088; 87186; 93005; 93041; 96361; 96374; 99285; J2060

== ENCOUNTER → 2019-10-03 | Outpatient (REF) | payer MEDICARE ==
[~2019-10-03] MED LIST changes: +LEVA1TAB2 PO
== END ==
LOC: M SFHCPLAZ 16:40
PROVIDERS: ATTEND Family Medicine
DX: R19.5 Other fecal abnormalities (principal)

== ENCOUNTER → 2019-10-21 | Outpatient (REF) | payer MEDICARE ==
[~2019-10-21] MED LIST changes: +AMIT10TA PO; +BUSP10TA PO; +GNP1000T11 PO; +LORA1TAB4 PO; +SENN-80 PO
[2019-10-21 15:20] LABS: APPEARANCE, URINE TURBID (CLEAR); BACTERIA, URINE AUTO 2+ (NEGATIVE); BILIRUBIN, URINE AUTO NEGATIVE (NEGATIVE); BLOOD, URINE BLOOD 3+ (NEGATIVE); COLOR, URINE YELLOW (YELLOW); GLUCOSE, URINE (UA) AUTO NEGATIVE (NEGATIVE); KETONE, URINE AUTO NEGATIVE (NEGATIVE); LEUKOCYTE ESTERASE, URINE AUTO 2+ (NEGATIVE); MUCUS, URINE LARGE (NEGATIVE); NITRITE, URINE AUTO NEGATIVE (NEGATIVE); PROTEIN, URINE AUTO 2+ mg/dL (NEGATIVE); RBC, URINE AUTO TNTC /HPF (0-3); SPECIFIC GRAVITY URINE AUTO 1.031 (1.002-1.035); SQUAMOUS EPITHELIAL CELL UR AU 0 /HPF (0-6); UROBILINOGEN, URINE AUTO 0.2 mg/dL (0.0-2.0); WBC, URINE AUTO TNTC /HPF (0-3)
== END ==
LOC: M SMT 13:05
PROVIDERS: ATTEND Urology
DX: N39.0 Urinary tract infection, site not specified (principal)

== ENCOUNTER 2019-10-22 13:58 | Inpatient (IN) | payer MEDICARE ==
[~2019-10-22 13:58] MED LIST changes: -AMIT10TA PO; -BUSP10TA PO; -GNP1000T11 PO; -LORA1TAB4 PO; -SENN-80 PO
[2019-10-22] MEDS ORDERED: NS 500 ML IV ONE (14:30)
[2019-10-22 14:57] LABS: BASO # 0.1 10^3/uL (0.0-0.2); BASO % 0.8 % (0.0-1.0); EOS # 0.2 10^3/uL (0.0-0.5); EOS % 2.7 % (0.0-3.0); HEMATOCRIT 43.6 % (42.0-52.0); LYMPH # 1.3 10^3/uL (1.5-5.0); LYMPH % 21.5 % (24.0-44.0); MEAN CORPUSCULAR HEMOGLOBIN 29.2 pg (27.0-33.0); MEAN CORPUSCULAR HGB CONC 32.1 g/dl (32.0-36.5); MONO # 0.7 10^3/uL (0.0-0.8); MONO % 11.2 % (0.0-5.0); NEUTROPHILS # 3.8 10^3/uL (1.5-8.5); NEUTROPHILS % 63.6 % (36.0-66.0); PLATELET COUNT, AUTOMATED 254 10^3/uL (150-450); RED BLOOD COUNT 4.79 10^6/uL (4.30-6.10)
[2019-10-22] MEDS ORDERED: COLA100C5 PO (15:01)
[2019-10-22] MEDS ORDERED: SENN-80 PO (15:01)
[2019-10-22] MEDS ORDERED: BUSP10TA PO (15:01)
[2019-10-22] MEDS ORDERED: MIRA3350 PO (15:01)
[2019-10-22 15:08] LABS: APPEARANCE, URINE CLOUDY (CLEAR); BACTERIA, URINE AUTO NEGATIVE (NEGATIVE); BILIRUBIN, URINE AUTO NEGATIVE (NEGATIVE); BLOOD, URINE BLOOD 2+ (NEGATIVE); CALCIUM OXALATE CRYSTALS SMALL; COLOR, URINE YELLOW (YELLOW); GLUCOSE, URINE (UA) AUTO NEGATIVE (NEGATIVE); KETONE, URINE AUTO NEGATIVE (NEGATIVE); LEUKOCYTE ESTERASE, URINE AUTO 3+ (NEGATIVE); MUCUS, URINE SMALL (NEGATIVE); NITRITE, URINE AUTO POSITIVE (NEGATIVE); PROTEIN, URINE AUTO 1+ mg/dL (NEGATIVE); RBC, URINE AUTO 62 /HPF (0-3); SPECIFIC GRAVITY URINE AUTO 1.017 (1.002-1.035); SQUAMOUS EPITHELIAL CELL UR AU 0 /HPF (0-6); UROBILINOGEN, URINE AUTO 0.2 mg/dL (0.0-2.0); WBC, URINE AUTO TNTC /HPF (0-3)
[2019-10-22 15:12] LABS: INR 1.27; PROTHROMBIN TIME 15.6 SECONDS (11.8-14.0)
[2019-10-22 15:13] LABS: PARTIAL THROMBOPLASTIN TIME 38.4 SECONDS (25.0-38.4)
--- NOTE | 2019-10-22 15:18 | REP ---
CT study of the cervical spine without contrast: History: Injury in a fall. Patient on blood thinner. No comparison study. Technique: Helical scanning is acquired and overlapping 2 mm high resolution axial images were generated and reviewed at bone and soft tissue window settings. Coronal and sagittal multiplanar re-formations images are generated. CT findings: There is no evidence of cervical spine element fracture. No skull base fracture is seen. Cervical vertebral body heights are preserved. Alignment is normal. Facet joints are normally aligned bilaterally at each cervical level on multiplanar re-formations images. There is no evidence of intraspinal or paraspinal hematoma. No extra vertebral abnormality is seen. There is diffuse degenerative spondylosis change with straightening and reversal of the normal cervical lordosis. There is some focal calcification of the ligamentum flavum dorsally at the C 04/05 level. There is osteoarthritic facet hypertrophy and sclerosis bilaterally in the mid cervical spine. No bony destructive lesion is seen. Impression: Degenerative spondylosis changes. Otherwise negative CT study of the cervical spine without contrast. No fracture seen. Electronically Signed by Roc Rodriguez MD 10/22/2019 03:10 P
--- NOTE | 2019-10-22 15:35 | REP ---
CT BRAIN WITHOUT CONTRAST: HISTORY: Trauma, head injury. Patient on Eliquis. Comparison brain CT study June 01, 2017. CT FINDINGS: Digital preliminary account development specialist radiograph is unremarkable. Vascular calcification is noted. Visualized paranasal sinuses are clear. The bony calvarium is intact. No skull fractures seen. No scalp hematoma is appreciated. On soft tissue window settings, there is advanced generalized volume loss unchanged from the comparison study. Extensive small vessel atherosclerotic changes are seen in the periventricular white matter bilaterally. There is old encephalomalacia in the left inferior frontal lobe and left basal ganglia unchanged. There is an old area of encephalomalacia in the right frontal lobe as well. No evidence of intracranial hemorrhage. No acute infarction is appreciated. No extra-axial fluid collection seen. IMPRESSION: Vascular calcification, generalized atrophy. Old areas of encephalomalacia in the frontal lobes bilaterally and in the left basal ganglia unchanged from 06/01/2017. No acute intracranial abnormality. No skull fracture is seen. Electronically Signed by Roc Rodriguez MD 10/22/2019 07:35 P
[2019-10-22] MEDS ORDERED: METOPROLOL TART 25 MG TABLET PO ONE (16:45)
[2019-10-22] MEDS ORDERED: LORazepam 1 MG TAB PO ONE (16:45)
[2019-10-22] MEDS ORDERED: LORA1TAB4 PO (16:48)
[2019-10-22] MEDS ORDERED: AMIT10TA PO (16:48)
[2019-10-22] MEDS ORDERED: GNP1000T11 PO (16:48)
[2019-10-22] MEDS ORDERED: LORazepam 2 MG/ML VIAL (J2060) IV STA (17:03)
[2019-10-22] MEDS ORDERED: LORazepam 2 MG/ML VIAL (J2060) As Ordered ONE (17:08)
[2019-10-22 17:23] LABS: ALBUMIN 3.7 GM/DL (3.2-5.2); ALT/SGPT 158 U/L (12-78); BILIRUBIN,DIRECT 0.2 MG/DL (0.0-0.2); BILIRUBIN,TOTAL 0.9 MG/DL (0.2-1.0); CK-MB VALUE MASS 2.3 NG/ML (<3.6); CPK CREATINE PHOSPHOKINASE 74 U/L (39-308); LIPASE 215 U/L (73-393); MB/CK RELATIVE INDEX 3.11 (< OR =4); TOTAL PROTEIN 7.5 GM/DL (6.4-8.2); TROPONIN I < 0.02 NG/ML (< 0.10)
--- NOTE | 2019-10-22 17:28 | REP ---
CHEST, SINGLE VIEW: COMPARISON: 09/13/2019 Chronic interstitial densities are seen diffusely bilaterally, unchanged. There is moderate cardiomegaly. No new infiltrate is seen. There is calcification and tortuosity of the thoracic aorta. Mediastinal silhouette is unchanged. Multiple sternal wires are present. There is a left single-lead pacemaker. IMPRESSION: Cardiomegaly and chronic interstitial changes in the lungs. No change since 09/13/2019 exam. Electronically Signed by Abdoulaye Boone MD 10/23/2019 12:54 P
[2019-10-22] MEDS ORDERED: SENNA 8.6 MG TAB (SENOKOT) PO PRN (18:00)
[2019-10-22] MEDS ORDERED: MIRALAX *UNIT DOSE* 17GM PACKET PO PRN (18:00)
[2019-10-22] MEDS ORDERED: LORazepam 1 MG TAB PO PRN (18:00)
[2019-10-22] MEDS ORDERED: ACETAMINOPHEN TAB 650MG DOSE (2X325MG) PO PRN (18:00)
[2019-10-22] MEDS ORDERED: ACETAMINOPHEN 500 MG TAB PO PRN (18:15)
[2019-10-22] MEDS ORDERED: LORazepam 2 MG/ML VIAL (J2060) IV PRN (18:15)
--- NOTE | 2019-10-22 18:47 | HPEPDOC ---
[facility] Medical History & Physical Date of Admission October 22, 2019 Date of Service: October 22, 2019 Primary Care Physician: MAXIMO BARRERA MD Attending Physician: KATE RAM MD History and Physical CHIEF COMPLAINT: bruise on left ear, AMS HISTORY OF PRESENT ILLNESS: Robbie Dailey is an 89 YOM with history of CVA and residual expresive aphasia/R-sided hemiparesis receiving 24-hr nursing care who presents to the ED today for large bruise on his left ear. His patient resource coordinator, who is present on exam, reports that he has been more confused/altered over the past 3 days since he was started on Buspar by his neurologist Dr. Atkinson. He has been getting agitated in the afternoons and has required PRN Ativan at home for this reason. He has been taking all medications as prescribed. In addition, his urine has been foul smelling and foul-appearing. He does have a permanent suprapubic catheter for BPH. Early this morning around 2am he awoke from sleep and had been using his CPAP when he pulled the tubing off his side table hitting his left ear. He has since developed a large bruise filled with blood on his left external ear. His patient resource coordinator reports that he has been tugging at his ear and holding the back of his head as if he is in pain. He was reportedly agitated in the ED requiring Ativan, as well. Otherwise, he has not been ill recently other than a bout of C dificile for which he is currently being treated with oral vancomycin. 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 Dysphagia and aspiration following CVA, as of 04/2017 nectar thickened liquids. Hypertension. Hyperlipidemia. BPH, now s/p suprapubic indwelling catheter - Dr. Aguirre. Chronic constipation. 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 Paroxysmal atrial fibrillation - Dr. Azevedo. ? per record, pacemaker for reduced LV ejection fraction - Dr. Azevedo. Echo with LVEF 60%, mod L atrial dilatation, severe tricuspid regurg, mod elevated RV systolic pressure (with normal systolic fxn) and severe R atrial dilatation, suggested elevated CVP (07/2017). Requires infectious endocarditis prophylaxis before dental cleanings. Per record, history of ETOH abuse. Sleep study with moderately severe mixed sleep apnea, periodic breathing, periodic limb movements (06/2017) - on CPAP. C. Diff 05/2017. Depression, unspecified depression type. MRSA infection. Dementia with agitation. C difficile colitis, recurrent. PAST SURGICAL HISTORY: aortic valve [place] 04-10-2016 pacemaker 04-12-16 vascular repair to LLE after minor accidental trauma 12-24 quad bypass 1992 suprapubic cath placement 04/24/2018 SOCIAL HISTORY: Former smoker, No EtOH No other illicit drugs FAMILY HISTORY: noncontributory ALLERGIES: Please see below. REVIEW OF SYSTEMS: Unable to obtain HOME MEDICATIONS: Please see below. PHYSICAL EXAMINATION: VITAL SIGNS: Please see below. GENERAL APPEARANCE: Laying in bed, appears stated age, no acute distress, somewhat agitated, pulling at lines HEENT: EOMI, PERRLA, neck is supple with no thyromegaly or lymphadenopathy; There is a ~2 x 4 cm bruise on the external left ear that is tender to palpation and appears engorged with blood. It is black/bluish in appearance. There is also a yellow bruise under the R chin RESPIRATORY: Lungs are clear to auscultation bilaterally with no adventitious breath sounds appreciated CARDIOVASCULAR: old healed surgical midline chest wound., no JVD, RRR, no murmurs/rubs/gallops, normal S1 and S2 ABDOMEN: +BS, soft, nontender to palpation in all four quadrants, no ma sses/organomegaly EXTREMITIES: no clubbing, cyanosis or edema noted NEUROLOGICAL: unable to fully assess due to patient's mental status. He does not move his RUE and RLE. There is a contracture of the RUE PSYCHIATRIC: unable to assess Skin: No rashes or ulcers appreciated, warm and well-perfused LN: No significant cervical or inguinal lymphadenopathy LABORATORY DATA: See below. IMAGING: CT BRAIN WITHOUT CONTRAST: HISTORY: Trauma, head injury. Patient on Eliquis. Comparison brain CT study June 01, 2017. CT FINDINGS: Digital preliminary respiratory support technician radiograph is unremarkable. Vascular calcification is noted. Visualized paranasal sinuses are clear. The bony calvarium is intact. No skull fractures seen. No scalp hematoma is appreciated. On soft tissue window settings, there is advanced generalized volume loss unchanged from the comparison study. Extensive small vessel atherosclerotic changes are seen in the periventricular white matter bilaterally. There is old encephalomalacia in the left inferior frontal lobe and left basal ganglia unchanged. There is an old area of encephalomalacia in the right frontal lobe as well. No evidence of intracranial hemorrhage. No acute infarction is appreciated. No extra-axial fluid collection seen. IMPRESSION: Vascular calcification, generalized atrophy. Old areas of encephalomalacia in the frontal lobes bilaterally and in the left basal ganglia unchanged from 06/01/2017. No acute intracranial abnormality. No skull fracture is seen. CT study of the cervical spine without contrast: History: Injury in a fall. Patient on blood thinner. No comparison study. Technique: Helical scanning is acquired and overlapping 2 mm high resolution axial images were generated and reviewed at bone and soft tissue window [facility]. Coronal and sagittal multiplanar re-formations images are generated. CT findings: There is no evidence of cervical spine element fracture. No skull base fracture is seen. Cervical vertebral body heights are preserved. Alignment is normal. Facet joints are normally aligned bilaterally at each cervical level on multiplanar re-formations images. There is no evidence of intraspinal or paraspinal hematoma. No extra vertebral abnormality is seen. There is diffuse degenerative spondylosis change with straightening and reversal of the normal cervical lordosis. There is some focal calcification of the ligamentum flavum dorsally at the C 04/05 level. There is osteoarthritic facet hypertrophy and sclerosis bilaterally in the mid cervical spine. No bony destructive lesion is seen. Impression: Degenerative spondylosis changes. Otherwise negative CT study of the cervical spine without contrast. No fracture seen. CHEST, SINGLE VIEW: COMPARISON: 09/13/2019 Chronic interstitial densities are seen diffusely bilaterally, unchanged. There is moderate cardiomegaly. No new infiltrate is seen. There is calcification and tortuosity of the thoracic aorta. Mediastinal silhouette is unchanged. Multiple sternal wires are present. There is a left single-lead pacemaker. IMPRESSION: Cardiomegaly and chronic interstitial changes in the lungs. No change since 09/13/2019 exam. MICROBIOLOGY: Please see below. ASSESSMENT: This is an 89 YO M with history of CVA + residual ap hasia/hemiparesis who presents with 3-4 days altered mental status and large bruise on his left external ear. DDx for AMS most likely 2/2 UTI given chronic suprapubic catheter and history recurrent UTIs. PLAN: 1. AMS: likely 2/2 UTI vs new medication -UA demonstrates UTI, pending cultures -Empiric Rocephin 2g IV -Patient does have history of Pseudomonas, Serratia, Enterococcus growth in urine. Will change abx pending cultures -Distribution Center Manager does also report patient was recently started on Buspar by Neurology. Will hold for now. No other recent medication changes -Fall precautions and neuro checks Q6H -CT head/neck negative 2. Bruise of left ear: hgb stable -Given that patient is on Eliquis, will not drain at this time. Will reassess in AM -Will resume Eliquis as benefit outweighs risk -May consult General Surgery in AM if needed 3. Hx CVA: -Continue ASA 4. Hypertension: -Continue Lisinopril 5. Recent history of C Dif infection: -Continue Vancomycin. Patient has 7 days remaining in course. 6. Anxiety/Agitation: -Continue Amitriptyline -Ativan 1mg Q12 PRN for agitation. Patient does tend to have issue with sundowning while hospitalized but he is currently accompanied by his patient resource coordinator RN -Continue Perphenazine 7. Paroxysmal Atrial fibrillation: -Will continue Eliquis for now -Continue Metoprolol DVT ppx: on Eliquis DISPO: Pending clinical improvement Attending attestation: I evaluated and examined the patient in person; I discussed the care with Resident in detail and agree with the plan above. Vital Signs Vital Signs Date Time Temp Pulse Resp B/P (MAP) Pulse Ox O2 Delivery O2 Flow Rate FiO2 10/22/19 17:20 77 19 158/95 (116) 97 10/22/19 14:17 98.1 Room Air Laboratory Data Labs 24H Laboratory Tests 2 10/22/19 14:29: Immature Granulocyte % (Auto) 0.2, Neutrophils (%) (Auto) 63.6, Lymphocytes (%) (Auto) 21.5L, Monocytes (%) (Auto) 11.2H, Eosinophils (%) (Auto) 2.7, Basophils (%) (Auto) 0.8, Neutrophils # (Auto) 3.8, Lymphocytes # (Auto) 1.3L, Monocytes # (Auto) 0.7, Eosinophils # (Auto) 0.2, Basophils # (Auto) 0.1, Nucleated Red Blood Cells % (auto) 0.0, Prothrombin Time 15.6H, Prothromb Time International Ratio 1.27, Activated Partial Thromboplast Time 38.4, Urine Color YELLOW, Urine Appearance CLOUDYH, Urine pH 7.0, Urine Specific [place] 1.017, Urine Protein 1+H, Urine Glucose (Auto)(UA) NEGATIVE, Urine Ketones (Auto) NEGATIVE, Urine B lood 2+H, Urine Nitrite POSITIVE, Urine Bilirubin NEGATIVE, Urine Urobilinogen 0.2, Urine Leukocyte Esterase (Auto) 3+H, Urine WBC (Auto) TNTCH, Urine RBC (Auto) 62H, Urine Hyaline Casts (Auto) 0, Urine Bacteria (Auto) NEGATIVE, Urine Squamous Epithelial Cells 0, Urine Calcium Oxalate Cryst (Auto) SMALL, Urine Mucus (Auto) SMALL, Urine Sperm (Auto) , Total Bilirubin 0.9, Direct Bilirubin 0.2, Aspartate Amino Transf (AST/SGOT) 109H, Alanine Aminotransferase (ALT/SGPT) 158H, Alkaline Phosphatase 91, Total Creatine Kinase 74, Creatine Kinase MB 2.3, Creatine Kinase MB Relative Index 3.11, Troponin I < 0.02, Total Protein 7.5, Albumin 3.7, Albumin/Globulin Ratio 0.97L, Lipase 215 10/22/19 14:49: POC Glucose (Misc Panel) 105, POC Sodium (Misc Panel) 144, POC Potassium (Misc Panel) 4.0, POC Chloride (Misc Panel) 103, POC Total CO2 (Misc Panel) 29.0H, POC Blood Urea Nitrogen (Misc Panel 16, POC Ionized Calcium (Misc Panel) 4.9, POC Creatinine (Misc Panel) 0.7, POC Hematocrit (Misc Panel) 43.0 10/22/19 17:04: Coronavirus (COVID-19)(PCR) NEGATIVE CBC/BMP Laboratory Tests 10/22/19 14:29 Microbiology Microbiology 10/22/19 Blood Culture, Received Pending 10/22/19 Blood Culture, Received Pending 10/22/19 Urine Culture, Received Pending Home Medications Scheduled Amitriptyline HCl (Amitriptyline HCl) 10 Mg Tablet, 10 MG PO QHS Apixaban (Eliquis) 5 Mg Tab, 5 MG PO BID Aspirin (Aspirin EC) 81 Mg Tab, 81 MG PO DAILY Atorvastatin Calcium (Atorvastatin Calcium) 40 Mg Tablet, 40 MG PO QHS Docusate Sodium (Colace) 100 Mg Capsule, 100 MG PO DAILY CURRENTLY ON HOLD DUE TO LOOSE STOOLS Glucosamine Sulfate Dipot Chlr (Glucosamine) 1,000 Mg Tablet, 2,000 MG PO DAILY Lactobacillus Acidophilus (Probiotic) 1 Each Capsule, 1 CAP PO DAILY Lisinopril (Lisinopril) 10 Mg Tab, 10 MG PO DAILY Metoprolol Tartrate (Metoprolol Tartrate) 25 Mg Tab, 25 MG PO BID Multivitamins (Thera M Plus Tablet) 1 Tab Tab, 1 TAB PO DAILY Nitrofurantoin Monohyd/M-Cryst (Macrobid 100 mg Capsule) 100 Mg Capsule, 1 CAP PO BID Perphenazine (Perphenazine) 2 Mg Tablet, 2 MG PO QHS Vancomycin HCl (Vancocin HCl) 125 Mg Capsule, 125 MG PO BID JUST DECREASED FROM QID TO BID ON 10/21/19 - CONTINUE BID FOR 7 DAYS Scheduled PRN Acetaminophen (Acetaminophen) 500 Mg Tablet, 1,000 MG PO Q6H PRN for PAIN Lorazepam (Lorazepam) 1 Mg Tablet, 1 MG PO Q12H PRN for ANXIETY Polyethylene Glycol 3350 (Miralax) 119 Gm Powder, 17 GRAM PO DAILY PRN for CONSTIPATION Sennosides (Senna) 8.6 Mg Tablet, 8.6 MG PO DAILY PRN for CONSTIPATION Allergies Coded Allergies: No Known Allergies (Unverified , 06/01/19) A-FIB/CHADSVASC A-FIB History Current/History of A-Fib/PAF?: Yes Current PO Anticoag Therapy: Yes GME ATTESTATION GME ATTESTATION My faculty preceptor for this patient encounter was physically present during the encounter and was fully available. All aspects of the patient interview, examination, medical decision making process, and medical care plan development were reviewed and approved by the faculty preceptor. The faculty preceptor is aware and concurs with the plan as stated in the body of this note and will attest to such by his/her cosignature. SURJIT NGUYỄN MD October 22, 2019 18:47 KATE RAM MD October 26, 2019 19:30
[2019-10-22] MEDS ORDERED: cefTRIAXone SOD 2 GM in D5W MINI-BAG PLUS 50 ML IV ONE (19:00)
[2019-10-22] MEDS ORDERED: ATORVASTATIN 20 MG TAB PO SCH (21:00)
[2019-10-22] MEDS ORDERED: PERPHENAZINE 2 MG TAB PO SCH (21:00)
[2019-10-22] MEDS ORDERED: AMITRIPTYLINE 10 MG TAB PO SCH (21:00)
[2019-10-22 21:25] VITALS: BP 142/82
[2019-10-22] MEDS: DOCUSATE SODIUM 100 MG CAP PO SCH (21:54)
[2019-10-22] MEDS: APIXABAN 5 MG TAB (ELIQUIS) PO SCH (21:55)
[2019-10-22] MEDS: METOPROLOL TART 25 MG TABLET PO SCH (21:55)
[2019-10-23 06:00] VITALS: BP 148/69
[2019-10-23 06:21] LABS: HEMATOCRIT 40.5 % (42.0-52.0); MEAN CORPUSCULAR HEMOGLOBIN 29.4 pg (27.0-33.0); MEAN CORPUSCULAR HGB CONC 32.1 g/dl (32.0-36.5); MEAN CORPUSCULAR VOLUME 91.6 fl (80.0-96.0); PLATELET COUNT, AUTOMATED 206 10^3/uL (150-450); RED BLOOD COUNT 4.42 10^6/uL (4.30-6.10); WHITE BLOOD COUNT 5.4 10^3/uL (4.0-10.0)
[2019-10-23 06:57] LABS: ALBUMIN 3.2 GM/DL (3.2-5.2); ALT/SGPT 114 U/L (12-78); BILIRUBIN,TOTAL 0.6 MG/DL (0.2-1.0); BLOOD UREA NITROGEN 17 MG/DL (7-18); CALCIUM LEVEL 8.7 MG/DL (8.8-10.2); CARBON DIOXIDE LEVEL 26 MEQ/L (21-32); CHLORIDE LEVEL 109 MEQ/L (98-107); CREATININE FOR GFR 0.78 MG/DL (0.70-1.30); GLOMERULAR FILTRATION RATE > 60.0 (>35); GLUCOSE, FASTING 95 MG/DL (70-100); MAGNESIUM LEVEL 2.2 MG/DL (1.8-2.4); POTASSIUM SERUM 3.9 MEQ/L (3.5-5.1); SODIUM LEVEL 142 MEQ/L (136-145); TOTAL PROTEIN 6.9 GM/DL (6.4-8.2)
[2019-10-23] MEDS: DOCUSATE SODIUM 100 MG CAP PO SCH (08:30)
[2019-10-23] MEDS: METOPROLOL TART 25 MG TABLET PO SCH (08:31)
[2019-10-23] MEDS: APIXABAN 5 MG TAB (ELIQUIS) PO SCH (08:31)
[2019-10-23] MEDS: VANCOMYCIN ORAL SOL 250MG/5ML ORAL SYRINGE PO SCH ×2 (08:31)
[2019-10-23 08:33] VITALS: BP 148/69
[2019-10-23] MEDS ORDERED: MULTIVITAMINS/MINERALS THERAP 1 TAB PO SCH (09:00)
[2019-10-23] MEDS ORDERED: DOCUSATE SODIUM 100 MG CAP PO SCH (09:00)
[2019-10-23] MEDS ORDERED: ASPIRIN 81 MG ENTERIC TAB PO SCH (09:00)
[2019-10-23] MEDS ORDERED: lisinopriL 10 MG TAB PO SCH (09:00)
[2019-10-23] MEDS ORDERED: MACR100C43 PO (11:16)
--- NOTE | 2019-10-23 12:15 | DS.PDOC ---
Discharge Summary General Date of Admission October 22, 2019 at 17:53 Date of Discharge October 23, 2019 Primary Care Physician: MAXIMO GARCIA MD Attending Physician: KATE RAM MD Discharge Summary PROCEDURES PERFORMED DURING STAY: [None]. ADMITTING DIAGNOSES: 1. AMS likely 2/2 UTI vs new medication 2. Left ear bruise 3. C. dificile infection DISCHARGE DIAGNOSES: 1. AMS likely 2/2 UTI vs new medication 2. Left ear bruise 3. C. dificile infection COMPLICATIONS/CHIEF COMPLAINT: Metabolic Encephalopathy,Trauma To Ear,Uti. HISTORY OF PRESENT ILLNESS: Robbie Dailey is an 89 YOM with history of CVA and residual expresive aphasia/R-sided hemiparesis receiving 24-hr nursing care who presents to the ED today for large bruise on his left ear. His car varnisher, who is present on exam, reports that he has been more confused/altered over the past 3 days since he was started on Buspar by his neurologist Dr. Atkinson. He has been getting agitated in the afternoons and has required PRN Ativan at home for this reason. He has been taking all medications as prescribed. In addition, his urine has been foul smelling and foul-appearing. He does have a permanent suprapubic catheter for BPH. Early this morning around 2am he awoke from sleep and had been using his CPAP when he pulled the tubing off his side table hitting his left ear. He has since developed a large bruise filled with blood on his left external ear. His car varnisher reports that he has been tugging at his ear and holding the back of his head as if he is in pain. He was reportedly agitated in the ED requiring Ativan, as well. Otherwise, he has not been ill recently other than a bout of C dificile for which he is currently being treated with oral vancomycin. HOSPITAL COURSE: Patient was found to have left external ear bruise. Given that he is on Eliqiuis for paroxysmal A fib the decision was made not to rosario the bruise for drainage. The patient was hemodynamically stable. Urine sample was found to be concerning for UTI and he was treated with IV Rocephin. On HD#2, the patient remained stable and was discharged home on oral Macrobid for UTI. New prescription for Buspar was stopped due to his caretakers' feeling that his AMS was possibly worsened by the initiation of this medication. DISCHARGE MEDICATIONS: Please see below. ALLERGIES: Please see below. PHYSICAL EXAMINATION ON DISCHARGE: VITAL SIGNS: Please see below. GENERAL APPEARANCE: Laying in bed, appears stated age, no acute distress, somewhat agitated, pulling at lines HEENT: EOMI, PERRLA, neck is supple with no thyromegaly or lymphadenopathy; There is a ~2 x 4 cm bruise on the external left ear that is tender to palpation and appears engorged with blood. It is black/bluish in appearance. There is also a yellow bruise under the R chin RESPIRATORY: Lungs are clear to auscultation bilaterally with no adventitious breath sounds appreciated CARDIOVASCULAR: old healed surgical midline chest wound., no JVD, RRR, no murmu rs/rubs/gallops, normal S1 and S2 ABDOMEN: +BS, soft, nontender to palpation in all four quadrants, no masses/organomegaly EXTREMITIES: no clubbing, cyanosis or edema noted NEUROLOGICAL: unable to fully assess due to patient's mental status. He does not move his RUE and RLE. There is a contracture of the RUE PSYCHIATRIC: unable to assess Skin: No rashes or ulcers appreciated, warm and well-perfused LN: No significant cervical or inguinal lymphadenopathy LABORATORY DATA: Please see below. IMAGING: CT BRAIN WITHOUT CONTRAST: HISTORY: Trauma, head injury. Patient on Eliquis. Comparison brain CT study June 01, 2017. CT FINDINGS: Digital preliminary administrative staff supervisor radiograph is unremarkable. Vascular calcification is noted. Visualized paranasal sinuses are clear. The bony calvarium is intact. No skull fractures seen. No scalp hematoma is appreciated. On soft tissue window settings, there is advanced generalized volume loss unchanged from the comparison study. Extensive small vessel atherosclerotic changes are seen in the periventricular white matter bilaterally. There is old encephalomalacia in the left inferior frontal lobe and left basal ganglia unchanged. There is an old area of encephalomalacia in the right frontal lobe as well. No evidence of intracranial hemorrhage. No acute infarction is appreciated. No extra-axial fluid collection seen. IMPRESSION: Vascular calcification, generalized atrophy. Old areas of encephalomalacia in the frontal lobes bilaterally and in the left basal ganglia unchanged from 06/01/2017. No acute intracranial abnormality. No skull fracture is seen. CT study of the cervical spine without contrast: History: Injury in a fall. Patient on blood thinner. No comparison study. Technique: Helical scanning is acquired and overlapping 2 mm high resolution axial images were generated and reviewed at bone and soft tissue window settings. Coronal and sagittal multiplanar re-formations images are generated. CT findings: There is no evidence of cervical spine element fracture. No skull base fracture is seen. Cervical vertebral body heights are preserved. Alignment is normal. Facet joints are normally aligned bilaterally at each cervical level on multiplanar re-formations images. There is no evidence of intraspinal or paraspinal hematoma. No extra vertebral abnormality is seen. There is diffuse degenerative spondylosis change with straightening and reversal of the normal cervical lordosis. There is some focal calcification of the ligamentum flavum dorsally at the C 04/05 level. There is osteoarthritic facet hypertrophy and sclerosis bilaterally in the mid cervical spine. No bony destructive lesion is seen. Impression: Degenerative spondylosis changes. Otherwise negative CT study of the cervical spine without contrast. No fracture seen. CHEST, SINGLE VIEW: COMPARISON: 09/13/2019 Chronic interstitial densities are seen diffusely bilaterally, unchanged. There is moderate cardiomegaly. No new infiltrate is seen. There is calcification and tortuosity of the thoracic aorta. Mediastinal silhouette is unchanged. Multiple sternal wires are present. There is a left single-lead pacemaker. IMPRESSION: Cardiomegaly and chronic interstitial changes in the lungs. No change since 09/13/2019 exam. PROGNOSIS: fair ACTIVITY: [As tolerated]. DIET: as tolerated DISCHARGE PLAN: home DISPOSITION: . DISCHARGE INSTRUCTIONS: 1. Follow up with Dr. Garcia within 7 days ITEMS TO FOLLOWUP ON ON OUTPATIENT: Urine culture DISCHARGE CONDITION: [Stable]. TIME SPENT ON DISCHARGE: Greater than 35 minutes. Attending attestation: I evaluated and examined the patient in person; I discussed the care with Resident in detail and agree with the plan above. Vital Signs/I&Os Vital Signs Date Time Temp Pulse Resp B/P (MAP) Pulse Ox O2 Delivery O2 Flow Rate FiO2 10/23/19 08:33 148/69 10/23/19 08:31 77 10/23/19 06:00 96.9 17 98 Room Air I&O- Last 24 Hours up to 6 AM 10/23/19 06:00 Intake Total 500 ml Output Total 450 ml Balance 50 ml Laboratory Data Labs 24H Laboratory Tests 2 10/22/19 14:29: Immature Granulocyte % (Auto) 0.2, Neutrophils (%) (Auto) 63.6, Lymphocytes (%) (Auto) 21.5L, Monocytes (%) (Auto) 11.2H, Eosinophils (%) (Auto) 2.7, Basophils (%) (Auto) 0.8, Neutrophils # (Auto) 3.8, Lymphocytes # (Auto) 1.3L, Monocytes # (Auto) 0.7, Eosinophils # (Auto) 0.2, Basophils # (Auto) 0.1, Nucleated Red Blood Cells % (auto) 0.0, Prothrombin Time 15.6H, Prothromb Time International Ratio 1.27, Activated Partial Thromboplast Time 38.4, Urine Color YELLOW, Urine Appearance CLOUDYH, Urine pH 7.0, Urine Specific [place] 1.017, Urine Protein 1+H, Urine Glucose (Auto)(UA) NEGATIVE, Urine Ketones (Auto) NEGATIVE, Urine Blood 2+H, Urine Nitrite POSITIVE, Urine Bilirubin NEGATIVE, Urine Urobilinogen 0.2, Urine Leukocyte Esterase (Auto) 3+H, Urine WBC (Auto) TNTCH, Urine RBC (Auto) 62H, Urine Hyaline Casts (Auto) 0, Urine Bacteria (Auto) NEGATIVE, Urine Squamous Epithelial Cells 0, Urine Calcium Oxalate Cryst (Auto) SMALL, Urine Mucus (Auto) SMALL, Urine Sperm (Auto) , Total Bilirubin 0.9, Direct Bilirubin 0.2, Aspartate Amino Transf (AST/SGOT) 109H, Alanine Aminotransferase (ALT/SGPT) 158H, Alkaline Phosphatase 91, Total Creatine Kinase 74, Creatine Kinase MB 2.3, Creatine Kinase MB Relative Index 3.11, Troponin I < 0.02, Total Protein 7.5, Albumin 3.7, Albumin/Globulin Ratio 0.97L, Lipase 215 10/22/19 14:49: POC Glucose (Misc Panel) 105, POC Sodium (Misc Panel) 144, POC Potassium (Misc Panel) 4.0, POC Chloride (Misc Panel) 103, POC Total CO2 (Misc Panel) 29.0H, POC Blood Urea Nitrogen (Misc Panel 16, POC Ionized Calcium (Misc Panel) 4.9, POC Creatinine (Misc Panel) 0.7, POC Hematocrit (Misc Panel) 43.0 10/22/19 17:04: Coronavirus (COVID-19)(PCR) NEGATIVE 5/14/20 05:35: Nucleated Red Blood Cells % (auto) 0.0, Total Bilirubin 0.6, Aspartate Amino Transf (AST/SGOT) 84H, Alanine Aminotransferase (ALT/SGPT) 114H, Alkaline Phosphatase 81, Total Protein 6.9, Albumin 3.2, Albumin/Globulin Ratio 0.86L, Anion Gap 7L, Glomerular Filtration Rate > 60.0, Calcium Level 8.7L, Magnesium Level 2.2 CBC/BMP Laboratory Tests 10/22/19 14:29 10/23/19 05:35 Microbiology Microbiology 10/22/19 Blood Culture, Received Pending 10/22/19 Blood Culture, Received Pending 10/22/19 Urine Culture, Received Pending Discharge Medications Scheduled Amitriptyline HCl (Amitriptyline HCl) 10 Mg Tablet, 10 MG PO QHS, (Reported) Apixaban (Eliquis) 5 Mg Tab, 5 MG PO BID, (Reported) Aspirin (Aspirin EC) 81 Mg Tab, 81 MG PO DAILY, (Reported) Atorvastatin Calcium (Atorvastatin Calcium) 40 Mg Tablet, 40 MG PO QHS, (Reported) Docusate Sodium (Colace) 100 Mg Capsule, 100 MG PO DAILY, (Reported) CURRENTLY ON HOLD DUE TO LOOSE STOOLS Glucosamine Sulfate Dipot Chlr (Glucosamine) 1,000 Mg Tablet, 2,000 MG PO DAILY, (Reported) Lactobacillus Acidophilus (Probiotic) 1 Each Capsule, 1 CAP PO DAILY, (Reported) Lisinopril (Lisinopril) 10 Mg Tab, 10 MG PO DAILY, (Reported) Metoprolol Tartrate (Metoprolol Tartrate) 25 Mg Tab, 25 MG PO BID, (Reported) Multivitamins (Thera M Plus Tablet) 1 Tab Tab, 1 TAB PO DAILY, (Reported) Nitrofurantoin Monohyd/M-Cryst (Macrobid 100 mg Capsule) 100 Mg Capsule, 1 CAP PO BID Perphenazine (Perphenazine) 2 Mg Tablet, 2 MG PO QHS, (Reported) Vancomycin HCl (Vancocin HCl) 125 Mg Capsule, 125 MG PO BID, (Reported) JUST DECREASED FROM QID TO BID ON 10/21/19 - CONTINUE BID FOR 7 DAYS Scheduled PRN Acetaminophen (Acetaminophen) 500 Mg Tablet, 1,000 MG PO Q6H PRN for PAIN, (Reported) Lorazepam (Lorazepam) 1 Mg Tablet, 1 MG PO Q12H PRN for ANXIETY, (Reported) Polyethylene Glycol 3350 (Miralax) 119 Gm Powder, 17 GRAM PO DAILY PRN for CONSTIPATION, (Reported) Sennosides (Senna) 8.6 Mg Tablet, 8.6 MG PO DAILY PRN for CONSTIPATION, (Reported) Allergies Coded Allergies: No Known Allergies (Unverified , 06/01/19) GME ATTESTATION GME ATTESTATION My faculty preceptor for this patient encounter was physically present during the encounter and was fully available. All aspects of the patient interview, e xamination, medical decision making process, and medical care plan development were reviewed and approved by the faculty preceptor. The faculty preceptor is aware and concurs with the plan as stated in the body of this note and will attest to such by his/her cosignature. SURJIT NGUYỄN MD October 23, 2019 12:15 KATE RAM MD October 26, 2019 19:34
[2019-10-23 14:00] VITALS: BP 142/86
[2019-10-23] MEDS ORDERED: cefTRIAXone SOD 2 GM in D5W MINI-BAG PLUS 50 ML IV SCH (19:00)
--- NOTE | 2019-10-23 22:06 | ECGEPIP ---
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
== END 2019-10-23 15:39 | disposition home or self-care (01) | DRG 690 ==
LOC: M ED 13:58 → EDBD 13:58 → M ED INP 17:53 → ENRESERV 21:07 → M MSPAV 21:18
PROVIDERS: ADMIT Internal Medicine; ATTEND Internal Medicine
DX: N39.0 Urinary tract infection, site not specified (principal); I69.351 Hemiplegia and hemiparesis following cerebral infarction affecting right dominant side; F03.91 Unspecified dementia, unspecified severity, with behavioral disturbance; A04.71 Enterocolitis due to Clostridium difficile, recurrent; R41.82 Altered mental status, unspecified; I69.320 Aphasia following cerebral infarction; I69.391 Dysphagia following cerebral infarction; R13.10 Dysphagia, unspecified; M62.441 Contracture of muscle, right hand; Z66 Do not resuscitate; I10 Essential (primary) hypertension; E78.5 Hyperlipidemia, unspecified; N40.0 Benign prostatic hyperplasia without lower urinary tract symptoms; K59.09 Other constipation; I48.0 Paroxysmal atrial fibrillation; H91.93 Unspecified hearing loss, bilateral; F41.9 Anxiety disorder, unspecified; F32.9 Major depressive disorder, single episode, unspecified; Z86.14 Personal history of Methicillin resistant Staphylococcus aureus infection; Z95.0 Presence of cardiac pacemaker; Z95.1 Presence of aortocoronary bypass graft; Z87.891 Personal history of nicotine dependence; S00.432A Contusion of left ear, initial encounter; W20.8XXA Other cause of strike by thrown, projected or falling object, initial encounter; Y92.009 Unspecified place in unspecified non-institutional (private) residence as the place of occurrence of the external cause; Z79.01 Long term (current) use of anticoagulants; Z79.82 Long term (current) use of aspirin; Z79.899 Other long term (current) drug therapy; T43.595A Adverse effect of other antipsychotics and neuroleptics, initial encounter; Y99.8 Other external cause status

== ENCOUNTER → 2019-11-05 | Outpatient (REF) | payer MEDICARE ==
[~2019-11-05] MED LIST changes: +AMIT10TA PO; +BUSP10TA PO; +GNP1000T11 PO; +LORA1TAB4 PO; +SENN-80 PO
[2019-11-06 17:06] LABS: APPEARANCE, URINE TURBID (CLEAR); BACTERIA, URINE AUTO NEGATIVE (NEGATIVE); BILIRUBIN, URINE AUTO NEGATIVE (NEGATIVE); BLOOD, URINE BLOOD 3+ (NEGATIVE); COLOR, URINE YELLOW (YELLOW); GLUCOSE, URINE (UA) AUTO 1+ mg/dL (NEGATIVE); KETONE, URINE AUTO TRACE mg/dL (NEGATIVE); LEUKOCYTE ESTERASE, URINE AUTO TRACE (NEGATIVE); NITRITE, URINE AUTO NEGATIVE (NEGATIVE); PROTEIN, URINE AUTO 2+ mg/dL (NEGATIVE); RBC, URINE AUTO 0 /HPF (0-3); SPECIFIC GRAVITY URINE AUTO 1.027 (1.002-1.035); SQUAMOUS EPITHELIAL CELL UR AU 0 /HPF (0-6); UROBILINOGEN, URINE AUTO 0.2 mg/dL (0.0-2.0); WBC, URINE AUTO 0 /HPF (0-3)
== END ==
LOC: M SMT 15:05
PROVIDERS: ATTEND Urology
DX: N39.0 Urinary tract infection, site not specified (principal)

== ENCOUNTER → 2020-01-06 | Outpatient (REF) | payer MEDICARE ==
[~2020-01-06] MED LIST changes: +ASPI-546 PO; -ASPI1TAB15 PO; +META28.32 PO; +OMEP-218 PO; +[UNRECOGNIZED DRUG - CODE] PO
[2020-02-02 11:22] LABS: APPEARANCE, URINE MANUAL TURBID (CLEAR); BILIRUBIN, URINE MANUAL OBSCURED (NEGATIVE); BLOOD URINE MANUAL OBSCURED (NEGATIVE); COLOR, URINE MANUAL ORANGE (YELLOW); GLUCOSE, URINE (UA) MANUAL OBSCURED mg/dL (NEGATIVE); KETONE, URINE MANUAL OBSCURED mg/dL (NEGATIVE); LEUKOCYTE ESTERASE, URINE MAN OBSCURED (NEGATIVE); NITRITE, URINE MANUAL OBSCURED (NEGATIVE); PH,URINE MAN OBSCURED UNITS (5.0 - 7.0); PROTEIN, URINE MANUAL OBSCURED mg/dL (NEGATIVE); UROBILINOGEN, URINE MANUAL OBSCURED mg/dl (NORMAL)
[2020-02-02 11:24] LABS: BACTERIA, URINE LARGE AMOUNT; HYALINE CAST, URINE NONE SEEN /lpf (0-1); MUCUS, URINE SMALL AMOUNT (NEGATIVE); RBC, URINE TNTC /hpf (0-3); SQUAMOUS EPITHELIAL CELL URINE NONE SEEN /hpf (SMALL AMT); WBC, URINE TNTC /hpf (0-3)
== END ==
LOC: M SMT 14:59
PROVIDERS: ATTEND Nurse Practitioner Family
DX: R45.1 Restlessness and agitation (principal); Z79.899 Other long term (current) drug therapy

== ENCOUNTER → 2020-02-03 | Outpatient (CLI) | payer MEDICARE ==
[2020-02-03 16:42] LABS: BASO # 0.1 10^3/uL (0.0-0.2); BASO % 0.6 % (0.0-1.0); EOS # 0.2 10^3/uL (0.0-0.5); EOS % 2.6 % (0.0-3.0); HEMATOCRIT 42.6 % (42.0-52.0); HEMOGLOBIN 13.5 g/dl (13.5-17.5); LYMPH # 1.4 10^3/uL (1.5-5.0); LYMPH % 18.2 % (24.0-44.0); MEAN CORPUSCULAR HEMOGLOBIN 30.1 pg (27.0-33.0); MEAN CORPUSCULAR HGB CONC 31.7 g/dl (32.0-36.5); MEAN CORPUSCULAR VOLUME 95.1 fl (80.0-96.0); MONO # 0.8 10^3/uL (0.0-0.8); MONO % 10.3 % (0.0-5.0); NEUTROPHILS # 5.2 10^3/uL (1.5-8.5); NEUTROPHILS % 67.9 % (36.0-66.0); PLATELET COUNT, AUTOMATED 219 10^3/uL (150-450); RED BLOOD COUNT 4.48 10^6/uL (4.30-6.10); WHITE BLOOD COUNT 7.7 10^3/uL (4.0-10.0)
[2020-02-03 17:01] LABS: ERYTHROCYTE SEDIMENTATION RATE 44 mm/hr (0-20)
[2020-02-03 18:29] LABS: ALBUMIN 3.4 GM/DL (3.2-5.2); ALT/SGPT 24 U/L (12-78); BILIRUBIN,TOTAL 0.7 MG/DL (0.2-1.0); BLOOD UREA NITROGEN 19 MG/DL (7-18); CALCIUM LEVEL 9.4 MG/DL (8.8-10.2); CARBON DIOXIDE LEVEL 31 MEQ/L (21-32); CHLORIDE LEVEL 108 MEQ/L (98-107); CREATININE FOR GFR 0.81 MG/DL (0.70-1.30); GLOMERULAR FILTRATION RATE > 60.0 (>35); GLUCOSE, FASTING 144 MG/DL (70-100); POTASSIUM SERUM 3.9 MEQ/L (3.5-5.1); SODIUM LEVEL 143 MEQ/L (136-145); TOTAL PROTEIN 7.4 GM/DL (6.4-8.2)
== END ==
LOC: M PLALAB 12:47
PROVIDERS: ATTEND Family Medicine
DX: R19.7 Diarrhea, unspecified (principal)
CPT/HCPCS: 36415; 80053; 85025; 85652; 86140; 87507; G0463

== ENCOUNTER → 2020-02-06 | Outpatient (CLI) | payer MEDICARE ==
--- NOTE | 2020-03-08 10:20 | REP ---
BILATERAL LOWER EXTREMITY ARTERIAL ULTRASOUND CLINICAL: History of atherosclerotic disease and symptoms related to claudication. COMPARISON: 04/18/2019. TECHNIQUE: Real-time stone scale and color Doppler evaluation using linear high frequency transducer. FINDINGS: Ankle-brachial indices could not be obtained due to bilateral noncompressibility of the vessels associated with extensive atherosclerotic calcifications. Bilateral lower extremities demonstrate significant calcified atherosclerotic changes. Slow flow is noted bilaterally as well as elements of reversed flow suggesting underlying cardiac disease. The right lower extremity demonstrates primarily biphasic wave patterns with elements of slow flow and no obvious focal stenosis or occlusion. Left lower extremity demonstrates biphasic wave patterns along with slow flow and area of occlusion involving the proximal posterior tibial artery with subsequent downstream revascularization by small collateral vessels. IMPRESSION: Extensive bilateral atherosclerotic disease and findings suggesting underlying cardiac disease. Focal area of occlusion noted in the left proximal posterior tibial artery with subsequent downstream revascularization by collateral vessel. Please refer to worksheet for detailed velocities. MTDD
== END ==
LOC: M RAD 09:36
PROVIDERS: ATTEND Surgery Vascular Surgery
DX: I70.203 Unspecified atherosclerosis of native arteries of extremities, bilateral legs (principal); I70.92 Chronic total occlusion of artery of the extremities

== ENCOUNTER 2020-03-04 17:17 | Inpatient (IN) | payer MEDICARE ==
[~2020-03-04] VITALS: Ht 182.9 cm; Wt 75.4 kg
[~2020-03-04 17:17] MED LIST changes: -META28.32 PO; -OMEP-218 PO; -[UNRECOGNIZED DRUG - CODE] PO
[2020-03-04] MEDS ORDERED: NS 500 ML IV ONE (19:30)
[2020-03-04 20:42] LABS: BASO # 0.1 10^3/uL (0.0-0.2); BASO % 1.2 % (0.0-1.0); EOS # 0.1 10^3/uL (0.0-0.5); EOS % 2.8 % (0.0-3.0); HEMATOCRIT 44.8 % (42.0-52.0); LYMPH # 1.4 10^3/uL (1.5-5.0); LYMPH % 28.8 % (24.0-44.0); MEAN CORPUSCULAR HEMOGLOBIN 29.4 pg (27.0-33.0); MEAN CORPUSCULAR HGB CONC 31.3 g/dl (32.0-36.5); MEAN CORPUSCULAR VOLUME 94.1 fl (80.0-96.0); MONO # 0.6 10^3/uL (0.0-0.8); MONO % 11.5 % (0.0-5.0); NEUTROPHILS # 2.8 10^3/uL (1.5-8.5); NEUTROPHILS % 55.5 % (36.0-66.0); PLATELET COUNT, AUTOMATED 265 10^3/uL (150-450); RED BLOOD COUNT 4.76 10^6/uL (4.30-6.10)
[2020-03-04] MEDS: ATORVASTATIN 20 MG TAB PO SCH (21:00)
[2020-03-04] MEDS: PERPHENAZINE 2 MG TAB PO SCH (21:00)
[2020-03-04] MEDS: AMITRIPTYLINE 10 MG TAB PO SCH (21:00)
[2020-03-04 21:05] LABS: ALBUMIN 3.5 GM/DL (3.2-5.2); ALT/SGPT 32 U/L (12-78); BILIRUBIN,DIRECT 0.2 MG/DL (0.0-0.2); BLOOD UREA NITROGEN 21 MG/DL (7-18); CALCIUM LEVEL 9.7 MG/DL (8.8-10.2); CARBON DIOXIDE LEVEL 29 MEQ/L (21-32); CHLORIDE LEVEL 107 MEQ/L (98-107); CREATININE FOR GFR 0.82 MG/DL (0.70-1.30); GLOMERULAR FILTRATION RATE > 60.0 (>35); GLUCOSE, FASTING 103 MG/DL (70-100); LIPASE 186 U/L (73-393); POTASSIUM SERUM 4.1 MEQ/L (3.5-5.1); SODIUM LEVEL 142 MEQ/L (136-145); TOTAL PROTEIN 8.1 GM/DL (6.4-8.2)
[2020-03-04] MEDS ORDERED: LORazepam 2 MG/ML VIAL IV STA (21:07)
[2020-03-04] MEDS ORDERED: MORPHINE 4 MG/ML 1ML VIAL/SYRINGE (J2270) IV PRN (21:30)
[2020-03-04] MEDS ORDERED: ONDANSETRON 4MG/2ML VIAL IV ONE (21:30)
[2020-03-04] MEDS ORDERED: ISOVUE-370 76% 100ML VIAL As Ordered ONE (21:35)
--- NOTE | 2020-03-04 23:11 | REPVR ---
PROCEDURE INFORMATION: Exam: CT Abdomen And Pelvis With Contrast Exam date and time: 03/04/2020 10:06 PM Age: 89 years old Clinical indication: Abdominal pain; Generalized; Additional info: Generalized abd pain with diarrhea TECHNIQUE: Imaging protocol: Computed tomography of the abdomen and pelvis with intravenous contrast. Radiation optimization: All CT scans at this facility use at least one of these dose optimization techniques: automated exposure control; mA and/or kV adjustment per patient size (includes targeted exams where dose is matched to clinical indication); or iterative reconstruction. Contrast material: ISOVUE 370; Contrast volume: 100 ml; Contrast route: INTRAVENOUS (IV); COMPARISON: CT ABD PELVIS W/O CONTRAST 2019-04-29 10:05 FINDINGS: Limitations: Artifact related to patient's arm position limits evaluation. Tubes, catheters and devices: Suprapubic bladder catheter in position. Liver: Normal. No mass. Gallbladder and bile ducts: Normal. No calcified stones. No ductal dilation. Pancreas: Normal. No ductal dilation. Spleen: Normal. No splenomegaly. Adrenals: Mild adrenal gland thickening bilaterally. Kidneys and ureters: Horseshoe atrophic kidney with nonobstructing renal calculi measuring up to 5 mm and cortical scarring. Stomach and bowel: Excess stool in the distal sigmoid colon and rectum. Appendix: No evidence of appendicitis. Intraperitoneal space: Unremarkable. No free air. No significant fluid collection. 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 Moderate aortic and branch vessel atherosclerotic calcifications. O'clock aortic valvular endovascular surgical changes. 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 Lymph nodes: Unremarkable. No enlarged lymph nodes. Urinary bladder: Bladder incompletely distended with wall thickening and several dependent calculi. Reproductive: Irregular enlarged prostate gland protruding into the bladder measuring 6 cm, correlate. Bones/joints: Moderate bilateral hip joint effusions. Soft tissues: Left inguinal fat protruding hernia. IMPRESSION: 1. Horseshoe atrophic kidney with nonobstructing renal calculi measuring up to 5 mm and cortical scarring. 2. 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 3. Suprapubic bladder catheter in position. Bladder incompletely distended with wall thickening and several dependent calculi. 4. 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 5. Irregular enlarged prostate gland protruding into the bladder measuring 6 cm, correlate. 6. Excess stool in the distal sigmoid colon and rectum. Electronically signed by: Jamie Lance On 03/04/2020 23:10:27 PM
--- NOTE | 2020-03-05 01:42 | HPEPDOC ---
[facility] Medical History & Physical Date of Admission Mar 05, 2020 Date of Service: Mar 05, 2020 Primary Care Physician: MAXIMO BARRERA MD Attending Physician: IVANA CHAVEZ MD History and Physical TIME OF SERVICE: 500am The patient has dementia the majority of the history was obtained from CHIEF COMPLAINT: Loose stools HISTORY OF PRESENT ILLNESS: This 89-year-old gentleman was brought to the hospital by his daughter because he's been having foul smelling loose stools for 3 days; his daughter is concerned that he has C. difficile. The workup done in the ER generally unremarkable and the patient has not produced any stool for a GI panel. 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 HEIKE Depression, unspecified depression type Dementia with behavioral disturbance aortic valve repair CAD s/p quad bypass SOCIAL HISTORY: unobtainable FAMILY HISTORY: unobtainable ALLERGIES: Please see below. HOME MEDICATIONS: Please see below. PHYSICAL EXAMINATION: Vital Signs Date Time Temp Pulse Resp B/P (MAP) Pulse Ox O2 Delivery O2 Flow Rate FiO2 03/04/20 17:18 97.3 90 17 161/93 (115) 93 Room Air GEN: well-nourished / asleep INTEGUMENT: not flushed CVS: RRR/NMRG/ radial pulses intact LUNGS: lungs are clear to auscultation bilaterally on room air / no coughing ABDOMEN: Contour ( distended) / soft & not tender with palpation MSK/EXTREMITIES: NCAT LABORATORY DATA: 03/04/20 20:12 Immature Granulocyte % (Auto) 0.2, Neutrophils (%) (Auto) 55.5, Lymphocytes (%) (Auto) 28.8, Monocytes (%) (Auto) 11.5H, Eosinophils (%) (Auto) 2.8, Basophils (%) (Auto) 1.2H, Neutrophils # (Auto) 2.8, Lymphocytes # (Auto) 1.4L, Monocytes # (Auto) 0.6, Eosinophils # (Auto) 0.1, Basophils # (Auto) 0.1, Nucleated Red Blood Cells % (auto) 0.0, Urine Color YELLOW, Urine Appearance CLOUDYH, Urine pH 6.0, Urine Specific [place] 1.019, Urine Protein 2+H, Urine Glucose (UA) NEGATIVE, Urine Ketones NEGATIVE, Urine Blood 2+H, Urine Nitrite POSITIVEH, Urine Bilirubin NEGATIVE, Urine Urobilinogen 0.2, Urine Leukocyte Esterase 3+H, Urine WBC (Auto) TNTCH, Urine RBC (Auto) 84H, Urine Hyaline Casts (Auto) 0, Urine Bacteria (Auto) 1+H, Urine Squamous Epithelial Cells 0, Urine Amorphous Sediment SMALLH, Urine Sperm (Auto) 03/04/20 20:32: Anion Gap 6L, Glomerular Filtration Rate > 60.0, Calcium Level 9.7, Total Bilirubin 1.0, Direct Bilirubin 0.2, Aspartate Amino Transf (AST/SGOT) 23, Alanine Aminotransferase (ALT/SGPT) 32, Alkaline Phosphatase 74, Total Protein 8.1, Albumin 3.5, Albumin/Globulin Ratio 0.8, Lipase 186 IMAGING: CT abdomen/pelvis "IMPRESSION: 1. Horseshoe atrophic kidney with nonobstructing renal calculi measuring up to 5 mm and cortical scarring. 2. 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 3. Suprapubic bladder catheter in position. Bladder incompletely distended with wall thickening and several dependent calculi. 4. 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 5. Irregular enlarged prostate gland protruding into the bladder measuring 6 cm, correlate. 6. Excess stool in the distal sigmoid colon and rectum. MICROBIOLOGY: 03/04/20 Urine Culture, Received Pending ASSESSMENT: Mr. Dailey is a 89-year-old with a history of dementia, CVA, recurrent C. difficile HTN, BPH with chronic indwelling suprapubic catheter. Paroxysmal atr ial fibrillation, and multiple other medical problems, was brought in by his daughter because of loose stools; based on CT scan findings he is constipated. PLAN: 1. Loose Stools? According to his daughter he has been having loose stools He doesn't have any SIRS criteria Plan: admit under observation / if he doesn't have a BM for the GI panel by the end of the day the day time team may consider early discharge / hold lactobacilus 2 Constipation ? Plan: monitor Is and Os / hold MVI bc the calcium in them can cause constipation 3 Catheter associated UTI Plan: no need for treatment 4 Dementia w Behavioral Disturbance/ Depression Plan: amitriptyline, lorazepam 5 Afib Plan apixaban, metoprolol 6 CAD Plan: atorvastatin 7 HTN Plan: lisinopril, metoprolol DVT PROPHYLAXIS: n/a on AC for afib DISPOSITION: likely home after less than 2 midnight's stay Home Medications Scheduled Amitriptyline HCl (Amitriptyline HCl) 10 Mg Tablet, 10 MG PO QHS Apixaban (Eliquis) 5 Mg Tab, 5 MG PO BID Aspirin (Aspirin EC) 81 Mg Tab, 81 MG PO DAILY Atorvastatin Calcium (Atorvastatin Calcium) 40 Mg Tablet, 40 MG PO QHS Glucosamine Sulfate (Glucosamine Sulfate) 500 Mg Capsule, 1,000 MG PO DAILY Lactobacillus Acidophilus (Probiotic) 1 Each Capsule, 1 CAP PO DAILY Lisinopril (Lisinopril) 10 Mg Tab, 10 MG PO DAILY Metoprolol Tartrate (Metoprolol Tartrate) 25 Mg Tab, 25 MG PO BID Multivitamins (Thera M Plus Tablet) 1 Tab Tab, 1 TAB PO DAILY Perphenazine (Perphenazine) 2 Mg Tablet, 2 MG PO QHS Scheduled PRN Acetaminophen (Acetaminophen) 500 Mg Tablet, 1,000 MG PO Q6H PRN for PAIN Lorazepam (Lorazepam) 1 Mg Tablet, 1 MG PO Q8H PRN for ANXIETY Allergies Coded Allergies: No Known Allergies (Unverified , 03/04/20) A-FIB/CHADSVASC A-FIB History Current/History of A-Fib/PAF?: Yes Current PO Anticoag Therapy: Yes IVANA CHAVEZ MD Mar 05, 2020 01:42
[2020-03-05] MEDS ORDERED: [UNRECOGNIZED DRUG - CODE] PO (02:15)
[2020-03-05 05:23] VITALS: BP 145/90
[2020-03-05] MEDS ORDERED: ACETAMINOPHEN 500 MG TAB PO PRN (06:45)
[2020-03-05] MEDS ORDERED: cefTRIAXone SOD 1 GM in D5W MINI-BAG PLUS 50 ML IV SCH (09:00)
[2020-03-05 09:56] LABS: HEMATOCRIT 43.6 % (42.0-52.0); MEAN CORPUSCULAR HEMOGLOBIN 30.2 pg (27.0-33.0); MEAN CORPUSCULAR HGB CONC 32.1 g/dl (32.0-36.5); MEAN CORPUSCULAR VOLUME 94.2 fl (80.0-96.0); PLATELET COUNT, AUTOMATED 245 10^3/uL (150-450); RED BLOOD COUNT 4.63 10^6/uL (4.30-6.10); WHITE BLOOD COUNT 5.8 10^3/uL (4.0-10.0)
[2020-03-05] MEDS: ASPIRIN 81 MG ENTERIC TAB PO SCH (10:13)
[2020-03-05] MEDS: APIXABAN 5 MG TAB (ELIQUIS) PO SCH ×3 (10:14→21:37)
[2020-03-05] MEDS: METOPROLOL TART 25 MG TABLET PO SCH ×3 (10:17→21:37)
[2020-03-05] MEDS: lisinopriL 10 MG TAB PO SCH (10:17)
[2020-03-05 10:28] LABS: ALBUMIN 3.5 GM/DL (3.2-5.2); ALT/SGPT 31 U/L (12-78); BILIRUBIN,TOTAL 0.9 MG/DL (0.2-1.0); BLOOD UREA NITROGEN 18 MG/DL (7-18); CALCIUM LEVEL 9.3 MG/DL (8.8-10.2); CARBON DIOXIDE LEVEL 29 MEQ/L (21-32); CHLORIDE LEVEL 108 MEQ/L (98-107); CREATININE FOR GFR 0.77 MG/DL (0.70-1.30); GLOMERULAR FILTRATION RATE > 60.0 (>35); GLUCOSE, FASTING 97 MG/DL (70-100); POTASSIUM SERUM 4.2 MEQ/L (3.5-5.1); SODIUM LEVEL 143 MEQ/L (136-145); TOTAL PROTEIN 7.4 GM/DL (6.4-8.2)
--- NOTE | 2020-03-05 12:44 | IPNPDOC ---
Date Seen The patient was seen on 03/05/20. Progress Note SUBJECTIVE: UA +, Cx pending, started on ceftriaxone and probiotic with history of C. diff. No loose stools since admission. Difficulty swallowing (baseline) but was having difficulty with pills also this AM. Unknown if this is baseline, ordered speech and swallow to further assess. Patient resting comfortable with no complaints. OBJECTIVE: PHYSICAL EXAMINATION: VS: Please see below GEN: well-nourished, pleasant but no communicative with me this AM but will occasionally mumble, resting in bed INTEGUMENT: not flushed, intact CVS: RRR/NMRG/ radial pulses intact LUNGS: lungs are clear to auscultation bilaterally on room air / no coughing ABDOMEN: Contour ( distended) / soft & not tender with palpation : Suprapubic catheter in place, area around insertion in abdomen appears clean MSK/EXTREMITIES: No edema, warm, pulses + in all extremities, no atrophy, no cyanosis, clubbing or edema Neuro: Right upper ext contraction- baseline, no overt new focal deficits, unable to perform CN exam LABORATORY DATA: Please see below MICROBIOLOGY: UCx pending PLAN: 1. Loose Stools-resolved -Hx of C. diff recently -According to his daughter he has been having loose stools -GI panel unable to be collected -Restarting probiotic 2 Chronic suprapubic catheter associated UTI -WBC wnl, afebrile, HD stable -UA +, f/u UCx -Started on ceftriaxone, probiotic 3. Dysphagia 2/2 to prior CVA -Difficult to swallow pills in apple sauce this AM -Repeat swallowing evaluation today to further assess 4. Dementia w Behavioral Disturbance/ Depression -Appears to be at baseline -C/w amitriptyline, lorazepam 5 Afib -Stable -C/w apixaban, metoprolol 6 CAD -Stable. -C/w atorvastatin, BB 7 HTN -C/w lisinopril, metoprolol 8. DVT PROPHYLAXIS -Apixaban BID DISPOSITION: Currently admitted under inpatient status. Plan is home with caregivers at discharge. Discussed with SW, PFS VS, I&O, 24H, Fishbone Vital Signs/I&O Vital Signs Date Time Temp Pulse Resp B/P (MAP) Pulse Ox O2 Delivery O2 Flow Rate FiO2 03/05/20 10:17 72 03/05/20 10:17 135/86 03/05/20 05:23 98.3 18 94 Room Air I&O- Last 24 Hours up to 6 AM 03/05/20 06:00 Intake Total 500 ml Output Total 500 ml Balance 0 ml Laboratory Data 24H LABS Laboratory Tests 2 03/04/20 20:12: Immature Granulocyte % (Auto) 0.2, Neutrophils (%) (Auto) 55.5, Lymphocytes (%) (Auto) 28.8, Monocytes (%) (Auto) 11.5H, Eosinophils (%) (Auto) 2.8, Basophils (%) (Auto) 1.2H, Neutrophils # (Auto) 2.8, Lymphocytes # (Auto) 1.4L, Monocytes # (Auto) 0.6, Eosinophils # (Auto) 0.1, Basophils # (Auto) 0.1, Nucleated Red Blood Cells % (auto) 0.0, Urine Color YELLOW, Urine Appearance CLOUDYH, Urine pH 6.0, Urine Specific [place] 1.019, Urine Protein 2+H, Urine Glucose (UA) NEGATIVE, Urine Ketones NEGATIVE, Urine Blood 2+H, Urine Nitrite POSITIVEH, Urine Bilirubin NEGATIVE, Urine Urobilinogen 0.2, Urine Leukocyte Esterase 3+H, Urine WBC (Auto) TNTCH, Urine RBC (Auto) 84H, Urine Hyaline Casts (Auto) 0, Urine Bacteria (Auto) 1+H, Urine Squamous Epithelial Cells 0, Urine Amorphous Sediment SMALLH, Urine Sperm (Auto) 03/04/20 20:32: Anion Gap 6L, Glomerular Filtration Rate > 60.0, Calcium Level 9.7, Total Bilirubin 1.0, Direct Bilirubin 0.2, Aspartate Amino Transf (AST/SGOT) 23, Alanine Aminotransferase (ALT/SGPT) 32, Alkaline Phosphatase 74, Total Protein 8.1, Albumin 3.5, Albumin/Globulin Ratio 0.8, Lipase 186 03/05/20 09:18: Nucleated Red Blood Cells % (auto) 0.0, Anion Gap 6L, Glomerular Filtration Rate > 60.0, Calcium Level 9.3, Total Bilirubin 0.9, Aspartate Amino Transf (AST/SGOT) 20, Alanine Aminotransferase (ALT/SGPT) 31, Alkaline Phosphatase 74, Total Protein 7.4, Albumin 3.5, Albumin/Globulin Ratio 0.9 CBC/BMP Laboratory Tests 03/04/20 20:12 03/04/20 20:32 03/05/20 09:18 Microbiology Microbiology 03/04/20 Urine Culture, Received Pending Current Medications Current Medications Medications (Trade) Dose Ordered Sig/[place] Route PRN Reason Start Time Stop Time Status Last Admin Dose Admin Acetaminophen (Tylenol Tab) 1,000 mg Q6H PRN PO PAIN 03/05/20 06:45 Amitriptyline HCl (Elavil) 10 mg QHS PO 03/04/20 21:00 Apixaban (Eliquis) 5 mg BID PO 03/05/20 09:00 03/05/20 10:14 Aspirin (Ecotrin) 81 mg DAILY PO 03/05/20 09:00 03/05/20 10:13 Atorvastatin Calcium (Lipitor) 40 mg QHS PO 03/04/20 21:00 Ceftriaxone Sodium 1 gm/ Dextrose 50 ml @ 100 mls/hr Q24H IV 03/05/20 09:00 03/05/20 10:14 Home Med (Med Rec Complete!) ASDIRECTED XX 03/05/20 02:15 03/05/20 02:18 DC Lactobacillus Acidophilus (Bacid) 1 ea BIDWM PO 03/05/20 18:00 Lisinopril (Prinivil) 10 mg DAILY PO 03/05/20 09:00 03/05/20 10:17 Lorazepam (Ativan) 1 mg Q8H PRN PO ANXIETY 03/05/20 06:45 Lorazepam (Ativan) 1 mg STAT STAT IV 03/04/20 21:07 03/04/20 21:09 DC 03/04/20 21:21 Metoprolol Tartrate (Lopressor) 25 mg BID PO 03/05/20 09:00 03/05/20 10:17 Morphine Sulfate (Morphine Sulfate Inj) 4 mg Q30M PRN IV SEVERE PAIN (PS 8-10) 03/04/20 21:30 03/05/20 05:28 DC 03/04/20 21:53 Perphenazine (Trilafon) 2 mg QHS PO 03/04/20 21:00 Allergies Coded Allergies: No Known Allergies (Unverified , 03/04/20) Brittney Patel MD Mar 05, 2020 12:44
[2020-03-05 14:00] VITALS: BP 134/86
[2020-03-05] MEDS: LORazepam 1 MG TAB PO PRN (16:46)
[2020-03-05] MEDS: LACTOBACILLUS ACIDOPHILUS CAP (BACID) PO SCH (17:57)
[2020-03-05] MEDS: PERPHENAZINE 2 MG TAB PO SCH ×2 (21:00→21:36)
[2020-03-05] MEDS: AMITRIPTYLINE 10 MG TAB PO SCH ×2 (21:00→21:36)
[2020-03-05] MEDS: ATORVASTATIN 20 MG TAB PO SCH ×2 (21:00→21:37)
[2020-03-05 22:00] VITALS: BP 124/77
[2020-03-06 06:00] VITALS: BP 119/72
[2020-03-06 06:43] LABS: HEMATOCRIT 41.4 % (42.0-52.0); HEMOGLOBIN 13.2 g/dl (13.5-17.5); MEAN CORPUSCULAR HEMOGLOBIN 29.8 pg (27.0-33.0); MEAN CORPUSCULAR HGB CONC 31.9 g/dl (32.0-36.5); MEAN CORPUSCULAR VOLUME 93.5 fl (80.0-96.0); PLATELET COUNT, AUTOMATED 220 10^3/uL (150-450); RED BLOOD COUNT 4.43 10^6/uL (4.30-6.10); WHITE BLOOD COUNT 5.6 10^3/uL (4.0-10.0)
[2020-03-06 06:55] LABS: BLOOD UREA NITROGEN 21 MG/DL (7-18); CALCIUM LEVEL 9.7 MG/DL (8.8-10.2); CARBON DIOXIDE LEVEL 27 MEQ/L (21-32); CHLORIDE LEVEL 107 MEQ/L (98-107); CREATININE FOR GFR 0.78 MG/DL (0.70-1.30); GLOMERULAR FILTRATION RATE > 60.0 (>35); GLUCOSE, FASTING 90 MG/DL (70-100); POTASSIUM SERUM 4.1 MEQ/L (3.5-5.1); SODIUM LEVEL 143 MEQ/L (136-145)
[2020-03-06] MEDS: LORazepam 1 MG TAB PO PRN (08:30)
[2020-03-06] MEDS: APIXABAN 5 MG TAB (ELIQUIS) PO SCH (08:31)
[2020-03-06] MEDS: ASPIRIN 81 MG ENTERIC TAB PO SCH (08:31)
[2020-03-06] MEDS: LACTOBACILLUS ACIDOPHILUS CAP (BACID) PO SCH (08:31)
[2020-03-06 08:33] VITALS: BP 147/86
[2020-03-06] MEDS: lisinopriL 10 MG TAB PO SCH (08:33)
[2020-03-06] MEDS: METOPROLOL TART 25 MG TABLET PO SCH (08:33)
--- NOTE | 2020-03-06 11:13 | DS.PDOC ---
Discharge Summary General Date of Admission Mar 04, 2020 at 17:18 Date of Discharge 03/06/20 Discharge Summary HISTORY OF PRESENT ILLNESS: This 89-year-old gentleman with PMH of recurrent c. diff infection, hx of CVA and residual expressive aphasia and dysphasia, right-sided hemiparesis, BPH requiring chronic suprapubic catheter who was brought to the hospital by his daughter because he's been having foul smelling loose stools for 3 days. She states that he has been having multiple large bowel movements with associated abdominal pain. He has a history of C. difficile and her concern was that he may be haivng a reoccurrence. There was no documented n/v, fevers, chills. In the ER, CT abdomen/pelvis showed no acute infectious concerns. Labs were unremarkable. GI panel was unable to be obtained in ER due to no diarrhea being had by patient. Family felt uncomfortable sending the patient home and the patient was admitted for further evaluation of diarrhea. HOSPITAL COURSE: The patient had no diarrhea episodes during his admission which could prompt us to send a GI panel. On examination, the patient's abdomen remained soft and, because he is unable to communicate with us due to advance dementia, nontender to examination. He remained afebrile, WBC wnl. UA + on UCx for MRSA. Upon discussion with clinical pharmacy, there is currently no role for treatment of asymptomatic bacteriuria among patients with indwelling bladder catheters. In this patient's case, he is not communicative; however, he displays no s/s of discomfort with no s/s of infection otherwise. This was decided to be asymp tomatic bacteriuria likely 2/2 to chronic indwelling suprapubic catheter. Decision was made to keep off abx- this will also help prevent increased risk of c. difficile infection. He will remain on probiotic. He had repeat swallowing evaluation for dysphagia and diet was decided to be mechanical soft with thickened liquids. On 03/06/20, patient was discharged home in stable condition without any s/s of pain, further concern. His daughter, Yareli, was updated prior to discharge. He will need f/u with PCP in 1-2 weeks after discharge. 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 HEIKE Depression, unspecified depression type Dementia with behavioral disturbance PAST SURGICAL HISTORY: aortic valve repair CAD s/p quad bypass SOCIAL HISTORY: Unable to obtain 2/2 to dementia FAMILY HISTORY: Unable to obtain 2/2 to dementia ALLERGIES: Please see below. HOSPITAL COURSE: DISCHARGE MEDICATIONS: Please see below. PHYSICAL EXAMINATION: VS: Please see below GEN: well-nourished, pleasant but not communicative with me, occasionally mumbles, resting in bed INTEGUMENT: not flushed, intact CVS: RRR/NMRG/ radial pulses intact LUNGS: lungs are clear to auscultation bilaterally on room air / no coughing ABDOMEN: Contour ( distended) / soft & not tender with palpation : Suprapubic catheter in place, area around insertion in abdomen appears clean MSK/EXTREMITIES: No edema, warm, pulses + in all extremities, no atrophy, no cyanosis, clubbing or edema Neuro: Right upper ext contraction- baseline, no overt new focal deficits, unable to perform CN exam LABORATORY DATA: Please see below MICROBIOLOGY: UCx: MRSA PLAN: 1. 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 Dysphagia 2/2 to prior CVA -Repeat swallowing evaluation done this admission, findings: mechanical soft, nectar thick liquids. -Discussed with daughter. 3. Diarrhea- witnessed at home but not this admission. -No abd pain, diarrhea, n/v -Hx of C. diff recently, no s/s of reoccurrence -GI panel unable to be collected due to not having loose BM -Restarting probiotic, f/u with PCP 4. Dementia w Behavioral Disturbance/ Depression -At baseline -C/w home meds 5 Afib -Stable -C/w home meds 6 CAD -Stable. -C/w atorvastatin, BB 7 HTN -C/w lisinopril, metoprolol 8. DVT px -Apixaban BID DISPOSITION: Discharged home with existing caregivers and home services. His daughter, Yareli, was updated prior to discharge on findings and plan. TIME SPENT ON DISCHARGE: Greater than 30 minutes. Vital Signs/I&Os Vital Signs Date Time Temp Pulse Resp B/P (MAP) Pulse Ox O2 Delivery O2 Flow Rate FiO2 03/06/20 08:33 93 147/86 03/06/20 06:00 97.2 19 95 Room Air I&O- Last 24 Hours up to 6 AM 03/06/20 06:00 Intake Total 290 ml Output Total 600 ml Balance -310 ml Laboratory Data Labs 24H Laboratory Tests 2 03/06/20 05:55: Nucleated Red Blood Cells % (auto) 0.0, Anion Gap 9, Glomerular Filtration Rate > 60.0, Calcium Level 9.7 CBC/BMP Laboratory Tests 03/06/20 05:55 Microbiology Microbiology 03/04/20 Urine Culture - Final, Complete Staph.aureus Methicillin Resis Discharge Medications Scheduled Amitriptyline HCl (Amitriptyline HCl) 10 Mg Tablet, 10 MG PO QHS, (Reported) Apixaban (Eliquis) 5 Mg Tab, 5 MG PO BID, (Reported) Aspirin (Aspirin EC) 81 Mg Tab, 81 MG PO DAILY, (Reported) Atorvastatin Calcium (Atorvastatin Calcium) 40 Mg Tablet, 40 MG PO QHS, (Reported) Glucosamine Sulfate (Glucosamine Sulfate) 500 Mg Capsule, 1,000 MG PO DAILY, (Reported) Lactobacillus Acidophilus (Probiotic) 1 Each Capsule, 1 CAP PO DAILY, (Reported) Lisinopril (Lisinopril) 10 Mg Tab, 10 MG PO DAILY, (Reported) Metoprolol Tartrate (Metoprolol Tartrate) 25 Mg Tab, 25 MG PO BID, (Reported) Multivitamins (Thera M Plus Tablet) 1 Tab Tab, 1 TAB PO DAILY, (Reported) Perphenazine (Perphenazine) 2 Mg Tablet, 2 MG PO QHS, (Reported) Scheduled PRN Acetaminophen (Acetaminophen) 500 Mg Tablet, 1,000 MG PO Q6H PRN for PAIN, (Reported) Lorazepam (Lorazepam) 1 Mg Tablet, 1 MG PO Q8H PRN for ANXIETY, (Reported) Allergies Coded Allergies: No Known Allergies (Unverified , 03/04/20) Current Medications Current Medications Medications (Trade) Dose Ordered Sig/[place] Route PRN Reason Start Time Stop Time Status Last Admin Dose Admin Acetaminophen (Tylenol Tab) 1,000 mg Q6H PRN PO PAIN 03/05/20 06:45 Amitriptyline HCl (Elavil) 10 mg QHS PO 03/04/20 21:00 Apixaban (Eliquis) 5 mg BID PO 03/05/20 09:00 03/06/20 08:31 Aspirin (Ecotrin) 81 mg DAILY PO 03/05/20 09:00 03/06/20 08:31 Atorvastatin Calcium (Lipitor) 40 mg QHS PO 03/04/20 21:00 Ceftriaxone Sodium 1 gm/ Dextrose 50 ml @ 100 mls/hr Q24H IV 03/05/20 09:00 03/06/20 08:29 DC 03/05/20 10:14 Home Med (Med Rec Complete!) ASDIRECTED XX 03/05/20 02:15 03/05/20 02:18 DC Lactobacillus Acidophilus (Bacid) 1 ea BIDWM PO 03/05/20 18:00 03/06/20 08:31 Lisinopril (Prinivil) 10 mg DAILY PO 03/05/20 09:00 03/06/20 08:33 Lorazepam (Ativan) 1 mg Q8H PRN PO ANXIETY 03/05/20 06:45 03/06/20 08:30 Lorazepam (Ativan) 1 mg STAT STAT IV 03/04/20 21:07 03/04/20 21:09 DC 03/04/20 21:21 Metoprolol Tartrate (Lopressor) 25 mg BID PO 03/05/20 09:00 03/06/20 08:33 Morphine Sulfate (Morphine Sulfate Inj) 4 mg Q30M PRN IV SEVERE PAIN (PS 8-10) 03/04/20 21:30 03/05/20 05:28 DC 03/04/20 21:53 Perphenazine (Trilafon) 2 mg QHS PO 03/04/20 21:00 Brittney Patel MD Mar 06, 2020 11:13
[2020-03-06] MEDS ORDERED: FLUBLOK(EGG FREE)(QUAD)INFLUENZA VACC 0.5ML SYRINGE 18YRS & OLDER IM ONE (14:00)
== END 2020-03-06 13:08 | disposition home or self-care (01) | DRG 392 ==
LOC: M ED 17:17 → M ED INP 17:18 → ENRESERV 03-05 03:58 → M MSPAV 03-05 05:21 → OBSVTOIN 03-05 12:43
PROVIDERS: ADMIT Internal Medicine; ATTEND Internal Medicine
DX: R19.7 Diarrhea, unspecified (principal); F03.91 Unspecified dementia, unspecified severity, with behavioral disturbance; I50.32 Chronic diastolic (congestive) heart failure; I69.351 Hemiplegia and hemiparesis following cerebral infarction affecting right dominant side; I69.991 Dysphagia following unspecified cerebrovascular disease; I48.0 Paroxysmal atrial fibrillation; I25.10 Atherosclerotic heart disease of native coronary artery without angina pectoris; I11.0 Hypertensive heart disease with heart failure; Z95.0 Presence of cardiac pacemaker; Z95.1 Presence of aortocoronary bypass graft; Z85.46 Personal history of malignant neoplasm of prostate; I71.4 Abdominal aortic aneurysm, without rupture; G47.33 Obstructive sleep apnea (adult) (pediatric); F32.9 Major depressive disorder, single episode, unspecified; F10.10 Alcohol abuse, uncomplicated; Z79.01 Long term (current) use of anticoagulants; Z79.82 Long term (current) use of aspirin; R82.71 Bacteriuria; I69.320 Aphasia following cerebral infarction; I69.391 Dysphagia following cerebral infarction; E78.5 Hyperlipidemia, unspecified; N40.0 Benign prostatic hyperplasia without lower urinary tract symptoms; I36.0 Nonrheumatic tricuspid (valve) stenosis; K59.00 Constipation, unspecified; Z79.899 Other long term (current) drug therapy

== ENCOUNTER 2020-04-22 15:15 | Inpatient (IN) | payer MEDICARE ==
[~2020-04-22] VITALS: Ht 182.9 cm; Wt 78.2 kg
[2020-04-22 10:50] VITALS: BP 164/75
[~2020-04-22 15:15] MED LIST changes: +[UNRECOGNIZED DRUG - CODE] PO
[2020-04-22 16:43] LABS: APPEARANCE, URINE CLOUDY (CLEAR); BACTERIA, URINE AUTO 1+ (NEGATIVE); BILIRUBIN, URINE AUTO NEGATIVE (NEGATIVE); BLOOD, URINE BLOOD 2+ (NEGATIVE); CALCIUM OXALATE CRYSTALS SMALL; COLOR, URINE AMBER (YELLOW); GLUCOSE, URINE (UA) AUTO NEGATIVE (NEGATIVE); KETONE, URINE AUTO NEGATIVE (NEGATIVE); LEUKOCYTE ESTERASE, URINE AUTO 3+ (NEGATIVE); MUCUS, URINE LARGE (NEGATIVE); NITRITE, URINE AUTO NEGATIVE (NEGATIVE); PROTEIN, URINE AUTO 2+ mg/dL (NEGATIVE); RBC, URINE AUTO TNTC /HPF (0-3); RENAL EPITHELIAL CELLS 1 /HPF; SPECIFIC GRAVITY URINE AUTO 1.036 (1.002-1.035); SQUAMOUS EPITHELIAL CELL UR AU 2 /HPF (0-6); WBC, URINE AUTO TNTC /HPF (0-3)
[2020-04-22 16:47] LABS: BASO % 0.5 % (0.0-1.0); HEMATOCRIT 37.2 % (42.0-52.0); HEMOGLOBIN 11.6 g/dl (13.5-17.5); LYMPH # 0.4 10^3/uL (1.5-5.0); MEAN CORPUSCULAR HEMOGLOBIN 29.5 pg (27.0-33.0); MEAN CORPUSCULAR HGB CONC 31.2 g/dl (32.0-36.5); MEAN CORPUSCULAR VOLUME 94.7 fl (80.0-96.0); MONO # 0.7 10^3/uL (0.0-0.8); MONO % 11.3 % (0.0-5.0); NEUTROPHILS # 4.9 10^3/uL (1.5-8.5); NEUTROPHILS % 81.7 % (36.0-66.0); PLATELET COUNT, AUTOMATED 166 10^3/uL (150-450); RED BLOOD COUNT 3.93 10^6/uL (4.30-6.10)
[2020-04-22 16:58] LABS: BLOOD UREA NITROGEN 21 MG/DL (7-18); CALCIUM LEVEL 8.5 MG/DL (8.8-10.2); CARBON DIOXIDE LEVEL 25 MEQ/L (21-32); CHLORIDE LEVEL 108 MEQ/L (98-107); CREATININE FOR GFR 0.82 MG/DL (0.70-1.30); GLOMERULAR FILTRATION RATE > 60.0 (>35); GLUCOSE, FASTING 107 MG/DL (70-100); POTASSIUM SERUM 3.4 MEQ/L (3.5-5.1); SODIUM LEVEL 142 MEQ/L (136-145)
--- NOTE | 2020-04-22 17:47 | REP ---
INDICATION: SOB, COVID. COMPARISON: AP portable chest 10/22/2019, 09/13/2019; CT abdomen lung bases 03/04/2020 TECHNIQUE: Portable AP seated chest. FINDINGS: The lungs are hypoinflated. There is a new infiltrate in the left base lateral to the heart. There is a single lead pacer, sternotomy wires and aortic stent valve again noted. There is cardiomegaly with left atrial and ventricular enlargement. Vascular markings are crowded with some venous hypertension suspected. Early interstitial edema difficult to exclude in the setting of fibrosis. Patchy interstitial infiltrates could also give this appearance. No gross effusion. IMPRESSION: New infiltrate adjacent to the left heart border in the lower lobe with vascular markings crowded due to hypoinflation. No gross effusion. Crowded markings and some vascular congestion noted with cardiomegaly as before. Patchy interstitial infiltrates could also give this appearance. Findings certainly could suggest COVID pneumonia. <Electronically signed by Bert Matthew > 04/22/20 [id number]
[2020-04-22 18:00] LABS: INR 1.67; PROTHROMBIN TIME 20.1 SECONDS (12.5-14.3)
[2020-04-22 18:01] LABS: PARTIAL THROMBOPLASTIN TIME 51.1 SECONDS (24.2-38.5)
[2020-04-22 18:02] LABS: D-DIMER QUANT 307.64 ng/ml (<500)
[2020-04-22] MEDS ORDERED: META28.32 PO (18:03)
[2020-04-22] MEDS ORDERED: OMEP-218 PO (18:03)
[2020-04-22 18:05] LABS: ALBUMIN 3.2 GM/DL (3.2-5.2); ALT/SGPT 15 U/L (12-78); BILIRUBIN,DIRECT 0.2 MG/DL (0.0-0.2); BILIRUBIN,TOTAL 0.7 MG/DL (0.2-1.0); C REACTIVE PROTEIN QUANTITATIV 8.18 MG/DL (0.00-0.30); CK-MB VALUE MASS < 1.0 NG/ML (<3.6); CPK CREATINE PHOSPHOKINASE 42 U/L (39-308); FERRITIN 100 NG/ML (26-388); MB/CK RELATIVE INDEX 2.38 (< OR =4); TOTAL PROTEIN 6.4 GM/DL (6.4-8.2); TROPONIN I 0.02 NG/ML (< 0.10)
[2020-04-22] MEDS ORDERED: ACETAMINOPHEN 500 MG TAB PO PRN (20:15)
[2020-04-22] MEDS: AMITRIPTYLINE 10 MG TAB PO SCH ×2 (21:00→23:39)
[2020-04-22] MEDS: PERPHENAZINE 2 MG TAB PO SCH ×2 (21:00→23:39)
--- NOTE | 2020-04-22 21:45 | HPEPDOC ---
General Date of Admission Apr 22, 2020 at 19:24 Date of Service: Apr 22, 2020 Attending Physician: MARY ANN THAYER DO Chief Complaint The patient is a 89-year-old male admitted with a reason for visit of Covid 19 Virus Infection. Source: Family History of Present Illness Mr. 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 Patient does not speak, history obtained from family. Patient has 24/7 care at home from a private company. Daughter is in [place]. Son (Robbie Dailey, II), who is the health care proxy, is in [place]. They have not seen the father recently, and they learn about how their father is doing through the nurse. About 2 days ago, Mr. Dailey was having fevers. They were going to bring him to the ED for evaluation as he gets frequent UTI, but fevers went away yesterday. Today, he had fevers again and was brought to the ED. Chest XR obtained was suggestive of COVID pneumonia and he tested positive for COVID. Otherwise, he had no leukocytosis. UA demonstrated leuk esterase and bacteria, but patient has indwelling Gonzales. Patient was saturating at 94% at room air. Patient was brought in for placement as he requires 24/7 care, but has tested positive for COVID. Home Medications Scheduled Amitriptyline HCl (Amitriptyline HCl) 10 Mg Tablet, 10 MG PO QHS, (Reported) Apixaban (Eliquis) 5 Mg Tab, 5 MG PO BID, (Reported) Aspirin (Aspirin EC) 81 Mg Tab, 81 MG PO DAILY, (Reported) Atorvastatin Calcium (Atorvastatin Calcium) 40 Mg Tablet, 40 MG PO QHS, (Reported) Glucosamine Sulfate (Glucosamine Sulfate) 500 Mg Capsule, 1,000 MG PO DAILY, (Reported) Lactobacillus Acidophilus (Probiotic) 1 Each Capsule, 1 CAP PO DAILY, (Reported) Lisinopril (Lisinopril) 10 Mg Tab, 10 MG PO DAILY, (Reported) Metoprolol Tartrate (Metoprolol Tartrate) 25 Mg Tab, 25 MG PO BID, (Reported) Multivitamins (Thera M Plus Tablet) 1 Tab Tab, 1 TAB PO DAILY, (Reported) Omeprazole (Omeprazole) 20 Mg Capsule.dr, 20 MG PO DAILY, (Reported) Perphenazine (Perphenazine) 2 Mg Tablet, 2 MG PO QHS, (Reported) Psyllium Husk (with Sugar) (Metamucil Powder) 575 Gm Powder, 1 PKT PO DAILY, (Reported) Scheduled PRN Acetaminophen (Acetaminophen) 500 Mg Tablet, 1,000 MG PO Q6H PRN for PAIN, (Reported) Lorazepam (Lorazepam) 1 Mg Tablet, 1 MG PO Q8H PRN for ANXIETY, (Reported) Allergies Coded Allergies: No Known Allergies (Unverified , 03/04/20) Past Medical History Medical History 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 HEIKE Depression, unspecified depression type Dementia with behavioral disturbance aortic valve repair CAD s/p quad bypass History of C.diff diarrhea Surgical History Pacemaker placement CABGx4 Aortic valve replacement Suprapubic catheter placement Family History Patient aphasic, unable to obtain Social History * Smoker: former Smoker Alcohol: Denies Drugs: denies A-FIB/CHADSVASC A-FIB History Current/History of A-Fib/PAF?: Yes Current PO Anticoag Therapy: Yes Review of Systems Other systems Patient aphasic, unable to obtain Physical Examination General Exam: Positive: No Acute Distress; Negative: Cooperative Eye Exam: Negative: Sclera icteric ENT Exam: Positive: Atraumatic Neck Exam: Negative: thyromegaly Chest Exam: Positive: Other (Coarse breath sounds) Heart Exam: Positive: Rate Normal, Regular Rhythm Abdomen Exam: Positive: Normal bowel sounds; Negative: Soft Extremity Exam: Negative: Edema Neuro Exam: Positive: Other (Unable to obtain as aphasic and not following commands) Psych Exam: Positive: Other (Unable to obtain as aphasic and not following commands) Vital Signs Vital Signs Date Time Temp Pulse Resp B/P (MAP) Pulse Ox O2 Delivery O2 Flow Rate FiO2 04/22/20 19:45 69 22 16/80 (59) 91 Room Air 04/22/20 17:57 101.9 Laboratory Data Labs 24H Laboratory Tests 2 04/22/20 16:23: Immature Granulocyte % (Auto) 0.5, Neutrophils (%) (Auto) 81.7H, Lymphocytes (%) (Auto) 6.0L, Monocytes (%) (Auto) 11.3H, Eosinophils (%) (Auto) 0.0, Basophils (%) (Auto) 0.5, Neutrophils # (Auto) 4.9, Lymphocytes # (Auto) 0.4L, Monocytes # (Auto) 0.7, Eosinophils # (Auto) 0.0, Basophils # (Auto) 0.0, Nucleated Red Blood Cells % (auto) 0.0, Prothrombin Time 20.1H, Prothromb Time International Ratio 1.67, Activated Partial Thromboplast Time 51.1H, D-Dimer, Quantitative 307.64, Anion Gap 9, Glomerular Filtration Rate > 60.0, Calcium Level 8.5L, Ferritin 100, Total Bilirubin 0.7, Direct Bilirubin 0.2, Aspartate Amino Transf (AST/SGOT) 18, Alanine Aminotransferase (ALT/SGPT) 15, Alkaline Phosphatase 62, Total Creatine Kinase 42, Creatine Kinase MB < 1.0, Creatine Kinase MB Relative Index 2.38, Troponin I 0.02, C-Reactive Protein, Quantitative 8.18H, Total Protein 6.4, Albumin 3.2, Albumin/Globulin Ratio 1.0, Procalcitonin 0.08 04/22/20 16:24: Urine Color YUVAL, Urine Appearance CLOUDYH, Urine pH 6.0, Urine Specific Mason 1.036, Urine Protein 2+H, Urine Glucose (Auto)(UA) NEGATIVE, Urine Ketones (Auto) NEGATIVE, Urine Blood 2+H, Urine Nitrite NEGATIVE, Urine Bilirubin NEGATIVE, Urine Urobilinogen 2.0H, Urine Leukocyte Esterase (Auto) 3+H, Urine WBC (Auto) TNTCH, Urine RBC (Auto) TNTCH, Urine Hyaline Casts (Auto) 0, Urine Bacteria (Auto) 1+H, Urine Squamous Epithelial Cells 2, Urine Renal Epithelial Cells 1, Urine Calcium Oxalate Cryst (Auto) SMALL, Urine Mucus (Auto) LARGE, Urine Sperm (Auto) , Lactic Acid Level 1.4 CBC/BMP Laboratory Tests 04/22/20 16:23 Microbiology Microbiology 04/22/20 Blood Culture, Received Pending 04/22/20 Urine Culture, Received Pending 04/22/20 Blood Culture, Received Pending 11/12/20 Respiratory Virus Panel (PCR) ([facility]) - Final, Complete Human Rhinovirus/Enterovirus SARS-CoV-2 (COVID 19) Assessment/Plan Mr. Dailey is an 89 year old male here with COVID pneumonia. No hypoxia or oxyg en requirement at this time, but he does have fevers. Will give Tylenol for fevers. Otherwise, he requires 24/7 care at home. Will need to figure out placement Plan / VTE VTE Prophylaxis Ordered?: Yes Plan Plan 1. COVID pneumonia -Supportive care -PRN Tylenol for fevers 2. CVA with sequela -Aphasic and dysphasia -Pureed diet with nectar thick liquids -Aspirin, Atorvastatin, and Eliquis 3. Paroxysmal atrial fibrillation -Not in RVR -Lopressor and Eliquis 4. Hypertension -Lisinopril and Lopressor 5. History of C.diff -May need C.diff ppx if taking antibiotics 6. Chronic indwelling Gonzales -Urology placed 7. DVT ppx -On [place]MARY ANN Sims DO Apr 22, 2020 21:45
[2020-04-22] MEDS: ATORVASTATIN 20 MG TAB PO SCH (22:48)
[2020-04-22] MEDS: ACETAMINOPHEN TAB 650MG DOSE (2X325MG) PO PRN (22:49)
[2020-04-22] MEDS: METOPROLOL TART 25 MG TABLET PO SCH (22:49)
[2020-04-22] MEDS: APIXABAN 5 MG TAB (ELIQUIS) PO SCH (22:49)
[2020-04-22 22:50] VITALS: BP 164/75
[2020-04-22] MEDS: LORazepam 1 MG TAB PO PRN (22:51)
[2020-04-22 22:57] VITALS: O2SAT 95
[2020-04-23] VITALS (21 sets, daily range): BP systolic 124–168; BP diastolic 74–90; O2SAT 85–97
[2020-04-23] MEDS: MULTIVITAMINS/MINERALS THERAP 1 TAB PO SCH (09:17)
[2020-04-23] MEDS: lisinopriL 10 MG TAB PO SCH (09:17)
[2020-04-23] MEDS: APIXABAN 5 MG TAB (ELIQUIS) PO SCH ×2 (09:17→19:54)
[2020-04-23] MEDS: METAMUCIL (PSYLLIUM) PACKET PO SCH (09:18)
[2020-04-23] MEDS: OMEPRAZOLE 20 MG CAP PO SCH (09:18)
[2020-04-23] MEDS: ASPIRIN 81 MG ENTERIC TAB PO SCH (09:18)
[2020-04-23] MEDS: LACTOBACILLUS ACIDOPHILUS CAP (BACID) PO SCH (09:18)
[2020-04-23] MEDS: METOPROLOL TART 25 MG TABLET PO SCH ×2 (09:18→19:53)
[2020-04-23 09:26] LABS: BASO % 0.4 % (0.0-1.0); HEMATOCRIT 39.2 % (42.0-52.0); HEMOGLOBIN 12.4 g/dl (13.5-17.5); LYMPH # 0.9 10^3/uL (1.5-5.0); LYMPH % 16.1 % (24.0-44.0); MEAN CORPUSCULAR HEMOGLOBIN 30.3 pg (27.0-33.0); MEAN CORPUSCULAR HGB CONC 31.6 g/dl (32.0-36.5); MEAN CORPUSCULAR VOLUME 95.8 fl (80.0-96.0); MONO # 0.8 10^3/uL (0.0-0.8); MONO % 14.4 % (0.0-5.0); NEUTROPHILS # 3.6 10^3/uL (1.5-8.5); NEUTROPHILS % 68.7 % (36.0-66.0); PLATELET COUNT, AUTOMATED 171 10^3/uL (150-450); RED BLOOD COUNT 4.09 10^6/uL (4.30-6.10); WHITE BLOOD COUNT 5.3 10^3/uL (4.0-10.0)
[2020-04-23 09:45] LABS: BLOOD UREA NITROGEN 21 MG/DL (7-18); CALCIUM LEVEL 8.8 MG/DL (8.8-10.2); CARBON DIOXIDE LEVEL 27 MEQ/L (21-32); CHLORIDE LEVEL 107 MEQ/L (98-107); CREATININE FOR GFR 0.84 MG/DL (0.70-1.30); GLOMERULAR FILTRATION RATE > 60.0 (>35); GLUCOSE, FASTING 113 MG/DL (70-100); POTASSIUM SERUM 3.5 MEQ/L (3.5-5.1); SODIUM LEVEL 143 MEQ/L (136-145)
[2020-04-23] MEDS: ACETAMINOPHEN TAB 650MG DOSE (2X325MG) PO PRN ×2 (11:34→21:55)
[2020-04-23] MEDS: LORazepam 1 MG TAB PO PRN ×2 (14:25→21:55)
[2020-04-23] MEDS ORDERED: LORazepam 2 MG/ML VIAL IV PRN (14:30)
[2020-04-23] MEDS: LORazepam 2 MG/ML VIAL IV PRN (15:54)
[2020-04-23] MEDS ORDERED: OLANZapine INTRAMUSCULAR 10MG VIAL IM PRN (16:00)
[2020-04-23] MEDS: PERPHENAZINE 2 MG TAB PO SCH (19:53)
[2020-04-23] MEDS: AMITRIPTYLINE 10 MG TAB PO SCH (19:54)
[2020-04-23] MEDS: ATORVASTATIN 20 MG TAB PO SCH (19:54)
[2020-04-23] MEDS ORDERED: POTASSIUM CHLORIDE 10 MEQ SR TABLET PO ONE (21:00)
--- NOTE | 2020-04-23 21:17 | IPNPDOC ---
Subjective Date Seen The patient was seen on 04/23/20. Subjective Chief Complaint/HPI Mr. 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 Today, he was trying to climb out of bed. Family confirms that he can be agitated and they medicate the patient to calm him down. Otherwise, nurse reports that the patient eats without problems and takes medication without problems. Objective Physical Examination General Exam: Positive: No Acute Distress; Negative: Cooperative Eye Exam: Negative: Sclera icteric ENT Exam: Positive: Atraumatic Neck Exam: Negative: thyromegaly Chest Exam: Positive: Other (Coarse breath sounds) Heart Exam: Positive: Rate Normal, Regular Rhythm Abdomen Exam: Positive: Normal bowel sounds; Negative: Soft Extremity Exam: Negative: Edema Neuro Exam: Positive: Other (Unable to obtain as aphasic and not following commands) Psych Exam: Positive: Other (Unable to obtain as aphasic and not following commands) Assessment /Plan Assessment Mr. 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 He still having fevers. Will treat with Tylenol. Will discuss discharge planning with PFS on Sunday as patient requires 24/ care Plan/VTE VTE Prophylaxis Ordered?: Yes Plan 1. COVID pneumonia -Supportive care -PRN Tylenol for fevers 2. CVA with sequela -Aphasic and dysphasia -Pureed diet with nectar thick liquids -Aspirin, Atorvastatin, and Eliquis 3. Paroxysmal atrial fibrillation -Not in RVR -Lopressor and Eliquis 4. Hypertension -Lisinopril and Lopressor 5. History of C.diff -May need C.diff ppx if taking antibiotics 6. Chronic indwelling Gonzales -Urology placed 7. DVT ppx -On Eliquis VS, I&O, 24H, Fishbone Vital Signs/I&O Vital Signs Date Time Temp Pulse Resp B/P (MAP) Pulse Ox O2 Delivery O2 Flow Rate FiO2 04/23/20 20:00 94 2.0 04/23/20 19:53 76 156/74 04/23/20 19:51 100.1 18 Nasal Cannula I&O- Last 24 Hours up to 6 AM 04/23/20 06:00 Intake Total 30 ml Output Total 325 ml Balance -295 ml Laboratory Data 24H LABS Laboratory Tests 2 04/23/20 08:41: Immature Granulocyte % (Auto) 0.4, Neutrophils (%) (Auto) 68.7H, Lymphocytes (%) (Auto) 16.1L, Monocytes (%) (Auto) 14.4H, Eosinophils (%) (Auto) 0.0, Basophils (%) (Auto) 0.4, Neutrophils # (Auto) 3.6, Lymphocytes # (Auto) 0.9L, Monocytes # (Auto) 0.8, Eosinophils # (Auto) 0.0, Basophils # (Auto) 0.0, Nucleated Red Blood Cells % (auto) 0.0, Anion Gap 9, Glomerular Filtration Rate > 60.0, Calcium Level 8.8 CBC/BMP Laboratory Tests 04/23/20 08:41 Microbiology Microbiology 04/22/20 Blood Culture - Preliminary, Resulted No growth after 24 hours . All specim... 04/22/20 Urine Culture, Received Pending 04/22/20 Blood Culture - Preliminary, Resulted No growth after 24 hours . All specim... 04/22/20 Respiratory Virus Panel (PCR) ([facility]) - Final, Complete Human Rhinovirus/Enterovirus SARS-CoV-2 (COVID 19) MARY ANN THAYER DO Apr 23, 2020 21:17
[2020-04-24] VITALS (15 sets, daily range): BP systolic 110–177; BP diastolic 58–95; O2SAT 92–99
[2020-04-24] MEDS ORDERED: LORazepam 2 MG/ML VIAL As Ordered ONE (05:45)
[2020-04-24] MEDS: LORazepam 2 MG/ML VIAL IV PRN ×2 (05:50→19:24)
[2020-04-24 08:20] LABS: HEMATOCRIT 40.1 % (42.0-52.0); HEMOGLOBIN 13.1 g/dl (13.5-17.5); MEAN CORPUSCULAR HEMOGLOBIN 30.6 pg (27.0-33.0); MEAN CORPUSCULAR HGB CONC 32.7 g/dl (32.0-36.5); MEAN CORPUSCULAR VOLUME 93.7 fl (80.0-96.0); PLATELET COUNT, AUTOMATED 158 10^3/uL (150-450); RED BLOOD COUNT 4.28 10^6/uL (4.30-6.10); WHITE BLOOD COUNT 4.1 10^3/uL (4.0-10.0)
[2020-04-24 08:43] LABS: BLOOD UREA NITROGEN 21 MG/DL (7-18); CALCIUM LEVEL 8.4 MG/DL (8.8-10.2); CARBON DIOXIDE LEVEL 25 MEQ/L (21-32); CHLORIDE LEVEL 108 MEQ/L (98-107); CREATININE FOR GFR 0.65 MG/DL (0.70-1.30); GLOMERULAR FILTRATION RATE > 60.0 (>35); GLUCOSE, FASTING 90 MG/DL (70-100); POTASSIUM SERUM 3.4 MEQ/L (3.5-5.1); SODIUM LEVEL 143 MEQ/L (136-145)
[2020-04-24] MEDS: LACTOBACILLUS ACIDOPHILUS CAP (BACID) PO SCH (09:13)
[2020-04-24] MEDS: APIXABAN 5 MG TAB (ELIQUIS) PO SCH ×2 (09:13→20:22)
[2020-04-24] MEDS: OMEPRAZOLE 20 MG CAP PO SCH (09:13)
[2020-04-24] MEDS: METAMUCIL (PSYLLIUM) PACKET PO SCH (09:13)
[2020-04-24] MEDS: ASPIRIN 81 MG ENTERIC TAB PO SCH (09:13)
[2020-04-24] MEDS: MULTIVITAMINS/MINERALS THERAP 1 TAB PO SCH (09:13)
[2020-04-24] MEDS: METOPROLOL TART 25 MG TABLET PO SCH ×2 (09:14→20:29)
[2020-04-24] MEDS: lisinopriL 10 MG TAB PO SCH (09:14)
[2020-04-24] MEDS ORDERED: POTASSIUM CHLORIDE 10 MEQ SR TABLET PO ONE (19:00)
--- NOTE | 2020-04-24 19:17 | IPNPDOC ---
Subjective Date Seen The patient was seen on 04/24/20. Subjective Chief Complaint/HPI Mr. 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 He only had agitation this morning, had one dose of Ativan. Otherwise, he did well. No coughing after eating food. He's comfortable lying in bed watching TV. Last fever was 04/23/2020 at 19:51. Objective Physical Examination General Exam: Positive: No Acute Distress; Negative: Cooperative Eye Exam: Negative: Sclera icteric ENT Exam: Positive: Atraumatic Neck Exam: Negative: thyromegaly Chest Exam: Positive: Other (Coarse breath sounds) Heart Exam: Positive: Rate Normal, Regular Rhythm Abdomen Exam: Positive: Normal bowel sounds; Negative: Soft Extremity Exam: Negative: Edema Neuro Exam: Positive: Other (Unable to obtain as aphasic and not following commands) Psych Exam: Positive: Other (Unable to obtain as aphasic and not following commands) Assessment /Plan Assessment Mr. 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 Last fever was 04/23/2020. 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 Due to his history of C.diff colitis, would be cautious about antibiotics. No leukocytosis on CBC. They change his catheter monthly. Next change will be this Sunday Plan/VTE VTE Prophylaxis Ordered?: Yes Plan 1. COVID pneumonia -Supportive care -PRN Tylenol for fevers 2. CVA with sequela -Aphasic and dysphasia -Pureed diet with nectar thick liquids -Aspirin, Atorvastatin, and Eliquis 3. Paroxysmal atrial fibrillation -Not in RVR -Lopressor and Eliquis 4. Hypertension -Lisinopril and Lopressor 5. History of C.diff -May need C.diff ppx if taking antibiotics 6. Chronic indwelling Gonzales -Urology placed -Changed monthly, next scheduled change would be 04/26/2020 7. DVT ppx -On Eliquis VS, I&O, 24H, Fishbone Vital Signs/I&O Vital Signs Date Time Temp Pulse Resp B/P (MAP) Pulse Ox O2 Delivery O2 Flow Rate FiO2 04/24/20 16:00 96 1.0 04/24/20 16:00 Nasal Cannula 04/24/20 14:00 99.2 94 22 110/58 (75) I&O- Last 24 Hours up to 6 AM 04/24/20 06:00 Intake Total 810 ml Output Total 725 ml Balance 85 ml Laboratory Data 24H LABS Laboratory Tests 2 04/24/20 07:45: Nucleated Red Blood Cells % (auto) 0.0, Anion Gap 10, Glomerular Filtration Rate > 60.0, Calcium Level 8.4L CBC/BMP Laboratory Tests 04/24/20 07:45 Microbiology Microbiology 04/22/20 Blood Culture - Preliminary, Resulted No Growth after 48 hours. All Specime... 04/22/20 Urine Culture - Preliminary, Resulted Pseudomonas Aeruginosa Staphylococcus Aureus 04/22/20 Blood Culture - Preliminary, Resulted No Growth after 48 hours. All Specime... 04/22/20 Respiratory Virus Panel (PCR) ([facility]) - Final, Complete Human Rhinovirus/Enterovirus SARS-CoV-2 (COVID 19) MARY ANN THAYER DO Apr 24, 2020 19:17
[2020-04-24] MEDS: ATORVASTATIN 20 MG TAB PO SCH (20:22)
[2020-04-24] MEDS: AMITRIPTYLINE 10 MG TAB PO SCH (20:23)
[2020-04-24] MEDS: PERPHENAZINE 2 MG TAB PO SCH (20:24)
[2020-04-25] VITALS (7 sets, daily range): BP systolic 148–161; BP diastolic 75–95; O2SAT 94–96
[2020-04-25] MEDS: ACETAMINOPHEN TAB 650MG DOSE (2X325MG) PO PRN ×3 (00:10→21:46)
[2020-04-25 07:25] LABS: HEMATOCRIT 41.4 % (42.0-52.0); HEMOGLOBIN 12.7 g/dl (13.5-17.5); MEAN CORPUSCULAR HEMOGLOBIN 29.1 pg (27.0-33.0); MEAN CORPUSCULAR HGB CONC 30.7 g/dl (32.0-36.5); PLATELET COUNT, AUTOMATED 169 10^3/uL (150-450); RED BLOOD COUNT 4.36 10^6/uL (4.30-6.10); WHITE BLOOD COUNT 4.1 10^3/uL (4.0-10.0)
[2020-04-25 07:45] LABS: BLOOD UREA NITROGEN 20 MG/DL (7-18); CALCIUM LEVEL 8.7 MG/DL (8.8-10.2); CARBON DIOXIDE LEVEL 26 MEQ/L (21-32); CHLORIDE LEVEL 110 MEQ/L (98-107); CREATININE FOR GFR 0.78 MG/DL (0.70-1.30); GLOMERULAR FILTRATION RATE > 60.0 (>35); GLUCOSE, FASTING 105 MG/DL (70-100); MAGNESIUM LEVEL 2.1 MG/DL (1.8-2.4); POTASSIUM SERUM 3.8 MEQ/L (3.5-5.1); SODIUM LEVEL 143 MEQ/L (136-145)
[2020-04-25] MEDS: MULTIVITAMINS/MINERALS THERAP 1 TAB PO SCH (08:34)
[2020-04-25] MEDS: LACTOBACILLUS ACIDOPHILUS CAP (BACID) PO SCH (08:35)
[2020-04-25] MEDS: OMEPRAZOLE 20 MG CAP PO SCH (08:35)
[2020-04-25] MEDS: METAMUCIL (PSYLLIUM) PACKET PO SCH (08:35)
[2020-04-25] MEDS: lisinopriL 10 MG TAB PO SCH (08:35)
[2020-04-25] MEDS: ASPIRIN 81 MG ENTERIC TAB PO SCH (08:35)
[2020-04-25] MEDS: APIXABAN 5 MG TAB (ELIQUIS) PO SCH ×2 (08:35→21:46)
[2020-04-25] MEDS: METOPROLOL TART 25 MG TABLET PO SCH ×2 (08:39→21:47)
--- NOTE | 2020-04-25 10:33 | REP ---
INDICATION: Right lung crackles, increased o2 requirements. COMPARISON: 04/22/2020 FINDINGS: The technique utilized in obtaining the radiograph has magnified the cardiac silhouette and accentuated the interstitial markings. There is cardiomegaly accentuated by technique status quo. Note is again made of previous median sternotomy. The single chamber bipolar pacemaker devices unchanged. The patchy appearing opacities seen previously in the left lower lobe has improved. A subtle patchy opacity may be developing in the right upper lobe. The interstitial markings are again diffusely increased. There is no change in the osseous structures. IMPRESSION: 1. Possible new developing right upper lobe opacity, assess for acute pneumonia. 2. Other findings and chronic changes as described above. <Electronically signed by Bang Rivera > 04/25/20 [id number]
[2020-04-25] MEDS ORDERED: LORazepam 2 MG/ML VIAL As Ordered ONE (14:35)
[2020-04-25] MEDS: LORazepam 2 MG/ML VIAL IV PRN (14:41)
[2020-04-25] MEDS ORDERED: ACETAMINOPHEN 650 MG SUPP PR ONE (15:45)
--- NOTE | 2020-04-25 21:28 | IPNPDOC ---
Subjective Date Seen The patient was seen on 04/25/20. Subjective Chief Complaint/HPI Mr. 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 This morning, there was some crackles in the right lung. Comparing the two CXR, they appear similar on the right lung. The left lung looks better on today's image. He did have a fever today at 1400. Otherwise, he had some agitation today requiring a dose of IV Ativan. Otherwise, the suprapubic catheter is supposed to be changed tomorrow. Spoke with urology, Dr. Bassett. Notified him that patient is COVID positive. He will work with the nurses with the suprapubic catheter Objective Physical Examination General Exam: Positive: No Acute Distress; Negative: Cooperative Eye Exam: Negative: Sclera icteric ENT Exam: Positive: Atraumatic Neck Exam: Negative: thyromegaly Chest Exam: Positive: Other (Coarse breath sounds) Heart Exam: Positive: Rate Normal, Regular Rhythm Abdomen Exam: Positive: Normal bowel sounds; Negative: Soft Extremity Exam: Negative: Edema Neuro Exam: Positive: Other (Unable to obtain as aphasic and not following commands) Psych Exam: Positive: Other (Unable to obtain as aphasic and not following commands) Assessment /Plan Assessment Mr. 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 Last fever was 04/23/2020. 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 Due to his history of C.diff colitis, would be cautious about antibiotics. No leukocytosis on CBC. They change his catheter monthly. Next change will be this Sunday Since he is non-compliant with CPAP, he is on 2L NC for naps and sleeping Plan/VTE VTE Prophylaxis Ordered?: Yes Plan 1. COVID pneumonia -Supportive care -PRN Tylenol for fevers 2. CVA with sequela -Aphasic and dysphasia -Pureed diet with nectar thick liquids -Aspirin, Atorvastatin, and Eliquis 3. Paroxysmal atrial fibrillation -Not in RVR -Lopressor and Eliquis 4. Hypertension -Lisinopril and Lopressor 5. History of C.diff -May need C.diff ppx if taking antibiotics 6. Chronic indwelling Gonzales -Urology consulted, recommendations appreciated -Changed monthly, next scheduled change would be 04/26/2020 -Urine cultures may be colonization 7. DVT ppx -On Eliquis Disposition: Pending ability to receive 01/01 care VS, I&O, 24H, Fishbone Vital Signs/I&O Vital Signs Date Time Temp Pulse Resp B/P (MAP) Pulse Ox O2 Delivery O2 Flow Rate FiO2 04/25/20 20:00 98.7 100 18 148/75 (99) 98 Room Air 04/25/20 14:00 2.0 I&O- Last 24 Hours up to 6 AM 04/25/20 05:59 Intake Total 370 ml Output Total 575 ml Balance -205 ml Laboratory Data 24H LABS Laboratory Tests 2 04/25/20 07:09: Nucleated Red Blood Cells % (auto) 0.0, Anion Gap 7L, Glomerular Filtration Rate > 60.0, Calcium Level 8.7L, Magnesium Level 2.1 CBC/BMP Laboratory Tests 04/25/20 07:09 Microbiology Microbiology 04/22/20 Blood Culture - Preliminary, Resulted No Growth after 72 hours. All specime... 04/22/20 Urine Culture - Final, Complete Pseudomonas Aeruginosa Staph.aureus Methicillin Resis 04/22/20 Blood Culture - Preliminary, Resulted No Growth after 72 hours. All specime... 04/22/20 Respiratory Virus Panel (PCR) ([facility]) - Final, Complete Human Rhinovirus/Enterovirus SARS-CoV-2 (COVID 19) MARY ANN THAYER DO Apr 25, 2020 21:28
[2020-04-25] MEDS: LORazepam 1 MG TAB PO PRN (21:46)
[2020-04-25] MEDS: PERPHENAZINE 2 MG TAB PO SCH (21:46)
[2020-04-25] MEDS: AMITRIPTYLINE 10 MG TAB PO SCH (21:46)
[2020-04-25] MEDS: ATORVASTATIN 20 MG TAB PO SCH (21:46)
[2020-04-26] VITALS (7 sets, daily range): BP systolic 119–165; BP diastolic 67–87; O2SAT 93
[2020-04-26] MEDS: OMEPRAZOLE 20 MG CAP PO SCH (08:27)
[2020-04-26] MEDS: LACTOBACILLUS ACIDOPHILUS CAP (BACID) PO SCH (08:27)
[2020-04-26] MEDS: METAMUCIL (PSYLLIUM) PACKET PO SCH (08:28)
[2020-04-26] MEDS: lisinopriL 10 MG TAB PO SCH (08:28)
[2020-04-26] MEDS: APIXABAN 5 MG TAB (ELIQUIS) PO SCH ×2 (08:28→21:52)
[2020-04-26] MEDS: METOPROLOL TART 25 MG TABLET PO SCH ×2 (08:28→21:59)
[2020-04-26] MEDS: ASPIRIN 81 MG ENTERIC TAB PO SCH (08:28)
[2020-04-26] MEDS: MULTIVITAMINS/MINERALS THERAP 1 TAB PO SCH (08:29)
[2020-04-26] MEDS: LORazepam 1 MG TAB PO PRN ×2 (08:52→21:52)
[2020-04-26] MEDS: ACETAMINOPHEN TAB 650MG DOSE (2X325MG) PO PRN ×2 (12:38→22:10)
--- NOTE | 2020-04-26 13:51 | REP ---
INDICATION: hypoxia, fever. COMPARISON: 04/25/2020 FINDINGS: The technique utilized in obtaining the radiograph has magnified the cardiac silhouette and accentuated the interstitial markings. The subtle suspected opacity developing in the right upper lobe on the prior examination has gotten more dense. Subtle right lower lobe patchy opacities have also developed. There is no significant change in the appearance of the left lung. Note is again made of cardiomegaly accentuated by technique. The single chamber bipolar pacemaker is unchanged. The osseous structures are unchanged. IMPRESSION: Right lung opacities consistent with pneumonia as described above. <Electronically signed by Bang Rivera > 04/26/20 [id number]
--- NOTE | 2020-04-26 18:38 | IPNPDOC ---
Subjective Date Seen The patient was seen on 04/26/20. Subjective Chief Complaint/HPI Mr. 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 Today, he had a fever and was controlled with Tylenol and required a dose of Ativan for agitation Reached out to daughter for disposition. I had misunderstood her in the beginning. Patient does live with the daughter. The daughter, daughter's , and one of the daughter's son is COVID positive. Other son is not and in self quarantine. One health health care / medical job titles is COVID positive and the other is not. We spoke about the future and having him eventually go home. She does not know if their private 01/01 care would be able to care for COVID patient. Objective Physical Examination General Exam: Positive: No Acute Distress; Negative: Cooperative Eye Exam: Negative: Sclera icteric ENT Exam: Positive: Atraumatic Neck Exam: Negative: thyromegaly Chest Exam: Positive: Other (Coarse breath sounds) Heart Exam: Positive: Rate Normal, Regular Rhythm Abdomen Exam: Positive: Normal bowel sounds; Negative: Soft Extremity Exam: Negative: Edema Neuro Exam: Positive: Other (Unable to obtain as aphasic and not following commands) Psych Exam: Positive: Other (Unable to obtain as aphasic and not following commands) Assessment /Plan Assessment Mr. 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 Due to his history of C.diff colitis, would be cautious about antibiotics. No leukocytosis on CBC. They change his catheter monthly. Next change is supposed to be on 04/26/2020. I had contacted Urology, Dr. Bassett, about changing it. He said he would either have the nurses do it, or he was going to wait until 2 weeks has passed from COVID positive to change it. Otherwise, since he is non-compliant with CPAP, he is on 2L NC for naps and sleeping Plan/VTE VTE Prophylaxis Ordered?: Yes Plan 1. COVID pneumonia -Supportive care -PRN Tylenol for fevers 2. CVA with sequela -Aphasic and dysphasia -Pureed diet with nectar thick liquids -Aspirin, Atorvastatin, and Eliquis 3. Paroxysmal atrial fibrillation -Not in RVR -Lopressor and Eliquis 4. Hypertension -Lisinopril and Lopressor 5. History of C.diff -May need C.diff ppx if taking antibiotics 6. Chronic indwelling Gonzales -Urology consulted, recommendations appreciated -Changed monthly, next scheduled change would be 04/26/2020 -Urine cultures may be colonization 7. DVT ppx -On Eliquis Disposition: Home vs placement. Daughter does not know if she can take him home without 01/01 care. VS, I&O, 24H, Fishbone Vital Signs/I&O Vital Signs Date Time Temp Pulse Resp B/P (MAP) Pulse Ox O2 Delivery O2 Flow Rate FiO2 04/26/20 15:27 99.6 90 18 119/75 (90) 92 Nasal Cannula 1.0 I&O- Last 24 Hours up to 6 AM 04/26/20 06:00 Intake Total 780 ml Balance 780 ml Laboratory Data Microbiology Microbiology 04/22/20 Blood Culture - Preliminary, Resulted No Growth after 72 hours. All specime... 04/22/20 Urine Culture - Final, Complete Pseudomonas Aeruginosa Staph.aureus Methicillin Resis 04/22/20 Blood Culture - Preliminary, Resulted No Growth after 72 hours. All specime... 04/22/20 Respiratory Virus Panel (PCR) ([facility]) - Final, Complete Human Rhinovirus/Enterovirus SARS-CoV-2 (COVID 19) MARY ANN THAYER DO Apr 26, 2020 18:38
[2020-04-26] MEDS: AMITRIPTYLINE 10 MG TAB PO SCH (21:52)
[2020-04-26] MEDS: ATORVASTATIN 20 MG TAB PO SCH (21:52)
[2020-04-26] MEDS: PERPHENAZINE 2 MG TAB PO SCH (21:59)
[2020-04-27] VITALS (7 sets, daily range): BP systolic 153–167; BP diastolic 81–96; O2SAT 91–95
[2020-04-27 07:46] LABS: BASO % 0.2 % (0.0-1.0); EOS % 0.2 % (0.0-3.0); HEMATOCRIT 38.6 % (42.0-52.0); HEMOGLOBIN 11.8 g/dl (13.5-17.5); LYMPH # 0.9 10^3/uL (1.5-5.0); LYMPH % 19.2 % (24.0-44.0); MEAN CORPUSCULAR HEMOGLOBIN 29.1 pg (27.0-33.0); MEAN CORPUSCULAR HGB CONC 30.6 g/dl (32.0-36.5); MEAN CORPUSCULAR VOLUME 95.3 fl (80.0-96.0); MONO # 0.4 10^3/uL (0.0-0.8); MONO % 9.6 % (0.0-5.0); NEUTROPHILS # 3.1 10^3/uL (1.5-8.5); NEUTROPHILS % 70.4 % (36.0-66.0); PLATELET COUNT, AUTOMATED 179 10^3/uL (150-450); RED BLOOD COUNT 4.05 10^6/uL (4.30-6.10); WHITE BLOOD COUNT 4.5 10^3/uL (4.0-10.0)
[2020-04-27 07:47] LABS: PLATELET ESTIMATE NORMAL (NORMAL)
[2020-04-27 08:13] LABS: BLOOD UREA NITROGEN 22 MG/DL (7-18); CALCIUM LEVEL 8.5 MG/DL (8.8-10.2); CARBON DIOXIDE LEVEL 29 MEQ/L (21-32); CHLORIDE LEVEL 109 MEQ/L (98-107); CREATININE FOR GFR 0.75 MG/DL (0.70-1.30); GLOMERULAR FILTRATION RATE > 60.0 (>35); GLUCOSE, FASTING 114 MG/DL (70-100); MAGNESIUM LEVEL 2.2 MG/DL (1.8-2.4); POTASSIUM SERUM 3.5 MEQ/L (3.5-5.1); SODIUM LEVEL 145 MEQ/L (136-145)
[2020-04-27] MEDS: LACTOBACILLUS ACIDOPHILUS CAP (BACID) PO SCH (10:40)
[2020-04-27] MEDS: OMEPRAZOLE 20 MG CAP PO SCH (10:40)
[2020-04-27] MEDS: lisinopriL 10 MG TAB PO SCH (10:41)
[2020-04-27] MEDS: ASPIRIN 81 MG ENTERIC TAB PO SCH (10:41)
[2020-04-27] MEDS: METOPROLOL TART 25 MG TABLET PO SCH ×2 (10:41→22:03)
[2020-04-27] MEDS: METAMUCIL (PSYLLIUM) PACKET PO SCH (10:41)
[2020-04-27] MEDS: MULTIVITAMINS/MINERALS THERAP 1 TAB PO SCH (10:42)
[2020-04-27] MEDS: APIXABAN 5 MG TAB (ELIQUIS) PO SCH ×2 (10:42→22:03)
--- NOTE | 2020-04-27 15:28 | IPNPDOC ---
Text Note Date of Service The patient was seen on 04/27/20. 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 Patient was admitted to hospitalist service for further evaluation and treatment. Patient's family is all positive with COVID. At home patient has 01/01 care provided by a third republican provider, however, they are unable to provide this service, given the positive finding. Patient was seen and examined at the bedside. Currently does not appear to be in any distress, is a aphasic at baseline. Objective: Vitals (See below) General: Lying in bed, no acute distress, appears comfortable, Awake / Alert HEENT: NC, AT CVS: +S1S2 Lungs: Fair air entry b/l, -w/r/r Abdomen: Soft, nondistended and nontender Extremities: - Edema, - Calf tenderness Assessment and plan: COVID pneumonia - Currently on minimal amounts of oxygen - Patient has been transition to 1 L nasal cannula HEIKE - Patient uses CPAP at home with 2 L of oxygen bleed into machine CVA with aphasia and dysphasia - c/w modified diet with nectar thick liquids - c/w Aspirin, Atorvastatin, and Eliquis Paroxysmal atrial fibrillation - c/w rate control with metoprolol - c/w full anticoagulation with Eliquis HTN - BP well controlled - c/w Lisinopril / Metoprolol Hx of C.diff Chronic indwelling Rivera - Urology was consulted - Plan for replacement on discharge - Urine cultures likely 2/2 colonization - remains asymptomatic DVT prophylaxis - c/w full anticoagulation with Eliquis Disposition: - Transition to ALC status - Awaiting transition home VS,Fishbone, I+O VS, Fishbone, I+O Laboratory Tests 04/27/20 07:10 Vital Signs Date Time Temp Pulse Resp B/P (MAP) Pulse Ox O2 Delivery O2 Flow Rate FiO2 04/27/20 14:00 100.8 98 23 167/89 (115) 91 Nasal Cannula 2.0 I&O- Last 24 Hours up to 6 AM 04/27/20 06:00 Intake Total 420 ml Output Total 575 ml Balance -155 ml YOSELIN GOLD MD Apr 27, 2020 15:27
[2020-04-27] MEDS: ACETAMINOPHEN TAB 650MG DOSE (2X325MG) PO PRN ×2 (16:03→22:04)
[2020-04-27] MEDS: ATORVASTATIN 20 MG TAB PO SCH (22:02)
[2020-04-27] MEDS: AMITRIPTYLINE 10 MG TAB PO SCH (22:02)
[2020-04-27] MEDS: LORazepam 1 MG TAB PO PRN (22:03)
[2020-04-27] MEDS: PERPHENAZINE 2 MG TAB PO SCH (22:06)
[2020-04-28 07:42] VITALS: BP 169/84
[2020-04-28] MEDS: LORazepam 1 MG TAB PO PRN ×2 (08:53→20:21)
[2020-04-28] MEDS: METAMUCIL (PSYLLIUM) PACKET PO SCH (08:53)
[2020-04-28] MEDS: lisinopriL 10 MG TAB PO SCH (08:53)
[2020-04-28] MEDS: ACETAMINOPHEN TAB 650MG DOSE (2X325MG) PO PRN ×3 (08:53→22:22)
[2020-04-28] MEDS: ASPIRIN 81 MG ENTERIC TAB PO SCH (08:53)
[2020-04-28] MEDS: MULTIVITAMINS/MINERALS THERAP 1 TAB PO SCH (08:53)
[2020-04-28] MEDS: OMEPRAZOLE 20 MG CAP PO SCH (08:54)
[2020-04-28] MEDS: LACTOBACILLUS ACIDOPHILUS CAP (BACID) PO SCH (08:54)
[2020-04-28] MEDS: APIXABAN 5 MG TAB (ELIQUIS) PO SCH ×2 (08:54→20:20)
[2020-04-28] MEDS: METOPROLOL TART 25 MG TABLET PO SCH ×2 (08:54→20:21)
[2020-04-28] MEDS ORDERED: ACETAMINOPHEN 650 MG SUPP PR ONE (18:30)
[2020-04-28] MEDS: AMITRIPTYLINE 10 MG TAB PO SCH (20:21)
[2020-04-28] MEDS: ATORVASTATIN 20 MG TAB PO SCH (20:21)
[2020-04-28] MEDS: PERPHENAZINE 2 MG TAB PO SCH (20:21)
[2020-04-29] MEDS: METAMUCIL (PSYLLIUM) PACKET PO SCH ×2 (09:00→09:14)
[2020-04-29] MEDS: APIXABAN 5 MG TAB (ELIQUIS) PO SCH ×3 (09:00→21:20)
[2020-04-29] MEDS: OMEPRAZOLE 20 MG CAP PO SCH ×2 (09:00→09:05)
[2020-04-29] MEDS: LACTOBACILLUS ACIDOPHILUS CAP (BACID) PO SCH ×2 (09:00→09:06)
[2020-04-29] MEDS: ASPIRIN 81 MG ENTERIC TAB PO SCH (09:00)
[2020-04-29] MEDS: METOPROLOL TART 25 MG TABLET PO SCH ×3 (09:00→21:19)
[2020-04-29] MEDS: lisinopriL 10 MG TAB PO SCH ×2 (09:00→09:06)
[2020-04-29] MEDS: MULTIVITAMINS/MINERALS THERAP 1 TAB PO SCH (09:00)
[2020-04-29] MEDS: LORazepam 1 MG TAB PO PRN (09:06)
[2020-04-29] MEDS: ACETAMINOPHEN TAB 650MG DOSE (2X325MG) PO PRN (09:06)
[2020-04-29 10:25] VITALS: BP 160/81
[2020-04-29 10:25] LABS: ABG BASE EXCESS 3.3 (-2.0-2.0); ABG HCO3 26.8 MEQ/L (22.0-26.0); ABG O2 SATURATION 89.7 % (95.0-99.0); ABG STANDARD HCO3 27.2 MEQ/L (22.0-26.0); ABG TOTAL CO2 27.9 MEQ/L (23.0-31.0); ABG pH (ARTERIAL) 7.478 UNITS (7.350-7.450)
--- NOTE | 2020-04-29 10:43 | REP ---
INDICATION: covid. COMPARISON: 04/26/2020. TECHNIQUE: SINGLE PORTABLE AP VIEW OF THE CHEST WAS PERFORMED. FINDINGS: There is mild increase in scattered alveolar infiltrates, predominantly located in the right lower lung zone and left perihilar and lower lung regions. Cardiomegaly is unchanged. Mediastinal silhouette is unchanged. Multiple sternal wires are present. There is a single lead pacemaker again noted. IMPRESSION: Mildly increased parenchymal infiltrates bilaterally. <Electronically signed by Abdoulaye Boone > 04/29/20 [id number]
[2020-04-29 11:07] LABS: BASO % 0.3 % (0.0-1.0); HEMATOCRIT 39.9 % (42.0-52.0); HEMOGLOBIN 12.2 g/dl (13.5-17.5); LYMPH # 0.7 10^3/uL (1.5-5.0); LYMPH % 10.9 % (24.0-44.0); MEAN CORPUSCULAR HEMOGLOBIN 29.1 pg (27.0-33.0); MEAN CORPUSCULAR HGB CONC 30.6 g/dl (32.0-36.5); MEAN CORPUSCULAR VOLUME 95.2 fl (80.0-96.0); MONO # 0.3 10^3/uL (0.0-0.8); MONO % 5.1 % (0.0-5.0); NEUTROPHILS # 5.4 10^3/uL (1.5-8.5); NEUTROPHILS % 82.8 % (36.0-66.0); PLATELET COUNT, AUTOMATED 246 10^3/uL (150-450); RED BLOOD COUNT 4.19 10^6/uL (4.30-6.10); WHITE BLOOD COUNT 6.5 10^3/uL (4.0-10.0)
[2020-04-29 11:41] LABS: ALBUMIN 2.8 GM/DL (3.2-5.2); ALT/SGPT 32 U/L (12-78); BILIRUBIN,TOTAL 0.8 MG/DL (0.2-1.0); BLOOD UREA NITROGEN 31 MG/DL (7-18); CALCIUM LEVEL 8.7 MG/DL (8.8-10.2); CARBON DIOXIDE LEVEL 30 MEQ/L (21-32); CHLORIDE LEVEL 114 MEQ/L (98-107); CREATININE FOR GFR 0.93 MG/DL (0.70-1.30); FERRITIN 719 NG/ML (26-388); GLOMERULAR FILTRATION RATE > 60.0 (>35); GLUCOSE, FASTING 129 MG/DL (70-100); MAGNESIUM LEVEL 2.4 MG/DL (1.8-2.4); POTASSIUM SERUM 3.6 MEQ/L (3.5-5.1); SODIUM LEVEL 149 MEQ/L (136-145)
[2020-04-29] MEDS: PIPERACILLIN/TAZOBACTAM SOD 3.375 GM in D5W MINI-BAG PLUS 50 ML IV SCH ×3 (11:41→23:22)
[2020-04-29] MEDS ORDERED: D5W/0.45% SODIUM CHLORIDE 1,000 ML IV SCH (12:00)
[2020-04-29] MEDS: ACETAMINOPHEN 650 MG SUPP PR PRN ×2 (12:19→23:22)
--- NOTE | 2020-04-29 13:30 | IPNPDOC ---
Text Note Date of Service The patient was seen on 04/29/20. 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 Patient was admitted to hospitalist service for further evaluation and treatment. Patient's family is all positive with COVID; at home patient has 01/01 care provided by a third green party provider, however, they are unable to provide this service because their staff has been quarantined. I was called to evaluate patient today because of worsening hypoxia and lethargy. Initially patient was noted to be lethargic and nonresponsive to deep sternal rub, however upon arrival, patient was moving all 4 extremities, and responsive to stimuli. Objective: Vitals (See below) General: Lying in bed, does not appear to be in distress, Awake / Alert, moving all 4 extremities HEENT: NC, AT CVS: +S1S2 Lungs: Diminished lung sounds at bases, no appreciable wheezing, rhonchi or rales Abdomen: Abdomen remains soft without any distention or tenderness Extremities: Lower extremities are without any edema, - Calf tenderness Assessment and plan: Acute hypoxic respiratory failure - possibly 2/2 aspiration pneumonia, possibly 2/2 COVID pneumonia - Overnight patient has required higher amounts of oxygen - Currently patient is saturating 90% on 6 L nasal cannula - No leukocytosis/lactic acidosis - Elevated inflammatory markers - CXR 04/29: Mildly increased parenchymal infiltrates bilaterally. - Will check Blood cultures / Procalcitonin / Sputum cultures - Will start broad spectrum antibiotics (Zosyn) - Will start corticosteroid therapy - Discussed with pulmonology and updated family about changes in status - Yareli Morris HEIKE - Will continue with continuous pulse oximetry - Will DC CPAP while inpatient - Patient uses CPAP at home with 2 L of oxygen bleed into machine CVA with aphasia and dysphasia - c/w modified diet with nectar thick liquids - c/w Aspirin, Atorvastatin, and Eliquis Hypernatremia - possibly 2/2 dehydration - Will start IV fluid hydration - Will repeat lab work in 6 hours Elevated Cr / Pre-renal azotemia - Cr baseline of 0.7 / Elevated BUN - Will start IV fluid hydration Paroxysmal atrial fibrillation - c/w rate control with metoprolol - c/w full anticoagulation with Eliquis HTN - BP well controlled - c/w Lisinopril / Metoprolol Hx of C.diff Chronic indwelling Rivera - Urology was consulted - Plan for replacement on discharge - Urine cultures likely 2/2 colonization - remains asymptomatic DVT prophylaxis - c/w full anticoagulation with Eliquis Disposition: - Updated family - Will start broad spectrum antibiotics / corticosteroids Critical care time spent: 65 minutes VS,Armanie, I+O VS, Fishbone, I+O Laboratory Tests 04/29/20 10:49 Vital Signs Date Time Temp Pulse Resp B/P (MAP) Pulse Ox O2 Delivery O2 Flow Rate FiO2 04/29/20 10:25 101.3 72 22 160/81 (107) 90 Nasal Cannula 6.0 I&O- Last 24 Hours up to 6 AM 04/29/20 06:00 Intake Total 540 ml Output Total 500 ml Balance 40 ml YOSELIN GOLD MD Apr 29, 2020 13:30
[2020-04-29] MEDS: dexameTHASONE 20MG/5ML VIAL (J1100 PER 1MG) IV SCH (14:08)
[2020-04-29 16:00] VITALS: BP 116/78
[2020-04-29 19:02] LABS: BLOOD UREA NITROGEN 31 MG/DL (7-18); CALCIUM LEVEL 8.7 MG/DL (8.8-10.2); CARBON DIOXIDE LEVEL 29 MEQ/L (21-32); CHLORIDE LEVEL 114 MEQ/L (98-107); CREATININE FOR GFR 0.96 MG/DL (0.70-1.30); GLOMERULAR FILTRATION RATE > 60.0 (>35); GLUCOSE, FASTING 186 MG/DL (70-100); MAGNESIUM LEVEL 2.5 MG/DL (1.8-2.4); POTASSIUM SERUM 3.3 MEQ/L (3.5-5.1); SODIUM LEVEL 148 MEQ/L (136-145)
[2020-04-29] MEDS: KCL 40MEQ IN D5/0.45NS 1000ML 1,000 ML IV SCH (21:18)
[2020-04-29] MEDS: AMITRIPTYLINE 10 MG TAB PO SCH (21:18)
[2020-04-29] MEDS: PERPHENAZINE 2 MG TAB PO SCH (21:18)
[2020-04-29] MEDS: ATORVASTATIN 20 MG TAB PO SCH (21:18)
[2020-04-29 21:24] VITALS: BP 143/93
[2020-04-30] VITALS (18 sets, daily range): BP systolic 135–153; BP diastolic 70–96; O2SAT 84–96
[2020-04-30] MEDS: PIPERACILLIN/TAZOBACTAM SOD 3.375 GM in D5W MINI-BAG PLUS 50 ML IV SCH ×3 (04:24→18:02)
[2020-04-30] MEDS: dexameTHASONE 20MG/5ML VIAL (J1100 PER 1MG) IV SCH (08:04)
[2020-04-30] MEDS: LACTOBACILLUS ACIDOPHILUS CAP (BACID) PO SCH (08:04)
[2020-04-30] MEDS: ASPIRIN 81 MG ENTERIC TAB PO SCH (08:04)
[2020-04-30] MEDS: METOPROLOL TART 25 MG TABLET PO SCH ×2 (08:05→20:32)
[2020-04-30] MEDS: lisinopriL 10 MG TAB PO SCH (08:06)
[2020-04-30] MEDS: MULTIVITAMINS/MINERALS THERAP 1 TAB PO SCH (08:06)
[2020-04-30] MEDS: OMEPRAZOLE 20 MG CAP PO SCH (08:06)
[2020-04-30] MEDS: APIXABAN 5 MG TAB (ELIQUIS) PO SCH ×2 (08:06→20:32)
[2020-04-30] MEDS: METAMUCIL (PSYLLIUM) PACKET PO SCH (09:00)
[2020-04-30 10:49] LABS: HEMATOCRIT 39.7 % (42.0-52.0); HEMOGLOBIN 12.3 g/dl (13.5-17.5); LYMPH # 0.7 10^3/uL (1.5-5.0); LYMPH % 7.8 % (24.0-44.0); MEAN CORPUSCULAR HEMOGLOBIN 29.9 pg (27.0-33.0); MEAN CORPUSCULAR VOLUME 96.6 fl (80.0-96.0); MONO # 0.4 10^3/uL (0.0-0.8); MONO % 4.6 % (0.0-5.0); NEUTROPHILS # 7.6 10^3/uL (1.5-8.5); NEUTROPHILS % 86.8 % (36.0-66.0); PLATELET COUNT, AUTOMATED 263 10^3/uL (150-450); RED BLOOD COUNT 4.11 10^6/uL (4.30-6.10); WHITE BLOOD COUNT 8.8 10^3/uL (4.0-10.0)
[2020-04-30] MEDS: KCL 40MEQ IN D5/0.45NS 1000ML 1,000 ML IV SCH (11:01)
[2020-04-30 11:25] LABS: ALBUMIN 2.6 GM/DL (3.2-5.2); ALT/SGPT 30 U/L (12-78); BILIRUBIN,TOTAL 0.8 MG/DL (0.2-1.0); BLOOD UREA NITROGEN 35 MG/DL (7-18); CALCIUM LEVEL 8.5 MG/DL (8.8-10.2); CARBON DIOXIDE LEVEL 29 MEQ/L (21-32); CHLORIDE LEVEL 115 MEQ/L (98-107); CREATININE FOR GFR 0.93 MG/DL (0.70-1.30); FERRITIN 900 NG/ML (26-388); GLOMERULAR FILTRATION RATE > 60.0 (>35); GLUCOSE, FASTING 183 MG/DL (70-100); MAGNESIUM LEVEL 2.5 MG/DL (1.8-2.4); POTASSIUM SERUM 4.2 MEQ/L (3.5-5.1); SODIUM LEVEL 148 MEQ/L (136-145); TOTAL PROTEIN 6.8 GM/DL (6.4-8.2)
--- NOTE | 2020-04-30 14:25 | IPNPDOC ---
Text Note Date of Service The patient was seen on 04/30/20. 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 Patient was admitted to hospitalist service for further evaluation and treatment. Patient's family is all positive with COVID; at home patient has 01/01 care provided by a third democrat provider, however, they are unable to provide this service because their staff has been quarantined. Patient was seen and examined at the bedside. Currently does not appear to be in any distress. Appears to be awake and non-comprehensible. Objective: Vitals (See below) General: Lying in bed, no acute distress, Awake / Alert HEENT: NC, AT CVS: +S1S2 Lungs: Fair bilaterally, no appreciable wheezing, rhonchi or rales on auscultation Abdomen: Soft, ND, NT Extremities: Lower extremities are free of any pitting edema, - Calf tenderness Assessment and plan: Acute hypoxic respiratory failure - possibly 2/2 aspiration pneumonia, possibly 2/2 COVID pneumonia - Overnight patient has required higher amounts of oxygen - Patient has had a slight improvement in his oxygenation requirement - No leukocytosis/lactic acidosis - Elevated inflammatory markers - improving - CXR 04/29: Mildly increased parenchymal infiltrates bilaterally. - Sputum cultures pending - Procalcitonin 0.12 - c/w broad spectrum antibiotics (Zosyn) - Day#2 - c/w Dexamethasone - Day #2 HEIKE - Will continue with continuous pulse oximetry - s/p CPAP while inpatient - Patient uses CPAP at home with 2 L of oxygen bleed into machine CVA with aphasia and dysphasia - c/w modified diet with nectar thick liquids - c/w Aspirin, Atorvastatin, and Eliquis Hypernatremia - possibly 2/2 dehydration - Improving - c/w IV fluid hydration - Will repeat lab work in 6 hours s/p Hypokalemia Elevated Cr / Pre-renal azotemia - Cr baseline of 0.7 / Elevated BUN - c/w IV fluid hydration Paroxysmal atrial fibrillation - c/w rate control with metoprolol - c/w full anticoagulation with Eliquis HTN - BP well controlled - c/w Lisinopril / Metoprolol Hx of C.diff Chronic indwelling Rivera - Urology was consulted - Plan for replacement on discharge - Urine cultures likely 2/2 colonization - remains asymptomatic DVT prophylaxis - c/w full anticoagulation with Eliquis Disposition: - c/w Broad spectrum antibiotics VS,Fishbone, I+O VS, Fishbone, I+O Laboratory Tests 04/29/20 18:23 04/30/20 10:29 Vital Signs Date Time Temp Pulse Resp B/P (MAP) Pulse Ox O2 Delivery O2 Flow Rate FiO2 04/30/20 13:00 92 Nasal Cannula 5.0 04/30/20 12:30 99.6 85 22 146/74 (98) I&O- Last 24 Hours up to 6 AM 04/30/20 06:00 Intake Total 900 ml Output Total 800 ml Balance 100 ml YOSELIN GOLD MD Apr 30, 2020 14:25
[2020-04-30] MEDS: D5W/0.45% SODIUM CHLORIDE 1,000 ML IV SCH (15:36)
[2020-04-30] MEDS: AMITRIPTYLINE 10 MG TAB PO SCH (20:31)
[2020-04-30] MEDS: PERPHENAZINE 2 MG TAB PO SCH (20:31)
[2020-04-30] MEDS: ATORVASTATIN 20 MG TAB PO SCH (20:32)
[2020-05-01] VITALS (11 sets, daily range): BP systolic 129–158; BP diastolic 75–95; O2SAT 86–92
[2020-05-01] MEDS: D5W/0.45% SODIUM CHLORIDE 1,000 ML IV SCH (00:08)
[2020-05-01] MEDS: PIPERACILLIN/TAZOBACTAM SOD 3.375 GM in D5W MINI-BAG PLUS 50 ML IV SCH ×4 (00:08→17:26)
[2020-05-01 07:55] LABS: BASO % 0.1 % (0.0-1.0); HEMOGLOBIN 11.9 g/dl (13.5-17.5); LYMPH # 0.6 10^3/uL (1.5-5.0); LYMPH % 4.2 % (24.0-44.0); MEAN CORPUSCULAR HGB CONC 30.5 g/dl (32.0-36.5); MEAN CORPUSCULAR VOLUME 95.1 fl (80.0-96.0); MONO # 0.6 10^3/uL (0.0-0.8); MONO % 4.3 % (0.0-5.0); NEUTROPHILS # 12.7 10^3/uL (1.5-8.5); PLATELET COUNT, AUTOMATED 344 10^3/uL (150-450); WHITE BLOOD COUNT 14.1 10^3/uL (4.0-10.0)
[2020-05-01 08:22] LABS: ALBUMIN 2.5 GM/DL (3.2-5.2); ALT/SGPT 40 U/L (12-78); BILIRUBIN,TOTAL 0.7 MG/DL (0.2-1.0); BLOOD UREA NITROGEN 33 MG/DL (7-18); C REACTIVE PROTEIN QUANTITATIV 8.18 MG/DL (0.00-0.30); CALCIUM LEVEL 8.5 MG/DL (8.8-10.2); CARBON DIOXIDE LEVEL 27 MEQ/L (21-32); CHLORIDE LEVEL 115 MEQ/L (98-107); CREATININE FOR GFR 1.02 MG/DL (0.70-1.30); FERRITIN 979 NG/ML (26-388); GLOMERULAR FILTRATION RATE > 60.0 (>35); GLUCOSE, FASTING 158 MG/DL (70-100); MAGNESIUM LEVEL 2.5 MG/DL (1.8-2.4); POTASSIUM SERUM 3.5 MEQ/L (3.5-5.1); SODIUM LEVEL 150 MEQ/L (136-145); TOTAL PROTEIN 7.5 GM/DL (6.4-8.2)
[2020-05-01] MEDS: METAMUCIL (PSYLLIUM) PACKET PO SCH (09:00)
[2020-05-01] MEDS: lisinopriL 10 MG TAB PO SCH ×2 (09:00→09:59)
[2020-05-01] MEDS: LACTOBACILLUS ACIDOPHILUS CAP (BACID) PO SCH ×2 (09:00→09:59)
[2020-05-01] MEDS: APIXABAN 5 MG TAB (ELIQUIS) PO SCH ×3 (09:00→21:53)
[2020-05-01] MEDS: OMEPRAZOLE 20 MG CAP PO SCH ×2 (09:00→10:00)
[2020-05-01] MEDS: CHLORHEXIDINE GLUCONATE 0.12 % 15ML UDC (PERIDEX ORAL RINSE) MT SCH ×3 (09:00→21:53)
[2020-05-01] MEDS: ASPIRIN 81 MG ENTERIC TAB PO SCH ×2 (09:00→09:58)
[2020-05-01] MEDS: METOPROLOL TART 25 MG TABLET PO SCH ×3 (09:00→21:55)
[2020-05-01] MEDS: MULTIVITAMINS/MINERALS THERAP 1 TAB PO SCH ×2 (09:00→09:59)
[2020-05-01] MEDS: dexameTHASONE 20MG/5ML VIAL (J1100 PER 1MG) IV SCH (09:57)
[2020-05-01] MEDS: ACETAMINOPHEN 650 MG SUPP PR PRN (09:59)
--- NOTE | 2020-05-01 10:50 | IPNPDOC ---
Text Note Date of Service The patient was seen on 05/01/20. 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 Patient was admitted to hospitalist service for further evaluation and treatment. Patient's family is all positive with COVID; at home patient has 01/01 care provided by a third republican provider, however, they are unable to provide this service because their staff has been quarantined. Patient was seen and examined at the bedside. Was seen sitting up in bed without any acute distress. Unable to answer any questions because he is aphasic at baseline. Objective: Vitals (See below) General: Lying in bed, appears comfortable, Awake / Alert HEENT: NC, AT CVS: +S1S2 Lungs: Thera appears to be fair air entry bilaterally, without any auscultated rhonchi / rales / wheezing Abdomen: Soft, remains non-distended and non-tender, +Suprapubic catheter Extremities: No evidence of edema , - Calf tenderness Assessment and plan: Acute hypoxic respiratory failure - possibly 2/2 aspiration pneumonia, possibly 2/2 COVID pneumonia - This morning patient has required higher amounts of oxygen at baseline - currently on 8L NC High flow oxygen - No leukocytosis/lactic acidosis - CRP improving / Ferritin trending up - Procalcitonin 0.12 - Sputum cultures pending - CXR 04/29: Mildly increased parenchymal infiltrates bilaterally. - c/w broad spectrum antibiotics (Zosyn) - Day#3 - c/w Dexamethasone - Day#3 - c/w chest PT / Incentive spirometry - Will repeat CXR to evaluate for any mucous plugging HEIKE - Will continue with continuous pulse oximetry - s/p CPAP while inpatient - Patient uses CPAP at home with 2 L of oxygen bleed into machine CVA with aphasia and dysphasia - Will DC NPO status and advance diet to pureed - c/w Aspirin, Atorvastatin, and Eliquis Hypernatremia - possibly 2/2 dehydration - Will adjust IV fluids to D5W s/p Hypokalemia Elevated Cr / Pre-renal azotemia - Cr baseline of 0.7 / Elevated BUN - c/w IV fluid hydration Paroxysmal atrial fibrillation - c/w rate control with metoprolol - c/w full anticoagulation with Eliquis HTN - BP well controlled - c/w Lisinopril / Metoprolol Hx of C.diff Chronic indwelling Rivera - Urology was consulted - Plan for replacement 05/03/2020 with Urology - Urine cultures likely 2/2 colonization - remains asymptomatic DVT prophylaxis - c/w full anticoagulation with Eliquis Disposition: - Updated family with status; discussed with son, - Attempted to reach out to daughter several times no answer - will re-attempt this afternoon; Yareli Morris - [phone] VS,Fishbone, I+O VS, Fishbone, I+O Laboratory Tests 05/01/20 07:23 Vital Signs Date Time Temp Pulse Resp B/P (MAP) Pulse Ox O2 Delivery O2 Flow Rate FiO2 05/01/20 08:47 8.0 05/01/20 08:46 98.0 93 24 154/76 (102) 90 High Flow Cannula I&O- Last 24 Hours up to 6 AM 05/01/20 06:00 Intake Total 2070 ml Output Total 600 ml Balance 1470 ml YOSELIN GOLD MD May 01, 2020 10:50
--- NOTE | 2020-05-01 11:16 | REP ---
INDICATION: Increasing hypoxia COMPARISON: 04/29/2020, 04/25/2020 TECHNIQUE: Portable AP view of the chest FINDINGS: Mediastinum and cardiac silhouette stable. Chronic interstitial changes with superimposed patchy infiltrates (right greater than left) have mildly increased. No obvious effusion. No pneumothorax. IMPRESSION: Diffuse bilateral infiltrates (right greater than left) slightly increased from prior examinations. <Electronically signed by Garrison Castanon > 05/01/20 1116
[2020-05-01] MEDS: POTASSIUM CHLORIDE INJ 40 MEQ in D5W 1,000 ML IV SCH ×2 (11:49→21:56)
[2020-05-01 17:54] LABS: BLOOD UREA NITROGEN 34 MG/DL (7-18); CALCIUM LEVEL 8.2 MG/DL (8.8-10.2); CARBON DIOXIDE LEVEL 27 MEQ/L (21-32); CHLORIDE LEVEL 116 MEQ/L (98-107); CREATININE FOR GFR 1.04 MG/DL (0.70-1.30); GLOMERULAR FILTRATION RATE > 60.0 (>35); GLUCOSE, FASTING 191 MG/DL (70-100); MAGNESIUM LEVEL 2.5 MG/DL (1.8-2.4); POTASSIUM SERUM 4.4 MEQ/L (3.5-5.1); SODIUM LEVEL 148 MEQ/L (136-145)
[2020-05-01] MEDS: PERPHENAZINE 2 MG TAB PO SCH (21:54)
[2020-05-01] MEDS: AMITRIPTYLINE 10 MG TAB PO SCH (21:54)
[2020-05-01] MEDS: ATORVASTATIN 20 MG TAB PO SCH (21:54)
[2020-05-02] VITALS (7 sets, daily range): BP systolic 134–151; BP diastolic 82–100; O2SAT 88
[2020-05-02] MEDS: PIPERACILLIN/TAZOBACTAM SOD 3.375 GM in D5W MINI-BAG PLUS 50 ML IV SCH ×3 (00:12→13:08)
[2020-05-02] MEDS: POTASSIUM CHLORIDE INJ 40 MEQ in D5W 1,000 ML IV SCH (05:38)
[2020-05-02 08:19] LABS: HEMATOCRIT 35.2 % (42.0-52.0); HEMOGLOBIN 11.1 g/dl (13.5-17.5); LYMPH # 0.7 10^3/uL (1.5-5.0); LYMPH % 6.9 % (24.0-44.0); MEAN CORPUSCULAR HEMOGLOBIN 30.3 pg (27.0-33.0); MEAN CORPUSCULAR HGB CONC 31.5 g/dl (32.0-36.5); MEAN CORPUSCULAR VOLUME 96.2 fl (80.0-96.0); MONO # 0.5 10^3/uL (0.0-0.8); MONO % 5.1 % (0.0-5.0); NEUTROPHILS # 8.9 10^3/uL (1.5-8.5); NEUTROPHILS % 86.4 % (36.0-66.0); PLATELET COUNT, AUTOMATED 311 10^3/uL (150-450); RED BLOOD COUNT 3.66 10^6/uL (4.30-6.10); WHITE BLOOD COUNT 10.3 10^3/uL (4.0-10.0)
[2020-05-02 08:45] LABS: ALBUMIN 2.3 GM/DL (3.2-5.2); ALT/SGPT 77 U/L (12-78); BILIRUBIN,TOTAL 0.8 MG/DL (0.2-1.0); BLOOD UREA NITROGEN 31 MG/DL (7-18); C REACTIVE PROTEIN QUANTITATIV 6.34 MG/DL (0.00-0.30); CALCIUM LEVEL 8.1 MG/DL (8.8-10.2); CARBON DIOXIDE LEVEL 28 MEQ/L (21-32); CHLORIDE LEVEL 113 MEQ/L (98-107); CREATININE FOR GFR 0.95 MG/DL (0.70-1.30); FERRITIN 844 NG/ML (26-388); GLOMERULAR FILTRATION RATE > 60.0 (>35); GLUCOSE, FASTING 186 MG/DL (70-100); MAGNESIUM LEVEL 2.5 MG/DL (1.8-2.4); POTASSIUM SERUM 4.2 MEQ/L (3.5-5.1); SODIUM LEVEL 144 MEQ/L (136-145); TOTAL PROTEIN 6.9 GM/DL (6.4-8.2)
[2020-05-02] MEDS: APIXABAN 5 MG TAB (ELIQUIS) PO SCH (09:00)
[2020-05-02] MEDS: OMEPRAZOLE 20 MG CAP PO SCH (09:00)
[2020-05-02] MEDS: ASPIRIN 81 MG ENTERIC TAB PO SCH (09:00)
[2020-05-02] MEDS: MULTIVITAMINS/MINERALS THERAP 1 TAB PO SCH (09:00)
[2020-05-02] MEDS: lisinopriL 10 MG TAB PO SCH (09:00)
[2020-05-02] MEDS: METAMUCIL (PSYLLIUM) PACKET PO SCH (09:00)
[2020-05-02] MEDS: LACTOBACILLUS ACIDOPHILUS CAP (BACID) PO SCH (09:00)
[2020-05-02] MEDS: METOPROLOL TART 25 MG TABLET PO SCH (09:00)
[2020-05-02] MEDS: dexameTHASONE 20MG/5ML VIAL (J1100 PER 1MG) IV SCH (11:40)
[2020-05-02] MEDS: CHLORHEXIDINE GLUCONATE 0.12 % 15ML UDC (PERIDEX ORAL RINSE) MT SCH ×2 (11:40→21:00)
[2020-05-02 11:55] LABS: VENOUS BASE EXCESS -3.3 (-2.0-2.0); VENOUS HCO3 20.8 MEQ/L (23.0-27.0); VENOUS O2 SATURATION 97.7 % (60.0-80.0); VENOUS PARTIAL PRESSURE O2 100.8 mmHg (30.0-50.0); VENOUS PH 7.404 UNITS (7.330-7.430); VENOUS STANDARD HCO3 21.7 MEQ/L; VENOUS TOTAL CO2 21.8 MEQ/L (24.0-28.0)
--- NOTE | 2020-05-02 12:23 | IPNPDOC ---
Text Note Date of Service The patient was seen on 05/02/20. 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 Patient was admitted to hospitalist service for further evaluation and treatment. Patient's family is all positive with COVID; at home patient has / care provided by a third republican provider, however, they are unable to provide this service because their staff has been quarantined. Patient was seen and examined at the bedside. Currently patient has CPAP device on with 15 L of oxygen bled into the machine does not appear to be in any respiratory distress, is awake and alert. Unable to answer any questions because he is a phasic at baseline. Objective: Vitals (See below) General: Arched in bed, still appears comfortable, Awake / Alert, Aphasic HEENT: NC, AT CVS: +S1S2 Lungs: Diminished breath sounds bilaterally. No evidence of rhonchi or crackles Abdomen: Soft, no evidence of distention or tenderness. Suprapubic catheter remains in place Extremities: Lower extremities are without any edema, - Calf tenderness Assessment and plan: Acute hypoxic respiratory failure - possibly 2/2 aspiration pneumonia, possibly 2/2 COVID pneumonia - Patient has continued to require higher amounts of oxygen; has been transitio lluvia to Vapotherm - Leukocytosis noted - likely 2/2 corticosteroids - CRP improving / Ferritin have improved today - Procalcitonin 0.12 - Sputum cultures pending - CXR 04/29: Mildly increased parenchymal infiltrates bilaterally. - CXR 05/01: Diffuse bilateral infiltrates (right greater than left) slightly increased from prior examinations. - c/w Broad spectrum antibiotics (Zosyn) - Day#4; Will add Vancomycin (Day #1) - c/w Dexamethasone - Day#4 - c/w chest PT / Incentive spirometry HEIKE - c/w continuous pulse oximetry - s/p CPAP while inpatient - Patient uses CPAP at home with 2 L of oxygen bleed into machine while outpatient CVA with aphasia and dysphasia - Will restart NPO status - c/w Aspirin, Atorvastatin, and Eliquis s/p Hypernatremia - possibly 2/2 dehydration - Will DC fluids s/p Hypokalemia Elevated Cr / Pre-renal azotemia - Cr baseline of 0.7 / Elevated BUN - Will DC IV fluids Paroxysmal atrial fibrillation - c/w rate control with metoprolol - c/w full anticoagulation with Eliquis HTN - BP well controlled - c/w Lisinopril / Metoprolol Hx of C.diff Chronic indwelling Rivera - Urology was consulted - Plan for replacement 05/03/2020 with Urology - Urine cultures Pseudomonas / MRSA; likely 2/2 colonization - remains asymptomatic DVT prophylaxis - c/w full anticoagulation with Eliquis Disposition: - Updated Yareli Morris (Daughter) ADDENDUM TO ABOVE - Multiple extensive discussions with Yareli Morris (Daughter / [phone]) and Robbie Dailey II (Son / Health care proxy / [phone]) about increasing oxygen requirements - Attempted to try Vapotherm; was given 100% FiO2 at 40 L/Minute , however, patient was unable to tolerate this rate - Patient was reduced to 5 L/minutes, she was able to tolerate this rate, however was unable to maintain saturations greater than 85% - Advised family of poor prognosis - Family has agreed to proceed with comfort measures; MOLST form update to reflect this change - Medications will be discontinued and comfort measures will be started - Will stop labs / vital signs Critical care time: - 90 minutes VS,Armanie, I+O VS, Fishbone, I+O Laboratory Tests 05/01/20 17:15 05/02/20 08:03 Vital Signs Date Time Temp Pulse Resp B/P (MAP) Pulse Ox O2 Delivery O2 Flow Rate FiO2 05/02/20 08:00 98.4 83 38 151/88 (109) 84 NIPPV (BIPAP/CPAP) 15.0 I&O- Last 24 Hours up to 6 AM 05/02/20 06:00 Intake Total 1760 ml Output Total 625 ml Balance 1135 ml YOSELIN GOLD MD May 02, 2020 12:23
[2020-05-02] MEDS ORDERED: VANCOMYCIN HCL 1,000 MG, VIAL MATE ADAPTER 1 EACH in D5W 250 ML IV ONE (13:00)
[2020-05-02] MEDS ORDERED: SCOPOLAMINE 1MG TRANSDERMAL PATCH TOP PRN (15:30)
[2020-05-02] MEDS ORDERED: LORazepam 2 MG/ML VIAL IV PRN (15:30)
[2020-05-02] MEDS ORDERED: MORPHINE 2 MG/ML 1ML VIAL (J2270) IV PRN (15:30)
[2020-05-02] MEDS ORDERED: VANCOMYCIN HCL 1,000 MG, VIAL MATE ADAPTER 1 EACH in D5W 250 ML IV SCH (18:00)
[2020-05-02] MEDS: MORPHINE 10MG/0.5ML ORAL CONCENTRATE SOLUTION U/D SL PRN (19:02)
[2020-05-03] MEDS: CHLORHEXIDINE GLUCONATE 0.12 % 15ML UDC (PERIDEX ORAL RINSE) MT SCH ×2 (09:00→20:38)
[2020-05-03] MEDS: MORPHINE 10MG/0.5ML ORAL CONCENTRATE SOLUTION U/D SL PRN ×4 (13:28→22:59)
[2020-05-04] MEDS: LORazepam 1 MG TAB PO PRN ×2 (03:48→07:42)
[2020-05-04] MEDS: CHLORHEXIDINE GLUCONATE 0.12 % 15ML UDC (PERIDEX ORAL RINSE) MT SCH (07:42)
[2020-05-04] MEDS ORDERED: LORazepam 2 MG/ML VIAL IM PRN (08:15)
[2020-05-04] MEDS: MORPHINE 2 MG/ML 1ML VIAL (J2270) IV PRN ×2 (10:17→14:29)
[2020-05-04] MEDS ORDERED: HYOS125TA PO (14:43)
[2020-05-04] MEDS ORDERED: ATIV1TAB10 PO (14:43)
[2020-05-04] MEDS ORDERED: MORP20SO3 PO (14:43)
[2020-05-04] MEDS ORDERED: LORazepam 2 MG TAB PO PRN (14:45)
--- NOTE | 2020-05-04 16:12 | DS.PDOC ---
Discharge Summary General Date of Admission Apr 22, 2020 at 19:24 Date of Discharge 05/04/2020 Discharge Summary PROCEDURES PERFORMED DURING STAY: [None]. 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 Patient was admitted to hospitalist service for further evaluation and treatment. Patient's family is all positive with COVID; at home patient has 24/7 care provided by a third constitution party provider, however, they are unable to provide this service because their staff has been quarantined. Multiple extensive discussions with Yareli Morris (Daughter / [phone]) and Robbie Dailey II (Son / Health care proxy / [phone]) about increasing oxygen requirements on 05/02. Patient was unable to tolerate Vapotherm; was given 100% FiO2 at 40 L/Minute - however could only tolerate 5 L/minutes, however was unable to maintain saturations greater than 85%. Advised family of poor prognosis. Family has agreed to proceed with comfort measures; MOLST form update to reflect this change. Patient will be transitioned home under comfort measures under the care of his family and private home care, which provides 24/7 care. DISCHARGE MEDICATIONS: Please see below. ALLERGIES: Please see below. PHYSICAL EXAMINATION ON DISCHARGE: VITAL SIGNS: Please see below. GENERAL: Sitting up in bed, appears comfortable, awake, alert PROGNOSIS: Poor DISCHARGE PLAN / DISPOSITION: Home / Comfort measures / Hospice TIME SPENT ON DISCHARGE: 35 minutes Vital Signs/I&Os Vital Signs Date Time Temp Pulse Resp B/P (MAP) Pulse Ox O2 Delivery O2 Flow Rate FiO2 05/04/20 08:00 2.0 05/03/20 23:30 05/03/20 17:23 Room Air 05/02/20 13:45 82 100 05/02/20 13:07 91 148/92 (110) 05/02/20 12:00 97.0 I&O- Last 24 Hours up to 6 AM 05/04/20 06:00 Intake Total 30 ml Output Total 400 ml Balance -370 ml Discharge Medications Scheduled PRN Hyoscyamine Sulfate (Hyoscyamine Sulfate) 0.125 Mg Tab.subl, 0.125 MG PO Q4HP PRN for TERMINAL SECRETIONS Use sublingually if unable to swallow Lorazepam (Ativan) 0.5 Mg Tablet, 0.5 MG PO Q4HP PRN for ANXIETY/AGITATION Use sublingually if unable to swallow Morphine Sulfate (Morphine Sulfate) 100 Mg/5 Ml Solution, 0.25-1 ML PO Q2H PRN for PAIN OR DYSPNEA Use sublingually if unable to swallow Allergies Coded Allergies: No Known Allergies (Unverified , 03/04/20) YOSELIN GOLD MD May 04, 2020 16:12
== END 2020-05-04 17:19 | disposition home health service (06) | DRG 177 ==
LOC: EDBD 15:15 → EDSEX 15:15 → M ED 15:15 → M ED INP 19:24 → EEVIPCON 19:24 → ENRESERV 21:28 → M 4MAIN 22:26
PROVIDERS: ADMIT Internal Medicine; ATTEND Internal Medicine
DX: J69.0 Pneumonitis due to inhalation of food and vomit (principal); J96.01 Acute respiratory failure with hypoxia; I50.32 Chronic diastolic (congestive) heart failure; F03.91 Unspecified dementia, unspecified severity, with behavioral disturbance; I69.351 Hemiplegia and hemiparesis following cerebral infarction affecting right dominant side; E87.0 Hyperosmolality and hypernatremia; I11.0 Hypertensive heart disease with heart failure; I48.0 Paroxysmal atrial fibrillation; I69.320 Aphasia following cerebral infarction; E87.6 Hypokalemia; N40.0 Benign prostatic hyperplasia without lower urinary tract symptoms; Z79.899 Other long term (current) drug therapy; Z79.82 Long term (current) use of aspirin; K59.00 Constipation, unspecified; E78.5 Hyperlipidemia, unspecified; I36.0 Nonrheumatic tricuspid (valve) stenosis; Z85.46 Personal history of malignant neoplasm of prostate; G47.33 Obstructive sleep apnea (adult) (pediatric); I71.4 Abdominal aortic aneurysm, without rupture; Z95.0 Presence of cardiac pacemaker; Z87.891 Personal history of nicotine dependence